=== PATIENT | male | born 1955 | race Caucasian/White ===

== ENCOUNTER 2017-09-14 23:33 | Observation (INO) | payer MEDICARE, SELFPAY ==
[2017-09-14 23:36] VITALS: BP 134/69; PULSE 81; RESP 16; TEMP 36.4; O2SAT 99; BMI 30.1
--- NOTE | 2017-09-14 23:41 | EKG12_ITS ---
Test Reason : D DIMER ELEVVATED Blood Pressure : / mmHG Vent. Rate : 080 BPM Atrial Rate : 080 BPM P-R Int : 284 ms QRS Dur : 162 ms QT Int : 440 ms P-R-T Axes : 058 -20 -06 degrees QTc Int : 507 ms Sinus rhythm with 1st degree A-V block Right bundle branch block Abnormal ECG Confirmed by MARGI MERCHANT, ALEXIA ([id number]), video news editor ANNIE MANCIA ([id number] on 09/17/2017 11:24:34 AM Referred By: CHARLY Confirmed By:ALEXIA KISER MD
--- NOTE | 2017-09-14 23:41 | NURSING ---
RN CALLED FOR EKG, PULLED OLD EKG'S FOR
[2017-09-14 23:42] VITALS: PULSE 81; RESP 19; O2SAT 97
[2017-09-14 23:46] VITALS: BP 120/57; PULSE 81; RESP 16; O2SAT 98; O2SAT 99
--- NOTE | 2017-09-14 23:49 | ED.VISSUMM ---
- ER Visit Summary Date of Service: 09/14/17 Chief Complaint: Possible stroke, elevated d-dimer History of Present Illness: The patient is a 62 M who comes in today with the above symptoms. He states he has been shaking all weekend. He himself and [facility] were concerned he may be having a stroke. They called the on-call doctor who ordered a CAT scan to be completed tomorrow. The ordered laboratory studies including a d-dimer which came back greatly elevated. They sent him here to get evaluated. He has a history of a stroke with residual left leg weakness. He was admitted back in July for sepsis of unknown origin. He ended up having a cholecystostomy tube placed. He was readmitted 2 weeks ago for bacteremia. It was found that it was Pseudomonas. He was initially placed on vancomycin and Flagyl because of C. difficile. He is currently still on the cefepime as an outpatient. He also still has the cholecystostomy tube in the right upper quadrant. He denies a fever. His main complaint is been the shaking of the upper extremities. He is blind as well. Physical Examination: Vital signs are reviewed. Patient afebrile. HEENT exam reveals no acute abnormalities. No facial droop noted. His heart is regular rate and rhythm. Lungs are clear bilaterally. Abdomen is soft and nontender. There is a cholecystostomy tube in the right upper quadrant. It appears as if it is backed out of its normal position. He does have distention on the right-hand side. Extremities reveal no edema. He is alert and oriented ?3 and answers all questions. His NIH stroke scale is 3. He has slight weakness of the left leg, ataxia of the lower and upper extremities as well as slight dysarthria. Test Results: EKG was normal sinus rhythm with a rate of 80. No ST changes. CAT scan of the head reveals old ischemic changes. Hemoglobin is 10. Sodium 135. Creatinine is 5.07, however he is on dialysis. Troponin normal. D-dimer is 0.75 Emergency Department Course and Treatment: The patient could not get a CAT scan tonight because radiology would not do it unless he had dialysis within 24 hours. I held on this and spoke with the admitting provider about this. I feel he needs to be admitted for further workup of these tremors and the elevated d-dimer. Patient was discussed with the admitting doctor for admission Treatment Plan: [] Disposition: Admit Impression: Tremors, elevated d-dimer This note was generated with Hands-[employer] Mobile dictation software. It may contain incorrect words, spelling, and punctuation that were not noted in review of the chart prior to signing ED Disposition - Plan for ED Patient: Chief Complaint: General Illness Referrals: [facility] Doctor,Out of [Primary Care Provider] -
--- NOTE | 2017-09-14 23:53 | ED.DCSUM_ITS ---
- ER Visit Summary Date of Service: 09/14/17 Chief Complaint: Possible stroke, elevated d-dimer History of Present Illness: The patient is a 62 M who comes in today with the above symptoms. He states he has been shaking all weekend. He himself and the staff at his [facility] were concerned he may be having a stroke. They called the on-call doctor who ordered a CAT scan to be completed tomorrow. The ordered laboratory studies including a d-dimer which came back greatly elevated. They sent him here to get evaluated. He has a history of a stroke with residual left leg weakness. He was admitted back in July for sepsis of unknown origin. He ended up having a cholecystostomy tube placed. He was readmitted 2 weeks ago for bacteremia. It was found that it was Pseudomonas. He was initially placed on vancomycin and Flagyl because of C. difficile. He is currently still on the cefepime as an outpatient. He also still has the cholecystostomy tube in the right upper quadrant. He denies a fever. His main complaint is been the shaking of the upper extremities. He is blind as well. Physical Examination: Vital signs are reviewed. Patient afebrile. HEENT exam reveals no acute abnormalities. No facial droop noted. His heart is regular rate and rhythm. Lungs are clear bilaterally. Abdomen is soft and nontender. There is a cholecystostomy tube in the right upper quadrant. It appears as if it is backed out of its normal position. He does have distention on the right- hand side. Extremities reveal no edema. He is alert and oriented ?3 and answers all questions. His NIH stroke scale is 3. He has slight weakness of the left leg, ataxia of the lower and upper extremities as well as slight dysarthria. Test Results: EKG was normal sinus rhythm with a rate of 80. No ST changes. CAT scan of the head reveals old ischemic changes. Hemoglobin is 10. Sodium 135. Creatinine is 5.07, however he is on dialysis. Troponin normal. D-dimer is 0.75 Emergency Department Course and Treatment: The patient could not get a CAT scan tonight because radiology would not do it unless he had dialysis within 24 hours. I held on this and spoke with the admitting provider about this. I feel he needs to be admitted for further workup of these tremors and the elevated d-dimer. Patient was discussed with the admitting doctor for admission Treatment Plan: [] Disposition: Admit Impression: Tremors, elevated d-dimer This note was generated with Clarity dictation software. It may contain incorrect words, spelling, and punctuation that were not noted in review of the chart prior to signing ED Disposition - Plan for ED Patient: Chief Complaint: General Illness Referrals: [facility] Doctor,Out of [Primary Care Provider] -
--- NOTE | 2017-09-14 23:57 | ED.RN ---
PATIENT PRESENTS WITH BILIARY DRAIN. DRESSING WAS LOSE AND FALLING OFF. DRAIN IS LOSE AND NOT SECURED TO ANYTHING AT THIS TIME. SITE CLEANED AND NEW DRESSING APPLIED TO THE AREA
[2017-09-15] VITALS (15 sets, daily range): BP systolic 103–135; BP diastolic 53–78; PULSE 62–86; RESP 12–20; TEMP 36.4–36.9; O2SAT 93–100; BMI 28.6
[2017-09-15 00:16] LABS: Absolute Lymphocyte Count 1.25 X10^3/ul (0.83-4.51); Absolute Neutrophil Count 7.1 X10^3/uL (2.0-7.7); Basophil# 0.01 X10^3/uL; Basophil% 0.1 % (0-1); Eosinophil# 0.28 X10^3/uL; Eosinophils% 2.9 % (0-5); Hematocrit 32.8 % (40-54); Lymphocyte # 1.25 X10^3/ul (4.0); Lymphocyte % 12.8 % (19-41); Mean Corp Hgb Conc 30.5 g/gl (32-36); Mean Corpuscular Hgb 25.1 pg (27.0-32.0); Mean Corpuscular Volume 82.2 fL (80-94); Mean Platelet Vol. 9.6 fl (6.2-12.0); Monocyte# 1.01 X10^3/uL; Monocyte% 10.3 % (0-10); Neutrophil # 7.09 X10^3/uL (2.7-7.7); Neutrophil % 72.3 % (47-70); Platelet Count 339 K/mm3 (150-450); RBC Distribution Width CV 15.5 % (11.6-14.6); RBC Distribution Width SD 45.8 fl (35.1-43.9); Red Blood Count 3.99 M/mm3 (4.6-6.2); White Blood Count 9.8 K/mm3 (4.4-11.0)
[2017-09-15 00:18] LABS: Differential Indicated SCAN CRITERIA MET; International Normalized Ratio 1.1; POSITIVE COUNT NO; POSITIVE DIFFERENTIAL NO; POSITIVE MORPHOLOGY YES; Prothrombin Time (Protime)PT. 13.7 SECONDS (11.7-14.9)
[2017-09-15 00:19] LABS: Partial Thromboplast Time 36.2 Seconds (24.1-36.2)
[2017-09-15 00:30] LABS: D-Dimer Quantitative (DVT/PE) 0.75 FEU/ug/m (0.27-0.49)
--- NOTE | 2017-09-15 00:30 | ED.RN ---
LAB CALLED WITH CRITICAL LAB RESULTS. D-DIMER 0.75. DR. PARKS MADE AWARE. NO NEW ORDERS AT THIS TIME
[2017-09-15 00:36] LABS: Differential Comment SCANNED
[2017-09-15 00:47] LABS: AST(SGOT) 15 U/L (15-37); Alanine Aminotransfer ALT/SGPT 18 U/L (16-61); Albumin, Serum 2.6 g/dL (3.2-5.0); Alkaline Phosphatase 165 U/L (45-117); Anion Gap 11 (5-15); BUN 18 mg/dL (7-18); BUN/Creat Ratio 3.6 RATIO (10-20); Bilirubin, Direct 0.27 mg/dL (0.00-0.30); Calcium,Total 8.6 mg/dL (8.5-10.1); Chloride 94 mmol/L (98-107); Creatinine, Serum 5.07 mg/dL (0.70-1.30); EST Glomerular Filtration Rate 12 mL/min (>60); Est Glom Filt Rate - Afr Amer 15 mL/min (>60); Estimated Creatinine Clearance 14.43 ml/min; Globulin 5.1 g/dL (2.2-4.2); Glucose 167 mg/dL (70-110); Potassium 3.8 mmol/L (3.5-5.1); Protein, Total 7.7 g/dL (6.4-8.2); Sodium Level 135 mmol/L (136-145)
--- NOTE | 2017-09-15 01:36 | PCM.HP.STD ---
Problem List (1) Benign essential hypertension Status: Chronic (2) CAD (coronary artery disease) Status: Chronic Comment: remote IWMI on stress with mild marlena-infarct ischemia (3) Type II diabetes mellitus Status: Chronic Comment: poorly controlled (4) Diabetic peripheral neuropathy Status: Chronic Comment: hands and feet (5) HLD (hyperlipidemia) Status: Chronic Comment: controlled (6) Iron deficiency anemia Status: Chronic Comment: due to GI blood loss (7) Back pain Status: Chronic (8) Uncontrolled hypertension Status: Chronic (9) Obesity (BMI 30-39.9) Status: Chronic (10) Diabetic retinopathy Status: Chronic (11) Depression Status: Chronic (12) Generalized weakness Status: Chronic (13) Colon polyps Status: Chronic (14) Blindness Status: Chronic (15) Iron deficiency anemia secondary to blood loss (chronic) Status: Chronic (16) Anxiety Status: Chronic (17) Polyneuropathy Status: Chronic (18) Foot drop, left Status: Resolved (19) ESRD (end stage renal disease) Status: Chronic (20) Stroke Status: Acute Qualifiers: CVA mechanism: unspecified Qualified Code(s): I63.9 - Cerebral infarction, unspecified (21) 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 pneumoniae (22) Cerebrovascular disease Status: Chronic History of Present Illness Date of Admission: 09/15/17 Chief Complaint: shaking and discoordination The patient is a 62 year old male patient who has been at a long-term facility for rehabilitation following a stroke. The patient has a complex past medical history with comorbidities of blindness, previous stroke, ESRD on dialysis, diabetes, and gall bladder disease. For the past four days he has developed an uncontrollable shaking. He is unable to balance himself standing without being a significant fall risk. He is now unable to touch his finger to his nose directly. This incoordination is new. He was tested as an outpatient and his D-Dimer was elevated so he was sent in for a CT scan. He denies chest pain or shortness of breath and CTA chest was denies due to renal disease and being unsure if he could get dialysis tomorrow. CT of the head is negative for hemorrhage. He will be admitted for further neurologic workup. He has previously seen Dr Wilcox for dialysis while in our facility. Past Medical History Past Medical History (Chronic Problems): Chronic Problems (Last Updated 08/25/17 @ 13:38 by Cammie White) Benign essential hypertension (Chronic) CAD (coronary artery disease) (Chronic) remote IWMI on stress with mild marlena-infarct ischemia Type II diabetes mellitus (Chronic) poorly controlled Diabetic peripheral neuropathy (Chronic) hands and feet HLD (hyperlipidemia) (Chronic) controlled Iron deficiency anemia (Chronic) due to GI blood loss Back pain (Chronic) Uncontrolled hypertension (Chronic) Obesity (BMI 30-39.9) (Chronic) Diabetic retinopathy (Chronic) Depression (Chronic) Generalized weakness (Chronic) Chronic renal failure, stage 3 (moderate) (Chronic) Colon polyps (Chronic) RBBB (Chronic) Blindness (Chronic) 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 pneumoniae Cerebrovascular disease (Chronic) Allergies silk Adverse Reaction (Verified 08/25/17 13:20) Rash Home Medications: Ambulatory Orders Medication Instructions Recorded Famotidine [Pepcid AC] 10 mg PO BID MDD t-1 222906/22/17 Pregabalin [Lyrica] 50 mg PO BID 06/22/17 Aspirin [Aspirin, Baby] 81 mg PO DAILY@0800 #30 tab.chew 06/23/17 Atorvastatin Calcium [Lipitor] 40 mg PO DAILY #30 06/23/17 Amlodipine [Norvasc] 10 mg PO DAILY tab 06/25/17 Senna [Senokot] 1 tab PO DAILY 08/03/17 Cefepime HCl [Maxipime] 2 gm IV DAILY 25 Days vial 09/07/17 Insulin Aspart [Novolog Flexpen] 5 units SC BREAKFAST flexpen 09/07/17 Insulin Aspart [Novolog Flexpen] 5 units SC LUNCH flexpen 09/07/17 Insulin Aspart [Novolog Flexpen] See Protocol SC ACHS flexpen 09/07/17 Insulin Detemir [Levemir FlexPen] 15 units SC DINNER insuln.pen 09/07/17 Menthol/Lanolin/Calamine/Znox 1 applic TOPICAL BID tube 09/07/17 [Calmoseptine Ointment] Vancomycin HCl 125 mg PO 4X/DAY 35 Days capsule 09/07/17 Insulin Aspart [Novolog Flexpen] 15 units SC DINNER 09/15/17 Surgical History: - - AV fistula right upper arm, umbilical hernia repair Psychiatric History: No pertinent psych hx Smoking Status: Never smoker - *Family History Maternal History Items: Diabetes, Renal Disease - was on dialysis with ESRD Paternal History Items: No pertinent history Review of Systems Constitutional: Reports: Weakness, Fatigue. Denies: Chills, Fever, Weight Change HEENT: Denies: Head Aches, Sinus Congestion, Sinus Drainage Cardiovascular: Denies: Chest Pain, Palpitations Respiratory: Denies: Cough, Shortness of breath at rest, Sputum production Gastrointestinal: Denies: Abdominal Pain, Nausea, Vomiting Genitourinary: Denies: Dysuria Musculoskeletal: Denies: Joint Pain, Joint Tenderness Skin: Denies: Rash, Wounds Neurological: Reports: Slurred speech, Focal weakness, Incoordination, Tremor. Denies: Numbness, Tingling Psychiatric: Denies: Anxiety, Depression, Homicidal Ideations, Suicidal Ideations Hematologic/ Lymphatic: Denies: Easy Bruising, Easy Bleeding VTE Information - Inpt Only VTE Present on Admission: No VTE Mechan Device Prophylaxis: SCD's VTE Pharm Prophylaxis ordered?: No Reason prophylaxis not ordered:: Medical Contraindication - Physical Exam General: Alert, Oriented x3, Cooperative HEENT: Atraumatic, Normocephalic, - - right eye dilated left constricted (he is blind) Neck: Supple Lungs: Clear to auscultation, Normal air movement Cardiovascular: Regular rate, Regular Rhythm, Normal S1, Normal S2, No murmurs Abdomen: Bowel Sounds Present, Soft, Non Tender Extremities: No edema, Capillary Refill Less than 3 Seconds Skin: No rashes, No breakdown Musculoskeletal: No Tenderness to Palpation of Joints or Extremities Neurological: Slurred Speech, - - fine motor skills are impaired in both upper extremities and legs as well Psych/Mental Status: Appropriate, Anxious Vital Signs Temp Pulse Resp BP Pulse Ox 98.5 F 70 20 H 107/63 100 09/15/17 01:18 09/15/17 01:18 09/15/17 01:18 09/15/17 01:18 09/15/17 01:18 Oxygen Delivery Method Room Air Weight: 198 lb 3.129 oz Body Mass Index (BMI) 30.1 Finger Stick Blood Glucose 284 Laboratory Tests Past 24 Hrs 09/14/17 09/14/17 09/14/17 23:58 23:58 23:58 WBC 9.8 RBC 3.99 L Hgb 10.0 L Hct 32.8 L MCV 82.2 MCH 25.1 L MCHC 30.5 L RDW 15.5 H RDW Differential 45.8 H Plt Count 339 MPV 9.6 Immature Gran % (Auto) 1.600 H Neut % (Auto) 72.3 H Lymph % (Auto) 12.8 L [place] % (Auto) 10.3 H Eos % (Auto) 2.9 Baso % (Auto) 0.1 Absolute Neuts (auto) 7.1 Absolute Lymphs (auto) 1.25 Total Counted Not Reportable Differential Comment SCANNED PT 13.7 INR 1.1 APTT 36.2 D-Dimer Quant (PE/DVT) Sodium 135 L Potassium 3.8 Chloride 94 L Carbon Dioxide 30.0 Anion Gap 11 BUN 18 Creatinine 5.07 H Estim Creat Clear Calc 14.43 Est GFR (MDRD) Af Amer 15 L Est GFR (MDRD) Non-Af 12 L BUN/Creatinine Ratio 3.6 L Glucose 167 H Calcium 8.6 Total Bilirubin 0.60 Direct Bilirubin 0.27 AST 15 ALT 18 Alkaline Phosphatase 165 H Troponin I 0.04 Total Protein 7.7 Albumin 2.6 L Globulin 5.1 H 09/14/17 23:58 WBC RBC Hgb Hct MCV MCH MCHC RDW RDW Differential Plt Count MPV Immature Gran % (Auto) Neut % (Auto) Lymph % (Auto) [place] % (Auto) Eos % (Auto) Baso % (Auto) Absolute Neuts (auto) Absolute Lymphs (auto) Total Counted Differential Comment PT INR APTT D-Dimer Quant (PE/DVT) 0.75 H* Sodium Potassium Chloride Carbon Dioxide Anion Gap BUN Creatinine Estim Creat Clear Calc Est GFR (MDRD) Af Amer Est GFR (MDRD) Non-Af BUN/Creatinine Ratio Glucose Calcium Total Bilirubin Direct Bilirubin AST ALT Alkaline Phosphatase Troponin I Total Protein Albumin Globulin Assessment/Plan Chronic Problems (Last Updated 08/25/17 @ 13:38 by Cammie White) Benign essential hypertension (Chronic) CAD (coronary artery disease) (Chronic) remote IWMI on stress with mild marlena-infarct ischemia Type II diabetes mellitus (Chronic) poorly controlled Diabetic peripheral neuropathy (Chronic) hands and feet HLD (hyperlipidemia) (Chronic) controlled Iron deficiency anemia (Chronic) due to GI blood loss Back pain (Chronic) Uncontrolled hypertension (Chronic) Obesity (BMI 30-39.9) (Chronic) Diabetic retinopathy (Chronic) Depression (Chronic) Generalized weakness (Chronic) Chronic renal failure, stage 3 (moderate) (Chronic) Colon polyps (Chronic) RBBB (Chronic) Blindness (Chronic) 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 pneumoniae Cerebrovascular disease (Chronic) Assessment - New ataxia , possible CVA Plan - admit to PCU - consult Dr Wilcox for dialysis - Consult neurology in am - MRI brain in am - neurochecks per routine - continue routine home medications - SCDs for DVT prophylaxis Code Visit Inpatient E&M: 95052 Init Hosp L3
--- NOTE | 2017-09-15 02:47 | MRI_ITS ---
STUDY: MRI BRAIN WITHOUT CONTRAST REASON FOR EXAM: Male, 62 years old. Shaking and incoordination. TECHNIQUE: Standardized multiplanar fat and water weighted pulse sequences were obtained. Several images are limited by patient motion. COMPARISON: MRI of the brain dated June 22, 2017. FINDINGS: There is mild cerebral atrophy with widening of the extra-axial spaces and ventricular dilatation. There are a limited number of small white matter hyperintensities, distributed throughout the deep white matter tracts of the cerebral hemispheres, consistent with mild chronic white matter ischemic changes. There appears to be small area of encephalomalacia involving the posterior right frontal lobe that may be the result of old infarct. This corresponds to the area of acute infarct on the previous MRI. There is some abnormal T2 hyperintensity in this area that probably represents gliosis. There is no evidence for recent intracranial ischemia or other cause of cytotoxic edema on diffusion weighted imaging (DWI). Normal T2* images of the brain without demonstrated susceptibility artifact. There is no demonstrated hemosiderin stain. There are prominent perivascular spaces (PVS) involving the basal ganglia. Normal thalami. There is no extra-axial fluid accumulation. Normal flow voids within the major intracranial circulation suggesting patency by spin echo criteria. Normal sella turcica, pituitary gland, infundibular stalk, optic chiasm and hypothalamus. Normal tectal plate and pineal gland. Normal midbrain, kiki and medulla. There are mild involutional changes of the cerebellum. There are large basal cisterns. Normal bilateral temporal bones. Normal bilateral internal auditory canals. There are bilateral ocular lens implants with otherwise normal intraorbital contents. Normal visualized paranasal sinuses. Normal calvarium and skull base. Normal visualized soft tissue structures. Normal visualized upper cervical spine. MRI/Brain without Contrast IMPRESSION: 1. Involutional changes of the brain, as described above. 2. Technically limited MRI due to patient motion. 3. No MR evidence for acute infarct. Electronically Signed: Mimi Montilla MD at 10:22 EST , Service support ,
[2017-09-15 07:15] LABS: Bedside Glucose 69 mg/dL (70-110)
[2017-09-15 08:12] LABS: Cholesterol 94 mg/dL (200); High Density Lipoprotein 35 mg/dL; Triglycerides 172 mg/dL; Very Low Density Lipoprotein 34 mg/dL (5-40)
--- NOTE | 2017-09-15 11:24 | CT_ITS ---
STUDY: CTA CHEST REASON FOR EXAM: Male, 62 years old. Elevated d-dimer. Patient is on dialysis. RADIATION DOSAGE (If Supplied By Facility): CTDIvol = ( 21.01 ) mGy, DLP = ( 622.72 ) mGycm TECHNIQUE: The examination was performed with the intravenous administration of 100 ml of Isovue 370 contrast material. Post-processing of the angiographic images was performed, with multiplanar reformation and 3D reconstruction. Individualized dose optimization techniques were used for this CT. COMPARISON: None. FINDINGS: Normal enhancement of the main pulmonary artery and right and left pulmonary arteries. Normal enhancement of the bilateral peripheral pulmonary arteries. There is no demonstrated pulmonary embolism. There is prominence of the main pulmonary arteries without peripheral pulmonary vascular congestion. There is atherosclerotic calcification of the aortic arch with tortuosity. Maximum transverse dimension of ascending thoracic aorta measures approximately 3.7 cm. There is no demonstrated aortic dissection. There is cardiomegaly. There are calcifications of the coronary arteries. There are visualized mediastinal lymph nodes, which are within normal size limits, and with normal morphology. Normal hilar regions. Normal visualized trachea and bronchi. The lungs are well expanded. There is mild elevation of right hemidiaphragm. There is mild bilateral basilar dependent atelectasis. There are small bilateral pleural effusions. Normal chest wall structures. The bones are osteopenic. There is multilevel thoracic spondylosis. There appears to be pneumobilia. There is gas visible in the gallbladder and/or gallbladder fossa with what may represent a gallstones. Infection of the visualized gallbladder and/or abscess cannot be excluded. These findings are also visible on previous CT of the abdomen and pelvis dated September 02, 2017. CT/CTA Chest W/WO Contrast IMPRESSION: 1. No CTA demonstrated pulmonary embolism or arterial dissection. 2. Bilateral basilar airspace disease and/or atelectasis with small pleural effusions. 3. Pneumobilia with residual gas in the gallbladder fossa apparently related to recent procedure. 4. Cardiomegaly and mild pulmonary edema. Electronically Signed: Mimi Montilla MD at 12:26 EST , Service support ,
[2017-09-15 12:06] LABS: Bedside Glucose 73 mg/dL (70-110)
--- NOTE | 2017-09-15 12:33 | PCM.CONS.R ---
Consultation - Renal 09/15/17 PCP/ Referring MD: Requesting physician: Primary care physician: Out of Town Doctor Reason for Consultation:: ESRD dialysis mgmt - History of Present Illness History of Present Illness: The patient is a 62 year old male patient who has been at [facility] following a [facility]. 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 For the past four days he has developed an uncontrollable shaking. He remains debilitated, left-sided weakness with difficulty standing and walking. He underwent a CTA last night for elevated d-dimer and that was negative for pulmonary embolus. He denies chest pain or shortness of breath. His oxygenation is stable. MRI without IV contrast was done this morning with pending report. - Allergies Allergies: Allergies silk Adverse Reaction (Verified 08/25/17 13:20) Rash - Current Medications Current Medications: Current Medications Amlodipine Besylate (Norvasc) 10 mg PO DAILY [facility] Last Admin: 09/15/17 07:46 Dose: Not Given Aspirin (Aspirin, Baby) 81 mg PO DAILY@0800 [facility] Last Admin: 09/15/17 07:46 Dose: Not Given Atorvastatin Calcium (Lipitor) 40 mg PO QHS [facility] Famotidine (Pepcid) 10 mg PO BID [facility] Last Admin: 09/15/17 07:46 Dose: Not Given Cefepime HCl 2 gm/ Sodium (Chloride) 100 mls @ 200 mls/hr IV MoWeFr [facility] Stop: 10/02/17 12:01 Insulin Aspart (Novolog Flexpen (Bkc)) 0 units SC ACHS [facility] PRN Reason: Protocol Last Admin: 09/15/17 12:11 Dose: Not Given Insulin Aspart (Novolog Flexpen (Bkc)) 5 units SC BREAKFAST [facility] Last Admin: 09/15/17 07:46 Dose: Not Given Insulin Aspart (Novolog Flexpen (Bkc)) 5 units SC LUNCH [facility] Last Admin: 09/15/17 12:12 Dose: Not Given Insulin Aspart (Novolog Flexpen (Bkc)) 15 units SC DINNER [facility] Insulin Detemir (Levemir (Bkc)) 15 units SC DINNER [facility] Magnesium Hydroxide (Milk Of Magnesia) 30 ml PO DAILY PRN PRN Reason: Constipation Pregabalin (Lyrica) 50 mg PO BID [facility] Last Admin: 09/15/17 07:46 Dose: Not Given Senna (Senokot) 1 tablet PO DAILY [facility] Last Admin: 09/15/17 07:46 Dose: Not Given Vancomycin HCl (Vancomycin 125mg/5ml Susp) 125 mg PO Q6 [facility] Stop: 10/12/17 06:01 Last Admin: 09/15/17 12:25 Dose: Not Given - Past Medical History Past Medical History (Chronic Problems): Chronic Problems (Last Updated 08/25/17 @ 13:38 by Cammie White) Benign essential hypertension (Chronic) CAD (coronary artery disease) (Chronic) remote IWMI on stress with mild marlena-infarct ischemia Type II diabetes mellitus (Chronic) poorly controlled Diabetic peripheral neuropathy (Chronic) hands and feet HLD (hyperlipidemia) (Chronic) controlled Iron deficiency anemia (Chronic) due to GI blood loss Back pain (Chronic) Uncontrolled hypertension (Chronic) Obesity (BMI 30-39.9) (Chronic) Diabetic retinopathy (Chronic) Depression (Chronic) Generalized weakness (Chronic) Chronic renal failure, stage 3 (moderate) (Chronic) Colon polyps (Chronic) RBBB (Chronic) Blindness (Chronic) 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 pneumoniae Cerebrovascular disease (Chronic) - Past Surgical History Surgical History: - - AV fistula right upper arm, umbilical hernia repair, biliary drain - Social History Marital Status: Smoking Status: Never smoker - Family History Maternal History Items: Diabetes, Renal Disease - was on dialysis with ESRD Paternal History Items: No pertinent history Review of Systems Constitutional: Reports: Weakness. Denies: Anorexia, Chills, Fever Eyes: Reports: - HEENT: Denies: Head Aches Cardiovascular: Denies: Chest Pain, Edema, Syncope Respiratory: Denies: Cough, Shortness of Breath Gastrointestinal: Reports: Diarrhea - 3 C. difficile colitis, - - Biliary drain. Denies: Abdominal Pain, Nausea, Vomiting Genitourinary: Reports: - - Oliguria. Denies: Dysuria Musculoskeletal: Denies: Joint stiffness, Joint swelling Skin: Denies: Rash Neurological: Reports: - - Left-sided weakness, generalized weakness debilitation. Denies: Tremor, Seizures Psychiatric: Reports: Anxiety. Denies: Depression Hematologic/ Lymphatic: Reports: Anemia - Physical Exam General: Alert, Oriented x3, Cooperative, No apparent distress HEENT: - - Blind Oral: Dry Mucosa Neck: Supple Lungs: Clear to auscultation Cardiovascular: Regular rate, Murmur Abdomen: Bowel Sounds Present, Soft, Non Tender, Non-Distended, - - Biliary drain Extremities: No edema Skin: No rashes Musculoskeletal: Muscle Wasting, - - muscle weakness generalized Neurological: - - Generalized weakness, left lower extremity weakness, myotonic jerking of bilateral upper extremities Psych/Mental Status: Normal Affect, Alert and oriented to time, place, person, mood and affect Vital Signs Temp Pulse Resp BP Pulse Ox 98.5 F 74 16 123/60 H 94 09/15/17 08:49 09/15/17 08:49 09/15/17 08:49 09/15/17 08:49 09/15/17 08:49 Oxygen Delivery Method Room Air Weight: 85.4 kg Body Mass Index (BMI) 28.6 Intake and Output for Last 24 Hours 09/13/17 09/14/17 09/15/17 23:59 23:59 23:59 Intake Total 0 / 0 Balance 0 / 0 Laboratory Tests Past 24 Hrs 09/15/17 07:35 Triglycerides 172 Cholesterol 94 LDL Cholesterol 25 VLDL Cholesterol 34 HDL Cholesterol 35 L POC Glucose 09/15/17 09/15/17 11:30 06:56 POC Glucose 73 69 L Clinical Impression(s) from Imaging Studies Brain MRI 09/15/17 02:47 IMPRESSION: 1. Involutional changes of the brain, as described above. 2. Technically limited MRI due to patient motion. 3. No MR evidence for acute infarct. Electronically Signed: Mimi Montilla MD at 10:22 EST , Service support , Chest CTA 09/15/17 11:24 IMPRESSION: 1. No CTA demonstrated pulmonary embolism or arterial dissection. 2. Bilateral basilar airspace disease and/or atelectasis with small pleural effusions. 3. Pneumobilia with residual gas in the gallbladder fossa apparently related to recent procedure. 4. Cardiomegaly and mild pulmonary edema. Electronically Signed: Mimi Montilla MD at 12:26 EST , Service support , Brain CT 09/15/17 23:41 IMPRESSION: Chronic involutional changes of the brain. There is a small old ischemic lesion in the right parietal lobe in the territory of the right middle cerebral artery. Electronically Signed: Linda Rabago MD at 0:56 EST Tel , Service support , Assessment/Plan 1. ESRD hemodialysis Thursday, Thursday, Thursday, last dialysis Thursday at the [facility] prior to admission. Next dialysis on Thursday. No immediate need for dialysis today following IV contrast study. Oxygenation stable. 2. Anemia hemoglobin stable 3. Left-sided weakness with upper extremity tremors. Suspect due to debilitation. CT of the head unremarkable. MRI without contrast pending. 4. DM type II primary care management 5. Hypertension with stable blood pressures 6. Choledocholithiasis status post biliary drainage follow-up with surgery. 7. C. difficile diarrhea with gram-negative indu sepsis prior to admission. Currently on oral vancomycin. 8. Positive d-dimer. CTA negative for pulmonary embolus.
--- NOTE | 2017-09-15 12:42 | CON.PCM_ITS ---
Consultation - Renal 09/15/17 PCP/ Referring MD: Requesting physician: Primary care physician: Out of Town Doctor Reason for Consultation:: ESRD dialysis mgmt - History of Present Illness History of Present Illness: The patient is a 62 year old male patient who [facility]. 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 For the past four days he has developed an uncontrollable shaking. He remains debilitated, left-sided weakness with difficulty standing and walking. He underwent a CTA last night for elevated d- dimer and that was negative for pulmonary embolus. He denies chest pain or shortness of breath. His oxygenation is stable. MRI without IV contrast was done this morning with pending report. - Allergies Allergies: Allergies silk Adverse Reaction (Verified 08/25/17 13:20) Rash - Current Medications Current Medications: Current Medications Amlodipine Besylate (Norvasc) 10 mg PO DAILY [facility] Last Admin: 09/15/17 07:46 Dose: Not Given Aspirin (Aspirin, Baby) 81 mg PO DAILY@0800 [facility] Last Admin: 09/15/17 07:46 Dose: Not Given Atorvastatin Calcium (Lipitor) 40 mg PO QHS [facility] Famotidine (Pepcid) 10 mg PO BID [facility] Last Admin: 09/15/17 07:46 Dose: Not Given Cefepime HCl 2 gm/ Sodium (Chloride) 100 mls @ 200 mls/hr IV MoWeFr [facility] Stop: 10/02/17 12:01 Insulin Aspart (Novolog Flexpen (Bkc)) 0 units SC ACHS [facility] PRN Reason: Protocol Last Admin: 09/15/17 12:11 Dose: Not Given Insulin Aspart (Novolog Flexpen (Bkc)) 5 units SC BREAKFAST [facility] Last Admin: 09/15/17 07:46 Dose: Not Given Insulin Aspart (Novolog Flexpen (Bkc)) 5 units SC LUNCH [facility] Last Admin: 09/15/17 12:12 Dose: Not Given Insulin Aspart (Novolog Flexpen (Bkc)) 15 units SC DINNER [facility] Insulin Detemir (Levemir (Bkc)) 15 units SC DINNER [facility] Magnesium Hydroxide (Milk Of Magnesia) 30 ml PO DAILY PRN PRN Reason: Constipation Pregabalin (Lyrica) 50 mg PO BID [facility] Last Admin: 09/15/17 07:46 Dose: Not Given Senna (Senokot) 1 tablet PO DAILY [facility] Last Admin: 09/15/17 07:46 Dose: Not Given Vancomycin HCl (Vancomycin 125mg/5ml Susp) 125 mg PO Q6 [facility] Stop: 10/12/17 06:01 Last Admin: 09/15/17 12:25 Dose: Not Given - Past Medical History Past Medical History (Chronic Problems): Chronic Problems (Last Updated 08/25/17 @ 13:38 by Cammie White) Benign essential hypertension (Chronic) CAD (coronary artery disease) (Chronic) remote IWMI on stress with mild marlena-infarct ischemia Type II diabetes mellitus (Chronic) poorly controlled Diabetic peripheral neuropathy (Chronic) hands and feet HLD (hyperlipidemia) (Chronic) controlled Iron deficiency anemia (Chronic) due to GI blood loss Back pain (Chronic) Uncontrolled hypertension (Chronic) Obesity (BMI 30-39.9) (Chronic) Diabetic retinopathy (Chronic) Depression (Chronic) Generalized weakness (Chronic) Chronic renal failure, stage 3 (moderate) (Chronic) Colon polyps (Chronic) RBBB (Chronic) Blindness (Chronic) 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 pneumoniae Cerebrovascular disease (Chronic) - Past Surgical History Surgical History: - - AV fistula right upper arm, umbilical hernia repair, biliary drain - Social History Marital Status: Smoking Status: Never smoker - Family History Maternal History Items: Diabetes, Renal Disease - was on dialysis with ESRD Paternal History Items: No pertinent history Review of Systems Constitutional: Reports: Weakness. Denies: Anorexia, Chills, Fever Eyes: Reports: - HEENT: Denies: Head Aches Cardiovascular: Denies: Chest Pain, Edema, Syncope Respiratory: Denies: Cough, Shortness of Breath Gastrointestinal: Reports: Diarrhea - 3 C. difficile colitis, - - Biliary drain. Denies: Abdominal Pain, Nausea, Vomiting Genitourinary: Reports: - - Oliguria. Denies: Dysuria Musculoskeletal: Denies: Joint stiffness, Joint swelling Skin: Denies: Rash Neurological: Reports: - - Left-sided weakness, generalized weakness debilitation. Denies: Tremor, Seizures Psychiatric: Reports: Anxiety. Denies: Depression Hematologic/ Lymphatic: Reports: Anemia - Physical Exam General: Alert, Oriented x3, Cooperative, No apparent distress HEENT: - - Blind Oral: Dry Mucosa Neck: Supple Lungs: Clear to auscultation Cardiovascular: Regular rate, Murmur Abdomen: Bowel Sounds Present, Soft, Non Tender, Non-Distended, - - Biliary drain Extremities: No edema Skin: No rashes Musculoskeletal: Muscle Wasting, - - muscle weakness generalized Neurological: - - Generalized weakness, left lower extremity weakness, myotonic jerking of bilateral upper extremities Psych/Mental Status: Normal Affect, Alert and oriented to time, place, person, mood and affect Vital Signs Temp Pulse Resp BP Pulse Ox 98.5 F 74 16 123/60 H 94 09/15/17 08:49 09/15/17 08:49 09/15/17 08:49 09/15/17 08:49 09/15/17 08:49 Oxygen Delivery Method Room Air Weight: 85.4 kg Body Mass Index (BMI) 28.6 Intake and Output for Last 24 Hours 09/13/17 09/14/17 09/15/17 23:59 23:59 23:59 Intake Total 0 / 0 Balance 0 / 0 Laboratory Tests Past 24 Hrs 09/15/17 07:35 Triglycerides 172 Cholesterol 94 LDL Cholesterol 25 VLDL Cholesterol 34 HDL Cholesterol 35 L POC Glucose 09/15/17 09/15/17 11:30 06:56 POC Glucose 73 69 L Clinical Impression(s) from Imaging Studies Brain MRI 09/15/17 02:47 IMPRESSION: 1. Involutional changes of the brain, as described above. 2. Technically limited MRI due to patient motion. 3. No MR evidence for acute infarct. Electronically Signed: Mimi Montilla MD at 10:22 EST , Service support , Chest CTA 09/15/17 11:24 IMPRESSION: 1. No CTA demonstrated pulmonary embolism or arterial dissection. 2. Bilateral basilar airspace disease and/or atelectasis with small pleural effusions. 3. Pneumobilia with residual gas in the gallbladder fossa apparently related to recent procedure. 4. Cardiomegaly and mild pulmonary edema. Electronically Signed: Mimi Montilla MD at 12:26 EST , Service support , Brain CT 09/15/17 23:41 IMPRESSION: Chronic involutional changes of the brain. There is a small old ischemic lesion in the right parietal lobe in the territory of the right middle cerebral artery. Electronically Signed: Linda Rabago MD at 0:56 EST Tel , Service support , Assessment/Plan 1. ESRD hemodialysis Thursday, Thursday, Thursday, last dialysis Thursday at the [facility] prior to admission. Next dialysis on Thursday. No immediate need for dialysis today following IV contrast study. Oxygenation stable. 2. Anemia hemoglobin stable 3. Left-sided weakness with upper extremity tremors. Suspect due to debilitation. CT of the head unremarkable. MRI without contrast pending. 4. DM type II primary care management 5. Hypertension with stable blood pressures 6. Choledocholithiasis status post biliary drainage follow-up with surgery. 7. C. difficile diarrhea with gram-negative indu sepsis prior to admission. Currently on oral vancomycin. 8. Positive d-dimer. CTA negative for pulmonary embolus.
--- NOTE | 2017-09-15 13:18 | CON.PCM_ITS ---
Problem List (1) Generalized weakness Status: Chronic Reason for Consult Date of Consultation: 09/15/17 Reason for Consultation: shaking and jerks History of Present Illness: The patient is a 62 year old [facility] resident with PMH HTN, HLD, DM, H/O stroke with residual left LE weakness, CAD, ESRD on HD, DM retinopathy, blind in both eyes per patient admitted from [facility] since he has been having, for the past 3-4 days, he walks with a walker but could not walk due to the legs shaking per patient, lives at [facility], needs assistance for his ADLs,, ambulates with wheel chair but also uses a walker per patient. MRI brain done following admission was reported to be negative for acute stroke, patient continues to have jerks in UEs, denies any new onset MALIK, visual disturbances, focal motor weakness or sensory loss. [] Past Medical History Past Medical History (Chronic Problems): Chronic Problems (Last Updated 08/25/17 @ 13:38 by Cammie White) Benign essential hypertension (Chronic) CAD (coronary artery disease) (Chronic) remote IWMI on stress with mild marlena-infarct ischemia Type II diabetes mellitus (Chronic) poorly controlled Diabetic peripheral neuropathy (Chronic) hands and feet HLD (hyperlipidemia) (Chronic) controlled Iron deficiency anemia (Chronic) due to GI blood loss Back pain (Chronic) Uncontrolled hypertension (Chronic) Obesity (BMI 30-39.9) (Chronic) Diabetic retinopathy (Chronic) Depression (Chronic) Generalized weakness (Chronic) Chronic renal failure, stage 3 (moderate) (Chronic) Colon polyps (Chronic) RBBB (Chronic) Blindness (Chronic) 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 pneumoniae Cerebrovascular disease (Chronic) Allergies silk Adverse Reaction (Verified 08/25/17 13:20) Rash Home Medications: Ambulatory Orders Medication Instructions Recorded Famotidine [Pepcid AC] 10 mg PO BID 06/22/17 Pregabalin [Lyrica] 50 mg PO BID 11/06/17 Aspirin [Aspirin, Baby] 81 mg PO DAILY@0800 #30 tab.chew 06/23/17 Atorvastatin Calcium [Lipitor] 40 mg PO DAILY #30 06/23/17 Amlodipine [Norvasc] 10 mg PO DAILY tab 06/25/17 Senna [Senokot] 1 tab PO DAILY 08/03/17 Cefepime HCl [Maxipime] 2 gm IV DAILY 25 Days vial 09/07/17 Insulin Aspart [Novolog Flexpen] 5 units SC BREAKFAST flexpen 09/07/17 Insulin Aspart [Novolog Flexpen] 5 units SC LUNCH flexpen 09/07/17 Insulin Aspart [Novolog Flexpen] See Protocol SC ACHS flexpen 09/07/17 Insulin Detemir [Levemir FlexPen] 15 units SC DINNER insuln.pen 09/07/17 Menthol/Lanolin/Calamine/Znox 1 applic TOPICAL BID tube 09/07/17 [Calmoseptine Ointment] Vancomycin HCl 125 mg PO 4X/DAY 35 Days capsule 09/07/17 Insulin Aspart [Novolog Flexpen] 5 units SC DINNER 09/15/17 Surgical History: - - AV fistula right upper arm, umbilical hernia repair, biliary drain Lives: [facility] Smoking Status: Never smoker Alcohol: None Drugs: None - *Family History Maternal History Items: Asthma, Diabetes, Renal Disease - was on dialysis with ESRD Paternal History Items: No pertinent history Review of Systems Constitutional: Reports: - - complete ROS negative except as documented in HPI - Physical Exam General: Alert, Oriented x3, Cooperative HEENT: Atraumatic, PERRLA, EOMI, Normocephalic Neck: Supple, No JVD, Negative Carotid Bruits Lungs: Clear to auscultation, Normal air movement Cardiovascular: Regular rate, No murmurs Abdomen: Bowel Sounds Present, Soft, Non Tender Extremities: No edema, Capillary Refill Less than 3 Seconds Skin: No rashes, No breakdown Musculoskeletal: No Tenderness to Palpation of Joints or Extremities Neurological: - - consious, alert, AoA x3 at present, CN 2-12 grossly intact, power 5/5 both UE and right LE, 4/5 Left LE (residual weakness from old stroke) , ? slurred speech, denies any sensory loss, no cerebellar signs, patient has myoclonic jerks both UE, Reflexes + B/L B/S/T/K/A, plantars B/L flexor, gait deferred. Psych/Mental Status: Normal Affect, Appropriate Vital Signs Temp Pulse Resp BP Pulse Ox 98.5 F 74 16 123/60 H 94 09/15/17 08:49 09/15/17 08:49 09/15/17 08:49 09/15/17 08:49 09/15/17 08:49 Oxygen Delivery Method Room Air Weight: 85.4 kg Body Mass Index (BMI) 28.6 Intake and Output for Last 24 Hours 09/13/17 09/14/17 09/15/17 23:59 23:59 23:59 Intake Total 0 / 0 Balance 0 / 0 Laboratory Tests Past 24 Hrs 09/15/17 07:35 Triglycerides 172 Cholesterol 94 LDL Cholesterol 25 VLDL Cholesterol 34 HDL Cholesterol 35 L POC Glucose 09/15/17 09/15/17 11:30 06:56 POC Glucose 73 69 L Assessment/Plan The patient is a 62 year old [facility] resident with PMH HTN, HLD, DM, H/O stroke with residual left LE weakness, CAD, ESRD on HD, DM retinopathy, blind in both eyes per patient admitted from [facility] since he has been having, for the past 3-4 days, he walks with a walker but could not walk due to the legs shaking per patient, lives at [facility], needs assistance for his ADLs,, ambulates with wheel chair but also uses a walker per patient. MRI brain done following admission was reported to be negative for acute stroke, patient continues to have jerks in UEs, denies any new onset MALIK, visual disturbances, focal motor weakness or sensory loss. Creatinine 5.07 on admission. Impression Metabolic Encephalopathy Myoclonic jerks possibly secondary to uremia Plan -On ASA and statins -MRI brain reviewed- no acute stroke. -Labs reviewed -Further management of medical and metabolic issues per Nephrology and Hospitalist. -GI/DVT prophylaxis -Fall precautions -PT/OT -Please call with questions if any -Thank you for allowing us to participate in patient's care and management I spent 60 minutes taking history, doing physical examination, reviewing medical records, coordinating care and counseling the patient. Code Visit Inpatient E&M: [id number] Init Hosp L3
--- NOTE | 2017-09-15 15:47 | PCM.TXEXTCAR ---
- Diet 09/15/17 15:07 Diet: Renal - Carb-Controlled Is pt able to select menu?: Yes Diet Comments: pt may use straw for liquids, small bites/sips; upright for eating - Routine Orders/Code Status Code Status: Full Code - Therapies Physical Therapy: Eval and Treat Occupational Therapy: Eval and Treat Speech Therapy: Eval and Treat - Allergies/Procedures Done in Hospital Allergies/Adverse Reactions: Allergies silk Adverse Reaction (Verified 08/25/17 13:20) Rash - Type of Care/Length of Stay Estimated LOS: Convalescent Care Less Than 30 days Type of Care Needed: Skilled Rehab Potential: Good Prognosis: Good - Additional Orders/Day of Discharge Day of Discharge: 09/15/17 - Dietary and Speech Recommendations Dietitian Recommendations/Changes: When appropriate for PO diet, rec 2200 calorie controlled, renal 90 g protein diet. Nepro Carb Steady w/ medpass when OK for PO intake. If PO intake to remain contraindicated long-term, rec nutritional support- please consult RD for recommendations. - Follow Up Care Primary Care Physician: Ubaldo Morton,Out of [Primary Care Provider] -
--- NOTE | 2017-09-15 15:51 | PCM.DC.SUM ---
Discharge Date and Diagnosis Date of Admission: 09/15/17 Date of Discharge: 09/15/17 - Primary Discharge Diagnosis Myoclonic jerks secondary to uremia - Secondary Discharge Diagnosis Chronic Problems (Last Updated 08/25/17 @ 13:38 by Cammie White) Benign essential hypertension (Chronic) CAD (coronary artery disease) (Chronic) remote IWMI on stress with mild marlena-infarct ischemia Type II diabetes mellitus (Chronic) poorly controlled Diabetic peripheral neuropathy (Chronic) hands and feet HLD (hyperlipidemia) (Chronic) controlled Iron deficiency anemia (Chronic) due to GI blood loss Back pain (Chronic) Uncontrolled hypertension (Chronic) Obesity (BMI 30-39.9) (Chronic) Diabetic retinopathy (Chronic) Depression (Chronic) Generalized weakness (Chronic) Chronic renal failure, stage 3 (moderate) (Chronic) Colon polyps (Chronic) RBBB (Chronic) Blindness (Chronic) 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 pneumoniae Cerebrovascular disease (Chronic) Hospital Course and Treatment Imaging Results: Clinical Impression(s) from Imaging Studies Brain MRI 09/15/17 02:47 IMPRESSION: 1. Involutional changes of the brain, as described above. 2. Technically limited MRI due to patient motion. 3. No MR evidence for acute infarct. Electronically Signed: Mimi Montilla MD at 10:22 EST , Service support , Chest CTA 09/15/17 11:24 IMPRESSION: 1. No CTA demonstrated pulmonary embolism or arterial dissection. 2. Bilateral basilar airspace disease and/or atelectasis with small pleural effusions. 3. Pneumobilia with residual gas in the gallbladder fossa apparently related to recent procedure. 4. Cardiomegaly and mild pulmonary edema. Electronically Signed: Mimi Montilla MD at 12:26 EST , Service support , Brain CT 09/15/17 23:41 IMPRESSION: Chronic involutional changes of the brain. There is a small old ischemic lesion in the right parietal lobe in the territory of the right middle cerebral artery. Electronically Signed: Linda Rabago MD at 0:56 EST Tel , Service support , Operations: None Summary of Care Provided: The patient is a 62 year old M with multiple comorbidities presenting with progressive generalized weakness less involuntary movement. Patient admitted to a monitored bed for further management 1. Myoclonic jerks this accounted for the involuntary movement patient presented with and this was attributed to patient renal uremia from his end-stage kidney disease. Patient underwent MRI which was negative for acute CVA. Was also found to have an elevated d-dimer CT Susy of the chest was negative for PE patient was discharged back to his assisted facility to continue with therapy 2. Recent hospitalization for severe sepsis secondary to C. difficile colitis 3. Recent influenza A infection 4. Recent Acute cholecystitis s/p Exploratory laparoscopy with placement of cholecystostomy tube on by Dr. Anand 5. End-stage renal disease 6. Diabetes mellitus type 2 with complications including diabetic polyneuropathy as well as end-stage renal disease 7. Diabetic retinopathy with blindness 8. Diabetic polyneuropathy involving both upper and lower extremities 9. Anemia secondary to anemia of end-stage renal disease 10. Chronic diastolic congestive heart failure 11. History of CVA with recent acute posterior right frontal lobe infarction 12. Hypertension-blood pressure controlled, home medications continued with dose adjustment as needed Home Medications: Medications to take at Discharge Famotidine [Pepcid AC] 10 mg PO BID 06/22/17 Pregabalin [Lyrica] 50 mg PO BID 06/22/17 Aspirin [Aspirin, Baby] 81 mg PO DAILY@0800 #30 tab.chew 06/23/17 Atorvastatin Calcium [Lipitor] 40 mg PO DAILY #30 06/23/17 Amlodipine [Norvasc] 10 mg PO DAILY tab 06/25/17 Senna [Senokot] 1 tab PO DAILY 08/03/17 Cefepime HCl [Maxipime] 2 gm IV DAILY 25 Days vial 09/07/17 Insulin Aspart [Novolog Flexpen] 5 units SC BREAKFAST flexpen 09/07/17 Insulin Aspart [Novolog Flexpen] 5 units SC LUNCH flexpen 09/07/17 Insulin Aspart [Novolog Flexpen] See Protocol SC ACHS flexpen 09/07/17 Insulin Detemir [Levemir FlexPen] 15 units SC DINNER insuln.pen 09/07/17 Menthol/Lanolin/Calamine/Znox [Calmoseptine Ointment] 1 applic TOPICAL BID tube 09/07/17 Vancomycin HCl 125 mg PO 4X/DAY 35 Days capsule 09/07/17 Insulin Aspart [Novolog Flexpen] 5 units SC DINNER 09/15/17 Primary Care Physician: Ubaldo Morton,Out of [Primary Care Provider] - Disposition: Longterm facility Minutes spent on discharge:: 35 Patient Condition:: Stable Meaningful Use Info Meaningful Use Diagnoses (Choose all that apply): None applicable Code Visit OBSV E&M: 60998 Observation care discharge
--- NOTE | 2017-09-15 15:54 | CASEMGMT ---
Physician would like to send patient back today. BASSAM spoke with Steffayn at [facility] and she said they will take him back. SW told her SW will sets up transport for 6p. SW [place] [facility] [place] arranged for patient to get picked up at 6p via cot. SW let RN know who will let patient know. Faxed orders to [facility]. All in agreement with d/c plan. [facility] [place] patient back to [facility]. Anastasia RDZ MSW
--- NOTE | 2017-09-15 15:55 | DS.PCM_ITS ---
Discharge Date and Diagnosis Date of Admission: 09/15/17 Date of Discharge: 09/15/17 - Primary Discharge Diagnosis Myoclonic jerks secondary to uremia - Secondary Discharge Diagnosis Chronic Problems (Last Updated 08/25/17 @ 13:38 by Cammie White) Benign essential hypertension (Chronic) CAD (coronary artery disease) (Chronic) remote IWMI on stress with mild marlena-infarct ischemia Type II diabetes mellitus (Chronic) poorly controlled Diabetic peripheral neuropathy (Chronic) hands and feet HLD (hyperlipidemia) (Chronic) controlled Iron deficiency anemia (Chronic) due to GI blood loss Back pain (Chronic) Uncontrolled hypertension (Chronic) Obesity (BMI 30-39.9) (Chronic) Diabetic retinopathy (Chronic) Depression (Chronic) Generalized weakness (Chronic) Chronic renal failure, stage 3 (moderate) (Chronic) Colon polyps (Chronic) RBBB (Chronic) Blindness (Chronic) 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 pneumoniae Cerebrovascular disease (Chronic) Hospital Course and Treatment Imaging Results: Clinical Impression(s) from Imaging Studies Brain MRI 09/15/17 02:47 IMPRESSION: 1. Involutional changes of the brain, as described above. 2. Technically limited MRI due to patient motion. 3. No MR evidence for acute infarct. Electronically Signed: Mimi Montilla MD at 10:22 EST , Service support , Chest CTA 09/15/17 11:24 IMPRESSION: 1. No CTA demonstrated pulmonary embolism or arterial dissection. 2. Bilateral basilar airspace disease and/or atelectasis with small pleural effusions. 3. Pneumobilia with residual gas in the gallbladder fossa apparently related to recent procedure. 4. Cardiomegaly and mild pulmonary edema. Electronically Signed: Mimi Montilla MD at 12:26 EST , Service support , Brain CT 09/15/17 23:41 IMPRESSION: Chronic involutional changes of the brain. There is a small old ischemic lesion in the right parietal lobe in the territory of the right middle cerebral artery. Electronically Signed: Linda Rabago MD at 0:56 EST Tel , Service support , Operations: None Summary of Care Provided: The patient is a 62 year old M with multiple comorbidities presenting with progressive generalized weakness less involuntary movement. Patient admitted to a monitored bed for further management 1. Myoclonic jerks this accounted for the involuntary movement patient presented with and this was attributed to patient renal uremia from his end- stage kidney disease. Patient underwent MRI which was negative for acute CVA. Was also found to have an elevated d-dimer CT Susy of the chest was negative for PE patient was discharged back to his nursing home facility to continue with therapy 2. Recent hospitalization for severe sepsis secondary to C. difficile colitis 3. Recent influenza A infection 4. Recent Acute cholecystitis s/p Exploratory laparoscopy with placement of cholecystostomy tube on by Dr. Anand 5. End-stage renal disease 6. Diabetes mellitus type 2 with complications including diabetic polyneuropathy as well as end-stage renal disease 7. Diabetic retinopathy with blindness 8. Diabetic polyneuropathy involving both upper and lower extremities 9. Anemia secondary to anemia of end-stage renal disease 10. Chronic diastolic congestive heart failure 11. History of CVA with recent acute posterior right frontal lobe infarction 12. Hypertension-blood pressure controlled, home medications continued with dose adjustment as needed Home Medications: Medications to take at Discharge Famotidine [Pepcid AC] 10 mg PO BID 06/22/17 Pregabalin [Lyrica] 50 mg PO BID 06/22/17 Aspirin [Aspirin, Baby] 81 mg PO DAILY@0800 #30 tab.chew 06/23/17 Atorvastatin Calcium [Lipitor] 40 mg PO DAILY #30 06/23/17 Amlodipine [Norvasc] 10 mg PO DAILY tab 06/25/17 Senna [Senokot] 1 tab PO DAILY 08/03/17 Cefepime HCl [Maxipime] 2 gm IV DAILY 25 Days vial 09/07/17 Insulin Aspart [Novolog Flexpen] 5 units SC BREAKFAST flexpen 09/07/17 Insulin Aspart [Novolog Flexpen] 5 units SC LUNCH flexpen 09/07/17 Insulin Aspart [Novolog Flexpen] See Protocol SC ACHS flexpen 09/07/17 Insulin Detemir [Levemir FlexPen] 15 units SC DINNER insuln.pen 09/07/17 Menthol/Lanolin/Calamine/Znox [Calmoseptine Ointment] 1 applic TOPICAL BID tube 09/07/17 Vancomycin HCl 125 mg PO 4X/DAY 35 Days capsule 09/07/17 Insulin Aspart [Novolog Flexpen] 5 units SC DINNER 09/15/17 Primary Care Physician: Ubaldo Morton,Out of [Primary Care Provider] - Disposition: Senior Living facility Minutes spent on discharge:: 35 Patient Condition:: Stable Meaningful Use Info Meaningful Use Diagnoses (Choose all that apply): None applicable Code Visit OBSV E&M: 13985 Observation care discharge
[2017-09-15 17:21] LABS: Bedside Glucose 141 mg/dL (70-110)
--- NOTE | 2017-09-15 17:47 | NURSING ---
REVIEWED Duncan DELA CRUZ'S CHARTING.
--- NOTE | 2017-09-15 17:50 | NURSING ---
REPORT CALLED AT THIS TIME TO TREVON RAO AND [facility]. RN HAS TAKEN CARE OF PATIENT PRIOR. ALL QUESTIONS ANSWERED. NO FURTHER QUESTIONS AT THIS TIME.
--- NOTE | 2017-09-15 23:41 | CT_ITS ---
STUDY: CT BRAIN WITHOUT CONTRAST REASON FOR EXAM: Male, 62 years old. CONCERN FOR CVA, ELEVATED D-DIMER, HX HTN, STROKE, DIAB, RENAL DZ WITH DIALYSIS, CHF, HTN, BLIND RADIATION DOSAGE (If Supplied By Facility): CTDIvol = ( 44.99 ) mGy, DLP = ( 849.54 ) mGycm TECHNIQUE: Transaxial CT imaging of the brain was performed without administration of intravenous contrast material. Individualized dose optimization techniques were used for this CT. COMPARISON: None. FINDINGS: Normal soft tissue structures. Normal calvarium. There is moderate cerebral atrophy with widening of the extra-axial spaces and ventricular dilatation. There are areas of decreased attenuation within the white matter tracts of the supratentorial brain, consistent with microvascular disease changes. There is a small old ischemic lesion in the right parietal lobe in the territory of the right middle cerebral artery. Normal basal ganglia and thalami. Normal brainstem. Normal cerebellum. There is no intracranial hemorrhage. There are no findings of an acute ischemic infarction. Normal visualized paranasal sinuses. CT/Brain/Head without Contrast IMPRESSION: Chronic involutional changes of the brain. There is a small old ischemic lesion in the right parietal lobe in the territory of the right middle cerebral artery. Electronically Signed: Linda Rabago MD at 0:56 EST Tel , Service support ,
== END 2017-09-15 15:48 | disposition skilled nursing facility (03) ==
LOC: ED 23:50 → PCU 09-15 02:27
PROVIDERS: Admitting Provider Family Medicine; Emergency Provider Emergency Medicine; Family Provider Internal Medicine; PCP Internal Medicine; Visit Provider Internal Medicine
DX: G25.3 Myoclonus (principal); I25.10 Atherosclerotic heart disease of native coronary artery without angina pectoris; E11.42 Type 2 diabetes mellitus with diabetic polyneuropathy; E11.319 Type 2 diabetes mellitus with unspecified diabetic retinopathy without macular edema; E78.5 Hyperlipidemia, unspecified; E11.22 Type 2 diabetes mellitus with diabetic chronic kidney disease; I13.2 Hypertensive heart and chronic kidney disease with heart failure and with stage 5 chronic kidney disease, or end stage renal disease; N18.6 End stage renal disease; I50.32 Chronic diastolic (congestive) heart failure; R53.1 Weakness; H54.3 Unqualified visual loss, both eyes; I69.354 Hemiplegia and hemiparesis following cerebral infarction affecting left non-dominant side; D50.0 Iron deficiency anemia secondary to blood loss (chronic); E66.9 Obesity, unspecified; Z68.28 Body mass index [BMI] 28.0-28.9, adult; Z71.3 Dietary counseling and surveillance; Z99.2 Dependence on renal dialysis; Z79.899 Other long term (current) drug therapy; Z79.82 Long term (current) use of aspirin; Z79.4 Long term (current) use of insulin; R47.81 Slurred speech
CPT/HCPCS: 36415; 70450; 70551; 71275; 80048; 80061; 80076; 82962; 84484; 85025; 85379; 85610; 85730; 93005; 97802; 99218; 99284; Q9967; A4216; G0378

== ENCOUNTER 2017-10-12 17:43 | Inpatient (IN) | payer MEDICARE, SELFPAY ==
[2017-10-12] VITALS (8 sets, daily range): BP systolic 120–157; BP diastolic 64–77; PULSE 73–83; RESP 12–18; TEMP 36.2–36.5; O2SAT 93–98; BMI 30.1; BMI 30.2; BMI 30.3
--- NOTE | 2017-10-12 14:47 | EKG12_ITS ---
Test Reason : WEAKNESS Blood Pressure : / mmHG Vent. Rate : 075 BPM Atrial Rate : 075 BPM P-R Int : 194 ms QRS Dur : 146 ms QT Int : 440 ms P-R-T Axes : 036 -02 020 degrees QTc Int : 491 ms Normal sinus rhythm Right bundle branch block Inferior infarct , age undetermined Abnormal ECG Confirmed by JEREMIE MERCHANT, KERRY ([id number]), editor publications ANNIE MANCIA ([id number]) on 10/14/2017 1:56:12 PM Referred By: Antony Hopper Confirmed By:KERRY CHAO MD
--- NOTE | 2017-10-12 14:47 | RAD_ITS ---
STUDY: X-RAY - ACUTE ABDOMINAL SERIES REASON FOR EXAM: Male, 62 years old. Small bowel obstruction TECHNIQUE: Single view of the chest. Supine, and erect view(s) of the abdomen were obtained. COMPARISON: ct 09.02.17 FINDINGS: Right upper quadrant pigtail drain in place. Right upper quadrant biliary stent in place. The lungs are clear and expanded. Normal size heart. Normal mediastinum and matthew. Normal visualized pulmonary arteries. Normal visualized aortic arch and descending thoracic aorta. There is a paralytic ileus of the small intestine with mild gaseous distention. The soft tissue structures of the abdomen and pelvis are unremarkable. Normal visualized osseous structures. RAD/Acute Abdomen Inc Chest IMPRESSION: Mild ileus. Electronically Signed: Carlton King MD at 16:11 EST , Service support ,
[2017-10-12 15:42] LABS: Absolute Lymphocyte Count 0.96 X10^3/ul (0.83-4.51); Absolute Neutrophil Count 11.5 X10^3/uL (2.0-7.7); Basophil# 0.02 X10^3/uL; Basophil% 0.1 % (0-1); Eosinophil# 0.27 X10^3/uL; Eosinophils% 1.9 % (0-5); Hematocrit 34.8 % (40-54); Hemoglobin 10.7 g/dl (13.0-16.5); Lymphocyte # 0.96 X10^3/ul (4.0); Lymphocyte % 6.8 % (19-41); Mean Corp Hgb Conc 30.7 g/gl (32-36); Mean Corpuscular Hgb 25.5 pg (27.0-32.0); Mean Corpuscular Volume 83.1 fL (80-94); Monocyte% 9.9 % (0-10); Neutrophil # 11.46 X10^3/uL (2.7-7.7); Neutrophil % 80.6 % (47-70); Platelet Count 249 K/mm3 (150-450); RBC Distribution Width CV 15.9 % (11.6-14.6); RBC Distribution Width SD 48.1 fl (35.1-43.9); Red Blood Count 4.19 M/mm3 (4.6-6.2); White Blood Count 14.2 K/mm3 (4.4-11.0)
[2017-10-12 15:49] LABS: POSITIVE COUNT NO; POSITIVE DIFFERENTIAL NO; POSITIVE MORPHOLOGY NO
[2017-10-12 16:07] LABS: AST(SGOT) 28 U/L (15-37); Alanine Aminotransfer ALT/SGPT 51 U/L (16-61); Albumin, Serum 3.1 g/dL (3.2-5.0); Alkaline Phosphatase 173 U/L (45-117); Anion Gap 9 (5-15); BUN 22 mg/dL (7-18); BUN/Creat Ratio 5.7 RATIO (10-20); Chloride 94 mmol/L (98-107); Creatinine, Serum 3.83 mg/dL (0.70-1.30); EST Glomerular Filtration Rate 17 mL/min (>60); Est Glom Filt Rate - Afr Amer 21 mL/min (>60); Globulin 4.4 g/dL (2.2-4.2); Glucose 126 mg/dL (74-106); Lipase 79 U/L (73-393); Potassium 3.7 mmol/L (3.5-5.1); Protein, Total 7.5 g/dL (6.4-8.2); Sodium Level 136 mmol/L (136-145)
[2017-10-12 17:41] LABS: Bedside Glucose 114 mg/dL (70-110)
--- NOTE | 2017-10-12 17:56 | ED.VISSUMM ---
- ER Visit Summary Date of Service: 10/12/17 Chief Complaint: Weakness History of Present Illness: The patient is a 62 M who sees Maximilian Castillo, Dr. Guerrero, and Dr. Anand. He has a complicated recent medical history. He reports that he was hospitalized back in June for a stroke. He had surgery by Dr. Anand last July for a possible cholecystectomy. This was complicated by the fact that his gallbladder was so infected that the surgery was unable to be performed. A percutaneous drain was placed into his gallbladder. Since that time he has been admitted for sepsis and bacteremia. She reports that he was discharged from [facility] 3 days ago and had been doing well. He went to dialysis this morning and had 200 cc of fluid removed. States that after this he was so weak that it took 2 nurses to help him get in the wheelchair. His daughter states that at home he was unable to even stand off the commode with the help of 2 people. They measured his blood sugar and found to be 80. They gave him glucose and apple juice without improvement. Patient is actually scheduled to have a cholecystectomy tomorrow. He denies any fever, chills, sore throat, cough, chest pain, shortness of breath, abdominal pain, nausea, vomiting, diarrhea, melena or hematochezia, headache, or paresthesias. Physical Examination: Vitals: Stable. Afebrile. General: Well-nourished and well-developed. Head: Normocephalic atraumatic. Neck: Supple, no lymphadenopathy. No JVD. Nontender. Cardiovascular: Regular rate and rhythm. 2 out of 6 systolic murmur. Respiratory: No respiratory distress. Clear to auscultation bilaterally. Abdominal: Soft, nontender, distended with hypoactive bowel sounds. No guarding, rebound, or peritoneal signs. Back: Nontender. Extremities: Nontender, 1+ pitting edema that is symmetric bilaterally. Skin: Normal color, no rash. Neurologic: Alert and oriented ?3. Cranial nerves II through XII are intact. Normal sensation. 4 out of 5 strength throughout. Psych: Normal affect. Test Results: EKG is sinus at 75 with right bundle branch block. Is unchanged from last month. CBC is marked for a white count of 14.2, H&H of 10.7 and 34.8, segmented neutrophils 81, lymphocytes of 7. Chem-7 is more for chloride of 94, CO2 of 33, glucose 126, BUN of 22, creatinine 3.83, and calcium of 8.0. LFTs are marked for an albumin of 3.1, globulin 4.4, total bili 1.10, alk phos 173. Lipase is 79. Three-view of the abdomen shows a paralytic ileus of the small bowel with mild gaseous distention. Emergency Department Course and Treatment: Patient has eaten in the emergency department and continues to have generalized weakness. Dr. Anand has seen him in the emergency department. He states that he may still be able to do the cholecystectomy tomorrow if the patient is not bacteremic. Treatment Plan: The patient was discussed with Dr. hussein. He will be admitted to the hospital for further evaluation and treatment. Disposition: Admitted in stable condition. Impression: 1. Generalized weakness. 2. Ileus. 3. End-stage renal disease. 4. Leukocytosis. This note was generated with [employer] dictation software. It may contain incorrect words, spelling, and punctuation that were not noted in review of the chart prior to signing ED Disposition - Plan for ED Patient: Chief Complaint: Weakness Referrals: Maximilian Castillo Jr., MD [Primary Care Provider] -
--- NOTE | 2017-10-12 18:10 | PCM.HP.STD ---
Problem List (1) Stroke Status: Chronic Qualifiers: (2) Anxiety Status: Chronic (3) Back pain Status: Chronic (4) Benign essential hypertension Status: Chronic (5) Blindness Status: Chronic (6) CAD (coronary artery disease) Status: Chronic Comment: remote IWMI on stress with mild marlena-infarct ischemia (7) CHF exacerbation Status: Chronic (8) Cerebrovascular disease Status: Chronic (9) Cholelithiasis and acute cholecystitis with obstruction Status: Chronic Comment: stent placed (10) Chronic renal failure, stage 3 (moderate) Status: Chronic (11) Colon polyps Status: Chronic (12) Depression Status: Chronic (13) Diabetic peripheral neuropathy Status: Chronic Comment: hands and feet (14) Diabetic retinopathy Status: Chronic (15) 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 pneumoniae (16) ESRD (end stage renal disease) Status: Chronic (17) ESRD (end stage renal disease) on dialysis Status: Chronic (18) Generalized weakness Status: Chronic (19) HLD (hyperlipidemia) Status: Chronic Comment: controlled (20) HTN (hypertension) Status: Chronic (21) Heart failure with preserved ejection fraction Status: Chronic (22) Hypertension Status: Chronic (23) Iron deficiency anemia Status: Chronic Comment: due to GI blood loss (24) Iron deficiency anemia secondary to blood loss (chronic) Status: Chronic (25) Obesity (BMI 30-39.9) Status: Chronic (26) Polyneuropathy Status: Chronic (27) RBBB Status: Chronic (28) Type II diabetes mellitus Status: Chronic Comment: poorly controlled (29) Uncontrolled hypertension Status: Chronic (30) FTT (failure to thrive) in adult Status: Acute History of Present Illness Date of Admission: 10/12/17 Chief Complaint: Generalized weakness The patient is a 62 year old M multiple comorbidities including recent hospitalization for C. difficile colitis, Recent Acute cholecystitis s/p Exploratory laparoscopy with placement of cholecystostomy tube on by Dr. Anand, end-stage renal disease on hemodialysis who presents with progressive generalized weakness. Patient was apparently discharged from an ECF 3 days prior to his admission his condition has however continued to worsen. His cholecystostomy tube was scheduled to be taken out on 10/13/2017. Presented to the emergency department. Patient was found to have leukocytosis. He could hardly ambulate. His surgeon was notified and decision was made to admit patient for subsequent hospital evaluation. Past Medical History Past Medical History (Chronic Problems): Chronic Problems (Last Updated 08/25/17 @ 13:38 by Cammie White) Benign essential hypertension (Chronic) CAD (coronary artery disease) (Chronic) remote IWMI on stress with mild marlena-infarct ischemia Type II diabetes mellitus (Chronic) poorly controlled Diabetic peripheral neuropathy (Chronic) hands and feet HLD (hyperlipidemia) (Chronic) controlled Iron deficiency anemia (Chronic) due to GI blood loss Back pain (Chronic) Uncontrolled hypertension (Chronic) Obesity (BMI 30-39.9) (Chronic) Diabetic retinopathy (Chronic) Depression (Chronic) Generalized weakness (Chronic) Chronic renal failure, stage 3 (moderate) (Chronic) Colon polyps (Chronic) RBBB (Chronic) Blindness (Chronic) Iron deficiency anemia secondary to blood loss (chronic) (Chronic) CHF exacerbation (Chronic) Anxiety (Chronic) Polyneuropathy (Chronic) Hypertension (Chronic) Heart failure with preserved ejection fraction (Chronic) ESRD (end stage renal disease) (Chronic) Stroke (Chronic) Cholelithiasis and acute cholecystitis with obstruction (Chronic) stent placed HTN (hypertension) (Chronic) ESRD (end stage renal disease) on dialysis (Chronic) 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 pneumoniae Cerebrovascular disease (Chronic) Allergies silk Adverse Reaction (Verified 10/12/17 13:59) Rash Home Medications: Ambulatory Orders Medication Instructions Recorded Famotidine [Pepcid AC] 10 mg PO BID 06/22/17 Pregabalin [Lyrica] 50 mg PO BID 06/22/17 Aspirin [Aspirin, Baby] 81 mg PO DAILY@0800 #30 tab.chew 06/23/17 Atorvastatin Calcium [Lipitor] 40 mg PO DAILY #30 06/23/17 Senna [Senokot] 1 tab PO DAILY 08/03/17 Insulin Aspart [Novolog Flexpen] 5 units SC BREAKFAST flexpen 09/07/17 Insulin Aspart [Novolog Flexpen] 5 units SC LUNCH flexpen 09/07/17 Insulin Aspart [Novolog Flexpen] See Protocol SC ACHS flexpen 09/07/17 Insulin Detemir [Levemir FlexPen] 15 units SC DINNER insuln.pen 09/07/17 Vancomycin HCl 125 mg PO 4X/DAY 35 Days capsule 09/07/17 Insulin Aspart [Novolog Flexpen] 5 units SC DINNER 09/15/17 Amlodipine [Norvasc] 5 mg PO DAILY 10/12/17 Lorazepam [Ativan] 0.5 mg PO BID 10/12/17 Losartan Potassium [Cozaar] 50 mg PO DAILY 10/12/17 Oxycodone HCl/Acetaminophen 1 tablet PO Q6H PRN PRN 10/12/17 [Percocet 5/325] Sertraline HCl [Zoloft] 50 mg PO QHS 10/12/17 Tramadol HCl [Ultram] 50 mg PO Q6H PRN PRN 10/12/17 Surgical History: - - AV fistula right upper arm, umbilical hernia repair, biliary drain Smoking Status: Never smoker - *Family History Maternal History Items: Diabetes, Renal Disease Paternal History Items: No pertinent history Review of Systems Constitutional: Reports: Malaise, Weakness HEENT: Denies: Head Aches, Sinus Congestion, Sinus Drainage Cardiovascular: Denies: Chest Pain, Orthopnea, Palpitations, Paroxysmal Noc. Dyspnea Respiratory: Denies: Cough, Shortness of breath at rest, Shortness of breath upon exertion, Sputum production Gastrointestinal: Denies: Abdominal Pain, Hematemesis, Hematochezia, Nausea, Melena, Vomiting Genitourinary: Denies: Dysuria, Frequency, Hematuria, Urgency Musculoskeletal: Denies: Joint Pain, Joint Tenderness Psychiatric: Denies: Homicidal Ideations, Suicidal Ideations Hematologic/ Lymphatic: Denies: Easy Bruising, Easy Bleeding VTE Information - Inpt Only VTE Present on Admission: No VTE Mechan Device Prophylaxis: Knee High ANTOINE Hose VTE Pharm Prophylaxis ordered?: Yes Patient Problems: Active and Suspected Problems (Last Updated 08/25/17 @ 13:38 by Cammie White) FTT (failure to thrive) in adult (Acute) Objective: GENERAL:in no apparent distress. HEENT: Clear conjunctiva, NECK; supple, normal thyroid, CHEST: Diminished to auscultation bilaterally, HEART: Regular S1 S2, no audible murmurs ABDOMEN: soft, STIVEN drain in place RECTAL: deferred EXTREMITIES: No edema, no clubbing, no cyanosis. 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 SKIN: No rash - Physical Exam Vital Signs Temp Pulse Resp BP Pulse Ox 97.1 F L 73 14 149/71 H 93 10/12/17 14:05 10/12/17 17:39 10/12/17 17:39 10/12/17 17:39 10/12/17 17:39 Oxygen Delivery Method Room Air Weight: 89.811 kg Body Mass Index (BMI) 30.1 Finger Stick Blood Glucose 114 Laboratory Tests Past 24 Hrs 10/12/17 10/12/17 15:28 15:28 WBC 14.2 H RBC 4.19 L Hgb 10.7 L Hct 34.8 L MCV 83.1 MCH 25.5 L MCHC 30.7 L RDW 15.9 H RDW Differential 48.1 H Plt Count 249 MPV 9.0 Immature Gran % (Auto) 0.700 Neut % (Auto) 80.6 H Lymph % (Auto) 6.8 L [place] % (Auto) 9.9 Eos % (Auto) 1.9 Baso % (Auto) 0.1 Absolute Neuts (auto) 11.5 H Absolute Lymphs (auto) 0.96 Total Counted Not Reportable Sodium 136 Potassium 3.7 Chloride 94 L Carbon Dioxide 33.0 H Anion Gap 9 BUN 22 H Creatinine 3.83 H Estim Creat Clear Calc 19.10 Est GFR (MDRD) Af Amer 21 L Est GFR (MDRD) Non-Af 17 L BUN/Creatinine Ratio 5.7 L Glucose 126 H Calcium 8.0 L Total Bilirubin 1.10 H Direct Bilirubin 0.30 AST 28 ALT 51 Alkaline Phosphatase 173 H Troponin I 0.03 Total Protein 7.5 Albumin 3.1 L Globulin 4.4 H Lipase 79 POC Glucose 10/12/17 17:36 POC Glucose 114 H Assessment/Plan Active and Suspected Problems (Last Updated 08/25/17 @ 13:38 by Cammie White) FTT (failure to thrive) in adult (Acute) The patient is a 62 year old M with multiple comorbidities presenting with progressive generalized weakness 1. Adult failure to thrive in the context of multiple medical comorbidities admitted to a regular nursing floor. Requested for PT OT and outreach and education social worker to assist with discharge planning 2. Recent Acute cholecystitis s/p Exploratory laparoscopy with placement of cholecystostomy tube on by Dr. Anand consultation was placed to him definitive management regarding patient's gallbladder disease deferred to him 3. Myoclonic jerks this accounted for the involuntary movement patient presented with and this was attributed to patient renal uremia from his end-stage kidney disease. 4. Recent hospitalization for severe sepsis secondary to C. difficile colitis; placed and the enteric precautions 5. End-stage renal disease: Consultation placed to Dr. Wilcox for dialysis orders 6. Diabetes mellitus type 2 with complications including diabetic polyneuropathy as well as end-stage renal disease 7. Diabetic retinopathy with blindness 8. Diabetic polyneuropathy involving both upper and lower extremities 9. Anemia secondary to anemia of end-stage renal disease 10. Chronic diastolic congestive heart failure 11. History of CVA with recent acute posterior right frontal lobe infarction 12. Hypertension-blood pressure controlled, home medications continued with dose adjustment as needed 10. DVT prophylaxis SC heparin Code Visit Inpatient E&M: 08198 Subs Hosp L3
[2017-10-12] MEDS: LORazepam 0.5 MG Tablet PO (21:51)
[2017-10-12] MEDS: Famotidine 20 MG Tablet 10 MG PO (21:51)
[2017-10-12] MEDS: guaiFENesin 1,200 MG Tablet 1200 MG PO (21:54)
[2017-10-12] MEDS: Sertraline 50 MG Tablet PO (21:54)
[2017-10-12] MEDS: Pregabalin 50 MG Capsule PO (21:57)
[2017-10-12] MEDS: Atorvastatin Calcium 40 MG Tablet PO (21:59)
[2017-10-12 22:12] LABS: Bedside Glucose 156 mg/dL (70-110)
[2017-10-13] VITALS (18 sets, daily range): BP systolic 86–157; BP diastolic 50–78; PULSE 65–84; RESP 12–20; TEMP 36.3–36.8; O2SAT 93–100; BMI 30.2; BMI 30.3
[2017-10-13] MEDS: Menthol/Lanolin/Calamine/Znox 113 GM Tube 1 APPLIC TOPICAL ×2 (05:37→22:24)
[2017-10-13 07:25] LABS: Absolute Lymphocyte Count 1.29 X10^3/ul (0.83-4.51); Absolute Neutrophil Count 6.9 X10^3/uL (2.0-7.7); Basophil# 0.01 X10^3/uL; Basophil% 0.1 % (0-1); Eosinophil# 0.31 X10^3/uL; Eosinophils% 3.3 % (0-5); Hematocrit 34.2 % (40-54); Hemoglobin 10.5 g/dl (13.0-16.5); Lymphocyte # 1.29 X10^3/ul (4.0); Lymphocyte % 13.8 % (19-41); Mean Corp Hgb Conc 30.7 g/gl (32-36); Mean Corpuscular Hgb 25.1 pg (27.0-32.0); Mean Corpuscular Volume 81.8 fL (80-94); Monocyte# 0.78 X10^3/uL; Monocyte% 8.3 % (0-10); Neutrophil # 6.92 X10^3/uL (2.7-7.7); Neutrophil % 73.9 % (47-70); Platelet Count 232 K/mm3 (150-450); RBC Distribution Width CV 15.7 % (11.6-14.6); RBC Distribution Width SD 47.1 fl (35.1-43.9); Red Blood Count 4.18 M/mm3 (4.6-6.2); White Blood Count 9.4 K/mm3 (4.4-11.0)
[2017-10-13 07:32] LABS: POSITIVE COUNT NO; POSITIVE DIFFERENTIAL NO; POSITIVE MORPHOLOGY NO
[2017-10-13 07:36] LABS: Bedside Glucose 108 mg/dL (70-110)
[2017-10-13 07:38] LABS: Anion Gap 10 (5-15); BUN 30 mg/dL (7-18); BUN/Creat Ratio 6.4 RATIO (10-20); Chloride 96 mmol/L (98-107); EST Glomerular Filtration Rate 13 mL/min (>60); Est Glom Filt Rate - Afr Amer 16 mL/min (>60); Estimated Creatinine Clearance 15.56 ml/min; Glucose 110 mg/dL (74-106); Potassium 4.3 mmol/L (3.5-5.1); Sodium Level 134 mmol/L (136-145)
[2017-10-13 07:40] LABS: Partial Thromboplast Time 41.1 Seconds (24.1-36.2)
--- NOTE | 2017-10-13 07:47 | PN_ITS ---
Patient Problems: Active and Suspected Problems (Last Updated 08/25/17 @ 13:38 by Cammie White) FTT (failure to thrive) in adult (Acute) Subjective: The patient is a 62 year old M with multiple comorbidities presenting with progressive generalized weakness 10/13/2017: Patient seen no significant change in clinical condition. Cultures have remained negative to date. Objective: GENERAL:in no apparent distress. HEENT: Clear conjunctiva, NECK; supple, normal thyroid, CHEST: Diminished to auscultation bilaterally, HEART: Regular S1 S2, no audible murmurs ABDOMEN: soft, STIVEN drain in place RECTAL: deferred EXTREMITIES: No edema, no clubbing, no cyanosis. SKEINER: Awake, no lateralizing signs. SKIN: No rash Vitals/I&O's: Vital Signs Temp Pulse Resp BP Pulse Ox 97.7 F L 76 18 151/77 H 95 10/13/17 02:00 10/13/17 04:00 10/13/17 02:00 10/13/17 02:00 10/13/17 02:00 Oxygen Delivery Method Room Air Weight: 90.265 kg Body Mass Index (BMI) 30.2 Intake and Output for Last 24 Hours 10/11/17 10/12/17 10/13/17 23:59 23:59 23:59 Intake Total 0 / 0 Balance 0 / 0 Microbiology Past 72 Hours 10/12/17 23:42 Stool C. difficile DNA Amplification - Final Laboratory Results 10/12/17 21:49: POC Glucose 156 H 10/13/17 07:08: Sodium 134 L, Potassium 4.3, Chloride 96 L, Carbon Dioxide 28.0 , Anion Gap 10, BUN 30 H, Creatinine 4.70 H, Estim Creat Clear Calc 15.56, Est GFR (MDRD) Af Amer 16 L, Est GFR (MDRD) Non-Af 13 L, BUN/Creatinine Ratio 6.4 L , Glucose 110 H, Calcium 8.0 L 10/13/17 07:08: WBC 9.4, RBC 4.18 L, Hgb 10.5 L, Hct 34.2 L, MCV 81.8, MCH 25.1 L, MCHC 30.7 L, RDW 15.7 H, RDW Differential 47.1 H, Plt Count 232, MPV 9.0, Immature Gran % (Auto) 0.600, Neut % (Auto) 73.9 H, Lymph % (Auto) 13.8 L, [place] % (Auto) 8.3, Eos % (Auto) 3.3, Baso % (Auto) 0.1, Absolute Neuts (auto) 6.9, Absolute Lymphs (auto) 1.29, Total Counted Not Reportable 10/13/17 07:08: APTT 41.1 H 10/13/17 07:08: Hemoglobin A1c Pending 10/13/17 07:29: POC Glucose 108 Current Medications Acetaminophen (Tylenol) 650 mg PO Q6H PRN PRN PRN Reason: Mild Pain (scale 0-3)/T>100.7 Al Hydroxide/Mg Hydroxide (Mylanta Ii) 30 ml PO Q6H PRN PRN PRN Reason: Gastric Burning Amlodipine Besylate (Norvasc) 5 mg PO DAILY [facility] Aspirin (Aspirin, Baby) 81 mg PO DAILY@0800 [facility] Atorvastatin Calcium (Lipitor) 40 mg PO QHS [facility] Last Admin: 10/12/17 21:59 Dose: 40 mg Bisacodyl (Dulcolax) 10 mg PO DAILY PRN PRN PRN Reason: Constipation Calamine/Phenol (Calmoseptine Ointment) 1 applic TOPICAL TID [facility] PRN Reason: Protocol Last Admin: 10/13/17 05:37 Dose: 1 applicatio Docusate Sodium (Colace) 200 mg PO BID PRN PRN PRN Reason: Constipation Famotidine (Pepcid) 10 mg PO BID [facility] Last Admin: 10/12/17 21:51 Dose: 10 mg Guaifenesin (Mucinex) 1,200 mg PO BID [facility] Last Admin: 10/12/17 21:54 Dose: 1,200 mg Heparin Sodium (Porcine) () 5,000 units SC BID [facility] Last Admin: 10/12/17 21:52 Dose: Not Given Insulin Aspart (Novolog Flexpen (Bkc)) 5 units SC BREAKFAST BUCK Insulin Aspart (Novolog Flexpen (Bkc)) 5 units SC DINNER BUCK Insulin Aspart (Novolog Flexpen (Bkc)) 5 units SC LUNCH [facility] Insulin Aspart (Novolog Flexpen (Bkc)) 0 units SC ACHS [facility] PRN Reason: Protocol Last Admin: 10/12/17 21:55 Dose: 2 u Insulin Detemir (Levemir (Bkc)) 15 units SC DINNER [facility] Lorazepam (Ativan) 0.5 mg PO BID [facility] Last Admin: 10/12/17 21:51 Dose: 0.5 mg Losartan Potassium (Cozaar) 50 mg PO DAILY [facility] Magnesium Hydroxide (Milk Of Magnesia) 30 ml PO DAILY PRN PRN PRN Reason: Constipation Morphine Sulfate (Morphine) 2 - 4 mg IV Q3H PRN PRN PRN Reason: Severe Pain (pain scale 6-10) Morphine Sulfate (Morphine) 2 - 4 mg IV Q3H PRN PRN PRN Reason: Severe Pain (pain scale 6-10) Non-Formulary Medication (Vancomycin Hcl [Vancomycin Hcl]) 125 mg PO 4X/DAY [facility] Ondansetron HCl (Zofran) 4 mg IV Q8H PRN PRN PRN Reason: Nausea Oxycodone HCl (Oxyir) 5 mg PO Q4H PRN PRN PRN Reason: Moderate Pain (pain scale 4-5) Pregabalin (Lyrica) 50 mg PO BID [facility] Last Admin: 10/12/17 21:57 Dose: 50 mg Senna (Senokot) 1 tablet PO DAILY [facility] Sertraline HCl (Zoloft) 50 mg PO QHS [facility] Last Admin: 10/12/17 21:54 Dose: 50 mg Tramadol HCl (Ultram (G)) 50 mg PO BID PRN PRN PRN Reason: PAIN Zolpidem Tartrate (Ambien (Generic)) 5 mg PO QHS PRN PRN PRN Reason: INSOMNIA Assessment/Plan Active and Suspected Problems (Last Updated 08/25/17 @ 13:38 by Cammie White) FTT (failure to thrive) in adult (Acute) The patient is a 62 year old M with multiple comorbidities presenting with progressive generalized weakness 1. Adult failure to thrive in the context of multiple medical comorbidities admitted to a regular nursing floor. Requested for PT OT and licensed social worker to assist with discharge planning 2. Recent Acute cholecystitis s/p Exploratory laparoscopy with placement of cholecystostomy tube on by Dr. Anand consultation was placed to him definitive management regarding patient's gallbladder disease deferred to him 3. Myoclonic jerks this accounted for the involuntary movement patient presented with and this was attributed to patient renal uremia from his end- stage kidney disease. 4. Recent hospitalization for severe sepsis secondary to C. difficile colitis; placed and the enteric precautions and completed his treatment with vancomycin on 10/12/2017 5. End-stage renal disease: Consultation placed to Dr. Wilcox for dialysis orders 6. Diabetes mellitus type 2 with complications including diabetic polyneuropathy as well as end-stage renal disease 7. Diabetic retinopathy with blindness 8. Diabetic polyneuropathy involving both upper and lower extremities 9. Anemia secondary to anemia of end-stage renal disease 10. Chronic diastolic congestive heart failure 11. History of CVA with recent acute posterior right frontal lobe infarction 12. Hypertension-blood pressure controlled, home medications continued with dose adjustment as needed 10. DVT prophylaxis SC heparin Code Visit Inpatient E&M: 88273 Subs Hosp L3
--- NOTE | 2017-10-13 08:04 | PCM.CONS.R ---
Consultation - Renal 10/13/17 PCP/ Referring MD: Requesting physician: Jesús Truong Primary care physician: Maximilian Castillo Reason for Consultation:: ESRD dialysis MWF - History of Present Illness History of Present Illness: The patient is a 62 year old M with end-stage renal disease due to diabetes on hemodialysis at [facility] with primary waiter Dr. Dale, presents with progressive generalized weakness with leukocytosis WBC of 14.2. He states his knees gave out and is having difficulty using a walker at home. He was recently discharged from the [facility] 3 days prior to admission. He refuses permanent snf placement. He continues to have a cholecystostomy tube for acute cholecystitis. He was scheduled for removal on October 13. He has a history of C. difficile colitis. He denied any abdominal pain, nausea, vomiting, diarrhea. He has no history of fever chills. He has a history of diabetes, hypertension, stroke. His last dialysis was yesterday prior to admission. He is scheduled for his next dialysis tomorrow. - Allergies Allergies: Allergies silk Adverse Reaction (Verified 10/12/17 13:59) Rash - Current Medications Current Medications: Current Medications Acetaminophen (Tylenol) 650 mg PO Q6H PRN PRN PRN Reason: Mild Pain (scale 0-3)/T>100.7 Al Hydroxide/Mg Hydroxide (Mylanta Ii) 30 ml PO Q6H PRN PRN PRN Reason: Gastric Burning Amlodipine Besylate (Norvasc) 5 mg PO DAILY COUNTS INCLUDE 234 BEDS AT THE [facility] Aspirin (Aspirin, Baby) 81 mg PO DAILY@0800 COUNTS INCLUDE 234 BEDS AT THE [facility] Atorvastatin Calcium (Lipitor) 40 mg PO QHS COUNTS INCLUDE 234 BEDS AT THE [facility] Last Admin: 10/12/17 21:59 Dose: 40 mg Bisacodyl (Dulcolax) 10 mg PO DAILY PRN PRN PRN Reason: Constipation Calamine/Phenol (Calmoseptine Ointment) 1 applic TOPICAL TID COUNTS INCLUDE 234 BEDS AT THE [facility] PRN Reason: Protocol Last Admin: 10/13/17 05:37 Dose: 1 applicatio Docusate Sodium (Colace) 200 mg PO BID PRN PRN PRN Reason: Constipation Famotidine (Pepcid) 10 mg PO BID COUNTS INCLUDE 234 BEDS AT THE [facility] Last Admin: 10/12/17 21:51 Dose: 10 mg Guaifenesin (Mucinex) 1,200 mg PO BID COUNTS INCLUDE 234 BEDS AT THE [facility] Last Admin: 10/12/17 21:54 Dose: 1,200 mg Heparin Sodium (Porcine) () 5,000 units SC BID COUNTS INCLUDE 234 BEDS AT THE [facility] Last Admin: 10/12/17 21:52 Dose: Not Given Insulin Aspart (Novolog Flexpen (Bkc)) 5 units SC BREAKFAST BUCK Insulin Aspart (Novolog Flexpen (Bkc)) 5 units SC DINNER BUCK Insulin Aspart (Novolog Flexpen (Bkc)) 5 units SC LUNCH BUCK Insulin Aspart (Novolog Flexpen (Bkc)) 0 units SC ACHS COUNTS INCLUDE 234 BEDS AT THE [facility] PRN Reason: Protocol Last Admin: 10/12/17 21:55 Dose: 2 u Insulin Detemir (Levemir (Bkc)) 15 units SC DINNER COUNTS INCLUDE 234 BEDS AT THE [facility] Lorazepam (Ativan) 0.5 mg PO BID COUNTS INCLUDE 234 BEDS AT THE [facility] Last Admin: 10/12/17 21:51 Dose: 0.5 mg Losartan Potassium (Cozaar) 50 mg PO DAILY COUNTS INCLUDE 234 BEDS AT THE [facility] Magnesium Hydroxide (Milk Of Magnesia) 30 ml PO DAILY PRN PRN PRN Reason: Constipation Morphine Sulfate (Morphine) 2 - 4 mg IV Q3H PRN PRN PRN Reason: Severe Pain (pain scale 6-10) Morphine Sulfate (Morphine) 2 - 4 mg IV Q3H PRN PRN PRN Reason: Severe Pain (pain scale 6-10) Non-Formulary Medication (Vancomycin Hcl [Vancomycin Hcl]) 125 mg PO 4X/DAY COUNTS INCLUDE 234 BEDS AT THE [facility] Ondansetron HCl (Zofran) 4 mg IV Q8H PRN PRN PRN Reason: Nausea Oxycodone HCl (Oxyir) 5 mg PO Q4H PRN PRN PRN Reason: Moderate Pain (pain scale 4-5) Pregabalin (Lyrica) 50 mg PO BID COUNTS INCLUDE 234 BEDS AT THE [facility] Last Admin: 10/12/17 21:57 Dose: 50 mg Senna (Senokot) 1 tablet PO DAILY COUNTS INCLUDE 234 BEDS AT THE [facility] Sertraline HCl (Zoloft) 50 mg PO QHS COUNTS INCLUDE 234 BEDS AT THE [facility] Last Admin: 10/12/17 21:54 Dose: 50 mg Tramadol HCl (Ultram (G)) 50 mg PO BID PRN PRN PRN Reason: PAIN Zolpidem Tartrate (Ambien (Generic)) 5 mg PO QHS PRN PRN PRN Reason: INSOMNIA - Past Medical History Past Medical History (Chronic Problems): Chronic Problems (Last Updated 10/13/17 @ 08:03 by Kiana Wilcox DO) Obesity (BMI 30-39.9) (Chronic) Diabetic retinopathy (Chronic) RBBB (Chronic) 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 pneumoniae Benign essential hypertension (Chronic) CAD (coronary artery disease) (Chronic) remote IWMI on stress with mild marlena-infarct ischemia Type II diabetes mellitus (Chronic) poorly controlled Diabetic peripheral neuropathy (Chronic) hands and feet HLD (hyperlipidemia) (Chronic) controlled Iron deficiency anemia (Chronic) due to GI blood loss Back pain (Chronic) Uncontrolled hypertension (Chronic) Depression (Chronic) Generalized weakness (Chronic) Colon polyps (Chronic) Blindness (Chronic) CHF exacerbation (Chronic) Anxiety (Chronic) Polyneuropathy (Chronic) Hypertension (Chronic) Heart failure with preserved ejection fraction (Chronic) ESRD (end stage renal disease) (Chronic) Stroke (Chronic) Cerebrovascular disease (Chronic) - Past Surgical History Surgical History: - - AV fistula right upper arm, umbilical hernia repair, biliary drain - Social History Marital Status: Smoking Status: Never smoker - Family History Maternal History Items: Diabetes, Renal Disease Paternal History Items: No pertinent history Review of Systems Constitutional: Reports: Weakness, Fatigue. Denies: Anorexia, Chills, Fever Eyes: Reports: - - Blind from diabetic retinopathy HEENT: Denies: Difficulty Hearing Cardiovascular: Denies: Chest Pain, Edema, Syncope Respiratory: Denies: Cough, Shortness of Breath Gastrointestinal: Reports: - - Cholecystostomy tube. Denies: Abdominal Pain, Diarrhea, Nausea, Vomiting Genitourinary: Denies: Dysuria Musculoskeletal: Reports: - - Generalized weakness Skin: Denies: Rash Neurological: Reports: Balance problems, - - Generalized weakness. Denies: Seizures Psychiatric: Reports: Depression Hematologic/ Lymphatic: Reports: Anemia Patient Problems: Active and Suspected Problems (Last Updated 10/13/17 @ 08:03 by Kiana Wilcox DO) FTT (failure to thrive) in adult (Acute) - Physical Exam General: Alert, Oriented x3, Cooperative, No apparent distress Oral: Dry Mucosa Neck: Supple Lungs: Clear to auscultation Cardiovascular: Regular rate Abdomen: Bowel Sounds Present, Soft, Non Tender, Non-Distended, - - O'[place] tube Extremities: No edema Skin: No rashes Musculoskeletal: Muscle Wasting Neurological: Cranial nerves II-XII grossly intact Psych/Mental Status: Normal Affect, Appropriate, Alert and oriented to time, place, person, mood and affect Vital Signs Temp Pulse Resp BP Pulse Ox 97.7 F L 76 18 151/77 H 95 10/13/17 02:00 10/13/17 04:00 10/13/17 02:00 10/13/17 02:00 10/13/17 02:00 Oxygen Delivery Method Room Air Weight: 90.265 kg Body Mass Index (BMI) 30.2 Intake and Output for Last 24 Hours 10/11/17 10/12/17 10/13/17 23:59 23:59 23:59 Intake Total 0 / 0 Balance 0 / 0 Microbiology Past 72 Hours 10/12/17 23:42 C. difficile DNA Amplification - Final Stool Laboratory Tests Past 24 Hrs 10/13/17 10/13/17 10/13/17 07:08 07:08 07:08 WBC 9.4 RBC 4.18 L Hgb 10.5 L Hct 34.2 L MCV 81.8 MCH 25.1 L MCHC 30.7 L RDW 15.7 H RDW Differential 47.1 H Plt Count 232 MPV 9.0 Immature Gran % (Auto) 0.600 Neut % (Auto) 73.9 H Lymph % (Auto) 13.8 L [place] % (Auto) 8.3 Eos % (Auto) 3.3 Baso % (Auto) 0.1 Absolute Neuts (auto) 6.9 Absolute Lymphs (auto) 1.29 Total Counted Not Reportable APTT 41.1 H Sodium 134 L Potassium 4.3 Chloride 96 L Carbon Dioxide 28.0 Anion Gap 10 BUN 30 H Creatinine 4.70 H Estim Creat Clear Calc 15.56 Est GFR (MDRD) Af Amer 16 L Est GFR (MDRD) Non-Af 13 L BUN/Creatinine Ratio 6.4 L Glucose 110 H Hemoglobin A1c Calcium 8.0 L 10/13/17 07:08 WBC RBC Hgb Hct MCV MCH MCHC RDW RDW Differential Plt Count MPV Immature Gran % (Auto) Neut % (Auto) Lymph % (Auto) [place] % (Auto) Eos % (Auto) Baso % (Auto) Absolute Neuts (auto) Absolute Lymphs (auto) Total Counted APTT Sodium Potassium Chloride Carbon Dioxide Anion Gap BUN Creatinine Estim Creat Clear Calc Est GFR (MDRD) Af Amer Est GFR (MDRD) Non-Af BUN/Creatinine Ratio Glucose Hemoglobin A1c Pending Calcium POC Glucose 10/13/17 10/12/17 07:29 21:49 POC Glucose 108 156 H Assessment/Plan Active and Suspected Problems (Last Updated 10/13/17 @ 08:03 by Kiana Wilcox DO) FTT (failure to thrive) in adult (Acute) 1. ESRD hemodialysis Thursday. Next dialysis tomorrow. 2. DM type II primary care management 3. Anemia hemoglobin stable 4. Generalized weakness continue PT OT 5. Hypertension with stable blood pressures 6. Leukocytosis with history of C. difficile. Received Vanco oral
--- NOTE | 2017-10-13 08:09 | CON.PCM_ITS ---
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 Dale, presents with progressive generalized weakness with leukocytosis WBC of 14.2. He states his knees gave out and is having difficulty using a walker at home. [facility]. He refuses permanent penitentiary placement. He continues to have a cholecystostomy tube for acute cholecystitis. He was scheduled for removal on October 13. He has a history of C. difficile colitis. He denied any abdominal pain, nausea, vomiting, diarrhea. He has no history of fever chills. He has a history of diabetes, hypertension, stroke. His last dialysis was yesterday prior to admission. He is scheduled for his next dialysis tomorrow. - Allergies Allergies: Allergies silk Adverse Reaction (Verified 10/12/17 13:59) Rash - Current Medications Current Medications: Current Medications Acetaminophen (Tylenol) 650 mg PO Q6H PRN PRN PRN Reason: Mild Pain (scale 0-3)/T>100.7 Al Hydroxide/Mg Hydroxide (Mylanta Ii) 30 ml PO Q6H PRN PRN PRN Reason: Gastric Burning Amlodipine Besylate (Norvasc) 5 mg PO DAILY [facility] Aspirin (Aspirin, Baby) 81 mg PO DAILY@0800 [facility] Atorvastatin Calcium (Lipitor) 40 mg PO QHS [facility] Last Admin: 10/12/17 21:59 Dose: 40 mg Bisacodyl (Dulcolax) 10 mg PO DAILY PRN PRN PRN Reason: Constipation Calamine/Phenol (Calmoseptine Ointment) 1 applic TOPICAL TID [facility] PRN Reason: Protocol Last Admin: 10/13/17 05:37 Dose: 1 applicatio Docusate Sodium (Colace) 200 mg PO BID PRN PRN PRN Reason: Constipation Famotidine (Pepcid) 10 mg PO BID [facility] Last Admin: 10/12/17 21:51 Dose: 10 mg Guaifenesin (Mucinex) 1,200 mg PO BID [facility] Last Admin: 10/12/17 21:54 Dose: 1,200 mg Heparin Sodium (Porcine) () 5,000 units SC BID [facility] Last Admin: 10/12/17 21:52 Dose: Not Given Insulin Aspart (Novolog Flexpen (Bkc)) 5 units SC BREAKFAST BUCK Insulin Aspart (Novolog Flexpen (Bkc)) 5 units SC DINNER BUCK Insulin Aspart (Novolog Flexpen (Bkc)) 5 units SC LUNCH BUCK Insulin Aspart (Novolog Flexpen (Bkc)) 0 units SC ACHS [facility] PRN Reason: Protocol Last Admin: 10/12/17 21:55 Dose: 2 u Insulin Detemir (Levemir (Bkc)) 15 units SC DINNER [facility] Lorazepam (Ativan) 0.5 mg PO BID [facility] Last Admin: 10/12/17 21:51 Dose: 0.5 mg Losartan Potassium (Cozaar) 50 mg PO DAILY [facility] Magnesium Hydroxide (Milk Of Magnesia) 30 ml PO DAILY PRN PRN PRN Reason: Constipation Morphine Sulfate (Morphine) 2 - 4 mg IV Q3H PRN PRN PRN Reason: Severe Pain (pain scale 6-10) Morphine Sulfate (Morphine) 2 - 4 mg IV Q3H PRN PRN PRN Reason: Severe Pain (pain scale 6-10) Non-Formulary Medication (Vancomycin Hcl [Vancomycin Hcl]) 125 mg PO 4X/DAY [facility] Ondansetron HCl (Zofran) 4 mg IV Q8H PRN PRN PRN Reason: Nausea Oxycodone HCl (Oxyir) 5 mg PO Q4H PRN PRN PRN Reason: Moderate Pain (pain scale 4-5) Pregabalin (Lyrica) 50 mg PO BID [facility] Last Admin: 10/12/17 21:57 Dose: 50 mg Senna (Senokot) 1 tablet PO DAILY [facility] Sertraline HCl (Zoloft) 50 mg PO QHS [facility] Last Admin: 10/12/17 21:54 Dose: 50 mg Tramadol HCl (Ultram (G)) 50 mg PO BID PRN PRN PRN Reason: PAIN Zolpidem Tartrate (Ambien (Generic)) 5 mg PO QHS PRN PRN PRN Reason: INSOMNIA - Past Medical History Past Medical History (Chronic Problems): Chronic Problems (Last Updated 10/13/17 @ 08:03 by Kiana Wilcox DO) Obesity (BMI 30-39.9) (Chronic) Diabetic retinopathy (Chronic) RBBB (Chronic) 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 pneumoniae Benign essential hypertension (Chronic) CAD (coronary artery disease) (Chronic) remote IWMI on stress with mild mralena-infarct ischemia Type II diabetes mellitus (Chronic) poorly controlled Diabetic peripheral neuropathy (Chronic) hands and feet HLD (hyperlipidemia) (Chronic) controlled Iron deficiency anemia (Chronic) due to GI blood loss Back pain (Chronic) Uncontrolled hypertension (Chronic) Depression (Chronic) Generalized weakness (Chronic) Colon polyps (Chronic) Blindness (Chronic) CHF exacerbation (Chronic) Anxiety (Chronic) Polyneuropathy (Chronic) Hypertension (Chronic) Heart failure with preserved ejection fraction (Chronic) ESRD (end stage renal disease) (Chronic) Stroke (Chronic) Cerebrovascular disease (Chronic) - Past Surgical History Surgical History: - - AV fistula right upper arm, umbilical hernia repair, biliary drain - Social History Marital Status: Smoking Status: Never smoker - Family History Maternal History Items: Diabetes, Renal Disease Paternal History Items: No pertinent history Review of Systems Constitutional: Reports: Weakness, Fatigue. Denies: Anorexia, Chills, Fever Eyes: Reports: - - Blind from diabetic retinopathy HEENT: Denies: Difficulty Hearing Cardiovascular: Denies: Chest Pain, Edema, Syncope Respiratory: Denies: Cough, Shortness of Breath Gastrointestinal: Reports: - - Cholecystostomy tube. Denies: Abdominal Pain, Diarrhea, Nausea, Vomiting Genitourinary: Denies: Dysuria Musculoskeletal: Reports: - - Generalized weakness Skin: Denies: Rash Neurological: Reports: Balance problems, - - Generalized weakness. Denies: Seizures Psychiatric: Reports: Depression Hematologic/ Lymphatic: Reports: Anemia Patient Problems: Active and Suspected Problems (Last Updated 10/13/17 @ 08:03 by Kiana Wilcox DO) FTT (failure to thrive) in adult (Acute) - Physical Exam General: Alert, Oriented x3, Cooperative, No apparent distress Oral: Dry Mucosa Neck: Supple Lungs: Clear to auscultation Cardiovascular: Regular rate Abdomen: Bowel Sounds Present, Soft, Non Tender, Non-Distended, - - [place] tube Extremities: No edema Skin: No rashes Musculoskeletal: Muscle Wasting Neurological: Cranial nerves II-XII grossly intact Psych/Mental Status: Normal Affect, Appropriate, Alert and oriented to time, place, person, mood and affect Vital Signs Temp Pulse Resp BP Pulse Ox 97.7 F L 76 18 151/77 H 95 10/13/17 02:00 10/13/17 04:00 10/13/17 02:00 10/13/17 02:00 10/13/17 02:00 Oxygen Delivery Method Room Air Weight: 90.265 kg Body Mass Index (BMI) 30.2 Intake and Output for Last 24 Hours 10/11/17 10/12/17 10/13/17 23:59 23:59 23:59 Intake Total 0 / 0 Balance 0 / 0 Microbiology Past 72 Hours 10/12/17 23:42 C. difficile DNA Amplification - Final Stool Laboratory Tests Past 24 Hrs 10/13/17 10/13/17 10/13/17 07:08 07:08 07:08 WBC 9.4 RBC 4.18 L Hgb 10.5 L Hct 34.2 L MCV 81.8 MCH 25.1 L MCHC 30.7 L RDW 15.7 H RDW Differential 47.1 H Plt Count 232 MPV 9.0 Immature Gran % (Auto) 0.600 Neut % (Auto) 73.9 H Lymph % (Auto) 13.8 L [place] % (Auto) 8.3 Eos % (Auto) 3.3 Baso % (Auto) 0.1 Absolute Neuts (auto) 6.9 Absolute Lymphs (auto) 1.29 Total Counted Not Reportable APTT 41.1 H Sodium 134 L Potassium 4.3 Chloride 96 L Carbon Dioxide 28.0 Anion Gap 10 BUN 30 H Creatinine 4.70 H Estim Creat Clear Calc 15.56 Est GFR (MDRD) Af Amer 16 L Est GFR (MDRD) Non-Af 13 L BUN/Creatinine Ratio 6.4 L Glucose 110 H Hemoglobin A1c Calcium 8.0 L 10/13/17 07:08 WBC RBC Hgb Hct MCV MCH MCHC RDW RDW Differential Plt Count MPV Immature Gran % (Auto) Neut % (Auto) Lymph % (Auto) [place] % (Auto) Eos % (Auto) Baso % (Auto) Absolute Neuts (auto) Absolute Lymphs (auto) Total Counted APTT Sodium Potassium Chloride Carbon Dioxide Anion Gap BUN Creatinine Estim Creat Clear Calc Est GFR (MDRD) Af Amer Est GFR (MDRD) Non-Af BUN/Creatinine Ratio Glucose Hemoglobin A1c Pending Calcium POC Glucose 10/13/17 10/12/17 07:29 21:49 POC Glucose 108 156 H Assessment/Plan Active and Suspected Problems (Last Updated 10/13/17 @ 08:03 by Kiana Wilcox DO) FTT (failure to thrive) in adult (Acute) 1. ESRD hemodialysis Thursday. Next dialysis tomorrow. 2. DM type II primary care management 3. Anemia hemoglobin stable 4. Generalized weakness continue PT OT 5. Hypertension with stable blood pressures 6. Leukocytosis with history of C. difficile. Received Vanco oral
[2017-10-13 08:10] LABS: Hemoglobin A1c 6.2 % (4.2-6.3)
--- NOTE | 2017-10-13 08:29 | NURSING ---
This RN spoke with Lisha in pharmacy and verified that patient's last dose of PO vancomycin was yesterday 10/12 around 1999. Lisha verbalized understanding. Received call from Lisha short time later stating that patient was initially ordered vancomycin in previous visit in August and counting from time prescribed last day should have been about 10/10. C. dif rechecked this visit and negative. Homero infectious disease contacted to ensure following correct procedure- patient ok to come out of special contact but must remain on contact for MDRO urine.
[2017-10-13 08:39] LABS: AST(SGOT) 27 U/L (15-37); Alanine Aminotransfer ALT/SGPT 44 U/L (16-61); Albumin, Serum 2.7 g/dL (3.2-5.0); Alkaline Phosphatase 180 U/L (45-117); Bilirubin, Direct 0.23 mg/dL (0.00-0.30); Globulin 4.3 g/dL (2.2-4.2)
--- NOTE | 2017-10-13 09:02 | PCM.PN.SRG ---
Patient Problems: Active and Suspected Problems (Last Updated 10/13/17 @ 08:03 by Kiana Wilcox DO) FTT (failure to thrive) in adult (Acute) Subjective: The patient reports no nausea or vomiting overnight. He has no abdominal pain this morning. - Physical Exam General: Alert, Cooperative HEENT: Atraumatic Neck: Supple Lungs: Normal air movement Cardiovascular: Regular rate, Regular Rhythm Abdomen: Soft, Non Tender, Non-Distended, - - Cholecystostomy tube in place Vital Signs Temp Pulse Resp BP Pulse Ox 97.9 F 79 18 157/78 H 98 10/13/17 08:50 10/13/17 08:50 10/13/17 08:50 10/13/17 08:50 10/13/17 08:50 Oxygen Delivery Method Room Air Weight: 199 lb Body Mass Index (BMI) 30.2 Intake and Output for Last 24 Hours 10/11/17 10/12/17 10/13/17 23:59 23:59 23:59 Intake Total 0 / 0 Balance 0 / 0 Microbiology Past 72 Hours 10/12/17 23:42 C. difficile DNA Amplification - Final Stool Laboratory Tests Past 24 Hrs 10/13/17 10/13/17 10/13/17 07:08 07:08 07:08 WBC 9.4 RBC 4.18 L Hgb 10.5 L Hct 34.2 L MCV 81.8 MCH 25.1 L MCHC 30.7 L RDW 15.7 H RDW Differential 47.1 H Plt Count 232 MPV 9.0 Immature Gran % (Auto) 0.600 Neut % (Auto) 73.9 H Lymph % (Auto) 13.8 L [place] % (Auto) 8.3 Eos % (Auto) 3.3 Baso % (Auto) 0.1 Absolute Neuts (auto) 6.9 Absolute Lymphs (auto) 1.29 Total Counted Not Reportable APTT 41.1 H Sodium 134 L Potassium 4.3 Chloride 96 L Carbon Dioxide 28.0 Anion Gap 10 BUN 30 H Creatinine 4.70 H Estim Creat Clear Calc 15.56 Est GFR (MDRD) Af Amer 16 L Est GFR (MDRD) Non-Af 13 L BUN/Creatinine Ratio 6.4 L Glucose 110 H Hemoglobin A1c Calcium 8.0 L Total Bilirubin Direct Bilirubin AST ALT Alkaline Phosphatase Total Protein Albumin Globulin 10/13/17 10/13/17 07:08 07:08 WBC RBC Hgb Hct MCV MCH MCHC RDW RDW Differential Plt Count MPV Immature Gran % (Auto) Neut % (Auto) Lymph % (Auto) [place] % (Auto) Eos % (Auto) Baso % (Auto) Absolute Neuts (auto) Absolute Lymphs (auto) Total Counted APTT Sodium Potassium Chloride Carbon Dioxide Anion Gap BUN Creatinine Estim Creat Clear Calc Est GFR (MDRD) Af Amer Est GFR (MDRD) Non-Af BUN/Creatinine Ratio Glucose Hemoglobin A1c 6.2 Calcium Total Bilirubin 1.20 H Direct Bilirubin 0.23 AST 27 ALT 44 Alkaline Phosphatase 180 H Total Protein 7.0 Albumin 2.7 L Globulin 4.3 H POC Glucose 10/13/17 10/12/17 07:29 21:49 POC Glucose 108 156 H Clinical Impression(s) from Imaging Studies Acute Abdomen Series 10/12/17 14:47 IMPRESSION: Mild ileus. Electronically Signed: Carlton King MD at 16:11 EST , Service support , Assessment/Plan Active and Suspected Problems (Last Updated 10/13/17 @ 08:03 by Kiana Wilcox DO) FTT (failure to thrive) in adult (Acute) 62-year-old male with cholecystostomy tube for cholecystitis 1. The patient had elective cholecystectomy planned for this morning anyway but was admitted yesterday after dialysis due to weakness. He did have a white count of 14 yesterday but it has normalized today. The patient also has an elevated bilirubin. The patient is not complaining of any abdominal pain but he did not have any abdominal pain with his original cholecystitis. His biliary stent has been in for over 2 months as is his cholecystostomy tube. 2. I will plan to proceed with cholecystectomy today. I went over the risks with the patient again including but not limited to bleeding, infection, injury to surrounding organs such as the bile ducts, liver, bowels. I also discussed the very high likelihood that this would be converted to an open procedure as he had an extensive amount of adhesions and inflammation during his last surgery. I also discussed the possibility of heart attack and stroke as he has had both in the past. The patient would like to proceed with surgery. I also offered him the choice of doing a cholangiogram through the cholecystostomy tube and possibly pulling the tube he would like surgery instead. Quique Anand MD Pager: [facility] [address], [facility] [address] [place] [address] Office:
--- NOTE | 2017-10-13 09:05 | PN.SURG_ITS ---
Patient Problems: Active and Suspected Problems (Last Updated 10/13/17 @ 08:03 by Kiana Wiclox DO) FTT (failure to thrive) in adult (Acute) Subjective: The patient reports no nausea or vomiting overnight. He has no abdominal pain this morning. - Physical Exam General: Alert, Cooperative HEENT: Atraumatic Neck: Supple Lungs: Normal air movement Cardiovascular: Regular rate, Regular Rhythm Abdomen: Soft, Non Tender, Non-Distended, - - Cholecystostomy tube in place Vital Signs Temp Pulse Resp BP Pulse Ox 97.9 F 79 18 157/78 H 98 10/13/17 08:50 10/13/17 08:50 10/13/17 08:50 10/13/17 08:50 10/13/17 08:50 Oxygen Delivery Method Room Air Weight: 199 lb Body Mass Index (BMI) 30.2 Intake and Output for Last 24 Hours 10/11/17 10/12/17 10/13/17 23:59 23:59 23:59 Intake Total 0 / 0 Balance 0 / 0 Microbiology Past 72 Hours 10/12/17 23:42 C. difficile DNA Amplification - Final Stool Laboratory Tests Past 24 Hrs 10/13/17 10/13/17 10/13/17 07:08 07:08 07:08 WBC 9.4 RBC 4.18 L Hgb 10.5 L Hct 34.2 L MCV 81.8 MCH 25.1 L MCHC 30.7 L RDW 15.7 H RDW Differential 47.1 H Plt Count 232 MPV 9.0 Immature Gran % (Auto) 0.600 Neut % (Auto) 73.9 H Lymph % (Auto) 13.8 L [place] % (Auto) 8.3 Eos % (Auto) 3.3 Baso % (Auto) 0.1 Absolute Neuts (auto) 6.9 Absolute Lymphs (auto) 1.29 Total Counted Not Reportable APTT 41.1 H Sodium 134 L Potassium 4.3 Chloride 96 L Carbon Dioxide 28.0 Anion Gap 10 BUN 30 H Creatinine 4.70 H Estim Creat Clear Calc 15.56 Est GFR (MDRD) Af Amer 16 L Est GFR (MDRD) Non-Af 13 L BUN/Creatinine Ratio 6.4 L Glucose 110 H Hemoglobin A1c Calcium 8.0 L Total Bilirubin Direct Bilirubin AST ALT Alkaline Phosphatase Total Protein Albumin Globulin 10/13/17 10/13/17 07:08 07:08 WBC RBC Hgb Hct MCV MCH MCHC RDW RDW Differential Plt Count MPV Immature Gran % (Auto) Neut % (Auto) Lymph % (Auto) Sol[place] % (Auto) Eos % (Auto) Baso % (Auto) Absolute Neuts (auto) Absolute Lymphs (auto) Total Counted APTT Sodium Potassium Chloride Carbon Dioxide Anion Gap BUN Creatinine Estim Creat Clear Calc Est GFR (MDRD) Af Amer Est GFR (MDRD) Non-Af BUN/Creatinine Ratio Glucose Hemoglobin A1c 6.2 Calcium Total Bilirubin 1.20 H Direct Bilirubin 0.23 AST 27 ALT 44 Alkaline Phosphatase 180 H Total Protein 7.0 Albumin 2.7 L Globulin 4.3 H POC Glucose 10/13/17 10/12/17 07:29 21:49 POC Glucose 108 156 H Clinical Impression(s) from Imaging Studies Acute Abdomen Series 10/12/17 14:47 IMPRESSION: Mild ileus. Electronically Signed: Carlton King MD at 16:11 EST , Service support , Assessment/Plan Active and Suspected Problems (Last Updated 10/13/17 @ 08:03 by Kiana Wilcox DO) FTT (failure to thrive) in adult (Acute) 62-year-old male with cholecystostomy tube for cholecystitis 1. The patient had elective cholecystectomy planned for this morning anyway but was admitted yesterday after dialysis due to weakness. He did have a white count of 14 yesterday but it has normalized today. The patient also has an elevated bilirubin. The patient is not complaining of any abdominal pain but he did not have any abdominal pain with his original cholecystitis. His biliary stent has been in for over 2 months as is his cholecystostomy tube. 2. I will plan to proceed with cholecystectomy today. I went over the risks with the patient again including but not limited to bleeding, infection, injury to surrounding organs such as the bile ducts, liver, bowels. I also discussed the very high likelihood that this would be converted to an open procedure as he had an extensive amount of adhesions and inflammation during his last surgery. I also discussed the possibility of heart attack and stroke as he has had both in the past. The patient would like to proceed with surgery. I also offered him the choice of doing a cholangiogram through the cholecystostomy tube and possibly pulling the tube he would like surgery instead. Quique Anand MD Pager: [facility] [address], [facility] [address] [place] [address] Office:
[2017-10-13] MEDS: amLODIPine 5 MG Tablet PO (09:15)
[2017-10-13] MEDS: Losartan Potassium 50 MG Tablet PO (09:15)
--- NOTE | 2017-10-13 10:03 | NURSING ---
pt transported down to surgery at this time.
--- NOTE | 2017-10-13 10:04 | NURSING ---
PT TO OR VIA BED. REPORT CALLED TO TREVON SANDOVAL IN [place].
--- NOTE | 2017-10-13 11:00 | GALL_PTH ---
PATIENT: MICAH BONDS LOC: [facility] U#:[id number] AGE/SX: 62/M ROOM: [facility] RE10/12/[address]: Dr. Jesús Truong MD : [id number] BED: 1 DIS: 10/16/2017 SPEC #: [id number] RECD: 10/14/17 08:35 STATUS: DIAZ RECiara #: [id number] AUDI: 10/13/17 11:[address]: Quique Anand DEPT: SURGICAL PATHOLOGY RECD BY: Mahamed Kumar ENTERED: 10/14/17 09:21 SP TYPE: GALLBLADDE OTHR DR: DO Dr. Jesús Simms MD Dr. Richard Jones Jr., MD Tissues: Gallbladder, NOS Procedures: Surgery Specimen Level III Comments: @ Ordering doctor for SUIII edited from to @ by LYLA at 10/15/17 0846 @ Submitting doctor edited from to @ by RGOOD at 10/15/17 0846 HEADER OPERATION: Laparoscopic cholecystectomy with intraoperative cholangiogram PRE-OP DIAGNOSIS: Cholecystitis TISSUE SUBMITTED: Gallbladder MICROSCOPIC DIAGNOSIS Gallbladder: Acute and chronic cholecystitis with abscess formation. No stones are identified in the container or in the gallbladder. TUNG:anabel 10/15/17 MICROSCOPIC DESCRIPTION Slides are reviewed. GROSS DESCRIPTION Received is one container labeled with the patient's name and designated gallbladder. The specimen consists of a gallbladder measuring 7 x 3 x 2 cm. The external surface is congested and hemorrhagic and irregular. Close to the stapled area, focal area with lumen is noted which measures only 3 cm in length. The gallbladder wall in this area measures 0.2 cm in thickness. The rest of the gallbladder wall reveals congested and hemorrhagic cut surfaces. No obvious gallbladder wall is noted in the rest of the specimen. Also present in the container is a detached piece of congested tissue measuring 3 x 1 x 0.3 cm. No stones are identified in the container or in the gallbladder. Campus President sections are submitted in four cassettes as follows: 1 ? identifiable portion of the gallbladder wall and cystic duct, 2-4 ? other areas. / TUNG:anabel 10/14/17 TC:2 CPT: 45907
--- NOTE | 2017-10-13 11:00 | RAD_ITS ---
STUDY: INTRAOPERATIVE CHOLANGIOGRAM. REASON FOR EXAM: Male, 62 years old. Laparoscopic cholecystectomy. FLUOROSCOPY TIME (if supplied): (1:38) minutes/seconds TECHNIQUE: An intraoperative cholangiogram was performed by the surgeon. Imaging was submitted. COMPARISON: Comparison is made with prior examination dated August 05, 2017. FINDINGS: Mildly dilated common bile duct. A stent is seen within the common bile duct. The distal tip is in the duodenum. Intraluminal filling defects are seen suggestive of a retained calculi. RAD/Cholangiogram/ O R,Initial IMPRESSION: Stent is seen in the common bile duct. A filling defect is seen within the common bile duct in keeping with retained calculus. Electronically Signed: Roscoe Nicholson MD at 14:21 EST Tel [phone], Service support ,
[2017-10-13] MEDS: Bupivacaine 0.25% 30 ML Vial (11:30)
[2017-10-13 14:41] LABS: Bedside Glucose 133 mg/dL (70-110)
--- NOTE | 2017-10-13 14:42 | PCM.OPRPT ---
Problem List (1) Cholecystitis Status: Acute Report of Operation Date of Procedure: 10/13/17 Pre-Operative Diagnosis: Cholecystitis status post cholecystostomy tube Post-Operative Diagnosis: Acute cholecystitis and choledocholithiasis Surgery/Procedure Performed:: Laparoscopic cholecystectomy with cholangiogram Specimen's removed: Gallbladder and contents Description of Procedure: The patient was brought back to the operating room and general anesthesia was induced. Next in the left upper quadrant a 5 mm incision was made and a 5 mm port was placed into this with a camera inside of it and this was brought into the abdomen under direct visualization. The abdomen was then insufflated to 15 mmHg. The abdomen was inspected and there were no injuries from entry. Next in the midline superior to the adhesions an incision was made and a 10 mm port was placed under direct visualization. Next 2 5 mm ports were placed in the right upper quadrant subcostally. The cholecystostomy tube was identified and followed into the gallbladder. The omental fat and adhesions were dissected free. I was able to find the dome of the gallbladder and dissected downward until the infundibulum was reached. There was a lot of inflammation. I was unable to circumferentially reach around the cystic duct at first so I clamped off the infundibulum and used to Cantu clamp tissue cholangiograms. The clamp was placed across the infundibulum and the needle was placed into the gallbladder. The patient was flattened out and contrast was instilled under fluoroscopy. This confirmed that we were on the cystic duct. There did appear to be multiple filling defects in the common bile duct as well as the biliary stent. There is good flow through the biliary stent into the duodenum of contrast. Next the clamp was removed and the needle was removed from the infundibulum. The infundibulum was circumferentially dissected and the suture was placed around it and tied intracorporeally. The cystic artery was identified and clips. This was then divided. Next the gallbladder was divided and as well as possible taken off of the liver bed. There were multiple stones that came out of it and it was very inflamed and friable. Once the gallbladder was adequately removed from the liver bed it was placed into an Endo Catch bag. The liver bed was irrigated and suctioned dry. Next a 0 PDS Endoloop was placed into the abdomen and tied around the cystic duct stump. The liver bed was irrigated once more and hemostasis was obtained with electrocautery. Next all the ports were removed under direct visualization and the Endo Catch bag was removed through the midline incision. The midline fascia was closed with a [id number] 0 Vicryl suture. All incisions were anesthetized with Marcaine. All incisions were closed with interrupted 4-0 Monocryl sutures and Steri-Strips and bandages. The patient tolerated the procedure was brought to PACU in stable condition. - Admit VTE Documentation VTE Mechan Device Prophylaxis: SCD's
--- NOTE | 2017-10-13 15:33 | NURSING ---
Patient's belongings packed and sent to PCU 126. arrived and was updated on patient's transfer to PCU- verbalized understanding and went directly to PCU.
[2017-10-13 16:45] LABS: Bedside Glucose 132 mg/dL (70-110)
[2017-10-13] MEDS: Acetaminophen 325 MG Tablet 650 MG PO (18:10)
[2017-10-13] MEDS: LORazepam 0.5 MG Tablet PO (22:24)
[2017-10-13] MEDS: guaiFENesin 1,200 MG Tablet 1200 MG PO (22:25)
[2017-10-13] MEDS: Famotidine 20 MG Tablet 10 MG PO (22:25)
[2017-10-13] MEDS: Atorvastatin Calcium 40 MG Tablet PO (22:25)
[2017-10-13] MEDS: Sertraline 50 MG Tablet PO (22:26)
[2017-10-13] MEDS: Pregabalin 50 MG Capsule PO (22:29)
[2017-10-13 23:36] LABS: Bedside Glucose 47 mg/dL (70-110)
[2017-10-13 23:36] LABS: Bedside Glucose 58 mg/dL (70-110)
[2017-10-13 23:36] LABS: Bedside Glucose 66 mg/dL (70-110)
[2017-10-14] VITALS (10 sets, daily range): BP systolic 114–123; BP diastolic 49–61; PULSE 78–91; RESP 18–20; TEMP 36.7–37.2; O2SAT 93–96; BMI 30.3
[2017-10-14] MEDS: Dextrose 50%-Water 25 GM/50 ML DISP.SYRIN IV ×2 (00:11→21:23)
[2017-10-14] MEDS: 0.9% NaCl Peripheral Flush Adult/Peds IV ×2 (00:12→21:24)
[2017-10-14 00:35] LABS: Bedside Glucose 105 mg/dL (70-110)
[2017-10-14 00:35] LABS: Bedside Glucose 61 mg/dL (70-110)
[2017-10-14 00:35] LABS: Bedside Glucose 65 mg/dL (70-110)
[2017-10-14] MEDS: Menthol/Lanolin/Calamine/Znox 113 GM Tube 1 APPLIC TOPICAL ×3 (05:23→21:25)
[2017-10-14 06:29] LABS: Absolute Lymphocyte Count 0.72 X10^3/ul (0.83-4.51); Absolute Neutrophil Count 8.7 X10^3/uL (2.0-7.7); Basophil# 0.01 X10^3/uL; Basophil% 0.1 % (0-1); Eosinophil# 0.05 X10^3/uL; Eosinophils% 0.5 % (0-5); Hematocrit 31.4 % (40-54); Hemoglobin 9.7 g/dl (13.0-16.5); Lymphocyte # 0.72 X10^3/ul (4.0); Lymphocyte % 6.8 % (19-41); Mean Corp Hgb Conc 30.9 g/gl (32-36); Mean Corpuscular Hgb 25.6 pg (27.0-32.0); Mean Corpuscular Volume 82.8 fL (80-94); Mean Platelet Vol. 9.4 fl (6.2-12.0); Monocyte# 1.06 X10^3/uL; Neutrophil # 8.68 X10^3/uL (2.7-7.7); Neutrophil % 82.1 % (47-70); Platelet Count 247 K/mm3 (150-450); RBC Distribution Width CV 15.8 % (11.6-14.6); Red Blood Count 3.79 M/mm3 (4.6-6.2); White Blood Count 10.6 K/mm3 (4.4-11.0)
[2017-10-14 06:32] LABS: POSITIVE COUNT NO; POSITIVE DIFFERENTIAL NO; POSITIVE MORPHOLOGY NO
[2017-10-14 06:48] LABS: AST(SGOT) 33 U/L (15-37); Alanine Aminotransfer ALT/SGPT 47 U/L (16-61); Albumin, Serum 2.6 g/dL (3.2-5.0); Alkaline Phosphatase 172 U/L (45-117); Anion Gap 10 (5-15); BUN 40 mg/dL (7-18); BUN/Creat Ratio 6.6 RATIO (10-20); Bilirubin, Direct 0.27 mg/dL (0.00-0.30); Calcium,Total 7.6 mg/dL (8.5-10.1); Chloride 96 mmol/L (98-107); Creatinine, Serum 6.07 mg/dL (0.70-1.30); EST Glomerular Filtration Rate 10 mL/min (>60); Est Glom Filt Rate - Afr Amer 12 mL/min (>60); Estimated Creatinine Clearance 12.05 ml/min; Globulin 3.7 g/dL (2.2-4.2); Glucose 130 mg/dL (74-106); Potassium 4.7 mmol/L (3.5-5.1); Protein, Total 6.3 g/dL (6.4-8.2); Sodium Level 136 mmol/L (136-145)
[2017-10-14 06:50] LABS: Bedside Glucose 126 mg/dL (70-110)
[2017-10-14 08:01] LABS: Hemoglobin A1c 5.9 % (4.2-6.3)
--- NOTE | 2017-10-14 08:39 | PCM.PN.SRG ---
Patient Problems: Active and Suspected Problems (Last Updated 10/13/17 @ 08:03 by Kiana Wilcox DO) FTT (failure to thrive) in adult (Acute) Cholecystitis (Acute) Subjective: Patient is having no issues overnight. He is having some minor discomfort but no nausea or vomiting. - Physical Exam General: Alert, Cooperative, No apparent distress HEENT: Atraumatic Oral: Moist Mucosa Neck: Supple, No JVD Lungs: Normal air movement Cardiovascular: Regular rate, Regular Rhythm Abdomen: Soft, Non Tender, Non-Distended, - - Incisions are clean dry and intact. Musculoskeletal: No Muscle Wasting Vital Signs Temp Pulse Resp BP Pulse Ox 98.4 F 89 20 H 123/58 H 96 10/14/17 04:30 10/14/17 06:54 10/14/17 04:30 10/14/17 04:30 10/14/17 04:30 Oxygen Flow Rate 1 Oxygen Delivery Method Room Air Weight: 193 lb 5.526 oz Body Mass Index (BMI) 30.2 Finger Stick Blood Glucose 133 Intake and Output for Last 24 Hours 10/12/17 10/13/17 10/14/17 23:59 23:59 23:59 Intake Total 1030 / 1030 120 / 120 Balance 1030 / 1030 120 / 120 Microbiology Past 72 Hours 10/12/17 23:42 C. difficile DNA Amplification - Final Stool Laboratory Tests Past 24 Hrs 10/13/17 10/13/17 10/14/17 07:08 14:30 06:05 WBC RBC Hgb Hct MCV MCH MCHC RDW RDW Differential Plt Count MPV Immature Gran % (Auto) Neut % (Auto) Lymph % (Auto) Cassia % (Auto) Eos % (Auto) Baso % (Auto) Absolute Neuts (auto) Absolute Lymphs (auto) Total Counted Sodium 136 Potassium 4.7 Chloride 96 L Carbon Dioxide 30.0 Anion Gap 10 BUN 40 H Creatinine 6.07 H Estim Creat Clear Calc 12.05 Est GFR (MDRD) Af Amer 12 L Est GFR (MDRD) Non-Af 10 L BUN/Creatinine Ratio 6.6 L Glucose 130 H Hemoglobin A1c Calcium 7.6 L Total Bilirubin 1.20 H 1.30 H Direct Bilirubin 0.23 0.27 AST 27 33 ALT 44 47 Alkaline Phosphatase 180 H 172 H Troponin I 0.04 Total Protein 7.0 6.3 L Albumin 2.7 L 2.6 L Globulin 4.3 H 3.7 10/14/17 10/14/17 06:05 06:05 WBC 10.6 RBC 3.79 L Hgb 9.7 L Hct 31.4 L MCV 82.8 MCH 25.6 L MCHC 30.9 L RDW 15.8 H RDW Differential 47.0 H Plt Count 247 MPV 9.4 Immature Gran % (Auto) 0.500 Neut % (Auto) 82.1 H Lymph % (Auto) 6.8 L Cassia % (Auto) 10.0 Eos % (Auto) 0.5 Baso % (Auto) 0.1 Absolute Neuts (auto) 8.7 H Absolute Lymphs (auto) 0.72 L Total Counted Not Reportable Sodium Potassium Chloride Carbon Dioxide Anion Gap BUN Creatinine Estim Creat Clear Calc Est GFR (MDRD) Af Amer Est GFR (MDRD) Non-Af BUN/Creatinine Ratio Glucose Hemoglobin A1c 5.9 Calcium Total Bilirubin Direct Bilirubin AST ALT Alkaline Phosphatase Troponin I Total Protein Albumin Globulin POC Glucose 10/14/17 10/14/17 10/14/17 06:44 00:31 00:00 POC Glucose 126 H 105 61 L 10/13/17 10/13/17 10/13/17 23:31 23:03 22:42 POC Glucose 65 L 66 L 58 L 10/13/17 10/13/17 10/13/17 22:24 16:39 14:35 POC Glucose 47 L 132 H 133 H Assessment/Plan Active and Suspected Problems (Last Updated 10/13/17 @ 08:03 by Kiana Wilcox DO) FTT (failure to thrive) in adult (Acute) Cholecystitis (Acute) 62-year-old male with acute cholecystitis and choledocholithiasis 1. The patient did well with surgery yesterday. He is having no nausea vomiting and minimal pain today. His white count is normal today. 2. The patient did have filling defects in his common bile duct yesterday. The patient will need ERCP sooner rather than later for at least a stent exchange as it has been there for 2 months. There was good flow into the duodenum but the patient is having elevated bilirubin. We will plan for the patient to have dialysis today and ERCP tomorrow with stent exchange versus removal. If I am able to clear the duct of stones the patient will likely be able to go home tomorrow after ERCP. If I am unable to clear the duct of stones I will replace it with a fresh stent. 3. I discussed ERCP with the patient and his family again yesterday. I discussed the risks including but not limited to bleeding, infection, perforation of the bile duct or bowels, pancreatitis. I also discussed the risks of anesthesia such as heart attack and stroke. The patient and his family understand the risks are willing to proceed with surgery tomorrow. 4. The patient can have clear liquids today make him n.p.o. after midnight. Please hold heparin today for surgery tomorrow. Okay for the dose of heparin with hemodialysis. Quique Anand MD Pager: [facility] [address], [facility] [address] [place] [address] Office:
--- NOTE | 2017-10-14 08:40 | PN.RENAL_ITS ---
Patient Problems: Active and Suspected Problems (Last Updated 10/14/17 @ 11:15 by Aidee Hardy) FTT (failure to thrive) in adult (Acute) Cholecystitis (Acute) Subjective: Patient underwent lap mak with removal of cholecystostomy yesterday. Denies any abdominal pain, nausea, vomiting. Admits to anorexia. Denies any shortness of breath. He has generalized weakness. He is due for dialysis today. - Physical Exam General: Alert, Oriented x3, Cooperative, No apparent distress, - - Alert but arousable Oral: Dry Mucosa Neck: Supple Lungs: Clear to auscultation Cardiovascular: Regular rate Abdomen: Bowel Sounds Present, Soft, Non Tender, Non-Distended, Obese Extremities: No edema Skin: No rashes Musculoskeletal: Muscle Wasting, - - Tremors from deconditioning, AV fistula with good thrill and bruit right upper arm Neurological: - - Debilitated, generalized weakness Psych/Mental Status: Normal Affect, Appropriate, Alert and oriented to time, place, person, mood and affect Vital Signs Temp Pulse Resp BP Pulse Ox 98.4 F 89 20 H 123/58 H 96 10/14/17 04:30 10/14/17 06:54 10/14/17 04:30 10/14/17 04:30 10/14/17 04:30 Oxygen Flow Rate 1 Oxygen Delivery Method Room Air Weight: 87.7 kg Body Mass Index (BMI) 30.2 Finger Stick Blood Glucose 133 Intake and Output for Last 24 Hours 10/12/17 10/13/17 10/14/17 23:59 23:59 23:59 Intake Total 1030 / 1030 120 / 120 Balance 1030 / 1030 120 / 120 Microbiology Past 72 Hours 10/12/17 23:42 C. difficile DNA Amplification - Final Stool Laboratory Tests Past 24 Hrs 10/13/17 10/13/17 10/14/17 07:08 14:30 06:05 WBC RBC Hgb Hct MCV MCH MCHC RDW RDW Differential Plt Count MPV Immature Gran % (Auto) Neut % (Auto) Lymph % (Auto) Benzie % (Auto) Eos % (Auto) Baso % (Auto) Absolute Neuts (auto) Absolute Lymphs (auto) Total Counted Sodium 136 Potassium 4.7 Chloride 96 L Carbon Dioxide 30.0 Anion Gap 10 BUN 40 H Creatinine 6.07 H Estim Creat Clear Calc 12.05 Est GFR (MDRD) Af Amer 12 L Est GFR (MDRD) Non-Af 10 L BUN/Creatinine Ratio 6.6 L Glucose 130 H Hemoglobin A1c Calcium 7.6 L Total Bilirubin 1.20 H 1.30 H Direct Bilirubin 0.23 0.27 AST 27 33 ALT 44 47 Alkaline Phosphatase 180 H 172 H Troponin I 0.04 Total Protein 7.0 6.3 L Albumin 2.7 L 2.6 L Globulin 4.3 H 3.7 10/14/17 10/14/17 06:05 06:05 WBC 10.6 RBC 3.79 L Hgb 9.7 L Hct 31.4 L MCV 82.8 MCH 25.6 L MCHC 30.9 L RDW 15.8 H RDW Differential 47.0 H Plt Count 247 MPV 9.4 Immature Gran % (Auto) 0.500 Neut % (Auto) 82.1 H Lymph % (Auto) 6.8 L Benzie % (Auto) 10.0 Eos % (Auto) 0.5 Baso % (Auto) 0.1 Absolute Neuts (auto) 8.7 H Absolute Lymphs (auto) 0.72 L Total Counted Not Reportable Sodium Potassium Chloride Carbon Dioxide Anion Gap BUN Creatinine Estim Creat Clear Calc Est GFR (MDRD) Af Amer Est GFR (MDRD) Non-Af BUN/Creatinine Ratio Glucose Hemoglobin A1c 5.9 Calcium Total Bilirubin Direct Bilirubin AST ALT Alkaline Phosphatase Troponin I Total Protein Albumin Globulin POC Glucose 10/14/17 10/14/17 10/14/17 06:44 00:31 00:00 POC Glucose 126 H 105 61 L 10/13/17 10/13/17 10/13/17 23:31 23:03 22:42 POC Glucose 65 L 66 L 58 L 10/13/17 10/13/17 10/13/17 22:24 16:39 14:35 POC Glucose 47 L 132 H 133 H Assessment/Plan Active and Suspected Problems (Last Updated 10/14/17 @ 11:15 by Aidee Hardy) FTT (failure to thrive) in adult (Acute) Cholecystitis (Acute) 1. ESRD hemodialysis Thursday. Next dialysis today. 2. DM type II primary care management 3. Anemia hemoglobin stable 4. Generalized weakness continue PT OT 5. Hypertension with stable blood pressures 6. Leukocytosis with history of C. difficile. 7. S/P lap mak with cholecystostomy tube removal on 10/13 return back to see pt on dialysis at 2;15pm. BP low, somnolent but arrousable. Epo, iv iron on dialysis for anemia Hgb <10. fluid removal as tolerated
[2017-10-14] MEDS: LORazepam 0.5 MG Tablet PO ×2 (10:08→21:25)
[2017-10-14] MEDS: Pregabalin 50 MG Capsule PO ×2 (10:08→21:24)
[2017-10-14] MEDS: Famotidine 20 MG Tablet 10 MG PO ×2 (10:09→21:26)
[2017-10-14] MEDS: Losartan Potassium 50 MG Tablet PO (10:09)
[2017-10-14] MEDS: amLODIPine 5 MG Tablet PO (10:09)
[2017-10-14] MEDS: guaiFENesin 1,200 MG Tablet 1200 MG PO (10:09)
[2017-10-14] MEDS: Aspirin 81 MG TAB.CHEW PO (10:09)
--- NOTE | 2017-10-14 11:40 | PCM.PN.HOSP ---
Patient Problems: Active and Suspected Problems (Last Updated 10/14/17 @ 11:15 by Aidee Hardy) FTT (failure to thrive) in adult (Acute) Cholecystitis (Acute) Subjective: Patient underwent laparoscopic cholecystectomy by Dr. Dr. Anand on 10/13/2017 scheduled to undergo ERCP with possible stent placement on 10/15/2017 Objective: GENERAL:in no apparent distress. HEENT: Clear conjunctiva, NECK; supple, normal thyroid, CHEST: Diminished to auscultation bilaterally, HEART: Regular S1 S2, no audible murmurs ABDOMEN: soft, STIVEN drain in place RECTAL: deferred EXTREMITIES: No edema, no clubbing, no cyanosis. DYER AND WASHER: Awake, no lateralizing signs. SKIN: No rash Vitals/I&O's: Vital Signs Temp Pulse Resp BP Pulse Ox 98.4 F 90 18 116/61 93 10/14/17 10:05 10/14/17 11:07 10/14/17 10:05 10/14/17 10:05 10/14/17 10:05 Oxygen Flow Rate 1 Oxygen Delivery Method Room Air Weight: 87.7 kg Body Mass Index (BMI) 30.2 Finger Stick Blood Glucose 133 Intake and Output for Last 24 Hours 10/12/17 10/13/17 10/14/17 23:59 23:59 23:59 Intake Total 1030 / 1030 120 / 120 Balance 1030 / 1030 120 / 120 Microbiology Past 72 Hours 10/12/17 23:42 Stool C. difficile DNA Amplification - Final Laboratory Results 10/13/17 14:30: Troponin I 0.04 10/13/17 14:35: POC Glucose 133 H 10/13/17 16:39: POC Glucose 132 H 10/13/17 22:24: POC Glucose 47 L 10/13/17 22:42: POC Glucose 58 L 10/13/17 23:03: POC Glucose 66 L 10/13/17 23:31: POC Glucose 65 L 10/14/17 00:00: POC Glucose 61 L 10/14/17 00:31: POC Glucose 105 10/14/17 06:05: Sodium 136, Potassium 4.7, Chloride 96 L, Carbon Dioxide 30.0, Anion Gap 10, BUN 40 H, Creatinine 6.07 H, Estim Creat Clear Calc 12.05, Est GFR (MDRD) Af Amer 12 L, Est GFR (MDRD) Non-Af 10 L, BUN/Creatinine Ratio 6.6 L, Glucose 130 H, Calcium 7.6 L, Total Bilirubin 1.30 H, Direct Bilirubin 0.27, AST 33, ALT 47, Alkaline Phosphatase 172 H, Total Protein 6.3 L, Albumin 2.6 L, Globulin 3.7 10/14/17 06:05: WBC 10.6, RBC 3.79 L, Hgb 9.7 L, Hct 31.4 L, MCV 82.8, MCH 25.6 L, MCHC 30.9 L, RDW 15.8 H, RDW Differential 47.0 H, Plt Count 247, MPV 9.4, Immature Gran % (Auto) 0.500, Neut % (Auto) 82.1 H, Lymph % (Auto) 6.8 L, Buchanan % (Auto) 10.0, Eos % (Auto) 0.5, Baso % (Auto) 0.1, Absolute Neuts (auto) 8.7 H, Absolute Lymphs (auto) 0.72 L, Total Counted Not Reportable 10/14/17 06:05: Hemoglobin A1c 5.9 10/14/17 06:44: POC Glucose 126 H Current Medications Acetaminophen (Tylenol) 650 mg PO Q6H PRN PRN PRN Reason: Mild Pain (scale 0-3)/T>100.7 Last Admin: 10/13/17 18:10 Dose: 650 mg Al Hydroxide/Mg Hydroxide (Mylanta Ii) 30 ml PO Q6H PRN PRN PRN Reason: Gastric Burning Amlodipine Besylate (Norvasc) 5 mg PO DAILY [facility] Last Admin: 10/14/17 10:09 Dose: 5 mg Aspirin (Aspirin, Baby) 81 mg PO DAILY@0800 [facility] Last Admin: 10/14/17 10:09 Dose: 81 mg Atorvastatin Calcium (Lipitor) 40 mg PO QHS [facility] Last Admin: 10/13/17 22:25 Dose: 40 mg Bisacodyl (Dulcolax) 10 mg PO DAILY PRN PRN PRN Reason: Constipation Calamine/Phenol (Calmoseptine Ointment) 1 applic TOPICAL TID BUCK PRN Reason: Protocol Last Admin: 10/14/17 05:23 Dose: 1 applicatio Dextrose (D50w Syringe) 0 gm IV X1 PRN; Protocol PRN Reason: Hypoglycemia Last Admin: 10/14/17 00:11 Dose: 12.5 gm Docusate Sodium (Colace) 200 mg PO BID PRN PRN PRN Reason: Constipation Famotidine (Pepcid) 10 mg PO BID [facility] Last Admin: 10/14/17 10:09 Dose: 10 mg Glucagon () 1 mg IM .X1 PRN PRN Reason: Hypoglycemia Guaifenesin (Mucinex) 1,200 mg PO BID [facility] Last Admin: 10/14/17 10:09 Dose: 1,200 mg Insulin Aspart (Novolog Flexpen (Bkc)) 5 units SC BREAKFAST [facility] Last Admin: 10/14/17 09:41 Dose: Not Given Insulin Aspart (Novolog Flexpen (Bkc)) 5 units SC DINNER [facility] Last Admin: 10/13/17 18:12 Dose: 5 units Insulin Aspart (Novolog Flexpen (Bkc)) 5 units SC LUNCH [facility] Last Admin: 10/13/17 12:14 Dose: Not Given Insulin Aspart (Novolog Flexpen (Bkc)) 0 units SC ACHS [facility] PRN Reason: Protocol Last Admin: 10/14/17 08:48 Dose: Not Given Insulin Detemir (Levemir (Bkc)) 15 units SC DINNER [facility] Last Admin: 10/13/17 18:11 Dose: 15 units Lorazepam (Ativan) 0.5 mg PO BID [facility] Last Admin: 10/14/17 10:08 Dose: 0.5 mg Losartan Potassium (Cozaar) 50 mg PO DAILY [facility] Last Admin: 10/14/17 10:09 Dose: 50 mg Magnesium Hydroxide (Milk Of Magnesia) 30 ml PO DAILY PRN PRN PRN Reason: Constipation Morphine Sulfate (Morphine) 2 - 4 mg IV Q3H PRN PRN PRN Reason: Severe Pain (pain scale 6-10) Morphine Sulfate (Morphine) 2 - 4 mg IV Q3H PRN PRN PRN Reason: Severe Pain (pain scale 6-10) Ondansetron HCl (Zofran) 4 mg IV Q8H PRN PRN PRN Reason: Nausea Oxycodone HCl (Oxyir) 5 mg PO Q4H PRN PRN PRN Reason: Moderate Pain (pain scale 4-5) Pregabalin (Lyrica) 50 mg PO BID [facility] Last Admin: 10/14/17 10:08 Dose: 50 mg Senna (Senokot) 1 tablet PO DAILY [facility] Last Admin: 10/14/17 10:09 Dose: Not Given Sertraline HCl (Zoloft) 50 mg PO QHS [facility] Last Admin: 10/13/17 22:26 Dose: 50 mg Sodium Chloride () 5 - 30 ml IV UD PRN PRN Reason: SALINE FLUSH Last Admin: 10/14/17 00:12 Dose: 10 ml Tramadol HCl (Ultram (G)) 50 mg PO BID PRN PRN PRN Reason: PAIN Zolpidem Tartrate (Ambien (Generic)) 5 mg PO QHS PRN PRN PRN Reason: INSOMNIA Assessment/Plan Active and Suspected Problems (Last Updated 10/14/17 @ 11:15 by Aidee Hardy) FTT (failure to thrive) in adult (Acute) Cholecystitis (Acute) The patient is a 62 year old M with multiple comorbidities presenting with progressive generalized weakness 1. Adult failure to thrive in the context of multiple medical comorbidities admitted to a regular nursing floor. Requested for PT OT and psychiatric social worker supervisor to assist with discharge planning 2. Recent Acute cholecystitis s/p Exploratory laparoscopy with placement of cholecystostomy tube on 08/07/[address] Anand consultation was placed to him definitive management regarding patient's gallbladder disease deferred to him patient underwent laparoscopic cholecystectomy on 10/13/2017 2 to undergo ERCP with possible sphincterotomy and stent placement on 10/15/2017 3. Myoclonic jerks this accounted for the involuntary movement patient presented with and this was attributed to patient renal uremia from his end-stage kidney disease. 4. Recent hospitalization for severe sepsis secondary to C. difficile colitis; placed and the enteric precautions and completed his treatment with vancomycin on 10/12/2017 5. End-stage renal disease: Consultation placed to Dr. Wilcox for dialysis orders 6. Diabetes mellitus type 2 with complications including diabetic polyneuropathy as well as end-stage renal disease 7. Diabetic retinopathy with blindness 8. Diabetic polyneuropathy involving both upper and lower extremities 9. Anemia secondary to anemia of end-stage renal disease 10. Chronic diastolic congestive heart failure 11. History of CVA with recent acute posterior right frontal lobe infarction 12. Hypertension-blood pressure controlled, home medications continued with dose adjustment as needed 10. DVT prophylaxis SC heparin Code Visit Inpatient E&M: 59180 Subs Hosp L3
[2017-10-14 12:11] LABS: Bedside Glucose 85 mg/dL (70-110)
--- NOTE | 2017-10-14 14:14 | CASEMGMT ---
BASSAM called patient's to discuss d/c planning. She said the plan is for him to go home. He left [facility] on Thursday. She said as long as he can stand and pivot to the wheelchair then he is coming home. BASSAM asked if he has home health. She said [facility] is working on setting up aides, but [facility] has a shortage of aides. She said he is throwing a fit because he wants yogurt and they are telling him all he can have is clear liquids. BASSAM told her that is because he is having a procedure tomorrow. She said he had surgery before and could eat. BASSAM pulled up the physician's note and read it to her which clearly states he can have clear liquids during the day and then nothing by mouth after midnight. BASSAM told her that patient refused therapy today so we do not know if he can stand and pivot. BASSAM will follow. Patient is currently sleeping and getting dialysis. Anastasia RDZ MSW
--- NOTE | 2017-10-14 14:24 | CASEMGMT ---
BASSAM called [facility] and let them know patient is in the hospital. BASSAM also left a voice mail for David Moreno, his bottle caser with [employer]. Anastasia RDZ MSW
[2017-10-14 17:40] LABS: Bedside Glucose 111 mg/dL (70-110)
--- NOTE | 2017-10-14 18:15 | DIALYSIS ---
hemodialysis x [id number] completed. UF 1200ml. See HD flowsheet on chart. report to Zoey.
[2017-10-14] MEDS: Atorvastatin Calcium 40 MG Tablet PO (21:25)
[2017-10-14] MEDS: Sertraline 50 MG Tablet PO (21:26)
[2017-10-14 22:01] LABS: Bedside Glucose 52 mg/dL (70-110)
[2017-10-14 22:01] LABS: Bedside Glucose 111 mg/dL (70-110)
[2017-10-15] VITALS (20 sets, daily range): BP systolic 118–141; BP diastolic 52–66; PULSE 78–91; RESP 16–20; TEMP 36.6–37.4; O2SAT 93–100; BMI 29.0
[2017-10-15] MEDS: Menthol/Lanolin/Calamine/Znox 113 GM Tube 1 APPLIC TOPICAL ×3 (05:12→21:44)
--- NOTE | 2017-10-15 05:55 | EKG12_ITS ---
Test Reason : AM EKG Blood Pressure : / mmHG Vent. Rate : 088 BPM Atrial Rate : 088 BPM P-R Int : 188 ms QRS Dur : 166 ms QT Int : 426 ms P-R-T Axes : 006 -09 -04 degrees QTc Int : 515 ms Normal sinus rhythm Right bundle branch block Inferior infarct , age undetermined Abnormal ECG When compared with ECG of 13-OCT-2017 14:15, MANUAL COMPARISON REQUIRED, DATA IS UNCONFIRMED Confirmed by JEREMIE MERCHANT, KERRY ([id number]), senior technical editor ANNIE MANCIA ([id number]) on 10/21/2017 1:19:10 PM Referred By: DR DE LUNA Confirmed By:KERRY CHAO MD
[2017-10-15] MEDS: 0.9% NaCl Peripheral Flush Adult/Peds IV (06:48)
[2017-10-15] MEDS: Dextrose 50%-Water 25 GM/50 ML DISP.SYRIN IV (06:48)
[2017-10-15 07:04] LABS: Absolute Lymphocyte Count 0.66 X10^3/ul (0.83-4.51); Absolute Neutrophil Count 9.8 X10^3/uL (2.0-7.7); Basophil# 0.01 X10^3/uL; Basophil% 0.1 % (0-1); Eosinophil# 0.02 X10^3/uL; Eosinophils% 0.2 % (0-5); Hematocrit 29.5 % (40-54); Hemoglobin 9.1 g/dl (13.0-16.5); Lymphocyte # 0.66 X10^3/ul (4.0); Lymphocyte % 5.4 % (19-41); Mean Corp Hgb Conc 30.8 g/gl (32-36); Mean Corpuscular Hgb 25.6 pg (27.0-32.0); Mean Corpuscular Volume 82.9 fL (80-94); Mean Platelet Vol. 9.8 fl (6.2-12.0); Monocyte% 13.1 % (0-10); Neutrophil # 9.84 X10^3/uL (2.7-7.7); Neutrophil % 80.7 % (47-70); Platelet Count 226 K/mm3 (150-450); RBC Distribution Width CV 15.9 % (11.6-14.6); RBC Distribution Width SD 47.3 fl (35.1-43.9); Red Blood Count 3.56 M/mm3 (4.6-6.2); White Blood Count 12.2 K/mm3 (4.4-11.0)
[2017-10-15 07:05] LABS: Differential Indicated SCAN CRITERIA MET; POSITIVE COUNT NO; POSITIVE DIFFERENTIAL YES; POSITIVE MORPHOLOGY NO
[2017-10-15 07:11] LABS: Bedside Glucose 129 mg/dL (70-110)
[2017-10-15 07:11] LABS: Bedside Glucose 33 mg/dL (70-110)
[2017-10-15 07:17] LABS: Anion Gap 8 (5-15); BUN 22 mg/dL (7-18); BUN/Creat Ratio 5.3 RATIO (10-20); Calcium,Total 7.1 mg/dL (8.5-10.1); Chloride 96 mmol/L (98-107); Creatinine, Serum 4.15 mg/dL (0.70-1.30); EST Glomerular Filtration Rate 16 mL/min (>60); Est Glom Filt Rate - Afr Amer 19 mL/min (>60); Estimated Creatinine Clearance 17.63 ml/min; Glucose 181 mg/dL (74-106); International Normalized Ratio 1.3; Potassium 3.7 mmol/L (3.5-5.1); Prothrombin Time (Protime)PT. 15.9 SECONDS (11.7-14.9); Sodium Level 135 mmol/L (136-145)
[2017-10-15 07:18] LABS: Partial Thromboplast Time 43.4 Seconds (24.1-36.2)
[2017-10-15] MEDS: Famotidine 20 MG Tablet 10 MG PO ×2 (07:57→21:45)
[2017-10-15] MEDS: Losartan Potassium 50 MG Tablet PO (07:58)
[2017-10-15] MEDS: amLODIPine 5 MG Tablet PO (07:58)
--- NOTE | 2017-10-15 08:07 | NURSING ---
Patient report called to Jennifer, nurse in [facility]. Patient medicated with pepcid, norvasc, and cozaar.
--- NOTE | 2017-10-15 09:00 | RAD_ITS ---
STUDY: ERCP. REASON FOR EXAM: Male, 62 years old. Stent removal. FLUOROSCOPY TIME (if supplied): (97.6 seconds) minutes/seconds TECHNIQUE: An ERCP was performed by the surgeon. Images were submitted. COMPARISON: None. FINDINGS: The common bile duct is opacified. No intraluminal filling defect is seen. RAD/ERCP Biliary Only IMPRESSION: Unremarkable examination. Electronically Signed: Roscoe Nicholson MD at 14:17 EST Tel [phone], Service support ,
--- NOTE | 2017-10-15 10:14 | OP.PCM_ITS ---
Problem List (1) Cholecystitis Status: Acute Report of Operation Date of Procedure: 10/15/17 Pre-Operative Diagnosis: Choledocholithiasis Post-Operative Diagnosis: Choledocholithiasis Surgery/Procedure Performed:: ERCP with stent removal and stone removal Description of Surgical Findings:: The patient had several filling defects in the common bile duct at the start of the case. His old stent was removed and several balloon passes were performed and sludge and stones were removed from the duct. At the end there was a good cholangiogram so no stent was replaced. Specimen's removed: None Description of Procedure: After describing the risks of the procedure as well as the procedure in detail informed consent was obtained. Patient was brought to the operating room and general anesthesia was induced. The patient was then placed in a semi-prone position. Next, the side-viewing endoscope was placed into the mouth and down into the stomach and advanced into the duodenum. The ampulla was located. A sphinctertome was used to cannulate the common bile duct and location was confirmed on fluoroscopy. Next the guidewire was placed into the common bile duct. The sphincterotome was removed and a 50 mm balloon was placed into the common bile duct. Several sweeps were made and stones and sludge were removed from the common bile duct. Next the balloon was placed back in the common bile duct and inflated and a cholangiogram was performed. There is no sign of bile leak. There were no more filling defects in the common bile duct. Once the duct was adequately clear of stones, the balloon was removed as well as the guidewire. The side- viewing scope was then withdrawn back into the stomach and the stomach was suctioned. Next, the scope was removed. The patient was taken to PACU in stable condition. The patient tolerated the procedure well. - Admit VTE Documentation VTE Mechan Device Prophylaxis: SCD's
[2017-10-15 10:40] LABS: Bedside Glucose 83 mg/dL (70-110)
[2017-10-15 12:06] LABS: Bedside Glucose 85 mg/dL (70-110)
[2017-10-15] MEDS: Aspirin 81 MG TAB.CHEW PO (12:11)
[2017-10-15] MEDS: Pregabalin 50 MG Capsule PO ×2 (12:11→21:44)
[2017-10-15] MEDS: BENZOCAINE/MENTHOL 1 LOZENGE MUCOUS MEM (12:52)
--- NOTE | 2017-10-15 13:09 | PCM.PN.HOSP ---
Patient Problems: Active and Suspected Problems (Last Updated 10/14/17 @ 11:15 by Aidee Hardy) FTT (failure to thrive) in adult (Acute) Cholecystitis (Acute) Subjective: Patient underwent ERCP with stent removal and stone removal this morning by Dr. Anand Objective: GENERAL:in no apparent distress. HEENT: Clear conjunctiva, NECK; supple, normal thyroid, CHEST: Diminished to auscultation bilaterally, HEART: Regular S1 S2, no audible murmurs ABDOMEN: soft, STIVEN drain in place RECTAL: deferred EXTREMITIES: No edema, no clubbing, no cyanosis. BRAND COORDINATOR: Awake, no lateralizing signs. SKIN: No rash Vitals/I&O's: Vital Signs Temp Pulse Resp BP Pulse Ox 98.1 F 81 16 141/63 H 98 10/15/17 12:51 10/15/17 12:51 10/15/17 12:51 10/15/17 12:51 10/15/17 12:51 Oxygen Flow Rate 2 Oxygen Delivery Method Room Air Weight: 86.8 kg Body Mass Index (BMI) 29.0 Finger Stick Blood Glucose 83 Intake and Output for Last 24 Hours 10/13/17 10/14/17 10/15/17 23:59 23:59 23:59 Intake Total 1030 / 1030 660 / 660 840 / 840 Output Total 0 / 0 Balance 1030 / 1030 660 / 660 840 / 840 Microbiology Past 72 Hours 10/12/17 23:42 Stool C. difficile DNA Amplification - Final Laboratory Results 10/14/17 17:12: POC Glucose 111 H 10/14/17 21:16: POC Glucose 52 L 10/14/17 21:57: POC Glucose 111 H 10/15/17 06:45: POC Glucose 33 L* 10/15/17 06:50: Sodium 135 L, Potassium 3.7, Chloride 96 L, Carbon Dioxide 31.0, Anion Gap 8, BUN 22 H, Creatinine 4.15 H, Estim Creat Clear Calc 17.63, Est GFR (MDRD) Af Amer 19 L, Est GFR (MDRD) Non-Af 16 L, BUN/Creatinine Ratio 5.3 L, Glucose 181 H, Calcium 7.1 L 10/15/17 06:50: WBC 12.2 H, RBC 3.56 L, Hgb 9.1 L, Hct 29.5 L, MCV 82.9, MCH 25.6 L, MCHC 30.8 L, RDW 15.9 H, RDW Differential 47.3 H, Plt Count 226, MPV 9.8, Immature Gran % (Auto) 0.500, Neut % (Auto) 80.7 H, Lymph % (Auto) 5.4 L, Anson % (Auto) 13.1 H, Eos % (Auto) 0.2, Baso % (Auto) 0.1, Absolute Neuts (auto) 9.8 H, Absolute Lymphs (auto) 0.66 L, Total Counted Not Reportable, Differential Comment 10/15/17 06:50: PT 15.9 H, INR 1.3, APTT 43.4 H 10/15/17 07:04: POC Glucose 129 H 10/15/17 10:35: POC Glucose 83 10/15/17 11:58: POC Glucose 85 Current Medications Acetaminophen (Tylenol) 650 mg PO Q6H PRN PRN PRN Reason: Mild Pain (scale 0-3)/T>100.7 Last Admin: 10/13/17 18:10 Dose: 650 mg Al Hydroxide/Mg Hydroxide (Mylanta Ii) 30 ml PO Q6H PRN PRN PRN Reason: Gastric Burning Amlodipine Besylate (Norvasc) 5 mg PO DAILY [facility] Last Admin: 10/15/17 07:58 Dose: 5 mg Aspirin (Aspirin, Baby) 81 mg PO DAILY@0800 [facility] Last Admin: 10/15/17 12:11 Dose: 81 mg Atorvastatin Calcium (Lipitor) 40 mg PO QHS [facility] Last Admin: 10/14/17 21:25 Dose: 40 mg Bisacodyl (Dulcolax) 10 mg PO DAILY PRN PRN PRN Reason: Constipation Calamine/Phenol (Calmoseptine Ointment) 1 applic TOPICAL TID [facility] PRN Reason: Protocol Last Admin: 10/15/17 05:12 Dose: 1 applicatio Dextrose (D50w Syringe) 0 gm IV X1 PRN; Protocol PRN Reason: Hypoglycemia Last Admin: 10/15/17 06:48 Dose: 25 gm Docusate Sodium (Colace) 200 mg PO BID PRN PRN PRN Reason: Constipation Famotidine (Pepcid) 10 mg PO BID [facility] Last Admin: 10/15/17 07:57 Dose: 10 mg Glucagon () 1 mg IM .X1 PRN PRN Reason: Hypoglycemia Guaifenesin (Mucinex) 1,200 mg PO BID [facility] Last Admin: 10/15/17 12:11 Dose: Not Given Insulin Aspart (Novolog Flexpen (Bkc)) 0 units SC ACHS [facility] PRN Reason: Protocol Last Admin: 10/15/17 11:59 Dose: Not Given Insulin Aspart (Novolog Flexpen (Bkc)) 5 units SC BREAKFAST [facility] Last Admin: 10/15/17 10:08 Dose: Not Given Insulin Aspart (Novolog Flexpen (Bkc)) 5 units SC DINNER [facility] Insulin Aspart (Novolog Flexpen (Bkc)) 5 units SC LUNCH [facility] Last Admin: 10/15/17 12:19 Dose: Not Given Insulin Detemir (Levemir (Bkc)) 15 units SC DINNER [facility] Lorazepam (Ativan) 0.5 mg PO BID [facility] Last Admin: 10/15/17 12:17 Dose: Not Given Losartan Potassium (Cozaar) 50 mg PO DAILY [facility] Last Admin: 10/15/17 07:58 Dose: 50 mg Magnesium Hydroxide (Milk Of Magnesia) 30 ml PO DAILY PRN PRN PRN Reason: Constipation Morphine Sulfate (Morphine) 2 - 4 mg IV Q3H PRN PRN PRN Reason: Severe Pain (pain scale 6-10) Morphine Sulfate (Morphine) 2 - 4 mg IV Q3H PRN PRN PRN Reason: Severe Pain (pain scale 6-10) Nutritional Formula (Lactose Free) (Ensure Clear) 120 ml PO 4X/DAY [facility] Last Admin: 10/15/17 12:13 Dose: 120 ml Ondansetron HCl (Zofran) 4 mg IV Q8H PRN PRN PRN Reason: Nausea Oxycodone HCl (Oxyir) 5 mg PO Q4H PRN PRN PRN Reason: Moderate Pain (pain scale 4-5) Pregabalin (Lyrica) 50 mg PO BID [facility] Last Admin: 10/15/17 12:11 Dose: 50 mg Senna (Senokot) 1 tablet PO DAILY [facility] Last Admin: 10/15/17 12:10 Dose: Not Given Sertraline HCl (Zoloft) 50 mg PO QHS [facility] Last Admin: 02/28/18 21:26 Dose: 50 mg Sodium Chloride () 5 - 30 ml IV UD PRN PRN Reason: SALINE FLUSH Last Admin: 10/15/17 06:48 Dose: 10 ml Throat Lozenges (Cepacol Sore Throat Lozenge) 1 lozenge MUCOUS MEM Q2H PRN PRN PRN Reason: SORE THROAT Last Admin: 10/15/17 12:52 Dose: 1 lozenge Tramadol HCl (Ultram (G)) 50 mg PO BID PRN PRN PRN Reason: PAIN Zolpidem Tartrate (Ambien (Generic)) 5 mg PO QHS PRN PRN PRN Reason: INSOMNIA Assessment/Plan Active and Suspected Problems (Last Updated 10/14/17 @ 11:15 by Aidee Hardy) FTT (failure to thrive) in adult (Acute) Cholecystitis (Acute) The patient is a 62 year old M with multiple comorbidities presenting with progressive generalized weakness 1. Adult failure to thrive in the context of multiple medical comorbidities admitted to a regular nursing floor. Requested for PT OT and social media campaign manager to assist with discharge planning 2. Recent Acute cholecystitis s/p Exploratory laparoscopy with placement of cholecystostomy tube on 08/07/[address] Anand consultation was placed to him definitive management regarding patient's gallbladder disease deferred to him. Patient underwent laparoscopic cholecystectomy on 10/13/2017 2 to undergo ERCP with possible sphincterotomy and stent placement on 10/15/2017 Patient also had ERCP with stent removal and stone removal on 10/15/[address] Anand 3. Myoclonic jerks this accounted for the involuntary movement patient presented with and this was attributed to patient renal uremia from his end-stage kidney disease. 4. Recent hospitalization for severe sepsis secondary to C. difficile colitis; placed and the enteric precautions and completed his treatment with vancomycin on 10/12/2017 5. End-stage renal disease: Consultation placed to Dr. Wilcox for dialysis orders 6. Diabetes mellitus type 2 with complications including diabetic polyneuropathy as well as end-stage renal disease 7. Diabetic retinopathy with blindness 8. Diabetic polyneuropathy involving both upper and lower extremities 9. Anemia secondary to anemia of end-stage renal disease 10. Chronic diastolic congestive heart failure 11. History of CVA with recent acute posterior right frontal lobe infarction 12. Hypertension-blood pressure controlled, home medications continued with dose adjustment as needed 10. DVT prophylaxis SC heparin Code Visit Inpatient E&M: 22330 Subs Hosp L3
--- NOTE | 2017-10-15 13:13 | PN_ITS ---
Patient Problems: Active and Suspected Problems (Last Updated 10/14/17 @ 11:15 by Aidee Hardy) FTT (failure to thrive) in adult (Acute) Cholecystitis (Acute) Subjective: Patient underwent ERCP with stent removal and stone removal this morning by Dr. Anand Objective: GENERAL:in no apparent distress. HEENT: Clear conjunctiva, NECK; supple, normal thyroid, CHEST: Diminished to auscultation bilaterally, HEART: Regular S1 S2, no audible murmurs ABDOMEN: soft, STIVEN drain in place RECTAL: deferred EXTREMITIES: No edema, no clubbing, no cyanosis. GENERAL ASSEMBLER: Awake, no lateralizing signs. SKIN: No rash Vitals/I&O's: Vital Signs Temp Pulse Resp BP Pulse Ox 98.1 F 81 16 141/63 H 98 10/15/17 12:51 10/15/17 12:51 10/15/17 12:51 10/15/17 12:51 10/15/17 12:51 Oxygen Flow Rate 2 Oxygen Delivery Method Room Air Weight: 86.8 kg Body Mass Index (BMI) 29.0 Finger Stick Blood Glucose 83 Intake and Output for Last 24 Hours 10/13/17 10/14/17 10/15/17 23:59 23:59 23:59 Intake Total 1030 / 1030 660 / 660 840 / 840 Output Total 0 / 0 Balance 1030 / 1030 660 / 660 840 / 840 Microbiology Past 72 Hours 10/12/17 23:42 Stool C. difficile DNA Amplification - Final Laboratory Results 10/14/17 17:12: POC Glucose 111 H 10/14/17 21:16: POC Glucose 52 L 10/14/17 21:57: POC Glucose 111 H 10/15/17 06:45: POC Glucose 33 L* 10/15/17 06:50: Sodium 135 L, Potassium 3.7, Chloride 96 L, Carbon Dioxide 31.0 , Anion Gap 8, BUN 22 H, Creatinine 4.15 H, Estim Creat Clear Calc 17.63, Est GFR (MDRD) Af Amer 19 L, Est GFR (MDRD) Non-Af 16 L, BUN/Creatinine Ratio 5.3 L , Glucose 181 H, Calcium 7.1 L 10/15/17 06:50: WBC 12.2 H, RBC 3.56 L, Hgb 9.1 L, Hct 29.5 L, MCV 82.9, MCH 25.6 L, MCHC 30.8 L, RDW 15.9 H, RDW Differential 47.3 H, Plt Count 226, MPV 9.8 , Immature Gran % (Auto) 0.500, Neut % (Auto) 80.7 H, Lymph % (Auto) 5.4 L, [place] % (Auto) 13.1 H, Eos % (Auto) 0.2, Baso % (Auto) 0.1, Absolute Neuts (auto ) 9.8 H, Absolute Lymphs (auto) 0.66 L, Total Counted Not Reportable, Differential Comment 10/15/17 06:50: PT 15.9 H, INR 1.3, APTT 43.4 H 10/15/17 07:04: POC Glucose 129 H 10/15/17 10:35: POC Glucose 83 10/15/17 11:58: POC Glucose 85 Current Medications Acetaminophen (Tylenol) 650 mg PO Q6H PRN PRN PRN Reason: Mild Pain (scale 0-3)/T>100.7 Last Admin: 10/13/17 18:10 Dose: 650 mg Al Hydroxide/Mg Hydroxide (Mylanta Ii) 30 ml PO Q6H PRN PRN PRN Reason: Gastric Burning Amlodipine Besylate (Norvasc) 5 mg PO DAILY [facility] Last Admin: 10/15/17 07:58 Dose: 5 mg Aspirin (Aspirin, Baby) 81 mg PO DAILY@0800 [facility] Last Admin: 10/15/17 12:11 Dose: 81 mg Atorvastatin Calcium (Lipitor) 40 mg PO QHS [facility] Last Admin: 10/14/17 21:25 Dose: 40 mg Bisacodyl (Dulcolax) 10 mg PO DAILY PRN PRN PRN Reason: Constipation Calamine/Phenol (Calmoseptine Ointment) 1 applic TOPICAL TID [facility] PRN Reason: Protocol Last Admin: 10/15/17 05:12 Dose: 1 applicatio Dextrose (D50w Syringe) 0 gm IV X1 PRN; Protocol PRN Reason: Hypoglycemia Last Admin: 10/15/17 06:48 Dose: 25 gm Docusate Sodium (Colace) 200 mg PO BID PRN PRN PRN Reason: Constipation Famotidine (Pepcid) 10 mg PO BID [facility] Last Admin: 10/15/17 07:57 Dose: 10 mg Glucagon () 1 mg IM .X1 PRN PRN Reason: Hypoglycemia Guaifenesin (Mucinex) 1,200 mg PO BID [facility] Last Admin: 10/15/17 12:11 Dose: Not Given Insulin Aspart (Novolog Flexpen (Bkc)) 0 units SC ACHS [facility] PRN Reason: Protocol Last Admin: 10/15/17 11:59 Dose: Not Given Insulin Aspart (Novolog Flexpen (Bkc)) 5 units SC BREAKFAST [facility] Last Admin: 10/15/17 10:08 Dose: Not Given Insulin Aspart (Novolog Flexpen (Bkc)) 5 units SC DINNER [facility] Insulin Aspart (Novolog Flexpen (Bkc)) 5 units SC LUNCH [facility] Last Admin: 10/15/17 12:19 Dose: Not Given Insulin Detemir (Levemir (Bkc)) 15 units SC DINNER [facility] Lorazepam (Ativan) 0.5 mg PO BID [facility] Last Admin: 10/15/17 12:17 Dose: Not Given Losartan Potassium (Cozaar) 50 mg PO DAILY [facility] Last Admin: 10/15/17 07:58 Dose: 50 mg Magnesium Hydroxide (Milk Of Magnesia) 30 ml PO DAILY PRN PRN PRN Reason: Constipation Morphine Sulfate (Morphine) 2 - 4 mg IV Q3H PRN PRN PRN Reason: Severe Pain (pain scale 6-10) Morphine Sulfate (Morphine) 2 - 4 mg IV Q3H PRN PRN PRN Reason: Severe Pain (pain scale 6-10) Nutritional Formula (Lactose Free) (Ensure Clear) 120 ml PO 4X/DAY [facility] Last Admin: 10/15/17 12:13 Dose: 120 ml Ondansetron HCl (Zofran) 4 mg IV Q8H PRN PRN PRN Reason: Nausea Oxycodone HCl (Oxyir) 5 mg PO Q4H PRN PRN PRN Reason: Moderate Pain (pain scale 4-5) Pregabalin (Lyrica) 50 mg PO BID [facility] Last Admin: 10/15/17 12:11 Dose: 50 mg Senna (Senokot) 1 tablet PO DAILY [facility] Last Admin: 10/15/17 12:10 Dose: Not Given Sertraline HCl (Zoloft) 50 mg PO QHS [facility] Last Admin: 02/28/18 21:26 Dose: 50 mg Sodium Chloride () 5 - 30 ml IV UD PRN PRN Reason: SALINE FLUSH Last Admin: 10/15/17 06:48 Dose: 10 ml Throat Lozenges (Cepacol Sore Throat Lozenge) 1 lozenge MUCOUS MEM Q2H PRN PRN PRN Reason: SORE THROAT Last Admin: 10/15/17 12:52 Dose: 1 lozenge Tramadol HCl (Ultram (G)) 50 mg PO BID PRN PRN PRN Reason: PAIN Zolpidem Tartrate (Ambien (Generic)) 5 mg PO QHS PRN PRN PRN Reason: INSOMNIA Assessment/Plan Active and Suspected Problems (Last Updated 10/14/17 @ 11:15 by Aidee Hardy) FTT (failure to thrive) in adult (Acute) Cholecystitis (Acute) The patient is a 62 year old M with multiple comorbidities presenting with progressive generalized weakness 1. Adult failure to thrive in the context of multiple medical comorbidities admitted to a regular nursing floor. Requested for PT OT and social media manager to assist with discharge planning 2. Recent Acute cholecystitis s/p Exploratory laparoscopy with placement of cholecystostomy tube on 08/07/[address] Anand consultation was placed to him definitive management regarding patient's gallbladder disease deferred to him. Patient underwent laparoscopic cholecystectomy on 10/13/2017 2 to undergo ERCP with possible sphincterotomy and stent placement on 10/15/2017 Patient also had ERCP with stent removal and stone removal on 10/15/[address] Anand 3. Myoclonic jerks this accounted for the involuntary movement patient presented with and this was attributed to patient renal uremia from his end- stage kidney disease. 4. Recent hospitalization for severe sepsis secondary to C. difficile colitis; placed and the enteric precautions and completed his treatment with vancomycin on 10/12/2017 5. End-stage renal disease: Consultation placed to Dr. Wilcox for dialysis orders 6. Diabetes mellitus type 2 with complications including diabetic polyneuropathy as well as end-stage renal disease 7. Diabetic retinopathy with blindness 8. Diabetic polyneuropathy involving both upper and lower extremities 9. Anemia secondary to anemia of end-stage renal disease 10. Chronic diastolic congestive heart failure 11. History of CVA with recent acute posterior right frontal lobe infarction 12. Hypertension-blood pressure controlled, home medications continued with dose adjustment as needed 10. DVT prophylaxis SC heparin Code Visit Inpatient E&M: 95958 Subs Hosp L3
--- NOTE | 2017-10-15 13:31 | PN.RENAL_ITS ---
Patient Problems: Active and Suspected Problems (Last Updated 10/14/17 @ 11:15 by Aidee Hardy) FTT (failure to thrive) in adult (Acute) Cholecystitis (Acute) Subjective: return from OR. Denied abdominal pain, nausea, shortness of breath. at bedside. - Physical Exam General: Alert, Oriented x3, Cooperative, No apparent distress Lungs: Clear to auscultation Cardiovascular: Regular rate Abdomen: Bowel Sounds Present, Soft, Non Tender, Non-Distended Extremities: No edema Vital Signs Temp Pulse Resp BP Pulse Ox 98.1 F 81 16 141/63 H 98 10/15/17 12:51 10/15/17 12:51 10/15/17 12:51 10/15/17 12:51 10/15/17 12:51 Oxygen Flow Rate 2 Oxygen Delivery Method Room Air Weight: 86.8 kg Body Mass Index (BMI) 29.0 Finger Stick Blood Glucose 83 Intake and Output for Last 24 Hours 10/13/17 10/14/17 10/15/17 23:59 23:59 23:59 Intake Total 1030 / 1030 660 / 660 840 / 840 Output Total 0 / 0 Balance 1030 / 1030 660 / 660 840 / 840 Microbiology Past 72 Hours 10/12/17 23:42 C. difficile DNA Amplification - Final Stool Laboratory Tests Past 24 Hrs 10/15/17 10/15/17 10/15/17 06:50 06:50 06:50 WBC 12.2 H RBC 3.56 L Hgb 9.1 L Hct 29.5 L MCV 82.9 MCH 25.6 L MCHC 30.8 L RDW 15.9 H RDW Differential 47.3 H Plt Count 226 MPV 9.8 Immature Gran % (Auto) 0.500 Neut % (Auto) 80.7 H Lymph % (Auto) 5.4 L [place] % (Auto) 13.1 H Eos % (Auto) 0.2 Baso % (Auto) 0.1 Absolute Neuts (auto) 9.8 H Absolute Lymphs (auto) 0.66 L Total Counted Not Reportable Differential Comment PT 15.9 H INR 1.3 APTT 43.4 H Sodium 135 L Potassium 3.7 Chloride 96 L Carbon Dioxide 31.0 Anion Gap 8 BUN 22 H Creatinine 4.15 H Estim Creat Clear Calc 17.63 Est GFR (MDRD) Af Amer 19 L Est GFR (MDRD) Non-Af 16 L BUN/Creatinine Ratio 5.3 L Glucose 181 H Calcium 7.1 L POC Glucose 10/15/17 10/15/17 10/15/17 11:58 10:35 07:04 POC Glucose 85 83 129 H 10/15/17 10/14/17 10/14/17 06:45 21:57 21:16 POC Glucose 33 L* 111 H 52 L 10/14/17 17:12 POC Glucose 111 H Assessment/Plan Active and Suspected Problems (Last Updated 10/14/17 @ 11:15 by Aidee Hardy) FTT (failure to thrive) in adult (Acute) Cholecystitis (Acute) 1. ESRD hemodialysis Thursday. Next dialysis Thursday. 2. DM type II primary care management 3. Anemia hemoglobin stable, epo iv iron on dialysis 4. Generalized weakness continue PT OT 5. Hypertension with stable blood pressures 6. Leukocytosis with history of C. difficile. 7. S/P lap mak with cholecystostomy tube removal on 10/13, ERCP with stone removal today
--- NOTE | 2017-10-15 13:51 | CASEMGMT ---
BASSAM spoke with patient's in the room. Patient was sleeping. BASSAM told her that therapy is going to come back in a little later and get him up. She thanked BASSAM. Anastasia CALIX
[2017-10-15 17:06] LABS: Bedside Glucose 108 mg/dL (70-110)
[2017-10-15] MEDS: Acetaminophen 325 MG Tablet 650 MG PO (17:39)
[2017-10-15] MEDS: LORazepam 0.5 MG Tablet PO (21:44)
[2017-10-15] MEDS: guaiFENesin 1,200 MG Tablet 1200 MG PO (21:45)
[2017-10-15] MEDS: Sertraline 50 MG Tablet PO (21:45)
[2017-10-15] MEDS: Atorvastatin Calcium 40 MG Tablet PO (21:45)
[2017-10-15 22:11] LABS: Bedside Glucose 143 mg/dL (70-110)
[2017-10-16] VITALS (7 sets, daily range): BP systolic 135–146; BP diastolic 54–71; PULSE 76–87; RESP 16–20; TEMP 36.7–37.1; O2SAT 90–97
[2017-10-16] MEDS: Menthol/Lanolin/Calamine/Znox 113 GM Tube 1 APPLIC TOPICAL ×2 (06:07→14:57)
[2017-10-16 06:32] LABS: Absolute Lymphocyte Count 0.69 X10^3/ul (0.83-4.51); Absolute Neutrophil Count 8.6 X10^3/uL (2.0-7.7); Eosinophil# 0.12 X10^3/uL; Eosinophils% 1.1 % (0-5); Hematocrit 30.8 % (40-54); Hemoglobin 9.5 g/dl (13.0-16.5); Lymphocyte # 0.69 X10^3/ul (4.0); Lymphocyte % 6.6 % (19-41); Mean Corp Hgb Conc 30.8 g/gl (32-36); Mean Corpuscular Hgb 25.3 pg (27.0-32.0); Mean Corpuscular Volume 81.9 fL (80-94); Mean Platelet Vol. 9.4 fl (6.2-12.0); Monocyte# 0.99 X10^3/uL; Monocyte% 9.5 % (0-10); Neutrophil # 8.62 X10^3/uL (2.7-7.7); Neutrophil % 82.6 % (47-70); Platelet Count 240 K/mm3 (150-450); RBC Distribution Width CV 15.9 % (11.6-14.6); Red Blood Count 3.76 M/mm3 (4.6-6.2); White Blood Count 10.4 K/mm3 (4.4-11.0)
[2017-10-16 06:39] LABS: POSITIVE COUNT NO; POSITIVE DIFFERENTIAL NO; POSITIVE MORPHOLOGY NO
[2017-10-16 06:49] LABS: ALB/GLOB Ratio 0.6 RATIO (0.9-2.4); AST(SGOT) 17 U/L (15-37); Alanine Aminotransfer ALT/SGPT 29 U/L (16-61); Albumin, Serum 2.4 g/dL (3.2-5.0); Alkaline Phosphatase 168 U/L (45-117); Anion Gap 11 (5-15); BUN 32 mg/dL (7-18); BUN/Creat Ratio 5.4 RATIO (10-20); Calcium,Total 7.8 mg/dL (8.5-10.1); Chloride 92 mmol/L (98-107); Creatinine, Serum 5.98 mg/dL (0.70-1.30); EST Glomerular Filtration Rate 10 mL/min (>60); Est Glom Filt Rate - Afr Amer 12 mL/min (>60); Estimated Creatinine Clearance 12.23 ml/min; Globulin 4.3 g/dL (2.2-4.2); Glucose 134 mg/dL (74-106); Potassium 3.8 mmol/L (3.5-5.1); Protein, Total 6.7 g/dL (6.4-8.2); Sodium Level 134 mmol/L (136-145)
[2017-10-16 06:51] LABS: Bedside Glucose 150 mg/dL (70-110)
--- NOTE | 2017-10-16 07:53 | PCM.PN.SRG ---
Patient Problems: Active and Suspected Problems (Last Updated 10/14/17 @ 11:15 by Aidee Hardy) FTT (failure to thrive) in adult (Acute) Cholecystitis (Acute) Subjective: Patient doing well this morning. He reports he did tolerate clear liquids and some regular diet last night. - Physical Exam General: Alert, No apparent distress HEENT: Atraumatic Lungs: Normal air movement Cardiovascular: Regular rate, Regular Rhythm Abdomen: Soft, Non Tender, Non-Distended, - - Incisions are clean dry and intact Vital Signs Temp Pulse Resp BP Pulse Ox 98.3 F 81 18 135/58 H 93 10/16/17 07:50 10/16/17 07:50 10/16/17 07:50 10/16/17 07:50 10/16/17 07:50 Oxygen Flow Rate 2 Oxygen Delivery Method Room Air Weight: 189 lb 13.088 oz Body Mass Index (BMI) 29.0 Finger Stick Blood Glucose 83 Intake and Output for Last 24 Hours 10/14/17 10/15/17 10/16/17 23:59 23:59 23:59 Intake Total 660 / 660 1380 / 1380 Output Total 0 / 0 Balance 660 / 660 1380 / 1380 Microbiology Past 72 Hours 10/12/17 23:42 C. difficile DNA Amplification - Final Stool Laboratory Tests Past 24 Hrs 10/16/17 10/16/17 06:05 06:05 WBC 10.4 RBC 3.76 L Hgb 9.5 L Hct 30.8 L MCV 81.9 MCH 25.3 L MCHC 30.8 L RDW 15.9 H RDW Differential 48.0 H Plt Count 240 MPV 9.4 Immature Gran % (Auto) 0.200 Neut % (Auto) 82.6 H Lymph % (Auto) 6.6 L [place] % (Auto) 9.5 Eos % (Auto) 1.1 Baso % (Auto) 0.0 Absolute Neuts (auto) 8.6 H Absolute Lymphs (auto) 0.69 L Total Counted Not Reportable Sodium 134 L Potassium 3.8 Chloride 92 L Carbon Dioxide 31.0 Anion Gap 11 BUN 32 H Creatinine 5.98 H Estim Creat Clear Calc 12.23 Est GFR (MDRD) Af Amer 12 L Est GFR (MDRD) Non-Af 10 L BUN/Creatinine Ratio 5.4 L Glucose 134 H Calcium 7.8 L Total Bilirubin 1.50 H AST 17 ALT 29 Alkaline Phosphatase 168 H Total Protein 6.7 Albumin 2.4 L Globulin 4.3 H Albumin/Globulin Ratio 0.6 L POC Glucose 10/16/17 10/15/17 10/15/17 06:44 21:43 16:59 POC Glucose 150 H 143 H 108 10/15/17 10/15/17 11:58 10:35 POC Glucose 85 83 Assessment/Plan Active and Suspected Problems (Last Updated 10/14/17 @ 11:15 by Aidee Hardy) FTT (failure to thrive) in adult (Acute) Cholecystitis (Acute) 62-year-old male status post laparoscopic cholecystectomy and ERCP with stent removal 1. Patient's white count is normal today. He is tolerating a regular diet and is abdomen is soft and nontender. I was able to remove the rest of the debris and stones from his common bile duct and his stent. The patient should need no further surgeries from my standpoint. 2. He is okay from my standpoint to be discharged. His bandages can be removed in 1 more day and his Steri-Strips can be removed in 1 week. My only restrictions would be no lifting over 20 pounds for 2 weeks. He can follow-up with me in 2 weeks for follow-up visit. [phone] Quique Anand MD Pager: [facility] [address], [address] [place] [address] Office:
[2017-10-16] MEDS: Mag Hydrox/Al Hydrox/Simeth 30 ML UDC PO (07:56)
--- NOTE | 2017-10-16 07:56 | PN.SURG_ITS ---
Patient Problems: Active and Suspected Problems (Last Updated 10/14/17 @ 11:15 by Aidee Hardy) FTT (failure to thrive) in adult (Acute) Cholecystitis (Acute) Subjective: Patient doing well this morning. He reports he did tolerate clear liquids and some regular diet last night. - Physical Exam General: Alert, No apparent distress HEENT: Atraumatic Lungs: Normal air movement Cardiovascular: Regular rate, Regular Rhythm Abdomen: Soft, Non Tender, Non-Distended, - - Incisions are clean dry and intact Vital Signs Temp Pulse Resp BP Pulse Ox 98.3 F 81 18 135/58 H 93 10/16/17 07:50 10/16/17 07:50 10/16/17 07:50 10/16/17 07:50 10/16/17 07:50 Oxygen Flow Rate 2 Oxygen Delivery Method Room Air Weight: 189 lb 13.088 oz Body Mass Index (BMI) 29.0 Finger Stick Blood Glucose 83 Intake and Output for Last 24 Hours 10/14/17 10/15/17 10/16/17 23:59 23:59 23:59 Intake Total 660 / 660 1380 / 1380 Output Total 0 / 0 Balance 660 / 660 1380 / 1380 Microbiology Past 72 Hours 10/12/17 23:42 C. difficile DNA Amplification - Final Stool Laboratory Tests Past 24 Hrs 10/16/17 10/16/17 06:05 06:05 WBC 10.4 RBC 3.76 L Hgb 9.5 L Hct 30.8 L MCV 81.9 MCH 25.3 L MCHC 30.8 L RDW 15.9 H RDW Differential 48.0 H Plt Count 240 MPV 9.4 Immature Gran % (Auto) 0.200 Neut % (Auto) 82.6 H Lymph % (Auto) 6.6 L [place] % (Auto) 9.5 Eos % (Auto) 1.1 Baso % (Auto) 0.0 Absolute Neuts (auto) 8.6 H Absolute Lymphs (auto) 0.69 L Total Counted Not Reportable Sodium 134 L Potassium 3.8 Chloride 92 L Carbon Dioxide 31.0 Anion Gap 11 BUN 32 H Creatinine 5.98 H Estim Creat Clear Calc 12.23 Est GFR (MDRD) Af Amer 12 L Est GFR (MDRD) Non-Af 10 L BUN/Creatinine Ratio 5.4 L Glucose 134 H Calcium 7.8 L Total Bilirubin 1.50 H AST 17 ALT 29 Alkaline Phosphatase 168 H Total Protein 6.7 Albumin 2.4 L Globulin 4.3 H Albumin/Globulin Ratio 0.6 L POC Glucose 10/16/17 10/15/17 10/15/17 06:44 21:43 16:59 POC Glucose 150 H 143 H 108 10/15/17 10/15/17 11:58 10:35 POC Glucose 85 83 Assessment/Plan Active and Suspected Problems (Last Updated 10/14/17 @ 11:15 by Aidee Hardy) FTT (failure to thrive) in adult (Acute) Cholecystitis (Acute) 62-year-old male status post laparoscopic cholecystectomy and ERCP with stent removal 1. Patient's white count is normal today. He is tolerating a regular diet and is abdomen is soft and nontender. I was able to remove the rest of the debris and stones from his common bile duct and his stent. The patient should need no further surgeries from my standpoint. 2. He is okay from my standpoint to be discharged. His bandages can be removed in 1 more day and his Steri-Strips can be removed in 1 week. My only restrictions would be no lifting over 20 pounds for 2 weeks. He can follow-up with me in 2 weeks for follow-up visit. [phone] Quique Anand MD Pager: [facility] [address], [address] [place] [address] Office:
--- NOTE | 2017-10-16 10:20 | PCM.DC ---
- Discharge Diagnoses Current Active Problems: Current Active and Chronic Problems (Last Updated 10/14/17 @ 11:15 by Aidee Hardy) FTT (failure to thrive) in adult (Acute) Cholecystitis (Acute) You will use the following diet at home:: Calorie/Carbohydrate Controlled (specify 1200, 1400, etc) - 1800, Renal (restricted protein/sodium) Allergies/Adverse Reactions: Allergies silk Adverse Reaction (Verified 10/12/17 13:59) Rash Medications to take at Discharge Famotidine [Pepcid AC] 10 mg PO BID 06/22/17 Pregabalin [Lyrica] 50 mg PO BID 06/22/17 Aspirin [Aspirin, Baby] 81 mg PO DAILY@0800 #30 tab.chew 06/23/17 Senna [Senokot] 1 tab PO DAILY 08/03/17 Insulin Aspart [Novolog Flexpen] 5 units SC BREAKFAST flexpen 09/07/17 Insulin Aspart [Novolog Flexpen] 5 units SC LUNCH flexpen 09/07/17 Insulin Aspart [Novolog Flexpen] See Protocol SC ACHS flexpen 09/07/17 Vancomycin HCl 125 mg PO 4X/DAY 35 Days capsule 09/07/17 Insulin Aspart [Novolog Flexpen] 5 units SC DINNER 09/15/17 Amlodipine [Norvasc] 5 mg PO DAILY 10/12/17 Lipitor 40 mg PO QHS 10/12/17 Lorazepam [Ativan] 0.5 mg PO BID 10/12/17 Losartan Potassium [Cozaar] 50 mg PO DAILY 10/12/17 Oxycodone HCl/Acetaminophen [Percocet 5-325] 1 tablet PO Q6H PRN PRN 10/12/17 Sertraline HCl [Zoloft] 50 mg PO QHS 10/12/17 Tramadol HCl [Ultram] 50 mg PO Q6H PRN PRN 10/12/17 atorvastatin 40 mg tablet 40 mg PO QDAY 10/14/17 cholecalciferol (vitamin D3) 2,000 unit tablet 2,000 unit PO QDAY tab 10/14/17 clopidogrel 75 mg tablet 150 mg PO QDAY 10/14/17 ferrous sulfate 325 mg (65 mg iron) tablet 325 mg PO QDAY tab 10/14/17 furosemide 40 mg tablet 40 mg PO BID tab 10/14/17 metoprolol succinate ER 50 mg tablet,extended release 24 hr 50 mg PO QDAY tab 10/14/17 Insulin Detemir [Levemir FlexPen] 10 units SC DINNER #0 insuln.pen 10/16/17 Primary Care Physician: Maximilian Castillo Jr., MD [Primary Care Provider] - Please follow up with your Primary Care Physician in: in 1-2 weeks Proposed Discharge Date: 10/16/17
--- NOTE | 2017-10-16 10:24 | DS.PCM_ITS ---
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 pneumoniae Hydronephrosis, right (Chronic) Cholecystitis (Chronic) Benign essential hypertension (Chronic) CAD (coronary artery disease) (Chronic) remote IWMI on stress with mild marlena-infarct ischemia Type II diabetes mellitus (Chronic) poorly controlled Diabetic peripheral neuropathy (Chronic) hands and feet HLD (hyperlipidemia) (Chronic) controlled Iron deficiency anemia (Chronic) due to GI blood loss Back pain (Chronic) Uncontrolled hypertension (Chronic) Depression (Chronic) Generalized weakness (Chronic) Colon polyps (Chronic) Blindness (Chronic) CHF exacerbation (Chronic) Anxiety (Chronic) Polyneuropathy (Chronic) Hypertension (Chronic) Heart failure with preserved ejection fraction (Chronic) ESRD (end stage renal disease) (Chronic) Stroke (Chronic) Cerebrovascular disease (Chronic) Hospital Course and Treatment Imaging Results: Clinical Impression(s) from Imaging Studies Acute Abdomen Series 10/12/17 14:47 IMPRESSION: Mild ileus. Electronically Signed: Carlton King MD at 16:11 EST , Service support , Cholangiogram 10/13/17 11:00 IMPRESSION: Stent is seen in the common bile duct. A filling defect is seen within the common bile duct in keeping with retained calculus. Electronically Signed: Roscoe Nicholson MD at 14:21 EST Tel [phone], Service support , ERCP X-Ray 10/15/17 09:00 IMPRESSION: Unremarkable examination. Electronically Signed: Roscoe Nicholson MD at 14:17 EST Tel [phone], Service support , Operations: None Summary of Care Provided: The patient is a 62 year old M with multiple comorbidities presenting with progressive generalized weakness 1. Adult failure to thrive in the context of multiple medical comorbidities admitted to a regular nursing floor. Requested for PT OT and hospice social worker to assist with discharge planning 2. Recent Acute cholecystitis s/p Exploratory laparoscopy with placement of cholecystostomy tube on 08/07/[address] Anand consultation was placed to him definitive management regarding patient's gallbladder disease deferred to him. Patient underwent laparoscopic cholecystectomy on 10/13/2017 2 to undergo ERCP with possible sphincterotomy and stent placement on 10/15/2017 Patient also had ERCP with stent removal and stone removal on 10/15/[address] Anand 3. Myoclonic jerks this accounted for the involuntary movement patient presented with and this was attributed to patient renal uremia from his end- stage kidney disease. 4. Recent hospitalization for severe sepsis secondary to C. difficile colitis; placed and the enteric precautions and completed his treatment with vancomycin on 10/12/2017 5. End-stage renal disease: Consultation placed to Dr. Wilcox for dialysis orders 6. Diabetes mellitus type 2 with complications including diabetic polyneuropathy as well as end-stage renal disease 7. Diabetic retinopathy with blindness 8. Diabetic polyneuropathy involving both upper and lower extremities 9. Anemia secondary to anemia of end-stage renal disease 10. Chronic diastolic congestive heart failure 11. History of CVA with recent acute posterior right frontal lobe infarction 12. Hypertension-blood pressure controlled, home medications continued with dose adjustment as needed 10. DVT prophylaxis SC heparin Discharge Diet: 1800 Calorie Control Diet, Renal Diet Discharge Activity: Return to Normal Activity Home Medications: Medications to take at Discharge Famotidine [Pepcid AC] 10 mg PO BID 06/22/17 Pregabalin [Lyrica] 50 mg PO BID 06/22/17 Aspirin [Aspirin, Baby] 81 mg PO DAILY@0800 #30 tab.chew 06/23/17 Senna [Senokot] 1 tab PO DAILY 08/03/17 Insulin Aspart [Novolog Flexpen] 5 units SC BREAKFAST flexpen 09/07/17 Insulin Aspart [Novolog Flexpen] 5 units SC LUNCH flexpen 09/07/17 Insulin Aspart [Novolog Flexpen] See Protocol SC ACHS flexpen 09/07/17 Vancomycin HCl 125 mg PO 4X/DAY 35 Days capsule 09/07/17 Insulin Aspart [Novolog Flexpen] 5 units SC DINNER 09/15/17 Amlodipine [Norvasc] 5 mg PO DAILY 10/12/17 Lipitor 40 mg PO QHS 10/12/17 Lorazepam [Ativan] 0.5 mg PO BID 10/12/17 Losartan Potassium [Cozaar] 50 mg PO DAILY 10/12/17 Oxycodone HCl/Acetaminophen [Percocet 5-325] 1 tablet PO Q6H PRN PRN 10/12/17 Sertraline HCl [Zoloft] 50 mg PO QHS 10/12/17 Tramadol HCl [Ultram] 50 mg PO Q6H PRN PRN 10/12/17 atorvastatin 40 mg tablet 40 mg PO QDAY 10/14/17 cholecalciferol (vitamin D3) 2,000 unit tablet 2,000 unit PO QDAY tab 10/14/17 clopidogrel 75 mg tablet 150 mg PO QDAY 10/14/17 ferrous sulfate 325 mg (65 mg iron) tablet 325 mg PO QDAY tab 10/14/17 furosemide 40 mg tablet 40 mg PO BID tab 10/14/17 metoprolol succinate ER 50 mg tablet,extended release 24 hr 50 mg PO QDAY tab 10/14/17 Insulin Detemir [Levemir FlexPen] 10 units SC DINNER #0 insuln.pen 10/16/17 Primary Care Physician: Maximilian Castillo Jr., MD [Primary Care Provider] - Please follow up with your Primary Care Physician in: in 1-2 weeks Disposition: Home Minutes spent on discharge:: 35 Patient Condition:: Stable Meaningful Use Info Meaningful Use Diagnoses (Choose all that apply): None applicable Code Visit Inpatient E&M: 25966 Disch Hosp
[2017-10-16 11:10] LABS: Bedside Glucose 124 mg/dL (70-110)
--- NOTE | 2017-10-16 12:19 | PN.RENAL_ITS ---
Patient Problems: Active and Suspected Problems (Last Updated 10/14/17 @ 11:15 by Aidee Hardy) FTT (failure to thrive) in adult (Acute) Subjective: Seen on dialysis. Denies any complaints. He remains very debilitated but refuses to go to ECF. Blood pressure low normal on dialysis. Gentle fluid removal as tolerated. - Physical Exam General: Alert, Oriented x3, - - Blind Oral: Dry Mucosa Neck: Supple, No JVD Lungs: Clear to auscultation Cardiovascular: Regular rate Abdomen: Bowel Sounds Present, Soft, Non Tender, Non-Distended, Obese Extremities: No edema, - - Fistula right upper arm Musculoskeletal: Muscle Wasting Psych/Mental Status: Alert and oriented to time, place, person, mood and affect Vital Signs Temp Pulse Resp BP Pulse Ox 98.3 F 77 18 135/58 H 90 10/16/17 07:50 10/16/17 11:15 10/16/17 07:50 10/16/17 07:50 10/16/17 07:50 Oxygen Flow Rate 2 Oxygen Delivery Method Room Air Weight: 86.1 kg Body Mass Index (BMI) 29.0 Finger Stick Blood Glucose 83 Intake and Output for Last 24 Hours 10/14/17 10/15/17 10/16/17 23:59 23:59 23:59 Intake Total 660 / 660 1380 / 1380 Output Total 0 / 0 Balance 660 / 660 1380 / 1380 Laboratory Tests Past 24 Hrs 10/16/17 10/16/17 06:05 06:05 WBC 10.4 RBC 3.76 L Hgb 9.5 L Hct 30.8 L MCV 81.9 MCH 25.3 L MCHC 30.8 L RDW 15.9 H RDW Differential 48.0 H Plt Count 240 MPV 9.4 Immature Gran % (Auto) 0.200 Neut % (Auto) 82.6 H Lymph % (Auto) 6.6 L Hopkins % (Auto) 9.5 Eos % (Auto) 1.1 Baso % (Auto) 0.0 Absolute Neuts (auto) 8.6 H Absolute Lymphs (auto) 0.69 L Total Counted Not Reportable Sodium 134 L Potassium 3.8 Chloride 92 L Carbon Dioxide 31.0 Anion Gap 11 BUN 32 H Creatinine 5.98 H Estim Creat Clear Calc 12.23 Est GFR (MDRD) Af Amer 12 L Est GFR (MDRD) Non-Af 10 L BUN/Creatinine Ratio 5.4 L Glucose 134 H Calcium 7.8 L Total Bilirubin 1.50 H AST 17 ALT 29 Alkaline Phosphatase 168 H Total Protein 6.7 Albumin 2.4 L Globulin 4.3 H Albumin/Globulin Ratio 0.6 L POC Glucose 10/16/17 10/16/17 10/15/17 11:02 06:44 21:43 POC Glucose 124 H 150 H 143 H 10/15/17 16:59 POC Glucose 108 Assessment/Plan Active and Suspected Problems (Last Updated 10/14/17 @ 11:15 by Aidee Hardy) FTT (failure to thrive) in adult (Acute) 1. ESRD hemodialysis Thursday. Hemodialysis proceeding without incident. Follow-up at the [facility] unit with Dr. Dale 2. DM type II primary care management 3. Anemia hemoglobin stable, epo, iv iron on dialysis 4. Generalized weakness uses ECF placement 5. Hypertension with stable blood pressures
--- NOTE | 2017-10-16 12:41 | CASEMGMT ---
BASSAM received a call from David Moreno from [facility]. She said patient was approved for 35 hours a week of aide services. She asked SW to see how patient would like his time split up. BASSAM called patient's twice and the second time left a voice mail. SW let her know patient is being discharged today and that SW had information from [facility] regarding aide services. Anastasia RDZ MSW
--- NOTE | 2017-10-16 13:44 | DIALYSIS ---
HD x 3.5 hours complete. Tolerated tx well. Ran on 3k bath. UF of 1000ml. (EDW may need to be adjusted. Dr. Wilcox is aware.) Used right arm fistula. Gilbert removed post tx. Epogen and zemplar given as ordered. Report was given to TREVON Tellez.
--- NOTE | 2017-10-16 13:48 | CASEMGMT ---
Addendum entered by Anastasia Holt 10/16/17 14:57: Patient's daughter came to [facility] and was present for therapy. After an extensive amount of time patient's daughter decided home as long as she can have home health therapy. BASSAM called [facility] and set this up. They will not be able to go out until Thursday. BASSAM told patient and his this information and gave them the phone number for [facility]. BASSAM also called [place] and let her know plan. Plan: Home with [facility] fdc, PT, and OT Anastasia CALIX Original Note: BASSAM received a call from David Moreno. She said patient's daughter called her and said she is concerned about patient going home and she thinks he needs a residential. BASSAM called patient's daughter, Marily. She said she is concerned patient is weaker than he was when he left [facility]. She asked if she could be present when therapy saw him today. BASSAM told her SW will talk with therapy and see when they can go in and see him, then call her back. BASSAM spoke with [facility] and they can go back and see patient at 2p. BASSAM called patient's daughter and let her know. She will be here. She said it breaks her heart that her mom is making her make this decision. BASSAM let RN know this is the plan. Anastasia CALIX
[2017-10-16] MEDS: Pregabalin 50 MG Capsule PO (13:51)
[2017-10-16] MEDS: Aspirin 81 MG TAB.CHEW PO (13:53)
[2017-10-16] MEDS: guaiFENesin 1,200 MG Tablet 1200 MG PO (13:55)
[2017-10-16] MEDS: Losartan Potassium 50 MG Tablet PO (13:55)
[2017-10-16] MEDS: Famotidine 20 MG Tablet 10 MG PO (13:56)
[2017-10-16] MEDS: amLODIPine 5 MG Tablet PO (13:56)
[2017-10-16] MEDS: Senna Tablet 1 TABLET PO (13:56)
--- NOTE | 2017-10-16 14:00 | NURSING ---
AM MEDS GIVEN LATE DUE TO PT RECEIVING DIALYSIS/BREAKFAST OR LUNCH
== END 2017-10-16 16:24 | disposition home health service (06) | DRG 417 ==
LOC: MS2 17:58 → PCU 10-13 14:47
PROVIDERS: Anesthesiology; Internal Medicine; Surgery; Admitting Provider Internal Medicine; Emergency Provider Emergency Medicine; Family Provider Internal Medicine; PCP Internal Medicine; Visit Provider Internal Medicine
PROC: 0FT44ZZ Resection of Gallbladder, Percutaneous Endoscopic Approach (ICD-10-PCS; CPT 47610; principal; 2017-10-13 10:40)
PROC: (CPT 43260; principal; 2017-10-15 08:30)
DX: K80.62 Calculus of gallbladder and bile duct with acute cholecystitis without obstruction (principal); N18.6 End stage renal disease; I13.2 Hypertensive heart and chronic kidney disease with heart failure and with stage 5 chronic kidney disease, or end stage renal disease; E11.22 Type 2 diabetes mellitus with diabetic chronic kidney disease; E11.42 Type 2 diabetes mellitus with diabetic polyneuropathy; E11.319 Type 2 diabetes mellitus with unspecified diabetic retinopathy without macular edema; I50.32 Chronic diastolic (congestive) heart failure; R62.7 Adult failure to thrive; H54.7 Unspecified visual loss; D63.1 Anemia in chronic kidney disease; Z86.73 Personal history of transient ischemic attack (TIA), and cerebral infarction without residual deficits; Z99.2 Dependence on renal dialysis; E66.9 Obesity, unspecified; Z68.30 Body mass index [BMI] 30.0-30.9, adult; I45.10 Unspecified right bundle-branch block; I25.10 Atherosclerotic heart disease of native coronary artery without angina pectoris; E78.5 Hyperlipidemia, unspecified; D50.0 Iron deficiency anemia secondary to blood loss (chronic); F32.9 Major depressive disorder, single episode, unspecified; G25.3 Myoclonus; Z86.19 Personal history of other infectious and parasitic diseases; Z79.4 Long term (current) use of insulin
CPT/HCPCS: 36415; 74022; 74300; 74328; 76000; 80048; 80053; 80076; 82962; 83036; 83690; 84484; 85025; 85610; 85730; 87040; 87493; 88304; 90937; 93005; 97116; 97162; 97166; 97530; 97535; 99285; J0885; J7030; A4216; G0257; J2405

== ENCOUNTER → 2017-11-24 15:48 | Outpatient (CLI) | payer MEDICARE, SELFPAY | PROVIDERS: Family Provider Internal Medicine; PCP Internal Medicine; Visit Provider Anesthesiology Pain Medicine | DX: F11.20 Opioid dependence, uncomplicated (principal) | CPT/HCPCS: 36415; 93005; 94640 ==

== ENCOUNTER 2018-01-24 22:53 | Inpatient (IN) | payer MEDICARE, SELFPAY ==
--- NOTE | 2018-01-24 12:53 | EKG12_ITS ---
Test Reason : GENERAL SICKNESS Blood Pressure : / mmHG Vent. Rate : 099 BPM Atrial Rate : 099 BPM P-R Int : 180 ms QRS Dur : 162 ms QT Int : 400 ms P-R-T Axes : 034 -22 018 degrees QTc Int : 513 ms Normal sinus rhythm Right bundle branch block Inferior infarct , age undetermined Abnormal ECG Confirmed by JEREMIE MERCHANT, KERRY ([id number]), magazine editor ANNIE MANCIA ([id number]) on 01/27/2018 5:56:27 PM Referred By: Doug Weinstein Confirmed By:KERRY CHAO MD
[2018-01-25] VITALS (9 sets, daily range): BP systolic 113–160; BP diastolic 73–77; PULSE 76–89; RESP 16; TEMP 36.6–36.8; O2SAT 94–98
--- NOTE | 2018-01-25 00:01 | RAD_ITS ---
STUDY: X-RAY CHEST REASON FOR EXAM: Male, 58 years old. Cough. TECHNIQUE: AP portable chest. COMPARISON: None. FINDINGS: The lungs are clear and expanded. There is no demonstrated pleural abnormality. Normal size heart. Normal mediastinum and matthew. Normal visualized pulmonary arteries. Normal visualized aortic arch and descending thoracic aorta. Normal visualized thoracic spine. Normal visualized ribs, clavicles, and shoulders. There is no demonstrated abnormality of the visualized soft tissue structures of the upper abdomen. RAD/Chest 1 View (Portable) IMPRESSION: No acute cardiopulmonary disease. Electronically Signed: Jose Fung MD at 0:58 EDT , Service support ,
--- NOTE | 2018-01-25 03:50 | DT_ITS ---
This patient was seen during an EMR downtime January 18, 2018 - January 25, 2018. This patient may have a combination of paper and electronic documentation or all paper documentation. All documentation is viewable within the e-chart portion of [facility] for each patient visit.
[2018-01-25] MEDS: oxyCODONE 5 MG Tablet PO (05:26)
[2018-01-25] MEDS: Acetaminophen 325 MG Tablet 650 MG PO (05:26)
[2018-01-25] MEDS: Insulin Lispro 100 UNIT/ML INSULN.PEN SC ×2 (05:32→21:40)
[2018-01-25] MEDS: Piperacil/Tazobactam 3.375 GM/50 ML ML IV ×2 (06:00→12:00)
--- NOTE | 2018-01-25 06:35 | RAD_ITS ---
STUDY: X-RAY CHEST REASON FOR EXAM: Male, 63 years old. Shortness of breath TECHNIQUE: 2 view COMPARISON: None. FINDINGS: The heart is normal. There is platelike atelectatic changes. No failure. No pneumonia. No pleural effusions.. Normal visualized thoracic spine. Normal visualized ribs, clavicles, and shoulders. There is no demonstrated abnormality of the visualized soft tissue structures of the upper abdomen. RAD/Chest PA and Lateral IMPRESSION: BIRADS platelike atelectatic changes. No pneumonia. No pleural effusions. Electronically Signed: Ernesto Wilkins, at 7:18 EDT Tel , Service support ,
[2018-01-25] MEDS: 0.9% Normal Saline 1,000 ML 125 ML IV (06:55)
[2018-01-25] MEDS: Ipratropium/Albuterol Sulfate 3 ML AMPUL.NEB INHALATION ×2 (07:05→10:40)
[2018-01-25 11:06] LABS: Bedside Glucose 181 mg/dL (70-110)
--- NOTE | 2018-01-25 11:38 | PCM.RX.CS ---
Consult Pharmacy has been consulted to manage selected antiobiotic: Vancomycin Type of Consult: New start Suspected Infection: Pneumonia Prior Doses of Antibiotics Received/Current Regimen: Vancomycin 1500mg IV x1 01/25/18 @0330 (Prior to dialysis session 01/25/18) Weight used for dosin.8 kg Goal Trough: 15-20 mcg/mL Pharmacy Plan for Drug Dosing: Pharmacy to manage vancomycin per consult for the treatment of HCAP. The patient is on dialysis, which he receives on Mo/We/Fr per admission orders. The patient got one dose prior to dialysis session on 01/25/18, and will schedule a 750mg x1 dose to be given after. Will get vancomycin troughs prior to each dialysis session to determine dosing. Will continue to monitor daily PLAN/RECOMMENDATIONS 1. Vancomycin 750mg IV X1 to be given after dialysis session 01/25/18 2. Trough scheduled 01/27/18 with AM labs 3. Pharmacy will follow daily and dose/ make changes as appropriate
[2018-01-25 15:40] LABS: Bedside Glucose 145 mg/dL (70-110)
[2018-01-25] MEDS: Ferrous Sulfate 325 MG Tablet PO (15:41)
[2018-01-25] MEDS: Aspirin 81 MG TAB.CHEW PO (15:41)
[2018-01-25] MEDS: Clopidogrel Bisulfate 75 MG Tablet PO (15:41)
[2018-01-25] MEDS: Midodrine HCl 5 MG Tablet PO (15:42)
[2018-01-25] MEDS: Pantoprazole Sodium 40 MG Tablet PO (15:42)
[2018-01-25] MEDS: Pregabalin 50 MG Capsule PO ×2 (15:50→21:38)
[2018-01-25 16:44] LABS: BUN 70 mg/dL (7-18); BUN/Creat Ratio 8.9 RATIO (10-20); Calcium,Total 7.4 mg/dL (8.5-10.1); EST Glomerular Filtration Rate 7 mL/min (>60); Est Glom Filt Rate - Afr Amer 8 mL/min (>60); Glucose 170 mg/dL (74-106); Magnesium 1.8 mg/dL (1.6-2.6)
[2018-01-25 16:45] LABS: Anion Gap 16 (5-15); Chloride 106 mmol/L (98-107); Creatinine, Serum 7.88 mg/dL (0.70-1.30); Potassium 5.2 mmol/L (3.5-5.1); Sodium Level 141 mmol/L (136-145)
[2018-01-25 16:51] LABS: ALB/GLOB Ratio 0.7 RATIO (0.9-2.4); AST(SGOT) 16 U/L (15-37); Alanine Aminotransfer ALT/SGPT 39 U/L (16-61); Albumin, Serum 3.3 g/dL (3.2-5.0); Alkaline Phosphatase 141 U/L (45-117); BUN 69 mg/dL (7-18); BUN/Creat Ratio 8.3 RATIO (10-20); Creatinine, Serum 8.33 mg/dL (0.70-1.30); EST Glomerular Filtration Rate 7 mL/min (>60); Est Glom Filt Rate - Afr Amer 8 mL/min (>60); Globulin 4.6 g/dL (2.2-4.2); Glucose 304 mg/dL (74-106); Protein, Total 7.9 g/dL (6.4-8.2)
[2018-01-25 16:52] LABS: Anion Gap 13 (5-15); Chloride 101 mmol/L (98-107); Potassium 4.9 mmol/L (3.5-5.1); Sodium Level 140 mmol/L (136-145)
[2018-01-25] MEDS: Sertraline 50 MG Tablet PO (21:38)
[2018-01-25] MEDS: LORazepam 0.5 MG Tablet PO (21:38)
[2018-01-25] MEDS: Atorvastatin Calcium 40 MG Tablet PO (21:38)
[2018-01-25] MEDS: amLODIPine 5 MG Tablet PO (21:38)
[2018-01-25 22:01] LABS: Bedside Glucose 177 mg/dL (70-110)
[2018-01-25 23:29] LABS: Hematocrit 33.8 % (40-54); Hemoglobin 10.6 g/dl (13.0-16.5); International Normalized Ratio 1.1; Mean Corpuscular Volume 81.8 fL (80-94); Prothrombin Time (Protime)PT. 14.6 SECONDS (11.7-14.9); Red Blood Count 4.13 M/mm3 (4.6-6.2); White Blood Count 22.4 K/mm3 (4.4-11.0)
[2018-01-25 23:30] LABS: Absolute Lymphocyte Count 0.67 X10^3/ul (0.83-4.51); Absolute Neutrophil Count 19.7 X10^3/uL (2.0-7.7); Basophil# 0.02 X10^3/uL; Basophil% 0.1 % (0-1); Differential Indicated SCAN CRITERIA MET; Eosinophil# 0.08 X10^3/uL; Eosinophils% 0.4 % (0-5); Lymphocyte # 0.67 X10^3/ul (4.0); Mean Corp Hgb Conc 31.4 g/gl (32-36); Mean Corpuscular Hgb 25.7 pg (27.0-32.0); Mean Platelet Vol. 10.7 fl (6.2-12.0); Monocyte# 1.88 X10^3/uL; Monocyte% 8.4 % (0-10); Neutrophil # 19.69 X10^3/uL (2.7-7.7); Neutrophil % 87.7 % (47-70); POSITIVE COUNT NO; POSITIVE DIFFERENTIAL YES; POSITIVE MORPHOLOGY NO; Platelet Count 236 K/mm3 (150-450); RBC Distribution Width CV 15.6 % (11.6-14.6); RBC Distribution Width SD 45.9 fl (35.1-43.9)
[2018-01-25 23:31] LABS: Differential Comment SCANNED
[2018-01-26] VITALS (8 sets, daily range): BP systolic 141–145; BP diastolic 69–74; PULSE 76–86; RESP 16–18; TEMP 36.7–36.8; O2SAT 94–99
[2018-01-26] MEDS: 0.9% NaCl Peripheral Flush Adult/Peds IV ×2 (02:04→06:10)
[2018-01-26] MEDS: Piperacil/Tazobactam 3.375 GM/50 ML ML IV (02:04)
[2018-01-26 06:15] LABS: Bedside Glucose 91 mg/dL (70-110)
[2018-01-26] MEDS: Ipratropium/Albuterol Sulfate 3 ML AMPUL.NEB INHALATION (07:31)
[2018-01-26] MEDS: Pantoprazole Sodium 40 MG Tablet PO (08:15)
[2018-01-26] MEDS: Aspirin 81 MG TAB.CHEW PO (08:15)
[2018-01-26] MEDS: Ferrous Sulfate 325 MG Tablet PO (08:15)
[2018-01-26] MEDS: Clopidogrel Bisulfate 75 MG Tablet PO (08:15)
[2018-01-26] MEDS: Losartan Potassium 50 MG Tablet PO (08:15)
[2018-01-26] MEDS: Pregabalin 50 MG Capsule PO (08:18)
--- NOTE | 2018-01-26 11:07 | DCINST_ITS ---
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 HD on M, W and F Allergies/Adverse Reactions: Allergies silk Adverse Reaction (Verified 10/30/17 14:20) Rash Medications to take at Discharge Famotidine [Pepcid AC] 10 mg PO BID 06/22/17 Pregabalin [Lyrica] 50 mg PO BID 06/22/17 Senna [Senokot] 1 tab PO DAILY 08/03/17 Insulin Aspart [Novolog Flexpen] 5 units SC DINNER 09/15/17 Amlodipine [Norvasc] 5 mg PO DAILY 10/12/17 Lorazepam [Ativan] 0.5 mg PO BID PRN PRN 10/12/17 Losartan Potassium [Cozaar] 50 mg PO DAILY 10/12/17 Oxycodone HCl/Acetaminophen [Percocet 5-325] 1 tab PO Q6H PRN PRN 10/12/17 atorvastatin 40 mg tablet 40 mg PO QHS 10/14/17 Aspirin [Aspirin, Baby] 81 mg PO DAILY@0800 01/26/18 Calcium Acetate 1 tab PO TIDCM 01/26/18 Folic Acid/Vit Bcomp,C [Renal-Gagan Tablet] 1 tab PO DAILY 01/26/18 Insulin Aspart [Novolog Flexpen] 5 units SC BREAKFAST 01/26/18 Insulin Aspart [Novolog Flexpen] 5 units SC LUNCH 01/26/18 Insulin Aspart [Novolog Flexpen] See Protocol SC ACHS 01/26/18 Insulin Detemir [Levemir FlexPen] 8 units SC DINNER #0 01/26/18 L.acidoph,Paracasei, B.lactis [Probiotic] 1 each PO DAILY 01/26/18 Midodrine HCl [Proamatine] 5 mg PO MOWEFR 01/26/18 Sertraline HCl [Zoloft] 50 mg PO QHS 01/26/18 Primary Care Physician: Maximilian Castillo Jr., MD [Primary Care Provider] - Please follow up with your Primary Care Physician in: in 2 weeks Please Follow Up With: Gwendolyn Ruiz MD When: in 1 week
--- NOTE | 2018-01-26 11:07 | PCM.DC.SUM ---
Discharge Date and Diagnosis Date of Admission: 01/25/18 Date of Discharge: 01/26/18 - Primary Discharge Diagnosis SIRS (mild fever with leukocytosis), possible related to upper respiratory tract infection - Secondary Discharge Diagnosis Chronic Problems (Last Reviewed 10/30/17 @ 14:19 by Delmy Lino) History of left heart catheterization (Chronic) Per Dr. Guerrero at [facility] 05/21/2010 Atherosclerotic heart disease of [place] coronary artery without angina pectoris (Chronic) Per heart cath 05/21/2010: Second diagonal of LAD moderate diffuse disease, also in proximal to mid LAD, moderate diffuse disease: not easily amenable to angioplasty, medical therapy recommended. 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 pneumoniae Hydronephrosis, right (Chronic) Cholecystitis (Chronic) Benign essential hypertension (Chronic) Type II diabetes mellitus (Chronic) poorly controlled Diabetic peripheral neuropathy (Chronic) hands and feet HLD (hyperlipidemia) (Chronic) controlled Iron deficiency anemia (Chronic) due to GI blood loss Back pain (Chronic) Uncontrolled hypertension (Chronic) Depression (Chronic) Generalized weakness (Chronic) Colon polyps (Chronic) Blindness (Chronic) CHF exacerbation (Chronic) Anxiety (Chronic) Polyneuropathy (Chronic) Hypertension (Chronic) Heart failure with preserved ejection fraction (Chronic) ESRD (end stage renal disease) (Chronic) Stroke (Chronic) Cerebrovascular disease (Chronic) Hospital Course and Treatment Operations: None Summary of Care Provided: The patient is a 63 year old M with history of diabetes mellitus with long-term complications including retinopathy, neuropathy and nephropathy resulting into end-stage renal disease on dialysis Thursday and Thursday by Dr. Wilson was admitted to ER for fever for 1 day with upper respiratory tract symptoms including COPD nasal congestion, sinus drainage with mild shortness of breath. He has chronic cough. Significant leukocytosis on admission 22,000 with neutrophil 87%. Patient was further admitted on the regular [facility] floor. He not had fever or chills during hospital stay. 1. SIRS (mild fever with leukocytosis), possible related to upper respiratory tract infection: For the sake of suspicion of infection, patient was initially started on IV vancomycin and Zosyn which was later discontinued today as blood cultures ?2 is negative for 36 hours, respiratory panel negative. Repeat CBC shows 11,000 white count. Chest x-ray reported as no acute cardiopulmonary disease. Patient does not need further antibiotic treatment. 2. ESRD on hemodialysis with Dr. Newton type II with long-term complications on patient was seen by Dr. Wilcox. Patient follows [facility], Dr. Wilson and wants to be seen by [facility] traffic control operator during hospital stay in future. 3. coronary artery disease previous cardiac cath in 2009 showing moderate diffuse disease in second diagonal, proximal to mid LAD, not amenable to angioplasty. On medical therapy. Multiple comorbidities including History of ESBL carrier with Klebsiella pneumonia, legally blind, failure to thrive, hypertension, chronic back pain, depression and generalized weakness: Patient has home with home health resident care manager rn and wants to go home. Follows pain management Dr. Ruiz. He has appointment today. Patient wants to go home and is being discharged home with home health resident care manager rn. Discharge medication reconciliation done. Discharge follow-up instructions discussed with the patient. Total time spent, exact 35 minutes on discharge meds reconciliation, examination, review of imaging and blood test and discussion with the patient on follow-up instructions. Advanced directives: Patient is DNR CC arrest Microbiology Past 72 Hours 01/25/18 05:35 Mucosa - Nasopharyngeal Respiratory Panel (PCR) - Final Laboratory Results 01/24/18 23:05: Lactic Acid Pending 01/24/18 23:05: Sodium 140, Potassium 4.9, Chloride 101, Carbon Dioxide 26.0, Anion Gap 13, BUN 69 H, Creatinine 8.33 H*, Est GFR (MDRD) Af Amer 8 L, Est GFR (MDRD) Non-Af 7 L, BUN/Creatinine Ratio 8.3 L, Glucose 304 H, Calcium 8.0 L, Total Bilirubin 0.80, AST 16, ALT 39, Alkaline Phosphatase 141 H, Troponin I 0.035, Total Protein 7.9, Albumin 3.3, Globulin 4.6 H, Albumin/Globulin Ratio 0.7 L 01/24/18 23:05: WBC 22.4 H, RBC 4.13 L, Hgb 10.6 L, Hct 33.8 L, MCV 81.8, MCH 25.7 L, MCHC 31.4 L, RDW 15.6 H, RDW Differential 45.9 H, Plt Count 236, MPV 10.7, Immature Gran % (Auto) 0.100, Neut % (Auto) 87.7 H, Lymph % (Auto) 3.0 L, Clark % (Auto) 8.4, Eos % (Auto) 0.4, Baso % (Auto) 0.1, Absolute Neuts (auto) 19.7 H, Absolute Lymphs (auto) 0.67 L, Total Counted Not Reportable, Differential Comment SCANNED, Diff Path Review December01/24/18 23:05: PT 14.6, INR 1.1 01/25/18 05:50: Sodium 141, Potassium 5.2 H, Chloride 106, Carbon Dioxide 19.0 L, Anion Gap 16 H, BUN 70 H, Creatinine 7.88 H*, Est GFR (MDRD) Af Amer 8 L, Est GFR (MDRD) Non-Af 7 L, BUN/Creatinine Ratio 8.9 L, Glucose 170 H, Calcium 7.4 L, Magnesium 1.8 01/25/18 05:50: WBC 22.5 H, RBC 3.72 L, Hgb 9.5 L, Hct 30.8 L, MCV 82.8, MCH 25.5 L, MCHC 30.8 L, RDW 15.8 H, RDW Differential 46.6 H, Plt Count 225, MPV 11.0, Immature Gran % (Auto) 0.400, Neut % (Auto) 85.9 H, Lymph % (Auto) 5.7 L, Clark % (Auto) 7.4, Eos % (Auto) 0.5, Baso % (Auto) 0.1, Absolute Neuts (auto) 19.3 H, Absolute Lymphs (auto) 1.29, Total Counted Not Reportable, Differential Comment COMMENT 01/25/18 15:30: POC Glucose 145 H 01/25/18 21:28: POC Glucose 177 H 01/26/18 06:06: POC Glucose 91 01/26/18 11:00: WBC 11.3 H, RBC 4.03 L, Hgb 10.3 L, Hct 32.5 L, MCV 80.6, MCH 25.6 L, MCHC 31.7 L, RDW 15.7 H, RDW Differential 46.1 H, Plt Count 226, MPV 9.7, Immature Gran % (Auto) 0.100, Neut % (Auto) 76.5 H, Lymph % (Auto) 12.9 L, Clark % (Auto) 7.8, Eos % (Auto) 2.6, Baso % (Auto) 0.1, Absolute Neuts (auto) 8.7 H, Absolute Lymphs (auto) 1.46, Total Counted Not Reportable 01/26/18 11:30: POC Glucose 100 Clinical Impression(s) from Imaging Studies Chest X-Ray 01/25/18 00:01 IMPRESSION: No acute cardiopulmonary disease. Electronically Signed: Jose Fung MD at 0:58 EDT , Service support , Chest X-Ray 01/25/18 06:35 IMPRESSION: BIRADS platelike atelectatic changes. No pneumonia. No pleural effusions. Electronically Signed: Ernesto Wilkins, at 7:18 EDT Tel , Service support , [] Discharge Activity: May Not Drive Weight Bearing Status: Weight bearing as tolerated Call your doctor if you observe: Fever of 101 or Higher, Shortness of breath Home Medications: Medications to take at Discharge Famotidine [Pepcid AC] 10 mg PO BID 06/22/17 Pregabalin [Lyrica] 50 mg PO BID 06/22/17 Senna [Senokot] 1 tab PO DAILY 08/03/17 Insulin Aspart [Novolog Flexpen] 5 units SC DINNER 09/15/17 Amlodipine [Norvasc] 5 mg PO DAILY 10/12/17 Lorazepam [Ativan] 0.5 mg PO BID PRN PRN 10/12/17 Losartan Potassium [Cozaar] 50 mg PO DAILY 10/12/17 Oxycodone HCl/Acetaminophen [Percocet 5-325] 1 tab PO Q6H PRN PRN 10/12/17 atorvastatin 40 mg tablet 40 mg PO QHS 10/14/17 Aspirin [Aspirin, Baby] 81 mg PO DAILY@0800 01/26/18 Calcium Acetate 1 tab PO TIDCM 01/26/18 Folic Acid/Vit Bcomp,C [Renal-Gagan Tablet] 1 tab PO DAILY 01/26/18 Insulin Aspart [Novolog Flexpen] 5 units SC BREAKFAST 01/26/18 Insulin Aspart [Novolog Flexpen] 5 units SC LUNCH 01/26/18 Insulin Aspart [Novolog Flexpen] See Protocol SC ACHS 01/26/18 Insulin Detemir [Levemir FlexPen] 8 units SC DINNER #0 01/26/18 L.acidoph,Paracasei, B.lactis [Probiotic] 1 each PO DAILY 01/26/18 Midodrine HCl [Proamatine] 5 mg PO MOWEFR 01/26/18 Sertraline HCl [Zoloft] 50 mg PO QHS 01/26/18 Primary Care Physician: Maximilian Castillo Jr., MD [Primary Care Provider] - Please follow up with your Primary Care Physician in: in 2 weeks Please Follow Up With: Gwendolyn Ruiz MD When: in 1 week Medical Necessity - Tobacco Use Smoking Status: Never smoker Meaningful Use Info Meaningful Use Diagnoses (Choose all that apply): None applicable Code Visit Inpatient E&M: 14183 Disch Hosp
[2018-01-26 11:19] LABS: Absolute Lymphocyte Count 1.46 X10^3/ul (0.83-4.51); Absolute Neutrophil Count 8.7 X10^3/uL (2.0-7.7); Basophil# 0.01 X10^3/uL; Basophil% 0.1 % (0-1); Eosinophil# 0.29 X10^3/uL; Eosinophils% 2.6 % (0-5); Hematocrit 32.5 % (40-54); Hemoglobin 10.3 g/dl (13.0-16.5); Lymphocyte # 1.46 X10^3/ul (4.0); Lymphocyte % 12.9 % (19-41); Mean Corp Hgb Conc 31.7 g/gl (32-36); Mean Corpuscular Hgb 25.6 pg (27.0-32.0); Mean Corpuscular Volume 80.6 fL (80-94); Mean Platelet Vol. 9.7 fl (6.2-12.0); Monocyte# 0.88 X10^3/uL; Monocyte% 7.8 % (0-10); Neutrophil # 8.69 X10^3/uL (2.7-7.7); Neutrophil % 76.5 % (47-70); Platelet Count 226 K/mm3 (150-450); RBC Distribution Width CV 15.7 % (11.6-14.6); RBC Distribution Width SD 46.1 fl (35.1-43.9); Red Blood Count 4.03 M/mm3 (4.6-6.2); White Blood Count 11.3 K/mm3 (4.4-11.0)
[2018-01-26 11:20] LABS: POSITIVE COUNT NO; POSITIVE DIFFERENTIAL NO; POSITIVE MORPHOLOGY NO
--- NOTE | 2018-01-26 11:24 | CASEMGMT ---
TREVON AYALA Face to Face with patient for initial transition planning/care coordination assessment. TREVON AYALA introduced self and role at [facility]. Patient lying in bed, alert and oriented. Patient willing to participate in assessment and is able to answer all questions appropriately. Care providers, pharmacy, and demographics verified. See link attached. Patient wishes to discharge home with resumption of HHC. Patient is unsure of [facility] company and gave CM permission to call daughter who helps with care. Patient states he has no further needs or concerns at this time. TREVON AYALA called daughter and confirmed the [facility] is providing long term and PT services. TREVON AYALA called [facility] and faxed discharge instructions to [place]. CM to follow for discharge planning needs that may arise. Disposition Plan: Patient to discharge home with resumption of HHC, family support, and follow-up plans in place.
[2018-01-26 11:36] LABS: Bedside Glucose 100 mg/dL (70-110)
[2018-01-26 14:24] LABS: Hematocrit 30.8 % (40-54); Hemoglobin 9.5 g/dl (13.0-16.5); Mean Corp Hgb Conc 30.8 g/gl (32-36); Mean Corpuscular Hgb 25.5 pg (27.0-32.0); Mean Corpuscular Volume 82.8 fL (80-94); POSITIVE COUNT NO; POSITIVE DIFFERENTIAL NO; POSITIVE MORPHOLOGY NO; Platelet Count 225 K/mm3 (150-450); RBC Distribution Width CV 15.8 % (11.6-14.6); RBC Distribution Width SD 46.6 fl (35.1-43.9); Red Blood Count 3.72 M/mm3 (4.6-6.2); White Blood Count 22.5 K/mm3 (4.4-11.0)
[2018-01-26 14:25] LABS: Absolute Lymphocyte Count 1.29 X10^3/ul (0.83-4.51); Absolute Neutrophil Count 19.3 X10^3/uL (2.0-7.7); Basophil% 0.1 % (0-1); Eosinophils% 0.5 % (0-5); Lymphocyte # 1.29 X10^3/ul (4.0); Lymphocyte % 5.7 % (19-41); Monocyte% 7.4 % (0-10); Neutrophil # 19.25 X10^3/uL (2.7-7.7); Neutrophil % 85.9 % (47-70)
[2018-01-27 11:18] LABS: Pathologist Review Reviewed
[2018-01-28 13:17] LABS: Lactic Acid 1.8 mmol/L (0.4-2.0)
[2018-01-29 15:57] LABS: Bedside Glucose 169 mg/dL (70-110)
== END 2018-01-26 15:10 | disposition home or self-care (01) | DRG 202 ==
LOC: ED 01-25 10:29 → MS3 01-25 10:55
PROVIDERS: Admitting Provider Family Medicine; Emergency Provider Emergency Medicine; Family Provider Internal Medicine; PCP Internal Medicine; Visit Provider Internal Medicine
DX: J20.9 Acute bronchitis, unspecified (principal); N18.6 End stage renal disease; R65.10 Systemic inflammatory response syndrome (SIRS) of non-infectious origin without acute organ dysfunction; I13.2 Hypertensive heart and chronic kidney disease with heart failure and with stage 5 chronic kidney disease, or end stage renal disease; I50.30 Unspecified diastolic (congestive) heart failure; Z99.2 Dependence on renal dialysis; Z79.4 Long term (current) use of insulin; E11.319 Type 2 diabetes mellitus with unspecified diabetic retinopathy without macular edema; E11.40 Type 2 diabetes mellitus with diabetic neuropathy, unspecified; E11.22 Type 2 diabetes mellitus with diabetic chronic kidney disease; D50.9 Iron deficiency anemia, unspecified; F41.9 Anxiety disorder, unspecified; F32.9 Major depressive disorder, single episode, unspecified; I25.10 Atherosclerotic heart disease of native coronary artery without angina pectoris; I25.2 Old myocardial infarction; E78.5 Hyperlipidemia, unspecified; Z86.73 Personal history of transient ischemic attack (TIA), and cerebral infarction without residual deficits; Z86.19 Personal history of other infectious and parasitic diseases; Z66 Do not resuscitate
CPT/HCPCS: 71045; 71046; 80048; 80053; 82962; 83605; 83735; 84484; 85025; 85610; 87040; 87633; 90937; 93005; 94640; 97802; J0885; J1756; J7030; J7050; A4216; G0257

== ENCOUNTER 2018-04-04 19:48 | Inpatient (IN) | payer MEDICARE, SELFPAY ==
[2018-04-04 19:50] VITALS: BP 114/58; PULSE 85; RESP 12; TEMP 36.7; O2SAT 94; BMI 31.1
[2018-04-04 19:53] VITALS: O2SAT 88
--- NOTE | 2018-04-04 19:56 | ED.RN ---
LT FOOT DEFICIT FROM PREVIOUS STROKE
[2018-04-04 21:22] VITALS: O2SAT 86
--- NOTE | 2018-04-04 21:25 | CPS ---
Pt SPO2 dropped to 82% while sleeping. Per pt family no diagnosis of BRIANNE. Pt placed on 2L NC. nursing and physician made aware.
[2018-04-04 21:27] LABS: Alcohol, Blood (Medical)-Serum < 3.0 mg/dL
[2018-04-04 21:28] VITALS: O2SAT 93
[2018-04-04 21:31] LABS: International Normalized Ratio 1.1
[2018-04-04 21:34] LABS: Lactic Acid 1.9 mmol/L (0.4-2.0)
[2018-04-04] MEDS: 0.9% Normal Saline 1,000 ML 1000 ML IV (21:38)
[2018-04-04 21:41] LABS: Base Excess 4 mmol/L (-2 to +2); Bicarbonate 29.7 mmol/L (22-26); Blood Gas Specimen Type ART; O2 Delivery Device Room Air; PO2 37 mmHG (75-100); SITE L Radial; SO2 64 % (95-99); Time Given 2129; Total Carbon Dioxide 31 mmol/L; pCO2 57.5 mmHg (35-45); pH 7.32 (7.35-7.45)
[2018-04-04 21:52] LABS: ALB/GLOB Ratio 0.7 RATIO (0.9-2.4); AST(SGOT) 38 U/L (15-37); Absolute Lymphocyte Count 0.49 X10^3/ul (0.83-4.51); Absolute Neutrophil Count 17.1 X10^3/uL (2.0-7.7); Alanine Aminotransfer ALT/SGPT 49 U/L (16-61); Albumin, Serum 3.1 g/dL (3.2-5.0); Alkaline Phosphatase 121 U/L (45-117); Anion Gap 9 (5-15); BUN 57 mg/dL (7-18); BUN/Creat Ratio 6.7 RATIO (10-20); Basophil# 0.01 X10^3/uL; Basophil% 0.1 % (0-1); Calcium,Total 8.3 mg/dL (8.5-10.1); Chloride 101 mmol/L (98-107); EST Glomerular Filtration Rate 7 mL/min (>60); Eosinophil# 0.04 X10^3/uL; Eosinophils% 0.2 % (0-5); Est Glom Filt Rate - Afr Amer 8 mL/min (>60); Estimated Creatinine Clearance 8.42 ml/min; Globulin 4.5 g/dL (2.2-4.2); Glucose 220 mg/dL (74-106); Hematocrit 35.7 % (40-54); Hemoglobin 11.1 g/dl (13.0-16.5); Lipase 65 U/L (73-393); Lymphocyte # 0.49 X10^3/ul (4.0); Lymphocyte % 2.6 % (19-41); Mean Corp Hgb Conc 31.1 g/gl (32-36); Mean Corpuscular Hgb 26.2 pg (27.0-32.0); Mean Corpuscular Volume 84.4 fL (80-94); Mean Platelet Vol. 11.3 fl (6.2-12.0); Monocyte# 1.17 X10^3/uL; Monocyte% 6.2 % (0-10); Neutrophil # 17.06 X10^3/uL (2.7-7.7); Neutrophil % 90.6 % (47-70); Platelet Count 212 K/mm3 (150-450); Potassium 5.1 mmol/L (3.5-5.1); Protein, Total 7.6 g/dL (6.4-8.2); RBC Distribution Width CV 15.5 % (11.6-14.6); Red Blood Count 4.23 M/mm3 (4.6-6.2); Sodium Level 140 mmol/L (136-145); White Blood Count 18.8 K/mm3 (4.4-11.0)
--- NOTE | 2018-04-04 21:53 | NURSING ---
DR. PEDRAZA MADE AWARE OF PATIENT'S CREATNINE OF 8.57.
[2018-04-04 21:54] LABS: Creatinine, Serum 8.57 mg/dL (0.70-1.30)
[2018-04-04 22:10] LABS: Differential Indicated SCAN CRITERIA MET; POSITIVE COUNT NO; POSITIVE DIFFERENTIAL YES; POSITIVE MORPHOLOGY NO
[2018-04-04 22:19] LABS: Differential Comment SCANNED
[2018-04-04 22:26] VITALS: BP 159/75; PULSE 90; RESP 18; O2SAT 96
--- NOTE | 2018-04-04 23:04 | ED.VISSUMM ---
- ER Visit Summary Date of Service: 04/04/18 Chief Complaint: Altered mental status History of Present Illness: The patient is a 63 M who presents with altered mental status. The patient is confused and family poor informant. Apparently he did have nausea and vomiting this morning. They note that he was sleeping much more than usual and is lethargic. They noticed he has a history of prior stroke and they also report that he has some chronic slurred speech related to prior stroke. He does complain of cough. Family notes that his shirt was soaked when he changed it and he had been sweaty. Currently the patient denies nausea. He denies abdominal pain chest pain or shortness of breath. Physical Examination: Pulse ox 88% on room air vitals otherwise unremarkable Moist mucous membranes Heart regular rate and rhythm Lungs are clear Abdomen soft nontender nondistended He is alert and oriented actually to month and year person and place. He does have slurred speech. He is drowsy and easily falls asleep. Left leg weakness which patient reports is chronic Test Results: EKG shows sinus rhythm at a rate of 89 with a right bundle inch blocks with appearance similar prior. Chest x-ray shows a possible right lower lung infiltrate. CT the head shows no change there is atrophy. Labs notable for white blood cell count of 18.8, hemoglobin 11.1. His creatinine is 8.57 but he does have end-stage renal disease on hemodialysis. Hepatic function lipase INR unremarkable. Lactic is normal. ABG was likely a mixed specimen with venous blood shows pH of 7.32 PCO2 of 57.5 PO2 of 37. Alcohol negative. Blood cultures were sent. Emergency Department Course and Treatment: Although the patient was oriented to month age and place he is lethargic. He has significant leukocytosis likely with infiltrate. He would desaturate down to low 80%. He was placed on nasal cannula with improvement. He had an episode of emesis here which did have some red discoloration possibly blood. We attempted to place an NG but this was unsuccessful. He has had no further vomiting since this episodes we will just monitor for now. Patient was treated with IV Zosyn and vancomycin. He will require hospitalization. Treatment Plan: [] Disposition: Admit Impression: Healthcare associated pneumonia Altered mental status Hypoxia Hematemesis This note was generated with [employer] dictation software. It may contain incorrect words, spelling, and punctuation that were not noted in review of the chart prior to signing ED Disposition - Plan for ED Patient: Chief Complaint: Alt LOC Referrals: Maximilian Castillo Jr., MD [Primary Care Provider] -
--- NOTE | 2018-04-04 23:12 | PCM.HP.STD ---
Problem List (1) HCAP (healthcare-associated pneumonia) Status: Acute (2) Surgically constructed arteriovenous fistula Status: Acute (3) Cardiomegaly Status: Chronic (4) Subendocardial myocardial infarction Status: Chronic (5) Acute renal failure superimposed on stage 3 chronic kidney disease Status: Resolved (6) Fall Status: Resolved (7) Hematuria Status: Resolved (8) Left hand weakness Status: Resolved (9) Fever Status: Resolved (10) Transaminitis Status: Ruled-out (11) Cholelithiasis and acute cholecystitis with obstruction Status: Chronic Comment: stent placed (12) HLD (hyperlipidemia) Status: Chronic Comment: controlled (13) Iron deficiency anemia Status: Chronic Comment: due to GI blood loss (14) Uncontrolled hypertension Status: Chronic (15) Depression Status: Chronic (16) Generalized weakness Status: Chronic (17) Colon polyps Status: Chronic History of Present Illness Date of Admission: 04/04/18 Chief Complaint: HCAP The patient is a 63 year old male w/ h/o cholecystitis s/p laparoscopic cholecystectomy and sphincterotomy, ESRD, HD MWF with Dr. 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 He is a poor historian and family is also poor informant. He has a nonproductive cough for the past few days. Intensity and frequency of cough have worsened. He was also getting progressive SOB and has been lethargic. He was confused this AM and was nausea and vomiting. He has been vomiting so much that he had blood in his vomitus. Family found that his shirt was soaked when he changed. He minimized his symptoms and requested to go home. Past Medical History Past Medical History (Chronic Problems): Chronic Problems (Last Reviewed 04/05/18 @ 01:54 by Pete Sherman MD) History of left heart catheterization (Chronic) Per Dr. Guerrero at [facility] 05/21/2010 Atherosclerotic heart disease of [place] coronary artery without angina pectoris (Chronic) Per heart cath 05/21/2010: Second diagonal of LAD moderate diffuse disease, also in proximal to mid LAD, moderate diffuse disease: not easily amenable to angioplasty, medical therapy recommended. 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 pneumoniae Hydronephrosis, right (Chronic) Cholecystitis (Chronic) Benign essential hypertension (Chronic) Type II diabetes mellitus (Chronic) poorly controlled Diabetic peripheral neuropathy (Chronic) hands and feet HLD (hyperlipidemia) (Chronic) controlled Iron deficiency anemia (Chronic) due to GI blood loss Back pain (Chronic) Uncontrolled hypertension (Chronic) Depression (Chronic) Generalized weakness (Chronic) Colon polyps (Chronic) Blindness (Chronic) CHF exacerbation (Chronic) Anxiety (Chronic) Polyneuropathy (Chronic) Hypertension (Chronic) Heart failure with preserved ejection fraction (Chronic) ESRD (end stage renal disease) (Chronic) Stroke (Chronic) Cerebrovascular disease (Chronic) Medical History: Medical History (Last Reviewed 04/05/18 @ 01:54 by Pete Sherman MD) Atherosclerotic heart disease of [place] coronary artery without angina pectoris (Chronic) I25.10 Per heart cath 05/21/2010: Second diagonal of LAD moderate diffuse disease, also in proximal to mid LAD, moderate diffuse disease: not easily amenable to angioplasty, medical therapy recommended. 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) Z79.899 Antihyperlipidemic Benign essential hypertension (Chronic) I10 Type II diabetes mellitus (Chronic) E11.9 poorly controlled Diabetic peripheral neuropathy (Chronic) E11.42 hands and feet HLD (hyperlipidemia) (Chronic) E78.5 controlled Iron deficiency anemia (Chronic) D50.9 due to GI blood loss Back pain (Chronic) M54.9 Uncontrolled hypertension (Chronic) I10 Depression (Chronic) F32.9 Generalized weakness (Chronic) R53.1 Colon polyps (Chronic) Blindness (Chronic) CHF exacerbation (Chronic) I50.9 Anxiety (Chronic) F41.9 Polyneuropathy (Chronic) G62.9 Hypertension (Chronic) I10 Foot drop, left (Resolved) M21.372 Heart failure with preserved ejection fraction (Chronic) I50.30 ESRD (end stage renal disease) (Chronic) N18.6 Stroke (Chronic) I63.9 Sepsis (Resolved) A41.9 from cholecystitis Cerebrovascular disease (Chronic) I67.9 ESRD (end stage renal disease) on dialysis N18.6, Z99.2 s/p cholecystostomy drain Allergies silk Adverse Reaction (Verified 04/04/18 19:54) Rash Home Medications: Ambulatory Orders Medication Instructions Recorded Pregabalin [Lyrica] 50 mg PO BID 06/22/17 Insulin Aspart [Novolog Flexpen] 5 units SC DINNER 09/15/17 Amlodipine [Norvasc] 5 mg PO DAILY 10/12/17 Lorazepam [Ativan] 0.5 mg PO BID PRN PRN 10/12/17 Losartan Potassium [Cozaar] 50 mg PO DAILY 10/12/17 Oxycodone HCl/Acetaminophen 1 tab PO Q8H PRN PRN 10/12/17 [Percocet 5-325] atorvastatin 40 mg tablet 40 mg PO QHS 10/14/17 Aspirin [Aspirin, Baby] 81 mg PO DAILY@0800 01/26/18 Insulin Aspart [Novolog Flexpen] 5 units SC BREAKFAST 01/26/18 Insulin Aspart [Novolog Flexpen] 5 units SC LUNCH 01/26/18 Insulin Aspart [Novolog Flexpen] See Protocol SC ACHS 01/26/18 Midodrine HCl [Proamatine] 5 mg PO MOWEFR 01/26/18 Sertraline HCl [Zoloft] 50 mg PO QHS 01/26/18 Famotidine [Pepcid AC] 10 mg PO BID 04/04/18 Insulin Detemir [Levemir FlexPen] 10 units SC DINNER 04/04/18 Liliane-Gagan [place] Ph 1 tab PO DAILY 04/04/18 Surgical History: Surgical History (Last Reviewed 04/05/18 @ 01:54 by Pete Sherman MD) History of left heart catheterization (Chronic) Z98.[address] Guerrero at [facility] 05/21/2010 History of ERCP Z98.890 History of laparoscopic cholecystectomy Z90.49 Surgical History: - - AV fistula right upper arm, umbilical hernia repair, biliary drain Psychiatric History: No pertinent psych hx Lives: Spouse/ Significant Other Smoking Status: Never smoker Alcohol: None Drugs: None - *Family History Maternal Family History: Family History (Last Reviewed 04/05/18 @ 01:54 by Pete Sherman MD) Mother CAD (coronary artery disease) Father CVA (cerebral vascular accident) History Items: Diabetes, Renal Disease Paternal Family History: Family History (Last Reviewed 04/05/18 @ 01:54 by Pete Sherman MD) Mother CAD (coronary artery disease) Father CVA (cerebral vascular accident) History Items: No pertinent history Review of Systems Constitutional: Reports: Chills, Fatigue. Denies: Fever, Weight Change HEENT: Denies: Head Aches, Sinus Congestion, Sinus Drainage Cardiovascular: Denies: Chest Pain, Palpitations Respiratory: Reports: Cough, Shortness of Breath. Denies: Shortness of breath at rest, Sputum production Gastrointestinal: Denies: Abdominal Pain, Nausea, Vomiting Genitourinary: Denies: Dysuria Musculoskeletal: Denies: Joint Pain, Joint Tenderness Skin: Denies: Rash, Wounds Neurological: Denies: Numbness, Tingling, Focal weakness Psychiatric: Denies: Anxiety, Depression, Homicidal Ideations, Suicidal Ideations Hematologic/ Lymphatic: Denies: Easy Bruising, Easy Bleeding VTE Information - Inpt Only VTE Present on Admission: No VTE Mechan Device Prophylaxis: SCD's VTE Pharm Prophylaxis ordered?: Yes Patient Problems: Active and Suspected Problems (Last Reviewed 04/05/18 @ 01:54 by Pete Sherman MD) HCAP (healthcare-associated pneumonia) (Acute) - Physical Exam General: Alert, Oriented x3, Cooperative HEENT: Atraumatic, PERRLA, EOMI, Normocephalic Neck: Supple, No JVD, Negative Carotid Bruits Lungs: Diminished, Rales, Short of Breath Cardiovascular: Regular rate, No murmurs Abdomen: Bowel Sounds Present, Soft, Non Tender Extremities: Capillary Refill Less than 3 Seconds, Edema Skin: No rashes, No breakdown Musculoskeletal: No Tenderness to Palpation of Joints or Extremities Neurological: Cranial nerves II-XII grossly intact Psych/Mental Status: Normal Affect, Appropriate Vital Signs Temp Pulse Resp BP Pulse Ox 98.1 F 90 18 159/75 H 96 08/19/18 19:50 04/04/18 22:26 04/04/18 22:26 04/04/18 22:26 04/04/18 22:26 Oxygen Flow Rate (L/min) 2 Oxygen Delivery Method Nasal Cannula Weight: 92.9 kg Body Mass Index (BMI) 31.1 Finger Stick Blood Glucose 83 Laboratory Tests Past 24 Hrs 04/04/18 04/04/18 04/04/18 20:20 20:20 20:20 WBC 18.8 H RBC 4.23 L Hgb 11.1 L Hct 35.7 L MCV 84.4 MCH 26.2 L MCHC 31.1 L RDW 15.5 H RDW Differential 47.0 H Plt Count 212 MPV 11.3 Immature Gran % (Auto) 0.300 Neut % (Auto) 90.6 H Lymph % (Auto) 2.6 L [place] % (Auto) 6.2 Eos % (Auto) 0.2 Baso % (Auto) 0.1 Absolute Neuts (auto) 17.1 H Absolute Lymphs (auto) 0.49 L Total Counted Not Reportable Differential Comment SCANNED PT 14.0 INR 1.1 Specimen Type Sample Site pH Bicarbonate Actual POC Total CO2 Base Excess O2 Saturation ABG pCO2 ABG pO2 Dipesh Test O2 Delivery Device Blood Gas Notified Whom Blood Gas Notified Time Sodium 140 Potassium 5.1 Chloride 101 Carbon Dioxide 30.0 Anion Gap 9 BUN 57 H Creatinine 8.57 H* Estim Creat Clear Calc 8.42 Est GFR (MDRD) Af Amer 8 L Est GFR (MDRD) Non-Af 7 L BUN/Creatinine Ratio 6.7 L Glucose 220 H Lactic Acid Calcium 8.3 L Total Bilirubin 1.00 AST 38 H ALT 49 Alkaline Phosphatase 121 H Total Protein 7.6 Albumin 3.1 L Globulin 4.5 H Albumin/Globulin Ratio 0.7 L Lipase 65 L Ethyl Alcohol 04/04/18 04/04/18 04/04/18 20:20 20:20 21:30 WBC RBC Hgb Hct MCV MCH MCHC RDW RDW Differential Plt Count MPV Immature Gran % (Auto) Neut % (Auto) Lymph % (Auto) [place] % (Auto) Eos % (Auto) Baso % (Auto) Absolute Neuts (auto) Absolute Lymphs (auto) Total Counted Differential Comment PT INR Specimen Type ART Sample Site L Radial pH 7.32 L Bicarbonate Actual 29.7 H POC Total CO2 31 Base Excess 4 H O2 Saturation 64 L ABG pCO2 57.5 H ABG pO2 37 L* Dipesh Test NA O2 Delivery Device Room Air Blood Gas Notified Whom ED MD Blood Gas Notified Time 2128 Sodium Potassium Chloride Carbon Dioxide Anion Gap BUN Creatinine Estim Creat Clear Calc Est GFR (MDRD) Af Amer Est GFR (MDRD) Non-Af BUN/Creatinine Ratio Glucose Lactic Acid 1.9 Calcium Total Bilirubin AST ALT Alkaline Phosphatase Total Protein Albumin Globulin Albumin/Globulin Ratio Lipase Ethyl Alcohol < 3.0 Assessment/Plan All Active Problems (Last Reviewed 04/05/18 @ 01:54 by Pete Sherman MD) HCAP (healthcare-associated pneumonia) (Acute) Surgically constructed arteriovenous fistula (Acute) Acute renal failure superimposed on stage 3 chronic kidney disease (Resolved) Fall (Resolved) Hematuria (Resolved) Left hand weakness (Resolved) Fever (Resolved) Transaminitis (Ruled-out) Preop cardiovascular exam (Resolved) Epistaxis (Resolved) Severe sepsis (Resolved) FTT (failure to thrive) in adult (Acute) Foot drop, left (Resolved) Sepsis (Resolved) 63 year old male w/ h/o cholecystitis s/p laparoscopic cholecystectomy and sphincterotomy, ESRD, HD MWF with Dr. 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 1) Acute hypoxic respiratory failure: Likely secondary to HCAP. Chest xray disclosed airspace disease consistent with atelectasis or infiltrate in the lower right lung. Pt has cough and chill. He also has leukocytosis. Will start zosyn and vancomycin given HD pt. Cultures pending. 2) Hematemesis: Probably from severe retching and vomiting. Probably nonvariceal upper GI bleeding. INR wnl. H and H stable with no hemodynamic instability. Will start protonix 40mg IV Q12H. Will also consult general surgery for possible EGD if persistent. 3) ESRD: Consult nephrology for HD. Monitor. 4) Chronic issues: DMII, HTN and CVA Resume home meds. 5) Prophylaxis: SCD / heparin / protonix
--- NOTE | 2018-04-04 23:46 | NURSING ---
Called ED Charge, RN- okay to bring patient to floor at this time.
[2018-04-05] VITALS (16 sets, daily range): BP systolic 99–129; BP diastolic 43–77; PULSE 64–88; RESP 12–18; TEMP 36.4–36.9; O2SAT 93–98; BMI 29.8; BMI 29.9
--- NOTE | 2018-04-05 | IMM_PTH ---
PATIENT: MICAH BONDS LOC: [facility] U#:[id number] AGE/SX: 63/M ROOM: [facility] RE04/04/[address]: Dr. Sherice Hernandez MD : 1955 BED: 1 DIS: 04/05/2018 SPEC #: [id number] RECD: 04/06/18 12:46 STATUS: SOUT REQ #: [id number] AUDI: 04/05/18 00:[address]: Pool Villar DEPT: IMMUNOHISTOCHEMISTRY RECD BY: Diane Hilario ENTERED: 04/06/18 12:46 SP TYPE: IMMUNO OTHR DR: MD Dr. Kiana Haque DO Dr. Daniel Peabody, MD Dr. Nhan Luu, MD Dr. Richard Jones Jr., MD Tissues: Stomach, NOS Procedures: H Pylori (initial) Comments: @ Ordering doctor for H.PYLORI edited from to @ romulo ARITA at 04/06/18 1309 @ Submitting doctor edited from to @ by LYLA at 04/06/18 1308 PHYSICIAN & INSTITUTION [place] [id number] SPECIMEN INFORMATION: Tissue Source: Gastric mass biopsy Clinical Info: GI bleed Specimen Number: [id number] CPT code: 49137 METHODOLOGY: Deparaffinized sections of prefer/formalin-fixed tissue or PAP/DQ stained slides are incubated with monoclonal/polyclonal antibodies/oligonucleotide probes. Localization is made via biotin free immunoperoxidase method. Appropriate controls are performed and reacted as expected. Results on target cell population are indicated in the following table: RESULTS: ANTIBODY / CLONE RESULT H Pylori (polyclonal) negative These tests were developed and their performance characteristics determined by [facility]. They may not have been cleared or approved by the U.S. Food and Drug Administration. The FDA has determined that such clearance or approval is not necessary. INTERPRETATION: Gastric mass, biopsy: Negative for Helicobacter pylori organisms. TUNG:anabel 04/07/18
--- NOTE | 2018-04-05 | GASB_PTH ---
PATIENT: MICAH BONDS LOC: [facility] U#:[id number] AGE/SX: 63/M ROOM: [facility] RE04/04/[address]: Dr. Sherice Hernandez MD : 1955 BED: 1 DIS: 04/05/2018 SPEC #: [id number] RECD: 04/05/18 14:43 STATUS: DIAZ REQ #: [id number] AUDI: 04/05/18 00:[address]: Pool Villar DEPT: SURGICAL PATHOLOGY RECD BY: Christopher Hopper ENTERED: 04/05/18 14:43 SP TYPE: Gastric Bx OTHR DR: MD Dr. Kiana Haque DO Dr. Daniel Peabody, MD Dr. Nhan Luu, MD Dr. Richard Jones Jr., MD Tissues: Gastric mucous membrane Procedures: Special Stain Group I Surgery Specimen Level IV GMS Stain (control) Comments: @ Ordering doctor for SUIV edited from to DR.DPEABO Sherri ARITA at 04/05/181611 @ Submitting doctor edited from to @ romulo ARITA at 04/05/181611 HEADER OPERATION: EGD PRE-OP DIAGNOSIS: GI bleed TISSUE SUBMITTED: Gastric mass biopsy MICROSCOPIC DIAGNOSIS Gastric mass, biopsy: Numerous fragments of blood clot, a few fragments of superficial gastric epithelium and rare fragments of gastric mucosa with ulceration and associated acute inflammation. Special stain for fungi is positive for fungal organisms (yeast and pseudohyphae) consistent with shilo species; matched control is appropriate. See comment. SJ:rg 04/06/18 COMMENT If there is high suspicion of malignancy, rebiopsy is suggested if clinically indicated. Numerous organisms consistent with bacteria and fungal organisms (yeast and pseudohyphae) consistent with shilo species are noted in the area of blood clot.. The results of immunohistochemistry for Helicobacter pylori will be reported separately ([id number]). Case has been reviewed in consultation with Dr. Estrada who concurs with the above diagnosis. IDC:AM MICROSCOPIC DESCRIPTION Slides are reviewed. GROSS DESCRIPTION Received in fixative is one container labeled with the patient's name and designated gastric mass biopsy. The specimen consists of a piece of pink-red soft tissue measuring 2.5 x 2 x 0.4 cm. Also present in the container are multiple pieces of gutiérrez-pink soft tissue measuring in aggregate 1 x 0.2 x 0.1 cm. The largest piece is serially sectioned. The entire specimen is submitted in one cassette. / TUNG:anabel 04/05/18 TC:2 CPT: 88027, 10145
[2018-04-05] MEDS: Heparin Injection (Vial) 5,000 UNIT/ML VIAL 5000 UNIT SC (01:30)
[2018-04-05] MEDS: Pregabalin 50 MG Capsule PO (01:30)
[2018-04-05] MEDS: Sertraline 50 MG Tablet PO (01:31)
[2018-04-05] MEDS: guaiFENesin 1,200 MG Tablet 1200 MG PO (01:31)
[2018-04-05] MEDS: Famotidine 20 MG Tablet 10 MG PO (01:31)
[2018-04-05] MEDS: Atorvastatin Calcium 40 MG Tablet PO (01:37)
[2018-04-05] MEDS: Ondansetron 4 MG/2 ML Vial IV (06:30)
[2018-04-05 07:01] LABS: Bedside Glucose 250 mg/dL (70-110)
[2018-04-05] MEDS: Midodrine HCl 5 MG Tablet PO (08:34)
[2018-04-05 08:47] LABS: Hematocrit 37.6 % (40-54); Hemoglobin 11.8 g/dl (13.0-16.5)
--- NOTE | 2018-04-05 09:56 | PCM.RX.CS ---
Consult Pharmacy has been consulted to manage selected antiobiotic: Vancomycin Type of Consult: Follow-up Suspected Infection: Pneumonia Prior Doses of Antibiotics Received/Current Regimen: VANCOMYCIN 1250MG IV X1 04/04/18 @2348 Labs: Sodium 140 mmol/L (136-145) 04/04/18 20:20 Potassium 5.1 mmol/L (3.5-5.1) 04/04/18 20:20 Chloride 101 mmol/L (98-107) 04/04/18 20:20 Carbon Dioxide 30.0 mmol/L (21.0-32.0) 04/04/18 20:20 Anion Gap 9 (5-15) 04/04/18 20:20 BUN 57 mg/dL (7-18) H 04/04/18 20:20 Creatinine 8.57 mg/dL (0.70-1.30) H* 04/04/18 20:20 Est GFR (MDRD) Af Amer 8 mL/min (>60) L 04/04/18 20:20 Est GFR (MDRD) Non-Af 7 mL/min (>60) L 04/04/18 20:20 BUN/Creatinine Ratio 6.7 RATIO (10-20) L 04/04/18 20:20 Glucose 220 mg/dL (74-106) H 04/04/18 20:20 Microbiology: Microbiology 04/05/18 01:20 Mucosa - Nasopharyngeal Influenza Types A,B Direct FA (MERARY) - Final Goal Trough: 15-20 mcg/mL Pharmacy Plan for Drug Dosing: Pharmacy to manage vancomycin per consult for the treatment of suspected pneumonia. The patient is on hemodialysis on . Will schedule the patient to get a dose of vancomycin tonight after dialysis is completed, then schedule a random level prior to the next dialysis session and dose based on random levels. PLAN/RECOMMENDATIONS 1. Vancomycin 750mg IV X1 after dialysis 04/05/18 2. Random vancomycin level 04/07/18 with AM labs 3. Pharmacy Service will continue to monitor and adjust dosing as required.
--- NOTE | 2018-04-05 11:22 | SUR.OPER ---
DR. COVINGTON IN ROOM DURING EGD.
--- NOTE | 2018-04-05 11:32 | PCM.OPRPT ---
Problem List (1) Hematemesis with nausea Status: Acute Report of Operation Date of Procedure: 04/05/18 Pre-Operative Diagnosis: k92.0 hematemesis Post-Operative Diagnosis: Same Surgery/Procedure Performed:: 05262 esophagogastroduodenoscopy with biopsy Type of Anesthesia:: MAC Description of Procedure: Patient was brought into the endoscopy suite. Placed in the left lateral decubitus position. Back of his throat was sprayed with Cetacaine spray. A bite block was placed. He was given graded anesthesia. The scope was inserted in the back of the oropharynx and directed down through the esophagus into the stomach and partially into the duodenum. Operative findings: 1. Esophagus: Normal appearance no mass lesions no ulcerations scope traversed through the distal esophagus quite easily. 2. Stomach: Significant blood encountered once we got into the stomach. There is a mass originating from the prepyloric area and extending up the lesser curvature there is a veil of clotted blood all along the lesser curvature as well as a pulling of blood up in the cardia with him on his left lateral position. I was able to take numerous biopsies of this area but this does have the appearance of a carcinoma as opposed to just a specific ulcer. The area is just too wide I think to be an actual large giant gastric ulcer although I guess we will have to wait for the pathology reports to come back. It might be advised to do another upper scope on him once he is only been on clear liquids so that some of this blood can get out through the pyloric area. 3. Duodenum: The pylorus is patent it looks extremely ulcerated and fungating. I gently went through but I did not push the scope much past just to see that the mucosa of the duodenal bulb appeared normal. Numerous biopsies of this were obtained no active bleeding was identified but once again there is a large veil of clot extending from the prepyloric area of the lesser curvature. Satellite fungating masses are identified throughout this area as well. I tried to irrigate this but this blood was not coming off. I discussed the case with the hospitalist they are going to be actively transferring this patient to a larger tertiary center. - Admit VTE Documentation VTE Present on Admission: No VTE Mechan Device Prophylaxis: None VTE Pharm Prophylaxis ordered?: No Reason prophylaxis not ordered:: Treatment Not Indicated
--- NOTE | 2018-04-05 11:33 | CASEMGMT ---
Transfer information for [facility] Tertiary care using [facility]. [facility], [facility], [facility].
--- NOTE | 2018-04-05 11:50 | PCM.CONS.R ---
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 His initial complaint was shortness of breath with cough. He had nausea, vomiting with hematemesis. He has a hsitory of DM type 2,legally blind, HTN, CVA on asprin. He does not receive heparin with dialysis. He received dialysis this morning for 1hr, 20 min before dialysis terminated for urgent endoscopy for persistent hematemesis. BP was low in the 70-80's systolic on dialysis. Hgb 11.8g today. EGD findings per gen surgery report noted. Transfer to tertiary care center in progress. T - Allergies Allergies: Allergies silk Adverse Reaction (Verified 04/04/18 19:54) Rash - Current Medications Current Medications: Current Medications Acetaminophen (Tylenol) 650 mg PO Q4H PRN PRN PRN Reason: FEVER Albuterol/Ipratropium (Duoneb) 3 ml INHALATION Q4H.RT [facility] Last Admin: 04/05/18 11:23 Dose: Not Given Amlodipine Besylate (Norvasc) 5 mg PO DAILY [facility] Aspirin (Aspirin, Baby) 81 mg PO DAILY@0800 [facility] Last Admin: 04/05/18 08:00 Dose: Not Given Atorvastatin Calcium (Lipitor) 40 mg PO QHS [facility] Last Admin: 04/05/18 01:37 Dose: 40 mg Famotidine (Pepcid) 10 mg PO BID [facility] Last Admin: 04/05/18 01:31 Dose: 10 mg Guaifenesin (Mucinex) 1,200 mg PO BID [facility] Last Admin: 04/05/18 01:31 Dose: 1,200 mg Heparin Sodium (Porcine) (Heparin Na) 5,000 unit SC Q12 [facility] Last Admin: 04/05/18 11:10 Dose: Not Given Piperacillin Sod/Tazobactam Sod (Zosyn) 3.375 gm in 50 mls @ 12.5 mls/hr IV Q12 [facility] Pantoprazole Sodium 40 mg/ (Sodium Chloride) 110 mls @ 330 mls/hr IV Q12 [facility] Vancomycin HCl 750 mg/ Sodium (Chloride) 265 mls @ 250 mls/hr IV X1 ONE Stop: 04/05/18 19:03 Insulin Glargine (Lantus (Bkc)) 10 units SC QHS [facility] Insulin Human Lispro (Humalog Kwikpen (Bk)) 0 unit SC ACHS [facility]CK PRN Reason: Protocol Lorazepam (Ativan) 0.5 mg PO BID PRN PRN PRN Reason: anxiety Losartan Potassium (Cozaar) 50 mg PO DAILY [facility] Midodrine (Proamatine) 5 mg PO MoWeFr@1000 [facility] Last Admin: 04/05/18 08:34 Dose: 5 mg Multivit/Ca Carb/B Cmplx/FA/Prenat (Nephrocaps, Renaphro) 1 capsule PO DAILY [facility] Nutritional Formula (Nepro Carb Steady) 120 ml PO 4X/DAY [facility] Ondansetron HCl (Zofran) 4 mg IV Q8H PRN PRN PRN Reason: NAUSEA Last Admin: 04/05/18 06:30 Dose: 4 mg Oxycodone HCl (Oxyir) 5 mg PO Q8H PRN PRN PRN Reason: PAIN Pregabalin (Lyrica) 50 mg PO BID [facility] Last Admin: 04/05/18 01:30 Dose: 50 mg Promethazine HCl (Phenergan) 6.25 mg IV Q4H PRN PRN PRN Reason: NAUSEA/VOMITING Sertraline HCl (Zoloft) 50 mg PO QHS [facility] Last Admin: 04/05/18 01:31 Dose: 50 mg Vancomycin HCl () 1 lab MISCELL. MoWeFr@0600 [facility] Vancomycin HCl (Vancomycin Renal/Hd Dosing) 1 unit MISCELL. MoWeFr@0800 [facility] - Past Medical History Past Medical History (Chronic Problems): Chronic Problems (Last Reviewed 04/05/18 @ 01:54 by Pete Sherman MD) History of left heart catheterization (Chronic) Per Dr. Guerrero at [facility] 05/21/2010 Atherosclerotic heart disease of [place] coronary artery without angina pectoris (Chronic) Per heart cath 05/21/2010: Second diagonal of LAD moderate diffuse disease, also in proximal to mid LAD, moderate diffuse disease: not easily amenable to angioplasty, medical therapy recommended. 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 pneumoniae Hydronephrosis, right (Chronic) Cholecystitis (Chronic) Benign essential hypertension (Chronic) Type II diabetes mellitus (Chronic) poorly controlled Diabetic peripheral neuropathy (Chronic) hands and feet HLD (hyperlipidemia) (Chronic) controlled Iron deficiency anemia (Chronic) due to GI blood loss Back pain (Chronic) Uncontrolled hypertension (Chronic) Depression (Chronic) Generalized weakness (Chronic) Colon polyps (Chronic) Blindness (Chronic) CHF exacerbation (Chronic) Anxiety (Chronic) Polyneuropathy (Chronic) Hypertension (Chronic) Heart failure with preserved ejection fraction (Chronic) ESRD (end stage renal disease) (Chronic) Stroke (Chronic) Cerebrovascular disease (Chronic) - Past Surgical History Surgical History: - - AV fistula right upper arm, umbilical hernia repair, biliary drain - Social History Smoking Status: Never smoker Alcohol: None Drugs: None - Family History Maternal Family History: Family History (Last Reviewed 04/05/18 @ 01:54 by Pete Sherman MD) Mother CAD (coronary artery disease) Father CVA (cerebral vascular accident) History Items: Diabetes, Renal Disease Paternal Family History: Family History (Last Reviewed 04/05/18 @ 01:54 by Pete Sherman MD) Mother CAD (coronary artery disease) Father CVA (cerebral vascular accident) History Items: No pertinent history Review of Systems Constitutional: Reports: Weakness, Fatigue, - - not feeling well overall Respiratory: Reports: Cough, Shortness of Breath Gastrointestinal: Reports: Abdominal Pain, Hematemesis, Nausea, Vomiting, - - distension Patient Problems: Active and Suspected Problems (Last Reviewed 04/05/18 @ 01:54 by Pete Sherman MD) HCAP (healthcare-associated pneumonia) (Acute) Hematemesis with nausea (Acute) - Physical Exam General: Alert, Oriented x3, Cooperative, - - facial puffiness HEENT: - - legally blind Lungs: Diminished Cardiovascular: Regular rate Abdomen: Distended, Tender - mild Musculoskeletal: - - weak Neurological: - - hx stroke, min ambulation Psych/Mental Status: Depressed Vital Signs Temp Pulse Resp BP Pulse Ox 97.8 F 84 16 129/64 H 95 04/05/18 11:05 04/05/18 11:05 04/05/18 11:05 04/05/18 11:05 04/05/18 11:05 Oxygen Flow Rate (L/min) 2 Oxygen Delivery Method Nasal Cannula Weight: 89.1 kg Body Mass Index (BMI) 29.8 Intake and Output for Last 24 Hours 04/03/18 04/04/18 04/05/18 23:59 23:59 23:59 Intake Total 609 / 609 Output Total 0 / 0 Balance 609 / 609 Microbiology Past 72 Hours 04/05/18 01:20 Influenza Types A,B Direct FA (MERARY) - Final Mucosa - Nasopharyngeal Laboratory Tests Past 24 Hrs 04/05/18 08:25 Hgb 11.8 L Hct 37.6 L POC Glucose 04/05/18 06:40 POC Glucose 250 H Clinical Impression(s) from Imaging Studies Brain CT 04/04/18 21:02 IMPRESSION: No change. Stable mild atrophy and White matter disease. Electronically Signed: Tim Whitehead MD at 22:10 EDT , Service support , Chest X-Ray 04/04/18 21:04 IMPRESSION: Airspace disease consistent with atelectasis or infiltrate in the lower right lung. Electronically Signed: Tim Whitehead MD at 22:00 EDT , Service support , KUB X-Ray 04/04/18 21:35 IMPRESSION: Nasogastric tube terminates in the right lower lobe and needs to be removed and repositioned. Electronically Signed: Tim Whitehead MD at 23:03 EDT , Service support , Assessment/Plan All Active Problems (Last Reviewed 04/05/18 @ 01:54 by Pete Sherman MD) HCAP (healthcare-associated pneumonia) (Acute) Hematemesis with nausea (Acute) Surgically constructed arteriovenous fistula (Acute) Acute renal failure superimposed on stage 3 chronic kidney disease (Resolved) Fall (Resolved) Hematuria (Resolved) Left hand weakness (Resolved) Fever (Resolved) Transaminitis (Ruled-out) Preop cardiovascular exam (Resolved) Epistaxis (Resolved) Severe sepsis (Resolved) FTT (failure to thrive) in adult (Acute) Foot drop, left (Resolved) Sepsis (Resolved) 1. 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. Had shortened tx today for urgent endoscopy. Evaluate for additional tx in am if needed. BP low during tx today with gross hematemesis 2. Acute hematemesis with fungating, ulcerated gastric lesion. Hgb 11.8g today. 3. DM2, blind,neuropathy, primary mgt 4. HTN stable 5. Hx CVA. 6. Transfer to tertiary care center DW gen surg, hospitalist
--- NOTE | 2018-04-05 11:52 | PCM.DC.SUM ---
Discharge Date and Diagnosis - Problem List Patient Problems: Active and Suspected Problems (Last Reviewed 04/05/18 @ 01:54 by Pete Sherman MD) HCAP (healthcare-associated pneumonia) (Acute) Hematemesis with nausea (Acute) Date of Admission: 04/04/18 Date of Discharge: 04/05/18 - Primary Discharge Diagnosis Active and Suspected Problems (Last Reviewed 04/05/18 @ 01:54 by Pete Sherman MD) (1) Acute Hypoxic Respiratory Failure secondary to suspected HCAP (2) Upper GI Bleed w/ Hematemesis with nausea and emesis secondary to likely bleeding from mass originating from the prepyloric area and extending up the lesser curvature (EGD with noted veil of clotted blood all along the lesser curvature as well as a pulling of blood up in the cardia w/ biopsies taken (3) Anemia of Chronic Disease, Iron Deficiency Anemia, despite #2 presentation, patient w/ stable Hgb level compared to baseline (4) 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 Guerrero at [facility] 05/21/2010 Atherosclerotic heart disease of [place] coronary artery without angina pectoris (Chronic) Per heart cath 05/21/2010: Second diagonal of LAD moderate diffuse disease, also in proximal to mid LAD, moderate diffuse disease: not easily amenable to angioplasty, medical therapy recommended. 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 pneumoniae Hydronephrosis, right (Chronic) Cholecystitis (Chronic) Benign essential hypertension (Chronic) Type II diabetes mellitus (Chronic) poorly controlled Diabetic peripheral neuropathy (Chronic) hands and feet HLD (hyperlipidemia) (Chronic) controlled Iron deficiency anemia (Chronic) due to GI blood loss Back pain (Chronic) Uncontrolled hypertension (Chronic) Depression (Chronic) Generalized weakness (Chronic) Colon polyps (Chronic) Blindness (Chronic) CHF exacerbation (Chronic) Anxiety (Chronic) Polyneuropathy (Chronic) Hypertension (Chronic) Heart failure with preserved ejection fraction (Chronic) ESRD (end stage renal disease) (Chronic) Stroke (Chronic) Cerebrovascular disease (Chronic) Hospital Course and Treatment Imaging Results: 04/05/18 07:25 Chest PA and Lateral [RAD] AM (NON MEDS) Dr. Villar General Surgery Operations: None Procedures: Dialysis, EGD, EKG Summary of Care Provided: The patient is a 63 y/o M w/ PMHx: ESRD on HD following w/ Dr. Wilcox (HD MWF), HTN, HLD, Depression and Anxiety, Diabetes mellitus type II with neuropathy and retinopathy, Chronic Diastolic CHF, Hx CVA, CAD on medication management only, AOCD who presents to the [facility] ED on 04/04/18 evening w/ history of progressively worsening dyspnea, non-productive cough x 48 hours. ED evaluation w/ T 98.1, heart rate 85, BP 114/58, respiratory rate 18, 86% on room air transition to 2 L nasal cannula with improvement to 96%, CBC with WBC 18.8, hemoglobin 11.1 with repeat 11.8, platelet 212 with left shift, unremarkable coags, ABG initially in the ED on room air with pH 7.32, O2 saturation 64, PCO2 mildly elevated 57.5, PO2 37, CMP with BUN/creatinine 57/8.57, glucose 220, lactic acid 1.9, AST/ALT 38/49, lipase 65, she had with chronic changes with no acute findings, chest x-ray with chronic changes and suspected right lower lobe infiltrate versus atelectasis. In the ED patient administered IV Zosyn and vancomycin. Patient admitted to the PCU, maintained on monitor, continued IV antibiotic therapy for possible hospital-acquired pneumonia. Kiana Wilcox was consulted and 04/05/18 1 hour 20 minutes HD performed during admission. He upon admission had emesis and nausea with noted bright red blood present, which recurred w/ Hgb noted to be stable. Dr. Villar consulted and given concerns for upper GI Bleed, he was taken of HD as noted with reduction in time and transitioned to the endoscopy lab. Endoscopy was normal in appearance in the esophagus with no lesions or ulcerations however upon evaluation of the stomach there was a significant blood encountered with a mass originating from the prepyloric region and extending up the lesser curvature with noted veil of clotted blood along the lesser curvature and pulling in the cardia with the patient in his left lateral position with numerous biopsies taken and suspicious for cancer additionally pyloric region appearing ulcerated and fungating with ability to push through gently and view of mucosa of the duodenal bulb normal in appearance. Given these notable findings with suspected upper GI bleed secondary to gastric mass recommendation per surgeon for transfer to tertiary care facility which was requested per discussion with family and patient to [facility]. 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 Magallon for further nephrology needs. Additional Prolonged Care Time: Further additional time needed for evaluation, care plan with specialist including transition for urgent endoscopy, discussion with patient and transfer investigation/performance 70 minutes additionally above initial daily evaluation needs and discharge time. DAY OF DISCHARGE PROGRESS NOTE: Subjective: Patient with hematemesis, weakness, lightheadedness although acute dyspnea did improve. As noted follow-up urgent endoscopy with concerning findings with bleeding from gastric mass. Patient and family amenable to transfer for further evaluation. Patient denies fever, chills, chest pain. He did note abdominal discomfort in addition to his nausea and emesis. Objective: T 98.3, heart rate 76, BP 110/54, respiratory rate 16, 94% on 3 L nasal cannula following endoscopy completion. Physical Examination: General: awake, alert, oriented x 3 and cooperative, appearance, seated upright in bed. Skin: normal color, turgor, no icterus, cyanosis. HEENT: AT/NC, EOMI, legal blindness with severity of diabetic retinopathy, mildly dry MM. Lungs: Diminished breath sounds throughout, greater bilateral bases, great right mid to lower base, mildly rhonchorous, no wheezing. Heart: Regular rate and rhythm; no gallop, rub audible. Abdomen: soft, overweight, generalized TTP, worse epigastric region, no marked distention, decreased BS. Extremities: no cyanosis, clubbing, +AVF thrill. Neurological: patient awake, alert, oriented x 3; cognitive function intact, but fatigued, suspect decreased from baseline; cranial nerves grossly normal except deficits w/ vision secondary to diabetic retinopathy, moving all 4 extremities, strength severely globally decreased secondary to acute presentation. Psychiatric: affect appears fatigued, no acute evidence of depressive or anxiety feelings. Assessment and Plan: Please see hospital summary above. Home Medications: Medications to take at Discharge Pregabalin [Lyrica] 50 mg PO BID 06/22/17 Insulin Aspart [Novolog Flexpen] 5 units SC DINNER 09/15/17 Amlodipine [Norvasc] 5 mg PO DAILY 10/12/17 Lorazepam [Ativan] 0.5 mg PO BID PRN PRN 10/12/17 Losartan Potassium [Cozaar] 50 mg PO DAILY 10/12/17 Oxycodone HCl/Acetaminophen [Percocet 5-325] 1 tab PO Q8H PRN PRN 10/12/17 atorvastatin 40 mg tablet 40 mg PO QHS 10/14/17 Aspirin [Aspirin, Baby] 81 mg PO DAILY@0800 01/26/18 Insulin Aspart [Novolog Flexpen] 5 units SC BREAKFAST 01/26/18 Insulin Aspart [Novolog Flexpen] 5 units SC LUNCH 01/26/18 Insulin Aspart [Novolog Flexpen] See Protocol SC ACHS 01/26/18 Midodrine HCl [Proamatine] 5 mg PO MOWEFR 01/26/18 Sertraline HCl [Zoloft] 50 mg PO QHS 01/26/18 Famotidine [Pepcid AC] 10 mg PO BID 04/04/18 Insulin Detemir [Levemir FlexPen] 10 units SC DINNER 04/04/18 Liliane[facility] [place] Ph 1 tab PO DAILY 04/04/18 Primary Care Physician: Maximilian Castillo Jr., MD [Primary Care Provider] - Disposition: Acute care Hospital Minutes spent on discharge:: 40 Patient Condition:: Guarded Medical Necessity - Tobacco Use Smoking Status: Never smoker Meaningful Use Info Meaningful Use Diagnoses (Choose all that apply): None applicable Code Visit Inpatient E&M: 46007 Disch Hosp Procedures: 21653 Prolonged InPt Service; first hour
--- NOTE | 2018-04-05 11:56 | CON.PCM_ITS ---
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 His initial complaint was shortness of breath with cough. He had nausea, vomiting with hematemesis. He has a hsitory of DM type 2,legally blind, HTN, CVA on asprin. He does not receive heparin with dialysis. He received dialysis this morning for 1hr, 20 min before dialysis terminated for urgent endoscopy for persistent hematemesis. BP was low in the 70-80's systolic on dialysis. Hgb 11.8g today. EGD findings per gen surgery report noted. Transfer to tertiary care center in progress. T - Allergies Allergies: Allergies silk Adverse Reaction (Verified 04/04/18 19:54) Rash - Current Medications Current Medications: Current Medications Acetaminophen (Tylenol) 650 mg PO Q4H PRN PRN PRN Reason: FEVER Albuterol/Ipratropium (Duoneb) 3 ml INHALATION Q4H.RT [facility] Last Admin: 04/05/18 11:23 Dose: Not Given Amlodipine Besylate (Norvasc) 5 mg PO DAILY [facility] Aspirin (Aspirin, Baby) 81 mg PO DAILY@0800 [facility] Last Admin: 04/05/18 08:00 Dose: Not Given Atorvastatin Calcium (Lipitor) 40 mg PO QHS [facility] Last Admin: 04/05/18 01:37 Dose: 40 mg Famotidine (Pepcid) 10 mg PO BID [facility] Last Admin: 04/05/18 01:31 Dose: 10 mg Guaifenesin (Mucinex) 1,200 mg PO BID [facility] Last Admin: 04/05/18 01:31 Dose: 1,200 mg Heparin Sodium (Porcine) (Heparin Na) 5,000 unit SC Q12 [facility] Last Admin: 04/05/18 11:10 Dose: Not Given Piperacillin Sod/Tazobactam Sod (Zosyn) 3.375 gm in 50 mls @ 12.5 mls/hr IV Q12 [facility] Pantoprazole Sodium 40 mg/ (Sodium Chloride) 110 mls @ 330 mls/hr IV Q12 [facility] Vancomycin HCl 750 mg/ Sodium (Chloride) 265 mls @ 250 mls/hr IV X1 ONE Stop: 04/05/18 19:03 Insulin Glargine (Lantus (Bkc)) 10 units SC QHS [facility] Insulin Human Lispro (Humalog Kwikpen (Bk)) 0 unit SC ACHS BUCK PRN Reason: Protocol Lorazepam (Ativan) 0.5 mg PO BID PRN PRN PRN Reason: anxiety Losartan Potassium (Cozaar) 50 mg PO DAILY [facility] Midodrine (Proamatine) 5 mg PO MoWeFr@1000 [facility] Last Admin: 04/05/18 08:34 Dose: 5 mg Multivit/Ca Carb/B Cmplx/FA/Prenat (Nephrocaps, Renaphro) 1 capsule PO DAILY [facility] Nutritional Formula (Nepro Carb Steady) 120 ml PO 4X/DAY [facility] Ondansetron HCl (Zofran) 4 mg IV Q8H PRN PRN PRN Reason: NAUSEA Last Admin: 04/05/18 06:30 Dose: 4 mg Oxycodone HCl (Oxyir) 5 mg PO Q8H PRN PRN PRN Reason: PAIN Pregabalin (Lyrica) 50 mg PO BID [facility] Last Admin: 04/05/18 01:30 Dose: 50 mg Promethazine HCl (Phenergan) 6.25 mg IV Q4H PRN PRN PRN Reason: NAUSEA/VOMITING Sertraline HCl (Zoloft) 50 mg PO QHS [facility] Last Admin: 04/05/18 01:31 Dose: 50 mg Vancomycin HCl () 1 lab MISCELL. MoWeFr@0600 [facility] Vancomycin HCl (Vancomycin Renal/Hd Dosing) 1 unit MISCELL. MoWeFr@0800 [facility] - Past Medical History Past Medical History (Chronic Problems): Chronic Problems (Last Reviewed 04/05/18 @ 01:54 by Pete Sherman MD) History of left heart catheterization (Chronic) Per Dr. Guerrero at [facility] 05/21/2010 Atherosclerotic heart disease of [place] coronary artery without angina pectoris (Chronic) Per heart cath 05/21/2010: Second diagonal of LAD moderate diffuse disease, also in proximal to mid LAD, moderate diffuse disease: not easily amenable to angioplasty, medical therapy recommended. 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 pneumoniae Hydronephrosis, right (Chronic) Cholecystitis (Chronic) Benign essential hypertension (Chronic) Type II diabetes mellitus (Chronic) poorly controlled Diabetic peripheral neuropathy (Chronic) hands and feet HLD (hyperlipidemia) (Chronic) controlled Iron deficiency anemia (Chronic) due to GI blood loss Back pain (Chronic) Uncontrolled hypertension (Chronic) Depression (Chronic) Generalized weakness (Chronic) Colon polyps (Chronic) Blindness (Chronic) CHF exacerbation (Chronic) Anxiety (Chronic) Polyneuropathy (Chronic) Hypertension (Chronic) Heart failure with preserved ejection fraction (Chronic) ESRD (end stage renal disease) (Chronic) Stroke (Chronic) Cerebrovascular disease (Chronic) - Past Surgical History Surgical History: - - AV fistula right upper arm, umbilical hernia repair, biliary drain - Social History Smoking Status: Never smoker Alcohol: None Drugs: None - Family History Maternal Family History: Family History (Last Reviewed 04/05/18 @ 01:54 by Pete Sherman MD) Mother CAD (coronary artery disease) Father CVA (cerebral vascular accident) History Items: Diabetes, Renal Disease Paternal Family History: Family History (Last Reviewed 04/05/18 @ 01:54 by Pete Sherman MD) Mother CAD (coronary artery disease) Father CVA (cerebral vascular accident) History Items: No pertinent history Review of Systems Constitutional: Reports: Weakness, Fatigue, - - not feeling well overall Respiratory: Reports: Cough, Shortness of Breath Gastrointestinal: Reports: Abdominal Pain, Hematemesis, Nausea, Vomiting, - - distension Patient Problems: Active and Suspected Problems (Last Reviewed 04/05/18 @ 01:54 by Pete Sherman MD) HCAP (healthcare-associated pneumonia) (Acute) Hematemesis with nausea (Acute) - Physical Exam General: Alert, Oriented x3, Cooperative, - - facial puffiness HEENT: - - legally blind Lungs: Diminished Cardiovascular: Regular rate Abdomen: Distended, Tender - mild Musculoskeletal: - - weak Neurological: - - hx stroke, min ambulation Psych/Mental Status: Depressed Vital Signs Temp Pulse Resp BP Pulse Ox 97.8 F 84 16 129/64 H 95 04/05/18 11:05 04/05/18 11:05 04/05/18 11:05 04/05/18 11:05 04/05/18 11:05 Oxygen Flow Rate (L/min) 2 Oxygen Delivery Method Nasal Cannula Weight: 89.1 kg Body Mass Index (BMI) 29.8 Intake and Output for Last 24 Hours 04/03/18 04/04/18 04/05/18 23:59 23:59 23:59 Intake Total 609 / 609 Output Total 0 / 0 Balance 609 / 609 Microbiology Past 72 Hours 04/05/18 01:20 Influenza Types A,B Direct FA (MERARY) - Final Mucosa - Nasopharyngeal Laboratory Tests Past 24 Hrs 04/05/18 08:25 Hgb 11.8 L Hct 37.6 L POC Glucose 04/05/18 06:40 POC Glucose 250 H Clinical Impression(s) from Imaging Studies Brain CT 04/04/18 21:02 IMPRESSION: No change. Stable mild atrophy and White matter disease. Electronically Signed: Tim Whitehead MD at 22:10 EDT , Service support , Chest X-Ray 04/04/18 21:04 IMPRESSION: Airspace disease consistent with atelectasis or infiltrate in the lower right lung. Electronically Signed: Tim Whitehead MD at 22:00 EDT , Service support , KUB X-Ray 04/04/18 21:35 IMPRESSION: Nasogastric tube terminates in the right lower lobe and needs to be removed and repositioned. Electronically Signed: Tim Whitehead MD at 23:03 EDT , Service support , Assessment/Plan All Active Problems (Last Reviewed 04/05/18 @ 01:54 by Pete Sherman MD) HCAP (healthcare-associated pneumonia) (Acute) Hematemesis with nausea (Acute) Surgically constructed arteriovenous fistula (Acute) Acute renal failure superimposed on stage 3 chronic kidney disease (Resolved) Fall (Resolved) Hematuria (Resolved) Left hand weakness (Resolved) Fever (Resolved) Transaminitis (Ruled-out) Preop cardiovascular exam (Resolved) Epistaxis (Resolved) Severe sepsis (Resolved) FTT (failure to thrive) in adult (Acute) Foot drop, left (Resolved) Sepsis (Resolved) 1. ESRD HD MWF with diabetic nephropathy, primary inspector purchased parts Dr Dale at [facility]. Had shortened tx today for urgent endoscopy. Evaluate for additional tx in am if needed. BP low during tx today with gross hematemesis 2. Acute hematemesis with fungating, ulcerated gastric lesion. Hgb 11.8g today. 3. DM2, blind,neuropathy, primary mgt 4. HTN stable 5. Hx CVA. 6. Transfer to tertiary care center DW gen surg, hospitalist
--- NOTE | 2018-04-05 12:07 | PCM.CONS.GEN ---
Problem List (1) Hematemesis with nausea Status: Acute Reason for Consult Date of Consultation: 04/05/18 Reason for Consultation: Hematemesis History of Present Illness: The patient is a 63 year old M who presented with 1 day history of nausea and hematemesis. Patient notes abdominal pain/discomfort in the epigastric region/RUQ. He denies chest pain. He was evaluated on dialysis. Patient had a lap mak and ERCP earlier this year. Patient has multiple comorbidities. He was a poor historian. Patient vomited blood approximately 100 cc in the emesis bag. Past Medical History Past Medical History (Chronic Problems): Chronic Problems (Last Reviewed 04/05/18 @ 01:54 by Pete Sherman MD) History of left heart catheterization (Chronic) Per Dr. Guerrero at [facility] 05/21/2010 Atherosclerotic heart disease of [place] coronary artery without angina pectoris (Chronic) Per heart cath 05/21/2010: Second diagonal of LAD moderate diffuse disease, also in proximal to mid LAD, moderate diffuse disease: not easily amenable to angioplasty, medical therapy recommended. 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 pneumoniae Hydronephrosis, right (Chronic) Cholecystitis (Chronic) Benign essential hypertension (Chronic) Type II diabetes mellitus (Chronic) poorly controlled Diabetic peripheral neuropathy (Chronic) hands and feet HLD (hyperlipidemia) (Chronic) controlled Iron deficiency anemia (Chronic) due to GI blood loss Back pain (Chronic) Uncontrolled hypertension (Chronic) Depression (Chronic) Generalized weakness (Chronic) Colon polyps (Chronic) Blindness (Chronic) CHF exacerbation (Chronic) Anxiety (Chronic) Polyneuropathy (Chronic) Hypertension (Chronic) Heart failure with preserved ejection fraction (Chronic) ESRD (end stage renal disease) (Chronic) Stroke (Chronic) Cerebrovascular disease (Chronic) Medical History: Medical History (Last Reviewed 04/05/18 @ 01:54 by Pete Sherman MD) Atherosclerotic heart disease of [place] coronary artery without angina pectoris (Chronic) I25.10 Per heart cath 05/21/2010: Second diagonal of LAD moderate diffuse disease, also in proximal to mid LAD, moderate diffuse disease: not easily amenable to angioplasty, medical therapy recommended. 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 myocardial infarction (Chronic) I25.2 Right bundle branch block (Chronic) I45.10 Cardiomegaly (Chronic) I51.7 Subendocardial myocardial infarction (Chronic) I21.4 care home use of drug (Chronic) Z79.899 Antihyperlipidemic Benign essential hypertension (Chronic) I10 Type II diabetes mellitus (Chronic) E11.9 poorly controlled Diabetic peripheral neuropathy (Chronic) E11.42 hands and feet HLD (hyperlipidemia) (Chronic) E78.5 controlled Iron deficiency anemia (Chronic) D50.9 due to GI blood loss Back pain (Chronic) M54.9 Uncontrolled hypertension (Chronic) I10 Depression (Chronic) F32.9 Generalized weakness (Chronic) R53.1 Colon polyps (Chronic) Blindness (Chronic) CHF exacerbation (Chronic) I50.9 Anxiety (Chronic) F41.9 Polyneuropathy (Chronic) G62.9 Hypertension (Chronic) I10 Foot drop, left (Resolved) M21.372 Heart failure with preserved ejection fraction (Chronic) I50.30 ESRD (end stage renal disease) (Chronic) N18.6 Stroke (Chronic) I63.9 Sepsis (Resolved) A41.9 from cholecystitis Cerebrovascular disease (Chronic) I67.9 ESRD (end stage renal disease) on dialysis N18.6, Z99.2 s/p cholecystostomy drain Allergies silk Adverse Reaction (Verified 04/04/18 19:54) Rash Home Medications: Ambulatory Orders Medication Instructions Recorded Pregabalin [Lyrica] 50 mg PO BID 06/22/17 Insulin Aspart [Novolog Flexpen] 5 units SC DINNER 09/15/17 Amlodipine [Norvasc] 5 mg PO DAILY 10/12/17 Lorazepam [Ativan] 0.5 mg PO BID PRN PRN 10/12/17 Losartan Potassium [Cozaar] 50 mg PO DAILY 10/12/17 Oxycodone HCl/Acetaminophen 1 tab PO Q8H PRN PRN 10/12/17 [Percocet 5-325] atorvastatin 40 mg tablet 40 mg PO QHS 10/14/17 Aspirin [Aspirin, Baby] 81 mg PO DAILY@0800 01/26/18 Insulin Aspart [Novolog Flexpen] 5 units SC BREAKFAST 01/26/18 Insulin Aspart [Novolog Flexpen] 5 units SC LUNCH 01/26/18 Insulin Aspart [Novolog Flexpen] See Protocol SC ACHS 01/26/18 Midodrine HCl [Proamatine] 5 mg PO MOWEFR 01/26/18 Sertraline HCl [Zoloft] 50 mg PO QHS 01/26/18 Famotidine [Pepcid AC] 10 mg PO BID 04/04/18 Insulin Detemir [Levemir FlexPen] 10 units SC DINNER 04/04/18 Liliane-Gagan [place] Ph 1 tab PO DAILY 04/04/18 Surgical History: Surgical History (Last Reviewed 04/05/18 @ 01:54 by Pete Sherman MD) History of left heart catheterization (Chronic) Z98.[address] Guerrero at [facility] 05/21/2010 History of ERCP Z98.890 History of laparoscopic cholecystectomy Z90.49 Surgical History: - - AV fistula right upper arm, umbilical hernia repair, biliary drain Lives: Spouse/ Significant Other Smoking Status: Never smoker Alcohol: None Drugs: None - *Family History Maternal Family History: Family History (Last Reviewed 04/05/18 @ 01:54 by Pete Sherman MD) Mother CAD (coronary artery disease) Father CVA (cerebral vascular accident) History Items: Diabetes, Renal Disease Paternal Family History: Family History (Last Reviewed 04/05/18 @ 01:54 by Pete Sherman MD) Mother CAD (coronary artery disease) Father CVA (cerebral vascular accident) History Items: No pertinent history Review of Systems Constitutional: Reports: Anorexia HEENT: Denies: Head Aches, Sinus Congestion, Sinus Drainage Cardiovascular: Denies: Chest Pain, Palpitations Respiratory: Reports: Shortness of Breath Gastrointestinal: Reports: Abdominal Pain, Hematemesis, Nausea Genitourinary: Denies: Dysuria Musculoskeletal: Denies: Joint Pain, Joint Tenderness Skin: Denies: Rash, Wounds Neurological: Reports: Balance problems Psychiatric: Reports: Depression Hematologic/ Lymphatic: Reports: Anemia, Easy Bleeding Patient Problems: Active and Suspected Problems (Last Reviewed 04/05/18 @ 01:54 by Pete Sherman MD) HCAP (healthcare-associated pneumonia) (Acute) Hematemesis with nausea (Acute) - Physical Exam General: Cooperative, Lethargic HEENT: Atraumatic, PERRLA, EOMI, Normocephalic Neck: Supple, No JVD, Negative Carotid Bruits Lungs: Clear to auscultation, Normal air movement Cardiovascular: Regular rate, No murmurs Abdomen: Hypoactive Bowel Sounds, Distended, Tender - generalized Extremities: No edema, Capillary Refill Less than 3 Seconds Skin: No rashes, No breakdown Musculoskeletal: No Tenderness to Palpation of Joints or Extremities Neurological: Neuro grossly intact Psych/Mental Status: Depressed Vital Signs Temp Pulse Resp BP Pulse Ox 98.3 F 76 16 110/54 L 94 04/05/18 11:55 04/05/18 11:55 04/05/18 11:55 04/05/18 11:55 04/05/18 11:55 Oxygen Flow Rate (L/min) 3 Oxygen Delivery Method Nasal Cannula Weight: 196 lb 6.91 oz Body Mass Index (BMI) 29.8 Intake and Output for Last 24 Hours 04/03/18 04/04/18 04/05/18 23:59 23:59 23:59 Intake Total 809 / 809 Output Total 0 / 0 Balance 809 / 809 Microbiology Past 72 Hours 04/05/18 01:20 Influenza Types A,B Direct FA (MERARY) - Final Mucosa - Nasopharyngeal Laboratory Tests Past 24 Hrs 04/05/18 08:25 Hgb 11.8 L Hct 37.6 L POC Glucose 04/05/18 06:40 POC Glucose 250 H Assessment/Plan All Active Problems (Last Reviewed 04/05/18 @ 01:54 by Pete Sherman MD) HCAP (healthcare-associated pneumonia) (Acute) Hematemesis with nausea (Acute) Surgically constructed arteriovenous fistula (Acute) Acute renal failure superimposed on stage 3 chronic kidney disease (Resolved) Fall (Resolved) Hematuria (Resolved) Left hand weakness (Resolved) Fever (Resolved) Transaminitis (Ruled-out) Preop cardiovascular exam (Resolved) Epistaxis (Resolved) Severe sepsis (Resolved) FTT (failure to thrive) in adult (Acute) Foot drop, left (Resolved) Sepsis (Resolved) I am seeing this patient in conjunction with Dr. Villar. Impression: Active Upper GI bleed. Hematemesis. Plan: Dr. Villar also evaluated this patient. Dr. Villar will plan an emergent upper scope. Marily, daughter was notified and consented for the patient. Patient was taken to endo suite for upper endoscopy with MAC. Patient unable to provide consent do to lethargy. Thank you for allowing us to participate in this patient's care. Code Visit Office Visits / Consults: [id number] IP Consult L4
[2018-04-05] MEDS: proMETHazine 25 MG/ML Syringe 6.25 MG IV (12:29)
--- NOTE | 2018-04-05 12:30 | DIALYSIS ---
Tx discontinued after 1 hour and 20 min on tx per Dr. Hernandez and Dr. Villar. Dr. Wilcox was notified. + 453ml of fluid. The patients needles were removed at 1210 upon his arrival back to his room. Pressure was applied to sites. Hemostasis achieved. See tx sheet for more details. Report was given to TREVON Bird.
[2018-04-05] MEDS: Piperacil/Tazobactam 3.375 GM Q12 PREMIX IV (13:18)
[2018-04-05 13:30] LABS: Bedside Glucose 234 mg/dL (70-110)
[2018-04-05 14:24] LABS: Hematocrit 38.1 % (40-54); Hemoglobin 12.1 g/dl (13.0-16.5)
== END 2018-04-05 16:07 | disposition short-term general hospital (02) | DRG 377 ==
LOC: ED 23:42 → PCU 23:51
PROVIDERS: Surgery; Admitting Provider Internal Medicine; Emergency Provider Emergency Medicine; Family Provider Internal Medicine; PCP Internal Medicine; Visit Provider Family Medicine
PROC: 0DJ08ZZ Inspection of Upper Intestinal Tract, Via Natural or Artificial Opening Endoscopic (ICD-10-PCS; CPT 43235; principal; 2018-04-05 10:55)
DX: K92.2 Gastrointestinal hemorrhage, unspecified (principal); J18.9 Pneumonia, unspecified organism; J96.01 Acute respiratory failure with hypoxia; N18.6 End stage renal disease; I13.2 Hypertensive heart and chronic kidney disease with heart failure and with stage 5 chronic kidney disease, or end stage renal disease; I50.32 Chronic diastolic (congestive) heart failure; Y95 Nosocomial condition; Z99.2 Dependence on renal dialysis; E78.5 Hyperlipidemia, unspecified; I25.10 Atherosclerotic heart disease of native coronary artery without angina pectoris; I45.10 Unspecified right bundle-branch block; F32.9 Major depressive disorder, single episode, unspecified; F41.9 Anxiety disorder, unspecified; E11.319 Type 2 diabetes mellitus with unspecified diabetic retinopathy without macular edema; E11.22 Type 2 diabetes mellitus with diabetic chronic kidney disease; E11.42 Type 2 diabetes mellitus with diabetic polyneuropathy; K31.9 Disease of stomach and duodenum, unspecified; D63.8 Anemia in other chronic diseases classified elsewhere; H54.8 Legal blindness, as defined in USA; I69.328 Other speech and language deficits following cerebral infarction; Z90.49 Acquired absence of other specified parts of digestive tract; Z79.899 Other long term (current) drug therapy; I25.2 Old myocardial infarction; Z79.4 Long term (current) use of insulin
CPT/HCPCS: 36600; 70450; 71045; 71046; 74018; 80053; 80320; 82803; 82962; 83605; 83690; 85014; 85018; 85025; 85610; 87040; 87804; 88305; 88312; 88342; 90937; 93005; 99285; J7030; J7050; A4216; G0257; G0480; J2405

== ENCOUNTER 2018-04-16 01:10 | Inpatient (IN) | payer MEDICARE, SELFPAY ==
[2018-04-16] VITALS (54 sets, daily range): BP systolic 60–160; BP diastolic 33–84; PULSE 69–94; RESP 10–23; TEMP 36.3–37.3; O2SAT 89–100; BMI 29.0; BMI 29.5
[2018-04-16 01:25] LABS: Bedside Glucose 254 mg/dL (70-110)
[2018-04-16] MEDS: 0.9% Normal Saline 1,000 ML 999 ML IV ×3 (01:33→04:38)
[2018-04-16 01:36] LABS: Hematocrit 31.9 % (40-54); Mean Corp Hgb Conc 31.3 g/gl (32-36); Mean Corpuscular Hgb 26.7 pg (27.0-32.0); Mean Corpuscular Volume 85.1 fL (80-94); Mean Platelet Vol. 9.9 fl (6.2-12.0); Platelet Count 257 K/mm3 (150-450); RBC Distribution Width CV 15.4 % (11.6-14.6); RBC Distribution Width SD 46.1 fl (35.1-43.9); Red Blood Count 3.75 M/mm3 (4.6-6.2); White Blood Count 17.3 K/mm3 (4.4-11.0)
[2018-04-16 01:37] LABS: Differential Indicated MANUAL DIFF; POSITIVE COUNT YES; POSITIVE DIFFERENTIAL NO; POSITIVE MORPHOLOGY YES
[2018-04-16 01:43] LABS: International Normalized Ratio 1.1; Prothrombin Time (Protime)PT. 13.8 SECONDS (11.7-14.9)
[2018-04-16 01:44] LABS: Partial Thromboplast Time 36.2 Seconds (24.1-36.2)
[2018-04-16 02:01] LABS: ALB/GLOB Ratio 0.7 RATIO (0.9-2.4); AST(SGOT) 7 U/L (15-37); Alanine Aminotransfer ALT/SGPT 11 U/L (16-61); Albumin, Serum 2.5 g/dL (3.2-5.0); Alkaline Phosphatase 88 U/L (45-117); Anion Gap 10 (5-15); BUN 22 mg/dL (7-18); BUN/Creat Ratio 4.1 RATIO (10-20); Calcium,Total 7.7 mg/dL (8.5-10.1); Chloride 99 mmol/L (98-107); Creatinine, Serum 5.32 mg/dL (0.70-1.30); EST Glomerular Filtration Rate 12 mL/min (>60); Est Glom Filt Rate - Afr Amer 14 mL/min (>60); Estimated Creatinine Clearance 14.03 ml/min; Globulin 3.6 g/dL (2.2-4.2); Glucose 238 mg/dL (74-106); Potassium 3.6 mmol/L (3.5-5.1); Protein, Total 6.1 g/dL (6.4-8.2); Sodium Level 139 mmol/L (136-145)
[2018-04-16 02:05] LABS: Eosinophil 1 % (0-5); Lymphocyte 2 % (19-41); Metamyelocyte 1 % (0-1); Monocyte 1 % (0-10); Neutrophil-Band 5 % (0-5); Neutrophil-Segmented 90 % (47-70); Total Cells Counted 100 (MANUAL DIFF)
[2018-04-16 02:06] LABS: Platelet Estimate ADEQUATE (ADEQ); Red Cell Morphology NORM C+C NORMAL (NORM C&C)
[2018-04-16 02:08] LABS: Absolute Lymphocyte Count 0.35 X10^3/ul (0.83-4.51); Absolute Neutrophil Count 16.4 X10^3/uL (2.0-7.7)
[2018-04-16 02:15] LABS: Lactic Acid 2.6 mmol/L (0.4-2.0)
--- NOTE | 2018-04-16 02:16 | ED.RN ---
ronnie soriano rn notified dr shankar of lactic acid 2.6.
--- NOTE | 2018-04-16 03:43 | PCM.HP.STD ---
Problem List (1) Septic shock Status: Acute (2) Encephalopathy acute Status: Acute (3) HCAP (healthcare-associated pneumonia) Status: Acute (4) Atherosclerotic heart disease of [place] coronary artery without angina pectoris Status: Chronic Qualifiers: Comment: Per heart cath 05/21/2010: Second diagonal of LAD moderate diffuse disease, also in proximal to mid LAD, moderate diffuse disease: not easily amenable to angioplasty, medical therapy recommended. (5) Obesity (BMI 30-39.9) Status: Chronic (6) Diabetic retinopathy Status: Chronic Qualifiers: Diabetes mellitus type: type 2 Diabetic retinopathy severity: with unspecified retinopathy severity Diabetes mellitus macular edema: macular edema presence unspecified Laterality: bilateral Qualified Code(s): E11.319 - Type 2 diabetes mellitus with unspecified diabetic retinopathy without macular edema (7) Iron deficiency anemia secondary to blood loss (chronic) Status: Chronic (8) HTN (hypertension) Status: Chronic Qualifiers: Hypertension type: essential hypertension Qualified Code(s): I10 - Essential (primary) hypertension (9) ESRD (end stage renal disease) on dialysis Status: Chronic (10) Type II diabetes mellitus Status: Chronic Qualifiers: Diabetes mellitus keno terminal operator insulin use: with keno terminal operator use Diabetes mellitus complication status: with kidney complications Diabetes mellitus complication detail: with chronic kidney disease Chronic kidney disease stage: on chronic dialysis Qualified Code(s): E11.22 - Type 2 diabetes mellitus with diabetic chronic kidney disease; N18.6 - End stage renal disease; Z79.4 - jail (current) use of insulin; Z99.2 - Dependence on renal dialysis Comment: poorly controlled (11) HLD (hyperlipidemia) Status: Chronic Qualifiers: Hyperlipidemia type: pure hypercholesterolemia Qualified Code(s): E78.00 - Pure hypercholesterolemia, unspecified; E78.0 - Pure hypercholesterolemia Comment: controlled (12) Iron deficiency anemia Status: Chronic Qualifiers: Iron deficiency anemia type: chronic blood loss Qualified Code(s): D50.0 - Iron deficiency anemia secondary to blood loss (chronic) Comment: due to GI blood loss (13) Depression Status: Chronic Qualifiers: Depression Type: unspecified Qualified Code(s): F32.9 - Major depressive disorder, single episode, unspecified (14) Blindness Status: Chronic (15) Anxiety Status: Chronic (16) Polyneuropathy Status: Chronic (17) Heart failure with preserved ejection fraction Status: Chronic (18) Cerebrovascular disease Status: Chronic History of Present Illness Date of Admission: 04/16/18 Chief Complaint: Unresponsive The patient is a 63 y/o M w/ PMHx: ESRD on HD following w/ Dr. Wilcox (HD MWF), HTN, HLD, Depression and Anxiety, Diabetes mellitus type II with neuropathy and retinopathy, Chronic Diastolic CHF, Hx CVA, CAD on medication management only, AOCD, recently evaluated at [facility] on 04/04-04/05/18 with treatment of Acute Hypoxic Respiratory Failure secondary to HCAP in addition to Upper GI Bleed w/ Hematemesis with nausea and emesis secondary to initially suspected bleeding mass w/ transfer to [facility] w/ repeat EGD and felt likely severe inflammation secondary to severe diffuse ulcerations w/ discharge to home on 04/10/18 with onset over the last 24 hours progressively increasing lethargy, ongoing mild cough and dyspnea primarily with exertion. Patient upon EMS evaluation had noted SBP 60-70s and remained unresponsive. In the ED patient remained hypotensive despite IVFs. Initially R IJ attempted w/ difficulties and eventually L IJ placed with pressor therapy initiation secondary to ongoing hypotension. The ED workup included T 99.1, heart rate 90, BP 66/37, respiratory rate 20, 100% on a nonrebreather--> despite ongoing IV fluids aggressively administered BP 74/47 with pending pressor therapy initiation, 98% on 4 L nasal cannula, CBC with WBC 17.3, hemoglobin 10, platelet 257 with left shift, unremarkable coags, CMP with BUN/creatinine 22/5.32, glucose 238, lactic acid 2.6, troponin 0 0.068, blood culture ?2 obtained per ED, chest x-ray with left lower lobe pneumonia worsening from prior chest x-ray obtained during recent admission. In the ED patient administered normal saline, vancomycin, Zosyn and initiated on norepinephrine pressor therapy. CT Head ordered per ED physician, obtained and results pending upon request for evaluation. Past Medical History Past Medical History (Chronic Problems): Chronic Problems (Last Reviewed 04/05/18 @ 01:54 by Pete Sherman MD) History of left heart catheterization (Chronic) Per Dr. Guerrero at [facility] 05/21/2010 Atherosclerotic heart disease of [place] coronary artery without angina pectoris (Chronic) Per heart cath 05/21/2010: Second diagonal of LAD moderate diffuse disease, also in proximal to mid LAD, moderate diffuse disease: not easily amenable to angioplasty, medical therapy recommended. 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 pneumoniae Hydronephrosis, right (Chronic) Cholecystitis (Chronic) Benign essential hypertension (Chronic) Type II diabetes mellitus (Chronic) poorly controlled Diabetic peripheral neuropathy (Chronic) hands and feet HLD (hyperlipidemia) (Chronic) controlled Iron deficiency anemia (Chronic) due to GI blood loss Back pain (Chronic) Uncontrolled hypertension (Chronic) Depression (Chronic) Generalized weakness (Chronic) Colon polyps (Chronic) Blindness (Chronic) CHF exacerbation (Chronic) Anxiety (Chronic) Polyneuropathy (Chronic) Hypertension (Chronic) Heart failure with preserved ejection fraction (Chronic) ESRD (end stage renal disease) (Chronic) Stroke (Chronic) Cerebrovascular disease (Chronic) Medical History: Medical History (Last Reviewed 04/05/18 @ 01:54 by Pete Sherman MD) Atherosclerotic heart disease of [place] coronary artery without angina pectoris (Chronic) I25.10 Per heart cath 05/21/2010: Second diagonal of LAD moderate diffuse disease, also in proximal to mid LAD, moderate diffuse disease: not easily amenable to angioplasty, medical therapy recommended. 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 myocardial infarction (Chronic) I25.2 Right bundle branch block (Chronic) I45.10 Cardiomegaly (Chronic) I51.7 Subendocardial myocardial infarction (Chronic) I21.4 jail use of drug (Chronic) Z79.899 Antihyperlipidemic Benign essential hypertension (Chronic) I10 Type II diabetes mellitus (Chronic) E11.9 poorly controlled Diabetic peripheral neuropathy (Chronic) E11.42 hands and feet HLD (hyperlipidemia) (Chronic) E78.5 controlled Iron deficiency anemia (Chronic) D50.9 due to GI blood loss Back pain (Chronic) M54.9 Uncontrolled hypertension (Chronic) I10 Depression (Chronic) F32.9 Generalized weakness (Chronic) R53.1 Colon polyps (Chronic) Blindness (Chronic) CHF exacerbation (Chronic) I50.9 Anxiety (Chronic) F41.9 Polyneuropathy (Chronic) G62.9 Hypertension (Chronic) I10 Foot drop, left (Resolved) M21.372 Heart failure with preserved ejection fraction (Chronic) I50.30 ESRD (end stage renal disease) (Chronic) N18.6 Stroke (Chronic) I63.9 Sepsis (Resolved) A41.9 from cholecystitis Cerebrovascular disease (Chronic) I67.9 ESRD (end stage renal disease) on dialysis N18.6, Z99.2 s/p cholecystostomy drain Allergies silk Adverse Reaction (Verified 04/04/18 19:54) Rash Home Medications: Ambulatory Orders Medication Instructions Recorded Pregabalin [Lyrica] 50 mg PO BID 06/22/17 Insulin Aspart [Novolog Flexpen] 5 units SC DINNER 09/15/17 Amlodipine [Norvasc] 5 mg PO DAILY 10/12/17 Lorazepam [Ativan] 0.5 mg PO BID PRN PRN 10/12/17 Losartan Potassium [Cozaar] 50 mg PO DAILY 10/12/17 Oxycodone HCl/Acetaminophen 1 tab PO Q8H PRN PRN 10/12/17 [Percocet 5-325] Aspirin [Aspirin, Baby] 81 mg PO DAILY@0800 01/26/18 Insulin Aspart [Novolog Flexpen] 5 units SC BREAKFAST 01/26/18 Insulin Aspart [Novolog Flexpen] 5 units SC LUNCH 01/26/18 Insulin Aspart [Novolog Flexpen] See Protocol SC ACHS 01/26/18 Midodrine HCl [Proamatine] 5 mg PO MOWEFR 01/26/18 Sertraline HCl [Zoloft] 50 mg PO QHS 01/26/18 Insulin Detemir [Levemir FlexPen] 10 units SC DINNER 04/04/18 Illiane-[place] Ph 1 tab PO DAILY 04/04/18 Calcium Acetate 1,334 mg PO 5X/DAY 04/16/18 Polyethylene Glycol 3350 17 gm PO DAILY PRN 04/16/18 Surgical History: Surgical History (Last Reviewed 04/05/18 @ 01:54 by Pete Sherman MD) History of left heart catheterization (Chronic) Z98.[address] Guerrero at [facility] 05/21/2010 History of ERCP Z98.890 History of laparoscopic cholecystectomy Z90.49 Surgical History: - - AV fistula right upper arm, umbilical hernia repair, biliary drain Psychiatric History: Anxiety, Depression Lives: Spouse/ Significant Other Smoking Status: Never smoker Tobacco Use: Non-smoker Alcohol: None Drugs: None - *Family History Maternal Family History: Family History (Last Reviewed 04/05/18 @ 01:54 by Pete Sherman MD) Mother CAD (coronary artery disease) Father CVA (cerebral vascular accident) History Items: Diabetes, Renal Disease Paternal Family History: Family History (Last Reviewed 04/05/18 @ 01:54 by Pete Sherman MD) Mother CAD (coronary artery disease) Father CVA (cerebral vascular accident) History Items: Stroke Review of Systems Constitutional: Reports: Chills, Malaise, Weakness, Fatigue. Denies: Fever, Weight Change HEENT: Denies: Head Aches, Sinus Congestion, Sinus Drainage Cardiovascular: Denies: Chest Pain, Palpitations Respiratory: Reports: Cough, Shortness of breath upon exertion, Sputum production. Denies: Shortness of breath at rest, Wheezing Gastrointestinal: Reports: Nausea. Denies: Abdominal Pain, Vomiting Genitourinary: Denies: Dysuria Musculoskeletal: Reports: Back Pain. Denies: Joint Pain, Joint Tenderness Skin: Denies: Rash, Wounds Neurological: Denies: Numbness, Tingling, Focal weakness Psychiatric: Reports: Anxiety, Depression. Denies: Homicidal Ideations, Suicidal Ideations Hematologic/ Lymphatic: Reports: Anemia. Denies: Easy Bruising, Easy Bleeding VTE Information - Inpt Only VTE Present on Admission: No VTE Mechan Device Prophylaxis: SCD's VTE Pharm Prophylaxis ordered?: Yes Subjective: Laying in the ED bed, ill appearing, NAD, more responsive now, answering questions. Objective: Physical Examination: General: awakens now to stimuli but remains lethargic, not markedly alert, able to answer some orientation questions now, cooperative, ill appearing, laying in the ED bed. Skin: normal color, turgor, no icterus, cyanosis except BL UE various staged ecchymoses. HEENT: AT/NC, EOM deferred given legal blindness with severe of diabetic retinopathy, chronically enlarged R pupil, dry MM, poor dentition. Lungs: Diminished breath sounds throughout, greater bilateral bases, great right mid to lower base, rhonchorous, no wheezing. Heart: Regular rate and rhythm; no gallop, rub audible. Abdomen: soft, overweight, NTTP, no marked distention, decreased BS, difficult to assess HSM secondary to habitus. Extremities: no cyanosis, clubbing, +AVF thrill. Neurological: awakens now to stimuli but remains lethargic, not markedly alert, able to answer some orientation questions now; cognitive function not baseline intact, lethargic and improved from initial unresponsive presentation; cranial nerves grossly normal except deficits w/ vision secondary to diabetic retinopathy, moving all 4 extremities but strength severely globally decreased secondary to acute presentation. Psychiatric: affect appears fatigued, no acute evidence of depressive or anxiety feelings. - Physical Exam Vital Signs Temp Pulse Resp BP Pulse Ox 98.3 F 82 18 72/52 L 96 04/16/18 02:53 04/16/18 02:53 04/16/18 02:53 04/16/18 02:53 04/16/18 02:53 Oxygen Flow Rate (L/min) 4 Oxygen Delivery Method Nasal Cannula Weight: 197 lb 1.492 oz Body Mass Index (BMI) 29.0 Finger Stick Blood Glucose 254 Laboratory Tests Past 24 Hrs 04/16/18 04/16/18 04/16/18 01:25 01:25 01:25 WBC 17.3 H RBC 3.75 L Hgb 10.0 L Hct 31.9 L MCV 85.1 MCH 26.7 L MCHC 31.3 L RDW 15.4 H RDW Differential 46.1 H Plt Count 257 MPV 9.9 Neut % (Auto) Not Reportable Absolute Neuts (auto) 16.4 H Absolute Lymphs (auto) 0.35 L Total Counted 100 Neutrophils % (Manual) 90 H Band Neutrophils % 5 Lymphocytes % (Manual) 2 L Monocytes % (Manual) 1 Eosinophils % (Manual) 1 Metamyelocytes % 1 Diff Path Review May foll Platelet Estimate ADEQUATE RBC Morphology NORM C+C PT 13.8 INR 1.1 APTT 36.2 Sodium 139 Potassium 3.6 Chloride 99 Carbon Dioxide 30.0 Anion Gap 10 BUN 22 H Creatinine 5.32 H Estim Creat Clear Calc 14.03 Est GFR (MDRD) Af Amer 14 L Est GFR (MDRD) Non-Af 12 L BUN/Creatinine Ratio 4.1 L Glucose 238 H Lactic Acid Calcium 7.7 L Total Bilirubin 0.50 AST 7 L ALT 11 L Alkaline Phosphatase 88 Troponin I 0.068 H Total Protein 6.1 L Albumin 2.5 L Globulin 3.6 Albumin/Globulin Ratio 0.7 L 04/16/18 01:25 WBC RBC Hgb Hct MCV MCH MCHC RDW RDW Differential Plt Count MPV Neut % (Auto) Absolute Neuts (auto) Absolute Lymphs (auto) Total Counted Neutrophils % (Manual) Band Neutrophils % Lymphocytes % (Manual) Monocytes % (Manual) Eosinophils % (Manual) Metamyelocytes % Diff Path Review Platelet Estimate RBC Morphology PT INR APTT Sodium Potassium Chloride Carbon Dioxide Anion Gap BUN Creatinine Estim Creat Clear Calc Est GFR (MDRD) Af Amer Est GFR (MDRD) Non-Af BUN/Creatinine Ratio Glucose Lactic Acid 2.6 H Calcium Total Bilirubin AST ALT Alkaline Phosphatase Troponin I Total Protein Albumin Globulin Albumin/Globulin Ratio POC Glucose 04/16/18 01:19 POC Glucose 254 H Assessment/Plan All Active Problems (Last Reviewed 04/05/18 @ 01:54 by Pete Sherman MD) HCAP (healthcare-associated pneumonia) (Acute) Hematemesis with nausea (Acute) Septic shock (Acute) Encephalopathy acute (Acute) Surgically constructed arteriovenous fistula (Acute) Acute renal failure superimposed on stage 3 chronic kidney disease (Resolved) Fall (Resolved) Hematuria (Resolved) Left hand weakness (Resolved) Fever (Resolved) Transaminitis (Ruled-out) Preop cardiovascular exam (Resolved) Epistaxis (Resolved) Severe sepsis (Resolved) FTT (failure to thrive) in adult (Acute) Foot drop, left (Resolved) Sepsis (Resolved) The patient is a 63 y/o M w/ PMHx: ESRD on HD following w/ Dr. Wilcox (HD MWF), HTN, HLD, Depression and Anxiety, Diabetes mellitus type II with neuropathy and retinopathy, Chronic Diastolic CHF, Hx CVA, CAD on medication management only, AOCD, recently evaluated at [facility] on 04/04-04/05/18 with treatment of Acute Hypoxic Respiratory Failure secondary to HCAP in addition to Upper GI Bleed w/ Hematemesis with nausea and emesis secondary to initially suspected bleeding mass w/ transfer to [facility] w/ repeat EGD and felt likely severe inflammation secondary to severe diffuse ulcerations w/ discharge to home on 04/10/18 with onset over the last 24 hours progressively increasing lethargy, ongoing mild cough and dyspnea primarily with exertion. Patient upon EMS evaluation had noted SBP 60-70s and remained unresponsive. (1) Acute Septic Shock secondary to Acute Encephalopathy secondary to Acute Hypoxic Respiratory Failure secondary to Acute HCAP, Possible GN Organism: Evidence of sepsis-induced organ dysfunction/tissue hypoperfusion and sepsis induced hypotension despite adequate fluid administration as evidenced by ongoing hypotension, leukocytosis, elevated lactic acid with source. Will admit patient to the ICU, continue to maintain on cardiac monitoring, continue IVF bolus per protocol (30 ml/kg within 3 hours of initial septic shock presentation), admission CBC w/ WBC 17.3 w/ L shift, Lactic acid 2.6 obtained within 3 hours of initial suspected severe sepsis presentation w/ repeat level per facility protocol. Will maintain on IV abx regimen w/ vanc, zosyn therapies, continue IVFs. Bld Cx x 2 obtained in the ED within 3 hours of severe sepsis presentation, drawn prior to abx initiation. Will continue to administer IV vasopressor therapy for persistent hypotension. Sputum Cx, urine antigens, respiratory viral panel ordered. Maintain on ATC aerosols, PRN albuterol. ICU physician consulted, pending. CT Head obtained prior to admission per ED physician, results pending. If no obvious immediate interventional needs noted on CT Head will continue with admission to [facility]. (2) Recent Upper GI Bleed w/ Hematemesis: [facility] evaluation w/ EGD w/ concern for bleeding from mass originating from the prepyloric area and extending up the lesser curvature w/ EGD with noted veil of clotted blood all along the lesser curvature as well as a pulling of blood up in the cardia w/ biopsies taken and noted negative with [facility] evaluation and repeat EGD performed w/ eventual though mass likely severe inflammation secondary to diffuse ulcerations. (3) Anemia of Chronic Disease, Iron Deficiency Anemia: Admission Hgb 10, stable compared to baseline especially given #2, continue to trend. (4) ESRD on HD: Usual HD MWF, Windows Administrator Dr. Kiana Wilcox, consulted and pending. (5) Hypertension: Presentation w/ septic shock, defer HTN regimen. (6) Hyperlipidemia: Hold oral regimen until improved and oral intake safe. (7) Depression and Anxiety: Hold oral regimen until improved and oral intake safe. (8) CAD s/p GA prior maintained on only medical therapy w/ Elevated Cardiac Enzymes: Hold oral regimen until improved and oral intake safe, defer heparin/lovenox given recent GI Bleed as noted, maintain on telemetry, cycle cardiac enzymes, mag pending, suspected secondary to acute presentation, #1 with demand. (9) Diabetes mellitus type II with neuropathy and retinopathy: Continue home levemir insulin regimen, hold scheduled short-acting, NPO status until mental status improves and safe oral intake, accu checks w/ ISS. (10) Chronic Diastolic CHF: Hold oral regimen until improved and oral intake safe. (11) History of CVA Posterior R Frontal Lobe: Hold oral regimen until improved and oral intake safe. (12) DVT Prophylaxis: SCDs, defer chemoprophylaxis given recent GI bleed. (13) CODE status: present and confirmed living will and HCPOA status. Discussed CODE status at length including difference between FULL code, DNR-CCA and DNR-CC status. Following discussions about the differences in these status, confirmed DNR-CCA, no intubation status, pressor therapy amenable. Advanced Care Planning Face to Face Time: 20 minutes. Critical Care Time: 55 minutes, were spent addressing patients septic shock, HCAP presentation, review of all data in collaboration with care team in addition to discussion with family. Code Visit Procedures: Other Procedure - See Report - Billing Codes: Critical Care 39063 x 1 (55 minutes) and Advanced Care Planning 90258 x 1 (20 minutes).
--- NOTE | 2018-04-16 04:17 | ED.VISSUMM ---
- ER Visit Summary Date of Service: 04/16/18 Chief Complaint: Unresponsive History of Present Illness: The patient is a 63 M patient brought in from home with decreased responsiveness and low blood pressure systolic 60s. Spouse here present, states patient has been less responsive throughout the day however worse at midnight. He was in the hospital week ago for upper GI bleed ulcers, his transfer to [facility]. Patient was also treated for healthcare associated pneumonia off antibiotics. He is on Protonix. No bleeding issues. History of end-stage renal disease on dialysis for last 2 years. Unclear who his windows application packager is. This up for Thursday, Thursday, Fridays. He is due this morning. Patient oliguric, urinates approximately once every 2 days per second other, they are able to obtain urine as an outpatient yesterday. No additional information, she does report his right eye blindness. Secondary diabetes. Discussed with spouse if there is a living will, states it may be in the paperwork. He is a DNR CCA. He does not want intubation or CPR. They are okay with central line and pressors. Physical Examination: General: Patient alert and follows some commands, moving all 4 extremities GCS is 12. HEENT: Normocephalic, atraumatic. There is right eye pupils are dilated, does not react to light. Moist mucosa membranes Neck: supple, nontender. Cardiovascular: Regular rate and rhythm, no murmurs Respiratory: Normal breath sounds, symmetric, no distress Abdomen: Soft, nontender, nondistended Extremities: Nontender, no edema, pulses intact ?4 Neuro: no focal neurological deficits. Test Results: EKG sinus rate of 92, right bundle branch block, no ST changes. T-wave inversions in inferior leads. Old from previous. White count 17.3, bands of 5. BUN 22 creatinine 5.3, potassium 3.6. Lactic acid 2.6. Troponin 0 0.068. Blood culture ?[address] head negative. Chest x-ray concerning for infiltrates. Emergency Department Course and Treatment: Sepsis protocol initiated due to his low blood pressure. Given 2 L of fluid off getting through peripheral IVs. After 1 L he is not responding, I discussed with significant other for central line placement due to his blood pressure for possible pressors. She agreed. This placed on the left side due to right sided difficulties. There is no complications with the left side. Labs noted lactate 2.6 white count 17. His chest x-ray concerns or infiltrative findings. He is covered H CAP antibiotics with Zosyn and vancomycin. There is no pneumothorax on repeat chest x-ray. Elevated troponin, normal EKG, likely type II strain. Pressors are started at the request of hospitalist Dr. Hernandez. He will be admitted to ICU for further management. Procedure note: Written consent by significant other. No most full sterile conditions. Ultrasound-guided right IJ attempt, venous was identified dilated with good compression. Upon placement, there was bright red blood. Verified with ultrasound, however guidewire would not go through. This was changed to a low region ?2, again ultrasounded reviewed compressible vessel, however there was bright red blood with the faculties of advancing the guidewire, therefore this was discontinued. Ultrasound was evaluated for pneumothorax on the right which was negative. This was switched to the left side with full sterile conditions with new package. Ultrasound-guided, compressible vein, dark red blood return. Events guidewire with no difficulties. Skin was incised, dilated, triple lumen cath was placed at 15 cm. All 3 ports return and flush. Chest x-ray reviewed good placement. Treatment Plan: [] Disposition: Admission to ICU Impression: 1. Septic shock 2. Health care associated pneumonia 3. Central line placement 4. End-stage renal disease on hemodialysis This note was generated with [employer] Track dictation software. It may contain incorrect words, spelling, and punctuation that were not noted in review of the chart prior to signing ED Disposition - Plan for ED Patient: Disposition: Acute Care Hospital [facility] Chief Complaint: Alt LOC Diagnosis: Septic shock, HCAP (healthcare-associated pneumonia), End stage renal disease on dialysis
[2018-04-16] MEDS: 0.9% Normal Saline 1,000 ML 150 ML IV (04:23)
[2018-04-16 05:31] LABS: Reflex Lactate? Y
[2018-04-16 05:45] LABS: Lactic Acid 1.6 mmol/L (0.4-2.0)
[2018-04-16 05:49] LABS: Anion Gap 10 (5-15); BUN 23 mg/dL (7-18); BUN/Creat Ratio 4.2 RATIO (10-20); Calcium,Total 7.7 mg/dL (8.5-10.1); Chloride 100 mmol/L (98-107); Creatinine, Serum 5.47 mg/dL (0.70-1.30); EST Glomerular Filtration Rate 11 mL/min (>60); Est Glom Filt Rate - Afr Amer 14 mL/min (>60); Glucose 229 mg/dL (74-106); Magnesium 3.2 mg/dL (1.6-2.6); Potassium 3.8 mmol/L (3.5-5.1); Sodium Level 141 mmol/L (136-145)
[2018-04-16 06:44] LABS: M R Staph aureus DNA By PCR Negative (Negative); Probe Check PASS; Specimen Processing Control PASS
[2018-04-16] MEDS: Ipratropium/Albuterol Sulfate 3 ML AMPUL.NEB INHALATION (06:57)
--- NOTE | 2018-04-16 07:11 | PCM.CON.CC ---
Reason for Consult Date of Consultation: 04/16/18 Reason for Consultation: Septic shock History of Present Illness: The patient is a 63-year-old male, with a history as outlined below, who presented to the emergency department on April 16 with encephalopathy and hypotension. The patient has a number of significant comorbidities including anemia of chronic disease, end-stage renal disease on hemodialysis, coronary artery disease, and heart failure with preserved ejection fraction. The patient was just recently admitted to the hospital at the end of March 2018 with acute hypoxic respiratory failure due to suspected healthcare associated pneumonia along with an upper GI bleed with hematemesis. The patient underwent an upper endoscopy which revealed a mass originating in the prepyloric region and extended into the lesser curvature. Multiple biopsies were taken. However, given the aforementioned findings along with concern for ongoing GI bleed, the recommendation was for the patient to be transferred to a tertiary care facility. The patient was subsequently transferred to [facility]. The patient was discharged home from there on April 10. On presentation to the emergency department, the patient was noted to be hypotensive and hypoxic. Laboratory evaluation revealed elevated white blood cell count to 17,000. There was evidence of baseline normocytic anemia. Coagulation profile was within normal limits. Chemistry profile was notable for a creatinine of 5.32. Serum lactate was elevated to 2.6. Troponin was elevated to 0.068. Plain film chest x-ray revealed patchy airspace infiltration in the left lung base. The patient received supplemental IV fluid hydration and broad-spectrum antibiotics. However, despite appropriate volume expansion, the patient remained hypotensive, requiring central venous catheter placement and Levophed initiation. CT head only revealed chronic involutional changes. The patient denies abdominal pain, shortness of breath or cough. Past Medical History Past Medical History (Chronic Problems): Chronic Problems (Last Reviewed 04/05/18 @ 01:54 by Pete Sherman MD) History of left heart catheterization (Chronic) Per Dr. Guerrero at [facility] 05/21/2010 Atherosclerotic heart disease of [place] coronary artery without angina pectoris (Chronic) Per heart cath 05/21/2010: Second diagonal of LAD moderate diffuse disease, also in proximal to mid LAD, moderate diffuse disease: not easily amenable to angioplasty, medical therapy recommended. 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 pneumoniae Hydronephrosis, right (Chronic) Cholecystitis (Chronic) Benign essential hypertension (Chronic) Type II diabetes mellitus (Chronic) poorly controlled Diabetic peripheral neuropathy (Chronic) hands and feet HLD (hyperlipidemia) (Chronic) controlled Iron deficiency anemia (Chronic) due to GI blood loss Back pain (Chronic) Uncontrolled hypertension (Chronic) Depression (Chronic) Generalized weakness (Chronic) Colon polyps (Chronic) Blindness (Chronic) CHF exacerbation (Chronic) Anxiety (Chronic) Polyneuropathy (Chronic) Hypertension (Chronic) Heart failure with preserved ejection fraction (Chronic) ESRD (end stage renal disease) (Chronic) Stroke (Chronic) Cerebrovascular disease (Chronic) Medical History: Medical History (Last Reviewed 04/05/18 @ 01:54 by Pete Sherman MD) Atherosclerotic heart disease of [place] coronary artery without angina pectoris (Chronic) I25.10 Per heart cath 05/21/2010: Second diagonal of LAD moderate diffuse disease, also in proximal to mid LAD, moderate diffuse disease: not easily amenable to angioplasty, medical therapy recommended. 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) Z79.899 Antihyperlipidemic Benign essential hypertension (Chronic) I10 Type II diabetes mellitus (Chronic) E11.9 poorly controlled Diabetic peripheral neuropathy (Chronic) E11.42 hands and feet HLD (hyperlipidemia) (Chronic) E78.5 controlled Iron deficiency anemia (Chronic) D50.9 due to GI blood loss Back pain (Chronic) M54.9 Uncontrolled hypertension (Chronic) I10 Depression (Chronic) F32.9 Generalized weakness (Chronic) R53.1 Colon polyps (Chronic) Blindness (Chronic) CHF exacerbation (Chronic) I50.9 Anxiety (Chronic) F41.9 Polyneuropathy (Chronic) G62.9 Hypertension (Chronic) I10 Foot drop, left (Resolved) M21.372 Heart failure with preserved ejection fraction (Chronic) I50.30 ESRD (end stage renal disease) (Chronic) N18.6 Stroke (Chronic) I63.9 Sepsis (Resolved) A41.9 from cholecystitis Cerebrovascular disease (Chronic) I67.9 ESRD (end stage renal disease) on dialysis N18.6, Z99.2 s/p cholecystostomy drain Allergies silk Adverse Reaction (Verified 04/04/18 19:54) Rash Home Medications: Ambulatory Orders Medication Instructions Recorded Pregabalin [Lyrica] 75 mg PO BID 06/22/17 Insulin Aspart [Novolog Flexpen] 5 units SC DINNER 09/15/17 Amlodipine [Norvasc] 10 mg PO QHS 10/12/17 Lorazepam [Ativan] 0.5 mg PO BID 10/12/17 Losartan Potassium [Cozaar] 50 mg PO DAILY 10/12/17 Oxycodone HCl/Acetaminophen 1 tab PO Q8H PRN PRN 10/12/17 [Percocet 5-325] Aspirin [Aspirin, Baby] 81 mg PO DAILY@0800 01/26/18 Insulin Aspart [Novolog Flexpen] 5 units SC BREAKFAST 01/26/18 Insulin Aspart [Novolog Flexpen] 5 units SC LUNCH 01/26/18 Insulin Aspart [Novolog Flexpen] See Protocol SC ACHS 01/26/18 Midodrine HCl [Proamatine] 5 mg PO MOWEFR 01/26/18 Sertraline HCl [Zoloft] 50 mg PO QHS 01/26/18 Insulin Detemir [Levemir FlexPen] 10 units SC DINNER 04/04/18 Liliane-Gagan Sherrard Ph 1 tab PO DAILY 04/04/18 Calcitriol [Rocaltrol] 0.25 mcg PO DAILY 04/16/18 Calcium Acetate 1,334 mg PO 5X/DAY 04/16/18 L.acidoph,Paracasei, B.lactis 1 each PO DAILY 04/16/18 [Probiotic] Pantoprazole Sodium [Protonix] 40 mg PO BID 04/16/18 Polyethylene Glycol 3350 17 gm PO DAILY PRN 04/16/18 Surgical History: Surgical History (Last Reviewed 04/05/18 @ 01:54 by Pete Sherman MD) History of left heart catheterization (Chronic) Z98.[address] Guerrero at [facility] 05/21/2010 History of ERCP Z98.890 History of laparoscopic cholecystectomy Z90.49 Surgical History: - - AV fistula right upper arm, umbilical hernia repair, biliary drain Psychiatric History: Anxiety, Depression Lives: Spouse/ Significant Other Smoking Status: Never smoker Tobacco Use: Non-smoker Alcohol: None Drugs: None - *Family History Maternal Family History: Family History (Last Reviewed 04/05/18 @ 01:54 by Pete Sherman MD) Mother CAD (coronary artery disease) Father CVA (cerebral vascular accident) History Items: Diabetes, Renal Disease Paternal Family History: Family History (Last Reviewed 04/05/18 @ 01:54 by Pete Sherman MD) Mother CAD (coronary artery disease) Father CVA (cerebral vascular accident) History Items: Stroke Review of Systems Constitutional: Denies: Chills, Fever Eyes: Denies: Blurred vision, Double vision HEENT: Denies: Head Aches, Sinus Congestion, Sinus Drainage Cardiovascular: Denies: Chest Pain, Palpitations Respiratory: Denies: Cough, Shortness of breath at rest, Sputum production Gastrointestinal: Denies: Abdominal Pain, Nausea, Vomiting Genitourinary: Denies: Dysuria Musculoskeletal: Denies: Joint Pain, Joint Tenderness Skin: Denies: Rash, Wounds Neurological: Reports: Confusion Psychiatric: Denies: Anxiety, Depression, Homicidal Ideations, Suicidal Ideations Hematologic/ Lymphatic: Denies: Easy Bruising, Easy Bleeding Patient Problems: Active and Suspected Problems (Last Reviewed 04/05/18 @ 01:54 by Pete Sherman MD) HCAP (healthcare-associated pneumonia) (Acute) Septic shock (Acute) Objective: The patient's most recent lab work, culture data and imaging studies have all been personally reviewed. Respiratory viral panel and blood cultures are currently pending. Surface echocardiogram from August 2017 revealed normal LV size and function with an ejection fraction of 60%. Right ventricular systolic pressure was estimated to be 41 mmHg. - Physical Exam General: - - Awakens from sleeping and answers questions appropriately. No acute distress. HEENT: Atraumatic, PERRLA, Normocephalic Oral: - - Poor generalized dentition Neck: Supple, No Nodes, Trachea Midline, - - Central venous catheter in place Lungs: No rhonchi, No wheeze, No rales, Diminished Cardiovascular: Regular rate, Regular Rhythm, Normal S1, Normal S2, No murmurs Abdomen: Bowel Sounds Present, Soft, Non Tender, Obese Extremities: No clubbing, No cyanosis, - - Dusky appearing extremities Skin: No breakdown Musculoskeletal: No Tenderness to Palpation of Joints or Extremities Lymphatic: No Cervical, Supraclavicular, or Inguinal Adenopathy Neurological: Neuro grossly intact Psych/Mental Status: Flat Affect Vital Signs Temp Pulse Resp BP Pulse Ox 98.0 F 88 16 132/47 H 96 04/16/18 05:03 04/16/18 06:45 04/16/18 06:45 04/16/18 06:45 04/16/18 06:45 Oxygen Flow Rate (L/min) 4 Oxygen Delivery Method Nasal Cannula Weight: 194 lb 3.636 oz Body Mass Index (BMI) 29.5 Intake and Output for Last 24 Hours 04/14/18 04/15/18 04/16/18 23:59 23:59 23:59 Intake Total 640 / 640 Balance 640 / 640 Laboratory Tests Past 24 Hrs 04/16/18 04/16/18 04/16/18 04:50 04:50 05:00 Sodium 141 Potassium 3.8 Chloride 100 Carbon Dioxide 31.0 Anion Gap 10 BUN 23 H Creatinine 5.47 H Estim Creat Clear Calc 13.20 Est GFR (MDRD) Af Amer 14 L Est GFR (MDRD) Non-Af 11 L BUN/Creatinine Ratio 4.2 L Glucose 229 H Lactic Acid Calcium 7.7 L Magnesium 3.2 H Troponin I 0.308 H MRSA (PCR) Negative 04/16/18 05:05 Sodium Potassium Chloride Carbon Dioxide Anion Gap BUN Creatinine Estim Creat Clear Calc Est GFR (MDRD) Af Amer Est GFR (MDRD) Non-Af BUN/Creatinine Ratio Glucose Lactic Acid 1.6 Calcium Magnesium Troponin I MRSA (PCR) Clinical Impression(s) from Imaging Studies Chest X-Ray 04/16/18 01:25 IMPRESSION: Left basilar atelectasis versus infiltrate, worsened from prior imaging Electronically Signed: Christopher Cox MD at 2:14 EDT Tel , Service support , Brain CT 04/16/18 02:49 IMPRESSION: Chronic involutional changes of the brain. Electronically Signed: Linda Rabago MD at 4:19 EDT Tel , Service support , Chest X-Ray 04/16/18 02:50 IMPRESSION: Moderate cardiomegaly. Electronically Signed: Linda Rabago MD at 3:32 EDT Tel , Service support , Assessment/Plan Active and Suspected Problems (Last Reviewed 04/05/18 @ 01:54 by Pete Sherman MD) HCAP (healthcare-associated pneumonia) (Acute) Septic shock (Acute) RECOMMENDATIONS: 1. Wean Levophed to maintain a mean arterial pressure at or above 65 mmHg. 2. Continue antibiotics, pending infectious workup. 3. The patient was notably hypoxic with sleeping raising the concern for sleep disordered breathing. Therefore, BiPAP will be initiated empirically with sleep. 4. Check strep and urine Legionella antigens, along with respiratory viral panel. 5. Consult nephrology for assistance with hemodialysis. IMPRESSIONS: 1. Septic shock with concern for possible healthcare associated pneumonia The patient will be continued on treatment with antibiotics for presumptive healthcare associated pneumonia, pending finalized infectious workup. He has received adequate volume resuscitation and will be continued on Levophed to maintain a mean arterial pressure at or above 65 mmHg. Check strep and urine Legionella antigens, along with respiratory viral panel. 2. Encephalopathy Unclear etiology. Although underlying infectious/metabolic derangements are a possibility. In addition, the patient appears to be on a number of sedating medications in his home environment, raising the concern for polypharmacy in the setting of end-stage renal disease. Regardless, the patient appears to be at his baseline mentation at this time. CT head was negative. Recommend continuing to hold sedating medications. 3. Troponin elevation/heart failure with preserved ejection fraction Likely demand ischemia in the setting of #1. Continue to trend troponins until downtrending. Repeat echocardiogram is pending. 4. End-stage renal disease on hemodialysis Nephrology consultation for assistance with chronic hemodialysis management. 5. Recent upper gastrointestinal hemorrhage/anemia of chronic disease Continue twice daily PPI therapy. Blood counts are stable to current time. We will continue to monitor. 6. Coronary artery disease/hypertension/hyperlipidemia/depression/anxiety/diabetes Complicates care, management, recovery and prognosis. Continue to hold antihypertensive medications. Start sliding scale insulin coverage. TIME: 45 minutes of critical care time, independent of procedures, was spent addressing the patient's distributive shock with concern for healthcare associated pneumonia, encephalopathy, troponin elevation, end-stage renal disease, review of all data and collaboration with the care team. ([id number]) Code Visit 9xxxx: [id number] Critical care first hour
--- NOTE | 2018-04-16 09:50 | CASEMGMT ---
RN CM assessment completed. See Link. DC Plan: undetermined. -Intro role of CM to patient, , daughter. They state pt had been doing well since dc from [facility] last week. Did not have Home Health set up on discharge. Pt has had Home health in past, but daughter cannot remember name. Will look up for CM if pt would need on dc. -RN CM discussed possible need for SNF vs HHC due to readmissions and pt's mobility. WILLIE Pastor updated. -CM will continue to follow and assist with dc planning needs. Lexie ESPINALN RN ACM
--- NOTE | 2018-04-16 10:16 | CASEMGMT ---
LW and financial POA in echborger. SW will ask pt about completing a POA form for medical when appropriate. NESSA Hendricks, DIRECTOR GENERAL
--- NOTE | 2018-04-16 10:20 | PCM.PN.HOSP ---
Patient Problems: Active and Suspected Problems (Last Reviewed 04/05/18 @ 01:54 by Pete Sherman MD) HCAP (healthcare-associated pneumonia) (Acute) Septic shock (Acute) Vitals/I&O's: Vital Signs Temp Pulse Resp BP Pulse Ox 98.0 F 87 17 93/45 L 93 04/16/18 05:03 04/16/18 08:00 04/16/18 08:00 04/16/18 08:00 04/16/18 08:00 Oxygen Flow Rate (L/min) 4 Oxygen Delivery Method Nasal Cannula Weight: 88.1 kg Body Mass Index (BMI) 29.5 Intake and Output for Last 24 Hours 04/14/18 04/15/18 04/16/18 23:59 23:59 23:59 Intake Total 640 / 640 Balance 640 / 640 Microbiology Past 72 Hours 04/16/18 05:20 Mucosa - Nasopharyngeal Respiratory Panel (PCR) - Final Laboratory Results 04/16/18 04:50: Sodium 141, Potassium 3.8, Chloride 100, Carbon Dioxide 31.0, Anion Gap 10, BUN 23 H, Creatinine 5.47 H, Estim Creat Clear Calc 13.20, Est GFR (MDRD) Af Amer 14 L, Est GFR (MDRD) Non-Af 11 L, BUN/Creatinine Ratio 4.2 L, Glucose 229 H, Calcium 7.7 L, Magnesium 3.2 H 04/16/18 04:50: Troponin I 0.308 H 04/16/18 05:00: MRSA (PCR) Negative 04/16/18 05:05: Lactic Acid 1.6 04/16/18 07:35: Troponin I 0.679 H* Current Medications Acetaminophen (Tylenol) 650 mg RECTAL Q4H PRN PRN PRN Reason: fever, pain Albuterol Sulfate (Ventolin Aerosols) 2.5 mg INHALATION Q2H PRN PRN PRN Reason: SHORTNESS OF BREATH Albuterol/Ipratropium (Duoneb) 3 ml INHALATION Q4H.RT BUCK Sodium Chloride () 1,000 mls @ 150 mls/hr IV .[id number] [facility] Last Admin: 04/16/18 04:23 Dose: 150 mls/hr Norepinephrine Bitartrate 8 mg (/ Dextrose) 258 mls @ 9.67 mls/hr IV .[id number] [facility] PRN Reason: 5 MCG/MIN Last Admin: 04/16/18 04:17 Dose: 9.67 mls/hr Pantoprazole Sodium 40 mg/ (Sodium Chloride) 110 mls @ 330 mls/hr IV Q12 BUCK Piperacillin Sod/Tazobactam Sod (Zosyn) 3.375 gm in 50 mls @ 12.5 mls/hr IV Q8 BUCK Insulin Glargine (Lantus (Bkc)) 10 units SC DINNER BUCK Magnesium Hydroxide (Milk Of Magnesia) 30 ml PO DAILY PRN PRN PRN Reason: Constipation Ondansetron HCl (Zofran) 4 mg IV Q8H PRN PRN PRN Reason: NAUSEA Promethazine HCl (Phenergan) 12.5 mg IV Q6H PRN PRN PRN Reason: NAUSEA/VOMITING Medical Necessity - Tobacco Use Smoking Status: Never smoker Tobacco Use: Non-smoker Assessment/Plan All Active Problems (Last Reviewed 04/05/18 @ 01:54 by Pete Sherman MD) HCAP (healthcare-associated pneumonia) (Acute) Hematemesis with nausea (Acute) Septic shock (Acute) Encephalopathy acute (Acute) Surgically constructed arteriovenous fistula (Acute) Acute renal failure superimposed on stage 3 chronic kidney disease (Resolved) Fall (Resolved) Hematuria (Resolved) Left hand weakness (Resolved) Fever (Resolved) Transaminitis (Ruled-out) Preop cardiovascular exam (Resolved) Epistaxis (Resolved) Severe sepsis (Resolved) FTT (failure to thrive) in adult (Acute) Foot drop, left (Resolved) Sepsis (Resolved) Patient who coincidentally I know quite well as I had taken care of him during his recent stay at [facility] Admitted for unresponsiveness and stupor and hypotension. unresponsive to IV fluid boluses and so had to be started on pressors Presumed HCAP. CXR reported as worsening infiltrates in the left lower lobe. However repeat CXR a few hours later following IJ TLC central line insertion did not confirm these findings. Images personally looked at myself and not very convincing for pneumonia. Last dialysis on Thursday 2 days ago. Only 500cc of UF removed during HD On exam - on Bipap and asleep. On pressors support and SBP in the 120s Lungs - clear anteriorly but diminished air entry and breath sounds Abd - protuberant, BS hypoactive, non tender and no masses felt Skin - pale labs - lactic acid 2.4 A/p 1. Acute encephalopathy, suspect secondary to hypoxic ischemic encephalopathy from prolonged hypotension. Improving with improved hemodynamics 2. Shock. Uncertain if septic/distributive vs hypovolemic vs cardiogenic. No evidence of hemorrhaging from GI tract Still requiring pressor support apparently Gone ahead to order echocardiogram to evaluate LV function. Should also inform about intravascular/volume status. Blood cultures obtained and will await results. Urine culture ordered as well. On broad spectrum abx at this time with Zosyn and vancomycin renally dosed 3. ESRD on HD. nephrology has been consulted. I think we may safely hold HD today until perhaps tomorrow when more hemodynamically stable. 4. Recent UGIB with acute blood loss anemia. Stable blood counts at this time Code Visit Inpatient E&M: [id number] Subs Hosp L2
--- NOTE | 2018-04-16 11:39 | PCM.CONS.R ---
Consultation - Renal 04/16/18 PCP/ Referring MD: Requesting physician: [] Primary care physician: Maximilian Castillo Reason for Consultation:: ESRD HD MWF - History of Present Illness History of Present Illness: The patient is a 63 year old M with end-stage renal disease due to diabetes on hemod[facility] Thursday[facility] [address] Dale from [place] admitted for altered mental status, hypotension and hypoxia evaluate for sepsis. He had an elevated white count of 17k with low-grade fever. Blood pressure was 66/37. He is on low-dose Levophed for pressor support. Blood culture has been sent and patient was on IV antibiotic therapy. Currently he is alert and oriented. He was placed on BiPAP for sleep apnea with hypoxic event. Currently set up to initiate his dialysis treatment. He has a working right upper arm AV fistula with good thrill and bruit. He was recently hospitalized at [facility] 04/04- for HCAP and upper GI bleed with gross hematemesis and nausea, vomiting. He was subsequently transferred to [facility] where he was discharged to home on April 10. He did not have any surgical intervention done for his gastric ulcers. Currently he denies any hematemesis, abdominal pain, black stools. 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 His last dialysis was Thursday at the [facility]. Chest x-ray with left lower lobe pneumonia worsening from prior chest x-ray obtained during recent admission. He was admitted to intensive care unit for further close observation. - Allergies Allergies: Allergies silk Adverse Reaction (Verified 04/04/18 19:54) Rash - Current Medications Current Medications: Current Medications Acetaminophen (Tylenol) 650 mg RECTAL Q4H PRN PRN PRN Reason: fever, pain Albuterol Sulfate (Ventolin Aerosols) 2.5 mg INHALATION Q2H PRN PRN PRN Reason: SHORTNESS OF BREATH Sodium Chloride () 1,000 mls @ 150 mls/hr IV .Q6H40M [facility] Last Admin: 04/16/18 04:23 Dose: 150 mls/hr Norepinephrine Bitartrate 8 mg (/ Dextrose) 258 mls @ 9.67 mls/hr IV .[id number] BUCK PRN Reason: 5 MCG/MIN Last Admin: 04/16/18 04:17 Dose: 9.67 mls/hr Pantoprazole Sodium 40 mg/ (Sodium Chloride) 110 mls @ 330 mls/hr IV Q12 BUCK Piperacillin Sod/Tazobactam Sod (Zosyn) 3.375 gm in 50 mls @ 12.5 mls/hr IV Q8 BUCK Insulin Glargine (Lantus (Bkc)) 10 units SC DINNER BUCK Magnesium Hydroxide (Milk Of Magnesia) 30 ml PO DAILY PRN PRN PRN Reason: Constipation Ondansetron HCl (Zofran) 4 mg IV Q8H PRN PRN PRN Reason: NAUSEA Promethazine HCl (Phenergan) 12.5 mg IV Q6H PRN PRN PRN Reason: NAUSEA/VOMITING - Past Medical History Past Medical History (Chronic Problems): Chronic Problems (Last Reviewed 04/05/18 @ 01:54 by Pete Sherman MD) History of left heart catheterization (Chronic) Per Dr. Guerrero at [facility] 05/21/2010 Atherosclerotic heart disease of [place] coronary artery without angina pectoris (Chronic) Per heart cath 05/21/2010: Second diagonal of LAD moderate diffuse disease, also in proximal to mid LAD, moderate diffuse disease: not easily amenable to angioplasty, medical therapy recommended. 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 pneumoniae Hydronephrosis, right (Chronic) Cholecystitis (Chronic) Benign essential hypertension (Chronic) Type II diabetes mellitus (Chronic) poorly controlled Diabetic peripheral neuropathy (Chronic) hands and feet HLD (hyperlipidemia) (Chronic) controlled Iron deficiency anemia (Chronic) due to GI blood loss Back pain (Chronic) Uncontrolled hypertension (Chronic) Depression (Chronic) Generalized weakness (Chronic) Colon polyps (Chronic) Blindness (Chronic) CHF exacerbation (Chronic) Anxiety (Chronic) Polyneuropathy (Chronic) Hypertension (Chronic) Heart failure with preserved ejection fraction (Chronic) ESRD (end stage renal disease) (Chronic) Stroke (Chronic) Cerebrovascular disease (Chronic) - Past Surgical History Surgical History: - - AV fistula right upper arm, umbilical hernia repair, biliary drain - Social History Smoking Status: Never smoker Alcohol: None Drugs: None - Family History Maternal Family History: Family History (Last Reviewed 04/05/18 @ 01:54 by Pete Sherman MD) Mother CAD (coronary artery disease) Father CVA (cerebral vascular accident) History Items: Diabetes, Renal Disease Paternal Family History: Family History (Last Reviewed 04/05/18 @ 01:54 by Pete Sherman MD) Mother CAD (coronary artery disease) Father CVA (cerebral vascular accident) History Items: Stroke Review of Systems Constitutional: Reports: Fever, Weakness. Denies: Anorexia, Chills Eyes: Reports: - - Blind from diabetic retinopathy HEENT: Denies: Sore Throat Cardiovascular: Denies: Chest Pain, Edema Respiratory: Denies: Cough, Shortness of Breath Gastrointestinal: Reports: - - Recent hospitalization for gastric ulcer bleed. Denies: Abdominal Pain, Hematochezia, Nausea, Vomiting Genitourinary: Denies: Dysuria Musculoskeletal: Reports: - - No swelling Skin: Denies: Rash Psychiatric: Reports: Anxiety, Depression Hematologic/ Lymphatic: Reports: Anemia Patient Problems: Active and Suspected Problems (Last Reviewed 04/05/18 @ 01:54 by Pete Sherman MD) HCAP (healthcare-associated pneumonia) (Acute) Septic shock (Acute) - Physical Exam General: Alert, Oriented x3, Cooperative, No apparent distress, - - On BiPAP HEENT: - - Blind Oral: Dry Mucosa Neck: Supple Lungs: Clear to auscultation Cardiovascular: Regular rate Abdomen: Bowel Sounds Present, Soft, Non Tender, Distended Extremities: No edema, - - Right upper arm AV fistula with good thrill and bruit Skin: No rashes Neurological: - - No tremor Psych/Mental Status: Normal Affect, Appropriate, Alert and oriented to time, place, person, mood and affect Vital Signs Temp Pulse Resp BP Pulse Ox 98.0 F 82 15 93/45 L 100 04/16/18 05:03 04/16/18 09:36 04/16/18 09:36 04/16/18 08:00 04/16/18 09:36 Oxygen Flow Rate (L/min) 4 Oxygen Delivery Method Nasal Cannula Weight: 88.1 kg Body Mass Index (BMI) 29.5 Intake and Output for Last 24 Hours 04/14/18 04/15/18 04/16/18 23:59 23:59 23:59 Intake Total 640 / 640 Balance 640 / 640 Microbiology Past 72 Hours 04/16/18 10:45 Streptococcus pneumoniae Antigen (M - Final Urine, Random 04/16/18 10:45 Legionella Antigen - Final Urine, Random 04/16/18 05:20 Respiratory Panel (PCR) - Final Mucosa - Nasopharyngeal Laboratory Tests Past 24 Hrs 04/16/18 04/16/18 04/16/18 04:50 04:50 05:00 Sodium 141 Potassium 3.8 Chloride 100 Carbon Dioxide 31.0 Anion Gap 10 BUN 23 H Creatinine 5.47 H Estim Creat Clear Calc 13.20 Est GFR (MDRD) Af Amer 14 L Est GFR (MDRD) Non-Af 11 L BUN/Creatinine Ratio 4.2 L Glucose 229 H Lactic Acid Calcium 7.7 L Magnesium 3.2 H Troponin I 0.308 H MRSA (PCR) Negative 04/16/18 04/16/18 05:05 07:35 Sodium Potassium Chloride Carbon Dioxide Anion Gap BUN Creatinine Estim Creat Clear Calc Est GFR (MDRD) Af Amer Est GFR (MDRD) Non-Af BUN/Creatinine Ratio Glucose Lactic Acid 1.6 Calcium Magnesium Troponin I 0.679 H* MRSA (PCR) Clinical Impression(s) from Imaging Studies Chest X-Ray 04/16/18 01:25 IMPRESSION: Left basilar atelectasis versus infiltrate, worsened from prior imaging Electronically Signed: Christopher Cox MD at 2:14 EDT Tel , Service support , Brain CT 04/16/18 02:49 IMPRESSION: Chronic involutional changes of the brain. Electronically Signed: Linda Rabago MD at 4:19 EDT Tel , Service support , Chest X-Ray 04/16/18 02:50 IMPRESSION: Moderate cardiomegaly. Electronically Signed: Linda Rabago MD at 3:32 EDT Tel , Service support , Assessment/Plan All Active Problems (Last Reviewed 04/05/18 @ 01:54 by Pete Sherman MD) HCAP (healthcare-associated pneumonia) (Acute) Hematemesis with nausea (Acute) Septic shock (Acute) Encephalopathy acute (Acute) Surgically constructed arteriovenous fistula (Acute) Acute renal failure superimposed on stage 3 chronic kidney disease (Resolved) Fall (Resolved) Hematuria (Resolved) Left hand weakness (Resolved) Fever (Resolved) Transaminitis (Ruled-out) Preop cardiovascular exam (Resolved) Epistaxis (Resolved) Severe sepsis (Resolved) FTT (failure to thrive) in adult (Acute) Foot drop, left (Resolved) Sepsis (Resolved) 1. ESRD on hemodialysis Thursday, Thursday, Thursday. Hemodialysis today on 3K bath. Will run even with no fluid removal since blood pressure is low on low-dose pressors. Oxygenation stable. Currently on BiPAP for sleep apnea 2. Diabetes mellitus type 2 with retinopathy, blind, neuropathy 3. History of gastric ulcer bleed. Hold heparin with dialysis. Hemoglobin stable 4. Leukocytosis with low-grade fever, HCAP antibiotics as ordered. Blood culture pending. 5. Hypotension/sepsis syndrome on pressors and IV fluids. Stop IV fluids when blood pressure stabilizes to avoid pulmonary edema in light of his renal failure. 6. Altered mental status back to baseline 7. Hypoxia with sleep apnea on BIPAP, pulmonary following Discussed with CCM team, dialysis nurse at bedside
--- NOTE | 2018-04-16 11:48 | CON.PCM_ITS ---
Consultation - Renal 04/16/18 PCP/ Referring MD: Requesting physician: [] Primary care physician: Maximilian Castillo Reason for Consultation:: ESRD HD MWF - History of Present Illness History of Present Illness: The patient is a 63 year old M with end-stage renal disease due to diabetes on hemodialysis Thursday, Thursday, Thursday at [facility] primary aerotriangulation specialist Dr. Dale from [place] admitted for altered mental status, hypotension and hypoxia evaluate for sepsis. He had an elevated white count of 17k with low-grade fever. Blood pressure was 66/37. He is on low-dose Levophed for pressor support. Blood culture has been sent and patient was on IV antibiotic therapy. Currently he is alert and oriented. He was placed on BiPAP for sleep apnea with hypoxic event. Currently set up to initiate his dialysis treatment. He has a working right upper arm AV fistula with good thrill and bruit. He was recently hospitalized at [facility] 04/04- for HCAP and upper GI bleed with gross hematemesis and nausea, vomiting. He was subsequently transferred to [facility] where he was discharged to home on April 10. He did not have any surgical intervention done for his gastric ulcers. Currently he denies any hematemesis, abdominal pain, black stools. 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 His last dialysis was Thursday at [facility]. Chest x-ray with left lower lobe pneumonia worsening from prior chest x-ray obtained during recent admission. He was admitted to intensive care unit for further close observation. - Allergies Allergies: Allergies silk Adverse Reaction (Verified 04/04/18 19:54) Rash - Current Medications Current Medications: Current Medications Acetaminophen (Tylenol) 650 mg RECTAL Q4H PRN PRN PRN Reason: fever, pain Albuterol Sulfate (Ventolin Aerosols) 2.5 mg INHALATION Q2H PRN PRN PRN Reason: SHORTNESS OF BREATH Sodium Chloride () 1,000 mls @ 150 mls/hr IV .Q6H40M [facility] Last Admin: 04/16/18 04:23 Dose: 150 mls/hr Norepinephrine Bitartrate 8 mg (/ Dextrose) 258 mls @ 9.67 mls/hr IV .[id number] BUCK PRN Reason: 5 MCG/MIN Last Admin: 04/16/18 04:17 Dose: 9.67 mls/hr Pantoprazole Sodium 40 mg/ (Sodium Chloride) 110 mls @ 330 mls/hr IV Q12 BUCK Piperacillin Sod/Tazobactam Sod (Zosyn) 3.375 gm in 50 mls @ 12.5 mls/hr IV Q8 BUCK Insulin Glargine (Lantus (Bkc)) 10 units SC DINNER BUCK Magnesium Hydroxide (Milk Of Magnesia) 30 ml PO DAILY PRN PRN PRN Reason: Constipation Ondansetron HCl (Zofran) 4 mg IV Q8H PRN PRN PRN Reason: NAUSEA Promethazine HCl (Phenergan) 12.5 mg IV Q6H PRN PRN PRN Reason: NAUSEA/VOMITING - Past Medical History Past Medical History (Chronic Problems): Chronic Problems (Last Reviewed 04/05/18 @ 01:54 by Pete Sherman MD) History of left heart catheterization (Chronic) Per Dr. Guerrero at [facility] 05/21/2010 Atherosclerotic heart disease of [place] coronary artery without angina pectoris (Chronic) Per heart cath 05/21/2010: Second diagonal of LAD moderate diffuse disease, also in proximal to mid LAD, moderate diffuse disease: not easily amenable to angioplasty, medical therapy recommended. 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 pneumoniae Hydronephrosis, right (Chronic) Cholecystitis (Chronic) Benign essential hypertension (Chronic) Type II diabetes mellitus (Chronic) poorly controlled Diabetic peripheral neuropathy (Chronic) hands and feet HLD (hyperlipidemia) (Chronic) controlled Iron deficiency anemia (Chronic) due to GI blood loss Back pain (Chronic) Uncontrolled hypertension (Chronic) Depression (Chronic) Generalized weakness (Chronic) Colon polyps (Chronic) Blindness (Chronic) CHF exacerbation (Chronic) Anxiety (Chronic) Polyneuropathy (Chronic) Hypertension (Chronic) Heart failure with preserved ejection fraction (Chronic) ESRD (end stage renal disease) (Chronic) Stroke (Chronic) Cerebrovascular disease (Chronic) - Past Surgical History Surgical History: - - AV fistula right upper arm, umbilical hernia repair, biliary drain - Social History Smoking Status: Never smoker Alcohol: None Drugs: None - Family History Maternal Family History: Family History (Last Reviewed 04/05/18 @ 01:54 by Pete Sherman MD) Mother CAD (coronary artery disease) Father CVA (cerebral vascular accident) History Items: Diabetes, Renal Disease Paternal Family History: Family History (Last Reviewed 04/05/18 @ 01:54 by Pete Sherman MD) Mother CAD (coronary artery disease) Father CVA (cerebral vascular accident) History Items: Stroke Review of Systems Constitutional: Reports: Fever, Weakness. Denies: Anorexia, Chills Eyes: Reports: - - Blind from diabetic retinopathy HEENT: Denies: Sore Throat Cardiovascular: Denies: Chest Pain, Edema Respiratory: Denies: Cough, Shortness of Breath Gastrointestinal: Reports: - - Recent hospitalization for gastric ulcer bleed. Denies: Abdominal Pain, Hematochezia, Nausea, Vomiting Genitourinary: Denies: Dysuria Musculoskeletal: Reports: - - No swelling Skin: Denies: Rash Psychiatric: Reports: Anxiety, Depression Hematologic/ Lymphatic: Reports: Anemia Patient Problems: Active and Suspected Problems (Last Reviewed 04/05/18 @ 01:54 by Pete Sherman MD) HCAP (healthcare-associated pneumonia) (Acute) Septic shock (Acute) - Physical Exam General: Alert, Oriented x3, Cooperative, No apparent distress, - - On BiPAP HEENT: - - Blind Oral: Dry Mucosa Neck: Supple Lungs: Clear to auscultation Cardiovascular: Regular rate Abdomen: Bowel Sounds Present, Soft, Non Tender, Distended Extremities: No edema, - - Right upper arm AV fistula with good thrill and bruit Skin: No rashes Neurological: - - No tremor Psych/Mental Status: Normal Affect, Appropriate, Alert and oriented to time, place, person, mood and affect Vital Signs Temp Pulse Resp BP Pulse Ox 98.0 F 82 15 93/45 L 100 04/16/18 05:03 04/16/18 09:36 04/16/18 09:36 04/16/18 08:00 04/16/18 09:36 Oxygen Flow Rate (L/min) 4 Oxygen Delivery Method Nasal Cannula Weight: 88.1 kg Body Mass Index (BMI) 29.5 Intake and Output for Last 24 Hours 04/14/18 04/15/18 04/16/18 23:59 23:59 23:59 Intake Total 640 / 640 Balance 640 / 640 Microbiology Past 72 Hours 04/16/18 10:45 Streptococcus pneumoniae Antigen (M - Final Urine, Random 04/16/18 10:45 Legionella Antigen - Final Urine, Random 04/16/18 05:20 Respiratory Panel (PCR) - Final Mucosa - Nasopharyngeal Laboratory Tests Past 24 Hrs 04/16/18 04/16/18 04/16/18 04:50 04:50 05:00 Sodium 141 Potassium 3.8 Chloride 100 Carbon Dioxide 31.0 Anion Gap 10 BUN 23 H Creatinine 5.47 H Estim Creat Clear Calc 13.20 Est GFR (MDRD) Af Amer 14 L Est GFR (MDRD) Non-Af 11 L BUN/Creatinine Ratio 4.2 L Glucose 229 H Lactic Acid Calcium 7.7 L Magnesium 3.2 H Troponin I 0.308 H MRSA (PCR) Negative 04/16/18 04/16/18 05:05 07:35 Sodium Potassium Chloride Carbon Dioxide Anion Gap BUN Creatinine Estim Creat Clear Calc Est GFR (MDRD) Af Amer Est GFR (MDRD) Non-Af BUN/Creatinine Ratio Glucose Lactic Acid 1.6 Calcium Magnesium Troponin I 0.679 H* MRSA (PCR) Clinical Impression(s) from Imaging Studies Chest X-Ray 04/16/18 01:25 IMPRESSION: Left basilar atelectasis versus infiltrate, worsened from prior imaging Electronically Signed: Christopher Cox MD at 2:14 EDT Tel , Service support , Brain CT 04/16/18 02:49 IMPRESSION: Chronic involutional changes of the brain. Electronically Signed: Linda Rabago MD at 4:19 EDT Tel , Service support , Chest X-Ray 04/16/18 02:50 IMPRESSION: Moderate cardiomegaly. Electronically Signed: Linda Rabago MD at 3:32 EDT Tel , Service support , Assessment/Plan All Active Problems (Last Reviewed 04/05/18 @ 01:54 by Pete Sherman MD) HCAP (healthcare-associated pneumonia) (Acute) Hematemesis with nausea (Acute) Septic shock (Acute) Encephalopathy acute (Acute) Surgically constructed arteriovenous fistula (Acute) Acute renal failure superimposed on stage 3 chronic kidney disease (Resolved) Fall (Resolved) Hematuria (Resolved) Left hand weakness (Resolved) Fever (Resolved) Transaminitis (Ruled-out) Preop cardiovascular exam (Resolved) Epistaxis (Resolved) Severe sepsis (Resolved) FTT (failure to thrive) in adult (Acute) Foot drop, left (Resolved) Sepsis (Resolved) 1. ESRD on hemodialysis Thursday, Thursday, Thursday. Hemodialysis today on 3K bath. Will run even with no fluid removal since blood pressure is low on low- dose pressors. Oxygenation stable. Currently on BiPAP for sleep apnea 2. Diabetes mellitus type 2 with retinopathy, blind, neuropathy 3. History of gastric ulcer bleed. Hold heparin with dialysis. Hemoglobin stable 4. Leukocytosis with low-grade fever, HCAP antibiotics as ordered. Blood culture pending. 5. Hypotension/sepsis syndrome on pressors and IV fluids. Stop IV fluids when blood pressure stabilizes to avoid pulmonary edema in light of his renal failure. 6. Altered mental status back to baseline 7. Hypoxia with sleep apnea on BIPAP, pulmonary following Discussed with CCM team, dialysis nurse at bedside
[2018-04-16 12:35] LABS: Pathologist Review Reviewed
--- NOTE | 2018-04-16 16:32 | DIALYSIS ---
Hemodialysis today 3.5 hours. Access via right upper arm AVF. UF even. Tolerated well.
[2018-04-16 17:15] LABS: Bedside Glucose 161 mg/dL (70-110)
[2018-04-16] MEDS: Piperacil/Tazobactam 3.375 GM/50 ML ML IV ×2 (17:26→23:05)
--- NOTE | 2018-04-16 20:00 | NURSING ---
Pt. wouldn't cooperate with CAM questions.
--- NOTE | 2018-04-16 20:14 | NURSING ---
Pt. was snoring when this RN went into the room. This RN woke pt. to assess him and said that he should put the bipap on because he keeps desating into the 70's when he is sleeping. Pt. adamently refuses bipap saying that he doesn't have sleep apnea and he doesn't know why his family brought him to this hospital anyway. He states that he will randy this hospital if we keep trying to push treatment on him that he doesn't want saying that we just want all of his money. This RN tried to calm pt. without success. Assessment completed, is at the bedside and pt. says that he will do what he wants.
[2018-04-16 22:21] LABS: Bedside Glucose 224 mg/dL (70-110)
[2018-04-16] MEDS: Insulin Lispro 100 UNIT/ML INSULN.PEN SC (23:05)
--- NOTE | 2018-04-16 23:11 | CPS ---
Pt refusing bipap per RN.
[2018-04-17] VITALS (67 sets, daily range): BP systolic 68–155; BP diastolic 35–76; PULSE 65–80; RESP 9–22; TEMP 36.6–36.8; O2SAT 83–100
[2018-04-17] MEDS: CHLORHEXIDINE GLUC 2% CLOTH 1 EACH TOWELETTE TOPICAL (03:46)
[2018-04-17] MEDS: Acetaminophen 325 MG Tablet 650 MG PO ×2 (03:56→21:51)
[2018-04-17 04:27] LABS: ALB/GLOB Ratio 0.6 RATIO (0.9-2.4); AST(SGOT) 23 U/L (15-37); Alanine Aminotransfer ALT/SGPT 19 U/L (16-61); Albumin, Serum 2.3 g/dL (3.2-5.0); Alkaline Phosphatase 91 U/L (45-117); Anion Gap 6 (5-15); BUN 14 mg/dL (7-18); BUN/Creat Ratio 3.8 RATIO (10-20); Calcium,Total 7.5 mg/dL (8.5-10.1); Chloride 96 mmol/L (98-107); Creatinine, Serum 3.65 mg/dL (0.70-1.30); EST Glomerular Filtration Rate 18 mL/min (>60); Est Glom Filt Rate - Afr Amer 22 mL/min (>60); Estimated Creatinine Clearance 19.78 ml/min; Globulin 3.9 g/dL (2.2-4.2); Glucose 175 mg/dL (74-106); Magnesium 2.7 mg/dL (1.6-2.6); Phosphorus 1.3 mg/dL (2.5-4.9); Potassium 3.5 mmol/L (3.5-5.1); Protein, Total 6.2 g/dL (6.4-8.2); Sodium Level 137 mmol/L (136-145)
[2018-04-17 04:31] LABS: Absolute Lymphocyte Count 1.03 X10^3/ul (0.83-4.51); Absolute Neutrophil Count 13.9 X10^3/uL (2.0-7.7); Basophil# 0.05 X10^3/uL; Basophil% 0.3 % (0-1); Eosinophil# 0.32 X10^3/uL; Eosinophils% 1.8 % (0-5); Hematocrit 30.8 % (40-54); Hemoglobin 9.4 g/dl (13.0-16.5); Lymphocyte # 1.03 X10^3/ul (4.0); Lymphocyte % 5.8 % (19-41); Mean Corp Hgb Conc 30.5 g/gl (32-36); Mean Corpuscular Hgb 25.9 pg (27.0-32.0); Mean Corpuscular Volume 84.8 fL (80-94); Mean Platelet Vol. 10.2 fl (6.2-12.0); Monocyte# 2.23 X10^3/uL; Monocyte% 12.5 % (0-10); Neutrophil # 13.86 X10^3/uL (2.7-7.7); Neutrophil % 77.6 % (47-70); Platelet Count 254 K/mm3 (150-450); RBC Distribution Width CV 15.3 % (11.6-14.6); RBC Distribution Width SD 45.9 fl (35.1-43.9); Red Blood Count 3.63 M/mm3 (4.6-6.2); White Blood Count 17.8 K/mm3 (4.4-11.0)
[2018-04-17 04:33] LABS: Differential Indicated SCAN CRITERIA MET; POSITIVE COUNT YES; POSITIVE DIFFERENTIAL YES; POSITIVE MORPHOLOGY YES
[2018-04-17] MEDS: Piperacil/Tazobactam 3.375 GM/50 ML ML IV ×3 (05:13→21:51)
--- NOTE | 2018-04-17 06:37 | PCM.PN.INT ---
Subjective: The patient was seen and examined at the bedside this morning. Events from the last 24 hours have been reviewed. The patient is currently afebrile and remains hemodynamically stable on a low dose of Levophed. He is maintaining appropriate oxygen saturations on 2 L/min. The patient did tolerate hemodialysis yesterday. He is resting comfortably this morning and denies shortness of breath, chest pain or cough. He also denies the presence of abdominal pain, nausea or vomiting. Objective: The patient's most recent lab work, culture data and imaging studies have all been personally reviewed. The patient was noted to be positive for C. difficile. Pulmonary infectious workup has been negative to date. Blood cultures have shown no growth to date. Surface echocardiogram revealed normal LV size and function with preserved ejection fraction and stage I diastolic dysfunction. General: Alert, Cooperative, No apparent distress HEENT: Atraumatic, PERRLA, Normocephalic Oral: Moist Mucosa, - - Poor generalized dentition Neck: Supple, No Nodes, Trachea Midline, - - Central venous catheter in place Lungs: No rhonchi, No wheeze, No rales, Diminished Cardiovascular: Regular rate, Regular Rhythm, Normal S1, Normal S2, No murmurs Abdomen: Bowel Sounds Present, Soft, Non Tender Extremities: No clubbing, No cyanosis, No edema Skin: No breakdown Musculoskeletal: No Tenderness to Palpation of Joints or Extremities Lymphatic: No Cervical, Supraclavicular, or Inguinal Adenopathy Neurological: Neuro grossly intact Psych/Mental Status: Flat Affect Vital Signs Temp Pulse Resp BP Pulse Ox 98.1 F 69 12 139/64 H 99 04/17/18 04:00 04/17/18 06:15 04/17/18 06:00 04/17/18 06:15 04/17/18 06:00 Oxygen Flow Rate (L/min) 2 Oxygen Delivery Method Nasal Cannula Weight: 198 lb 6.656 oz Body Mass Index (BMI) 29.5 Intake and Output for Last 24 Hours 04/15/18 04/16/18 04/17/18 23:59 23:59 23:59 Intake Total 1268 / 1268 236 / 236 Balance 1268 / 1268 236 / 236 Labs (Last 48 Hours) 04/16/18 04/16/18 04/16/18 04:50 04:50 05:00 WBC RBC Hgb Hct MCV MCH MCHC RDW RDW Differential Plt Count MPV Immature Gran % (Auto) Neut % (Auto) Lymph % (Auto) [place] % (Auto) Eos % (Auto) Baso % (Auto) Absolute Neuts (auto) Absolute Lymphs (auto) Total Counted Diff Path Review Sodium 141 Potassium 3.8 Chloride 100 Carbon Dioxide 31.0 Anion Gap 10 BUN 23 H Creatinine 5.47 H Estim Creat Clear Calc 13.20 Est GFR (MDRD) Af Amer 14 L Est GFR (MDRD) Non-Af 11 L BUN/Creatinine Ratio 4.2 L Glucose 229 H Lactic Acid Calcium 7.7 L Phosphorus Magnesium 3.2 H Total Bilirubin AST ALT Alkaline Phosphatase Troponin I 0.308 H Total Protein Albumin Globulin Albumin/Globulin Ratio MRSA (PCR) Negative POC Glucose 04/16/18 04/16/18 04/16/18 05:05 07:35 17:06 WBC RBC Hgb Hct MCV MCH MCHC RDW RDW Differential Plt Count MPV Immature Gran % (Auto) Neut % (Auto) Lymph % (Auto) [place] % (Auto) Eos % (Auto) Baso % (Auto) Absolute Neuts (auto) Absolute Lymphs (auto) Total Counted Diff Path Review Sodium Potassium Chloride Carbon Dioxide Anion Gap BUN Creatinine Estim Creat Clear Calc Est GFR (MDRD) Af Amer Est GFR (MDRD) Non-Af BUN/Creatinine Ratio Glucose Lactic Acid 1.6 Calcium Phosphorus Magnesium Total Bilirubin AST ALT Alkaline Phosphatase Troponin I 0.679 H* Total Protein Albumin Globulin Albumin/Globulin Ratio MRSA (PCR) POC Glucose 161 H 04/16/18 04/17/18 04/17/18 22:15 03:45 03:45 WBC 17.8 H RBC 3.63 L Hgb 9.4 L Hct 30.8 L MCV 84.8 MCH 25.9 L MCHC 30.5 L RDW 15.3 H RDW Differential 45.9 H Plt Count 254 MPV 10.2 Immature Gran % (Auto) 2.000 H Neut % (Auto) 77.6 H Lymph % (Auto) 5.8 L [place] % (Auto) 12.5 H Eos % (Auto) 1.8 Baso % (Auto) 0.3 Absolute Neuts (auto) 13.9 H Absolute Lymphs (auto) 1.03 Total Counted Not Reportable Diff Path Review May foll Sodium 137 Potassium 3.5 Chloride 96 L Carbon Dioxide 35.0 H Anion Gap 6 BUN 14 Creatinine 3.65 H Estim Creat Clear Calc 19.78 Est GFR (MDRD) Af Amer 22 L Est GFR (MDRD) Non-Af 18 L BUN/Creatinine Ratio 3.8 L Glucose 175 H Lactic Acid Calcium 7.5 L Phosphorus 1.3 L Magnesium 2.7 H Total Bilirubin 0.90 AST 23 ALT 19 Alkaline Phosphatase 91 Troponin I Total Protein 6.2 L Albumin 2.3 L Globulin 3.9 Albumin/Globulin Ratio 0.6 L MRSA (PCR) POC Glucose 224 H Microbiology 04/16/18 22:50 Stool C. difficile DNA Amplification - Final Toxigenic C. difficile DNA 04/16/18 10:45 Urine, Random Streptococcus pneumoniae Antigen (M - Final 04/16/18 10:45 Urine, Random Legionella Antigen - Final 04/16/18 05:20 Mucosa - Nasopharyngeal Respiratory Panel (PCR) - Final Clinical Impression(s) from Imaging Studies Chest X-Ray 04/16/18 01:25 IMPRESSION: Left basilar atelectasis versus infiltrate, worsened from prior imaging Electronically Signed: Christopher Cox MD at 2:14 EDT Tel , Service support , Brain CT 04/16/18 02:49 IMPRESSION: Chronic involutional changes of the brain. Electronically Signed: Linda Rabago MD at 4:19 EDT Tel , Service support , Chest X-Ray 04/16/18 02:50 IMPRESSION: Moderate cardiomegaly. Electronically Signed: Linda Rabago MD at 3:32 EDT Tel , Service support , Medical Necessity - Tobacco Use Smoking Status: Never smoker Tobacco Use: Non-smoker Assessment/Plan All Active Problems (Last Reviewed 04/05/18 @ 01:54 by Pete Sherman MD) HCAP (healthcare-associated pneumonia) (Acute) Hematemesis with nausea (Acute) Septic shock (Acute) Encephalopathy acute (Acute) Surgically constructed arteriovenous fistula (Acute) Acute renal failure superimposed on stage 3 chronic kidney disease (Resolved) Fall (Resolved) Hematuria (Resolved) Left hand weakness (Resolved) Fever (Resolved) Transaminitis (Ruled-out) Preop cardiovascular exam (Resolved) Epistaxis (Resolved) Severe sepsis (Resolved) FTT (failure to thrive) in adult (Acute) Foot drop, left (Resolved) Sepsis (Resolved) RECOMMENDATIONS: 1. Wean Levophed to maintain a mean arterial pressure at or above 65 mmHg. 2. Continue antibiotics for an additional 24 hours. If cultures are negative, Zosyn can be discontinued. 3. Continue p.o. vancomycin for positive C. difficile. 4. Wean supplemental oxygen to maintain saturations at or above 90%. 5. Encourage incentive spirometer use and mobilize patient as tolerated. 6. Continue empiric BiPAP utilization with sleep over concerns for sleep disordered breathing. 7. Continue hemodialysis per nephrology recommendations. IMPRESSIONS: 1. Septic shock likely secondary to C. difficile colitis The patient was initially started on treatment for presumptive healthcare associated pneumonia. However, the patient's chest imaging is less than overwhelming for the presence of an acute infectious process. The patient was noted to be positive for C. difficile. He was initially started on levophed due to fluid refractory hypotension, which has been weaned to a very low dose this morning. Would recommend continuing antibiotics for an additional 24 hours. If cultures are negative, Zosyn can be discontinued. The patient will be continued on p.o. vancomycin and treatment for C. difficile colitis. Will wean Levophed to maintain a mean arterial pressure at or above 65 mmHg. 2. Encephalopathy Resolved at this time. Unclear etiology. Although underlying infectious/metabolic derangements are a possibility. In addition, the patient appears to be on a number of sedating medications in his home environment, raising the concern for polypharmacy in the setting of end-stage renal disease. CT head was negative. Recommend continuing to hold sedating medications. 3. Troponin elevation/heart failure with preserved ejection fraction Likely demand ischemia in the setting of #1. Repeat echocardiogram only revealed known heart failure with preserved ejection fraction. No focal wall motion abnormalities were identified. 4. End-stage renal disease on hemodialysis Nephrology following to assist with hemodialysis management. 5. Recent upper gastrointestinal hemorrhage/anemia of chronic disease Continue twice daily PPI therapy. Blood counts are stable to current time. We will continue to monitor. 6. Coronary artery disease/hypertension/hyperlipidemia/depression/anxiety/diabetes Complicates care, management, recovery and prognosis. Continue to hold antihypertensive medications. Continue sliding scale insulin coverage. TIME: 35 minutes of critical care time, independent of procedures, was spent addressing the patient's distributive shock 2/2 C diff colitis, encephalopathy, troponin elevation, end-stage renal disease, review of all data and collaboration with the care team. ([id number]) Code Visit 9xxxx: [id number] Critical care first hour
[2018-04-17] MEDS: Insulin Lispro 100 UNIT/ML INSULN.PEN SC ×4 (09:10→21:50)
[2018-04-17] MEDS: Calcitriol 0.25 MCG Capsule PO (09:11)
[2018-04-17] MEDS: Folic Acid/Vitamin B Comp W-C 1 Capsule 1 CAP PO (09:11)
[2018-04-17] MEDS: LORazepam 0.5 MG Tablet PO ×2 (09:11→21:50)
[2018-04-17] MEDS: Pregabalin 75 MG Capsule PO ×2 (09:12→21:50)
[2018-04-17 10:36] LABS: Bedside Glucose 168 mg/dL (70-110)
--- NOTE | 2018-04-17 11:28 | CASEMGMT ---
SW spoke w/RN regarding pt. Pt is sleeping at present, would not be appropriate at this time to wake pt to discuss POA. SW will continue to follow and speak w/pt as time allows regarding Medical POA form. NESSA Hendricks, CORRECTIONS SPECIALIST
[2018-04-17 14:06] LABS: Bedside Glucose 153 mg/dL (70-110)
--- NOTE | 2018-04-17 15:14 | PCM.PN.HOSP ---
Patient Problems: Active and Suspected Problems (Last Reviewed 04/05/18 @ 01:54 by Pete Sherman MD) HCAP (healthcare-associated pneumonia) (Acute) Septic shock (Acute) Subjective: f/u for shock and encephalopathy apparently from the same Paient seen and examined No new problems per nursing Vitals/I&O's: Vital Signs Temp Pulse Resp BP Pulse Ox 97.8 F 71 16 89/70 L 99 04/17/18 09:00 04/17/18 11:45 04/17/18 11:45 04/17/18 11:45 04/17/18 11:45 Oxygen Flow Rate (L/min) 2 Oxygen Delivery Method Nasal Cannula Weight: 90 kg Body Mass Index (BMI) 29.5 Intake and Output for Last 24 Hours 04/15/18 04/16/18 04/17/18 23:59 23:59 23:59 Intake Total 1268 / 1268 1026 / 1026 Output Total 0 / 0 Balance 1268 / 1268 1026 / 1026 General: Alert, Oriented x3, Cooperative HEENT: Atraumatic Oral: Moist Mucosa Neck: Supple Lungs: Clear to auscultation - anteriorly Abdomen: - - moves with resp Extremities: No clubbing, No cyanosis, Cool Skin: No rashes, - Microbiology Past 72 Hours 04/16/18 22:50 Stool C. difficile DNA Amplification - Final Toxigenic C. difficile DNA 04/16/18 10:45 Urine, Random Streptococcus pneumoniae Antigen (M - Final 04/16/18 10:45 Urine, Random Legionella Antigen - Final 04/16/18 05:20 Mucosa - Nasopharyngeal Respiratory Panel (PCR) - Final Laboratory Results 04/16/18 17:06: POC Glucose 161 H 04/16/18 22:15: POC Glucose 224 H 04/17/18 03:45: WBC 17.8 H, RBC 3.63 L, Hgb 9.4 L, Hct 30.8 L, MCV 84.8, MCH 25.9 L, MCHC 30.5 L, RDW 15.3 H, RDW Differential 45.9 H, Plt Count 254, MPV 10.2, Immature Gran % (Auto) 2.000 H, Neut % (Auto) 77.6 H, Lymph % (Auto) 5.8 L, [place] % (Auto) 12.5 H, Eos % (Auto) 1.8, Baso % (Auto) 0.3, Absolute Neuts (auto) 13.9 H, Absolute Lymphs (auto) 1.03, Total Counted Not Reportable, Diff Path Review December04/17/18 03:45: Sodium 137, Potassium 3.5, Chloride 96 L, Carbon Dioxide 35.0 H, Anion Gap 6, BUN 14, Creatinine 3.65 H, Estim Creat Clear Calc 19.78, Est GFR (MDRD) Af Amer 22 L, Est GFR (MDRD) Non-Af 18 L, BUN/Creatinine Ratio 3.8 L, Glucose 175 H, Calcium 7.5 L, Phosphorus 1.3 L, Magnesium 2.7 H, Total Bilirubin 0.90, AST 23, ALT 19, Alkaline Phosphatase 91, Total Protein 6.2 L, Albumin 2.3 L, Globulin 3.9, Albumin/Globulin Ratio 0.6 L 04/17/18 08:57: POC Glucose 168 H 04/17/18 13:09: POC Glucose 153 H Current Medications Acetaminophen (Tylenol) 650 mg PO Q4H PRN PRN PRN Reason: MILD PAIN (-10/24) Last Admin: 04/17/18 03:56 Dose: 650 mg Albuterol Sulfate (Ventolin Aerosols) 2.5 mg INHALATION Q2H PRN PRN PRN Reason: SHORTNESS OF BREATH Calcitriol (Rocaltrol) 0.25 mcg PO DAILY [facility] Last Admin: 04/17/18 09:11 Dose: 0.25 mcg Chlorhexidine Gluconate () 1 each TOPICAL DAILY [facility] Last Admin: 04/17/18 03:46 Dose: 1 each Norepinephrine Bitartrate 8 mg (/ Dextrose) 258 mls @ 9.67 mls/hr IV .[id number] [facility] PRN Reason: 5 MCG/MIN Last Admin: 04/17/18 03:58 Dose: 9.67 mls/hr Piperacillin Sod/Tazobactam Sod (Zosyn) 3.375 gm in 50 mls @ 12.5 mls/hr IV Q8 [facility] Last Admin: 04/17/18 13:25 Dose: 12.5 mls/hr Insulin Glargine (Lantus (Bkc)) 10 units SC DINNER [facility] Last Admin: 04/16/18 17:28 Dose: 10 u Insulin Human Lispro (Humalog Kwikpen (Bkc)) 0 unit SC ACHS [facility] PRN Reason: Protocol Last Admin: 04/17/18 13:22 Dose: 1 units Lactobacillus Acidophilus (Acidophilus) 1 tablet PO DAILY [facility] Last Admin: 04/17/18 09:11 Dose: 1 tablet Lorazepam (Ativan) 0.5 mg PO BID [facility] Last Admin: 04/17/18 09:11 Dose: 0.5 mg Midodrine (Proamatine) 5 mg PO MoWeFr@1000 [facility] Multivit/Ca Carb/B Cmplx/FA/Prenat (Nephrocaps, Renaphro) 1 capsule PO DAILYCM [facility] Last Admin: 04/17/18 09:11 Dose: 1 capsule Ondansetron HCl (Zofran) 4 mg IV Q8H PRN PRN PRN Reason: NAUSEA Pantoprazole Sodium (Protonix) 40 mg PO BID [facility] Pregabalin (Lyrica) 75 mg PO BID [facility] Last Admin: 04/17/18 09:12 Dose: 75 mg Sertraline HCl (Zoloft) 50 mg PO QHS [facility] Vancomycin HCl () 125 mg PO Q6 [facility] Last Admin: 04/17/18 13:22 Dose: 125 mg Medical Necessity - Tobacco Use Smoking Status: Never smoker Tobacco Use: Non-smoker Assessment/Plan All Active Problems (Last Reviewed 04/05/18 @ 01:54 by Pete Sherman MD) HCAP (healthcare-associated pneumonia) (Acute) Hematemesis with nausea (Acute) Septic shock (Acute) Encephalopathy acute (Acute) Surgically constructed arteriovenous fistula (Acute) Acute renal failure superimposed on stage 3 chronic kidney disease (Resolved) Fall (Resolved) Hematuria (Resolved) Left hand weakness (Resolved) Fever (Resolved) Transaminitis (Ruled-out) Preop cardiovascular exam (Resolved) Epistaxis (Resolved) Severe sepsis (Resolved) FTT (failure to thrive) in adult (Acute) Foot drop, left (Resolved) Sepsis (Resolved) A/p 1. Acute encephalopathy, suspect secondary to hypoxic ischemic encephalopathy from sepsis and from prolonged hypotension. Improving 2. Severe sepsis with Shock. Likely septic from C. diff infection. No evidence of hemorrhaging from GI tract Pressor support apparently coming down and BP better Agree with starting po vancomycin and possibly deescalating therapy with stopping Zosyn, 3. ESRD on HD. Nephrology has been consulted and patient had HD 4. Recent UGIB with acute blood loss anemia. Stable blood counts at this time. Code Visit Inpatient E&M: 16071 Subs Hosp L3
--- NOTE | 2018-04-17 15:20 | PN_ITS ---
Patient Problems: Active and Suspected Problems (Last Reviewed 04/05/18 @ 01:54 by Pete Sherman MD) HCAP (healthcare-associated pneumonia) (Acute) Septic shock (Acute) Subjective: f/u for shock and encephalopathy apparently from the same Paient seen and examined No new problems per nursing Vitals/I&O's: Vital Signs Temp Pulse Resp BP Pulse Ox 97.8 F 71 16 89/70 L 99 04/17/18 09:00 04/17/18 11:45 04/17/18 11:45 04/17/18 11:45 04/17/18 11:45 Oxygen Flow Rate (L/min) 2 Oxygen Delivery Method Nasal Cannula Weight: 90 kg Body Mass Index (BMI) 29.5 Intake and Output for Last 24 Hours 04/15/18 04/16/18 04/17/18 23:59 23:59 23:59 Intake Total 1268 / 1268 1026 / 1026 Output Total 0 / 0 Balance 1268 / 1268 1026 / 1026 General: Alert, Oriented x3, Cooperative HEENT: Atraumatic Oral: Moist Mucosa Neck: Supple Lungs: Clear to auscultation - anteriorly Abdomen: - - moves with resp Extremities: No clubbing, No cyanosis, Cool Skin: No rashes, - Microbiology Past 72 Hours 04/16/18 22:50 Stool C. difficile DNA Amplification - Final Toxigenic C. difficile DNA 04/16/18 10:45 Urine, Random Streptococcus pneumoniae Antigen (M - Final 04/16/18 10:45 Urine, Random Legionella Antigen - Final 04/16/18 05:20 Mucosa - Nasopharyngeal Respiratory Panel (PCR) - Final Laboratory Results 04/16/18 17:06: POC Glucose 161 H 04/16/18 22:15: POC Glucose 224 H 04/17/18 03:45: WBC 17.8 H, RBC 3.63 L, Hgb 9.4 L, Hct 30.8 L, MCV 84.8, MCH 25.9 L, MCHC 30.5 L, RDW 15.3 H, RDW Differential 45.9 H, Plt Count 254, MPV 10.2, Immature Gran % (Auto) 2.000 H, Neut % (Auto) 77.6 H, Lymph % (Auto) 5.8 L , [place] % (Auto) 12.5 H, Eos % (Auto) 1.8, Baso % (Auto) 0.3, Absolute Neuts ( auto) 13.9 H, Absolute Lymphs (auto) 1.03, Total Counted Not Reportable, Diff Path Review December04/17/18 03:45: Sodium 137, Potassium 3.5, Chloride 96 L, Carbon Dioxide 35.0 H , Anion Gap 6, BUN 14, Creatinine 3.65 H, Estim Creat Clear Calc 19.78, Est GFR (MDRD) Af Amer 22 L, Est GFR (MDRD) Non-Af 18 L, BUN/Creatinine Ratio 3.8 L, Glucose 175 H, Calcium 7.5 L, Phosphorus 1.3 L, Magnesium 2.7 H, Total Bilirubin 0.90, AST 23, ALT 19, Alkaline Phosphatase 91, Total Protein 6.2 L, Albumin 2.3 L, Globulin 3.9, Albumin/Globulin Ratio 0.6 L 04/17/18 08:57: POC Glucose 168 H 04/17/18 13:09: POC Glucose 153 H Current Medications Acetaminophen (Tylenol) 650 mg PO Q4H PRN PRN PRN Reason: MILD PAIN (-10/24) Last Admin: 04/17/18 03:56 Dose: 650 mg Albuterol Sulfate (Ventolin Aerosols) 2.5 mg INHALATION Q2H PRN PRN PRN Reason: SHORTNESS OF BREATH Calcitriol (Rocaltrol) 0.25 mcg PO DAILY [facility] Last Admin: 04/17/18 09:11 Dose: 0.25 mcg Chlorhexidine Gluconate () 1 each TOPICAL DAILY [facility] Last Admin: 04/17/18 03:46 Dose: 1 each Norepinephrine Bitartrate 8 mg (/ Dextrose) 258 mls @ 9.67 mls/hr IV .[id number] [facility] PRN Reason: 5 MCG/MIN Last Admin: 04/17/18 03:58 Dose: 9.67 mls/hr Piperacillin Sod/Tazobactam Sod (Zosyn) 3.375 gm in 50 mls @ 12.5 mls/hr IV Q8 [facility] Last Admin: 04/17/18 13:25 Dose: 12.5 mls/hr Insulin Glargine (Lantus (Bkc)) 10 units SC DINNER [facility] Last Admin: 04/16/18 17:28 Dose: 10 u Insulin Human Lispro (Humalog Kwikpen (Bkc)) 0 unit SC ACHS [facility] PRN Reason: Protocol Last Admin: 04/17/18 13:22 Dose: 1 units Lactobacillus Acidophilus (Acidophilus) 1 tablet PO DAILY [facility] Last Admin: 04/17/18 09:11 Dose: 1 tablet Lorazepam (Ativan) 0.5 mg PO BID [facility] Last Admin: 04/17/18 09:11 Dose: 0.5 mg Midodrine (Proamatine) 5 mg PO MoWeFr@1000 [facility] Multivit/Ca Carb/B Cmplx/FA/Prenat (Nephrocaps, Renaphro) 1 capsule PO DAILYCM [facility] Last Admin: 04/17/18 09:11 Dose: 1 capsule Ondansetron HCl (Zofran) 4 mg IV Q8H PRN PRN PRN Reason: NAUSEA Pantoprazole Sodium (Protonix) 40 mg PO BID [facility] Pregabalin (Lyrica) 75 mg PO BID [facility] Last Admin: 04/17/18 09:12 Dose: 75 mg Sertraline HCl (Zoloft) 50 mg PO QHS [facility] Vancomycin HCl () 125 mg PO Q6 [facility] Last Admin: 04/17/18 13:22 Dose: 125 mg Medical Necessity - Tobacco Use Smoking Status: Never smoker Tobacco Use: Non-smoker Assessment/Plan All Active Problems (Last Reviewed 04/05/18 @ 01:54 by Pete Sherman MD) HCAP (healthcare-associated pneumonia) (Acute) Hematemesis with nausea (Acute) Septic shock (Acute) Encephalopathy acute (Acute) Surgically constructed arteriovenous fistula (Acute) Acute renal failure superimposed on stage 3 chronic kidney disease (Resolved) Fall (Resolved) Hematuria (Resolved) Left hand weakness (Resolved) Fever (Resolved) Transaminitis (Ruled-out) Preop cardiovascular exam (Resolved) Epistaxis (Resolved) Severe sepsis (Resolved) FTT (failure to thrive) in adult (Acute) Foot drop, left (Resolved) Sepsis (Resolved) A/p 1. Acute encephalopathy, suspect secondary to hypoxic ischemic encephalopathy from sepsis and from prolonged hypotension. Improving 2. Severe sepsis with Shock. Likely septic from C. diff infection. No evidence of hemorrhaging from GI tract Pressor support apparently coming down and BP better Agree with starting po vancomycin and possibly deescalating therapy with stopping Zosyn, 3. ESRD on HD. Nephrology has been consulted and patient had HD 4. Recent UGIB with acute blood loss anemia. Stable blood counts at this time. Code Visit Inpatient E&M: 81722 Subs Hosp L3
[2018-04-17 18:11] LABS: Bedside Glucose 166 mg/dL (70-110)
--- NOTE | 2018-04-17 21:03 | NURSING ---
When pt. is sleeping his O2 drops down into the 50's. Woke pt. up and talked to him about the importance of wearing the bipap. Pt. states that the bipap dries his mouth out too much and is too uncomfortable. Relayed to pt. that his O2 drops dangerously low when he sleeps and that the bipap would help. Pt. continues to refuse to wear bipap.
[2018-04-17] MEDS: Sertraline 50 MG Tablet PO (21:49)
[2018-04-17 22:01] LABS: Bedside Glucose 244 mg/dL (70-110)
--- NOTE | 2018-04-17 23:34 | CPS ---
pt adamantly refusing bipap
[2018-04-18] VITALS (39 sets, daily range): BP systolic 73–157; BP diastolic 34–98; PULSE 63–75; RESP 10–19; TEMP 36.1–36.4; O2SAT 90–100
[2018-04-18] MEDS: Piperacil/Tazobactam 3.375 GM/50 ML ML IV ×3 (05:54→21:19)
--- NOTE | 2018-04-18 07:58 | PCM.PN.INT ---
Subjective: The patient was seen and examined at the bedside this morning. Events from the last 24 hours have been reviewed. The patient is currently afebrile, but remains on Levophed at 1.5 to maintain hemodynamic stability. Per nursing report, the patient was able to be weaned completely from Levophed support for short period of time only to develop hypotension once again. Objective: The patient's most recent lab work, culture data and imaging studies have all been personally reviewed. The patient was noted to be positive for C. difficile. Pulmonary infectious workup has been negative to date. Blood cultures have shown no growth to date. Surface echocardiogram revealed normal LV size and function with preserved ejection fraction and stage I diastolic dysfunction. General: Alert, Cooperative, No apparent distress HEENT: Atraumatic, PERRLA, Normocephalic Oral: - - Poor dentition Neck: Supple, No Nodes, Trachea Midline, - - Central venous catheter remains in place. Lungs: No rhonchi, No wheeze, No rales, Diminished Cardiovascular: Regular rate, Regular Rhythm, Normal S1, Normal S2, No murmurs Abdomen: Bowel Sounds Present, Soft, Non Tender Extremities: No clubbing, No cyanosis, No edema Skin: No breakdown Musculoskeletal: No Tenderness to Palpation of Joints or Extremities Lymphatic: No Cervical, Supraclavicular, or Inguinal Adenopathy Neurological: Neuro grossly intact Vital Signs Temp Pulse Resp BP Pulse Ox 97.3 F L 75 11 L 154/74 H 100 04/18/18 04:00 04/18/18 07:18 04/18/18 07:00 04/18/18 07:00 04/18/18 07:00 Oxygen Flow Rate (L/min) 2 Oxygen Delivery Method Nasal Cannula Weight: 197 lb 5.019 oz Body Mass Index (BMI) 29.5 Intake and Output for Last 24 Hours 04/16/18 04/17/18 04/18/18 23:59 23:59 23:59 Intake Total 1268 / 1268 1515 / 1515 103 / 103 Output Total 0 / 0 Balance 1268 / 1268 1515 / 1515 103 / 103 Labs (Last 48 Hours) 04/16/18 04/16/18 04/16/18 07:35 17:06 22:15 WBC RBC Hgb Hct MCV MCH MCHC RDW RDW Differential Plt Count MPV Immature Gran % (Auto) Neut % (Auto) Lymph % (Auto) [place] % (Auto) Eos % (Auto) Baso % (Auto) Absolute Neuts (auto) Absolute Lymphs (auto) Total Counted Diff Path Review Sodium Potassium Chloride Carbon Dioxide Anion Gap BUN Creatinine Estim Creat Clear Calc Est GFR (MDRD) Af Amer Est GFR (MDRD) Non-Af BUN/Creatinine Ratio Glucose Calcium Phosphorus Magnesium Total Bilirubin AST ALT Alkaline Phosphatase Troponin I 0.679 H* Total Protein Albumin Globulin Albumin/Globulin Ratio POC Glucose 161 H 224 H 04/17/18 04/17/18 04/17/18 03:45 03:45 08:57 WBC 17.8 H RBC 3.63 L Hgb 9.4 L Hct 30.8 L MCV 84.8 MCH 25.9 L MCHC 30.5 L RDW 15.3 H RDW Differential 45.9 H Plt Count 254 MPV 10.2 Immature Gran % (Auto) 2.000 H Neut % (Auto) 77.6 H Lymph % (Auto) 5.8 L [place] % (Auto) 12.5 H Eos % (Auto) 1.8 Baso % (Auto) 0.3 Absolute Neuts (auto) 13.9 H Absolute Lymphs (auto) 1.03 Total Counted Not Reportable Diff Path Review May foll Sodium 137 Potassium 3.5 Chloride 96 L Carbon Dioxide 35.0 H Anion Gap 6 BUN 14 Creatinine 3.65 H Estim Creat Clear Calc 19.78 Est GFR (MDRD) Af Amer 22 L Est GFR (MDRD) Non-Af 18 L BUN/Creatinine Ratio 3.8 L Glucose 175 H Calcium 7.5 L Phosphorus 1.3 L Magnesium 2.7 H Total Bilirubin 0.90 AST 23 ALT 19 Alkaline Phosphatase 91 Troponin I Total Protein 6.2 L Albumin 2.3 L Globulin 3.9 Albumin/Globulin Ratio 0.6 L POC Glucose 168 H 04/17/18 04/17/18 04/17/18 13:09 17:46 21:49 WBC RBC Hgb Hct MCV MCH MCHC RDW RDW Differential Plt Count MPV Immature Gran % (Auto) Neut % (Auto) Lymph % (Auto) [place] % (Auto) Eos % (Auto) Baso % (Auto) Absolute Neuts (auto) Absolute Lymphs (auto) Total Counted Diff Path Review Sodium Potassium Chloride Carbon Dioxide Anion Gap BUN Creatinine Estim Creat Clear Calc Est GFR (MDRD) Af Amer Est GFR (MDRD) Non-Af BUN/Creatinine Ratio Glucose Calcium Phosphorus Magnesium Total Bilirubin AST ALT Alkaline Phosphatase Troponin I Total Protein Albumin Globulin Albumin/Globulin Ratio POC Glucose 153 H 166 H 244 H Microbiology 04/16/18 22:50 Stool C. difficile DNA Amplification - Final Toxigenic C. difficile DNA 04/16/18 10:45 Urine, Random Streptococcus pneumoniae Antigen (M - Final 04/16/18 10:45 Urine, Random Legionella Antigen - Final 04/16/18 05:20 Mucosa - Nasopharyngeal Respiratory Panel (PCR) - Final Clinical Impression(s) from Imaging Studies Chest X-Ray 04/16/18 01:25 IMPRESSION: Left basilar atelectasis versus infiltrate, worsened from prior imaging Electronically Signed: Christopher Cox MD at 2:14 EDT Tel , Service support , Brain CT 04/16/18 02:49 IMPRESSION: Chronic involutional changes of the brain. Electronically Signed: Linda Rabago MD at 4:19 EDT Tel , Service support , Chest X-Ray 04/16/18 02:50 IMPRESSION: Moderate cardiomegaly. Electronically Signed: Linda Rabago MD at 3:32 EDT Tel , Service support , Medical Necessity - Tobacco Use Smoking Status: Never smoker Tobacco Use: Non-smoker Assessment/Plan All Active Problems (Last Reviewed 04/05/18 @ 01:54 by Pete Sherman MD) HCAP (healthcare-associated pneumonia) (Acute) Hematemesis with nausea (Acute) Septic shock (Acute) Encephalopathy acute (Acute) Surgically constructed arteriovenous fistula (Acute) Acute renal failure superimposed on stage 3 chronic kidney disease (Resolved) Fall (Resolved) Hematuria (Resolved) Left hand weakness (Resolved) Fever (Resolved) Transaminitis (Ruled-out) Preop cardiovascular exam (Resolved) Epistaxis (Resolved) Severe sepsis (Resolved) FTT (failure to thrive) in adult (Acute) Foot drop, left (Resolved) Sepsis (Resolved) RECOMMENDATIONS: 1. Wean Levophed to maintain a mean arterial pressure at or above 65 mmHg. 2. Give 500 cc bolus of fluid and attempt to wean the Levophed to off. 3. Continue p.o. vancomycin for positive C. difficile. 4. Wean supplemental oxygen to maintain saturations at or above 90%. 5. Encourage incentive spirometer use and mobilize patient as tolerated. 6. Continue empiric BiPAP utilization with sleep over concerns for sleep disordered breathing. 7. Continue hemodialysis per nephrology recommendations. IMPRESSIONS: 1. Septic shock likely secondary to C. difficile colitis The patient was initially started on treatment for presumptive healthcare associated pneumonia. However, the patient's chest imaging is less than overwhelming for the presence of an acute infectious process. The patient was noted to be positive for C. difficile. He was initially started on levophed due to fluid refractory hypotension, which has been weaned to a very low dose this morning. Okay from my perspective to discontinue Zosyn. The patient will be continued on p.o. vancomycin and treatment for C. difficile colitis. Will wean Levophed to maintain a mean arterial pressure at or above 65 mmHg. 2. Encephalopathy Resolved at this time. Unclear etiology. Although underlying infectious/metabolic derangements are a possibility. In addition, the patient appears to be on a number of sedating medications in his home environment, raising the concern for polypharmacy in the setting of end-stage renal disease. CT head was negative. Recommend continuing to hold sedating medications. 3. Troponin elevation/heart failure with preserved ejection fraction Likely demand ischemia in the setting of #1. Repeat echocardiogram only revealed known heart failure with preserved ejection fraction. No focal wall motion abnormalities were identified. 4. End-stage renal disease on hemodialysis Nephrology following to assist with hemodialysis management. 5. Recent upper gastrointestinal hemorrhage/anemia of chronic disease Continue twice daily PPI therapy. Blood counts are stable to current time. We will continue to monitor. 6. Coronary artery disease/hypertension/hyperlipidemia/depression/anxiety/diabetes Complicates care, management, recovery and prognosis. Continue to hold antihypertensive medications. Continue sliding scale insulin coverage. TIME: 35 minutes of critical care time, independent of procedures, was spent addressing the patient's distributive shock 2/2 C diff colitis, encephalopathy, troponin elevation, end-stage renal disease, review of all data and collaboration with the care team. ([id number]) Code Visit 9xxxx: [id number] Critical care first hour
[2018-04-18] MEDS: Insulin Lispro 100 UNIT/ML INSULN.PEN SC ×3 (08:54→21:18)
[2018-04-18 09:00] LABS: Bedside Glucose 151 mg/dL (70-110)
[2018-04-18] MEDS: Pantoprazole Sodium 40 MG Tablet PO ×2 (10:24→21:19)
[2018-04-18] MEDS: Pregabalin 75 MG Capsule PO ×2 (10:24→21:19)
[2018-04-18] MEDS: Calcitriol 0.25 MCG Capsule PO (10:25)
[2018-04-18] MEDS: Folic Acid/Vitamin B Comp W-C 1 Capsule 1 CAP PO (10:26)
[2018-04-18] MEDS: CHLORHEXIDINE GLUC 2% CLOTH 1 EACH TOWELETTE TOPICAL (11:48)
[2018-04-18 11:50] LABS: Bedside Glucose 124 mg/dL (70-110)
[2018-04-18 12:26] LABS: Absolute Lymphocyte Count 1.22 X10^3/ul (0.83-4.51); Absolute Neutrophil Count 9.5 X10^3/uL (2.0-7.7); Basophil# 0.03 X10^3/uL; Basophil% 0.2 % (0-1); Eosinophil# 0.35 X10^3/uL; Eosinophils% 2.8 % (0-5); Hematocrit 28.1 % (40-54); Lymphocyte # 1.22 X10^3/ul (4.0); Lymphocyte % 9.7 % (19-41); Mean Corpuscular Hgb 26.9 pg (27.0-32.0); Mean Corpuscular Volume 83.9 fL (80-94); Monocyte% 11.1 % (0-10); Neutrophil # 9.49 X10^3/uL (2.7-7.7); Neutrophil % 75.2 % (47-70); POSITIVE COUNT NO; POSITIVE DIFFERENTIAL NO; POSITIVE MORPHOLOGY NO; Platelet Count 224 K/mm3 (150-450); RBC Distribution Width CV 15.4 % (11.6-14.6); RBC Distribution Width SD 45.9 fl (35.1-43.9); Red Blood Count 3.35 M/mm3 (4.6-6.2); White Blood Count 12.6 K/mm3 (4.4-11.0)
[2018-04-18 12:36] LABS: Phosphorus 1.6 mg/dL (2.5-4.9)
--- NOTE | 2018-04-18 14:20 | PCM.PN.HOSP ---
Patient Problems: Active and Suspected Problems (Last Reviewed 04/05/18 @ 01:54 by Pete Sherman MD) HCAP (healthcare-associated pneumonia) (Acute) Septic shock (Acute) Subjective: f/u for septic shock Patient seen and examined Doing and feeling better. Has no new complaints Chart extensively reviewed D/w nursing staff as well. No overnight events. Unable to be weaned off pressors at this time Vitals/I&O's: Vital Signs Temp Pulse Resp BP Pulse Ox 97.1 F L 73 18 87/48 L 98 04/18/18 10:00 04/18/18 11:30 04/18/18 11:30 04/18/18 11:30 04/18/18 11:30 Oxygen Flow Rate (L/min) 2 Oxygen Delivery Method Nasal Cannula Weight: 89.5 kg Body Mass Index (BMI) 29.5 Intake and Output for Last 24 Hours 04/16/18 04/17/18 04/18/18 23:59 23:59 23:59 Intake Total 1268 / 1268 1515 / 1515 103 / 103 Output Total 0 / 0 Balance 1268 / 1268 1515 / 1515 103 / 103 General: Alert, Oriented x3, Cooperative, No apparent distress Oral: Moist Mucosa Neck: Supple Lungs: Clear to auscultation Cardiovascular: Regular rate, Regular Rhythm, Normal S1, Normal S2 Abdomen: Bowel Sounds Present, Soft, Non Tender, Non-Distended, Obese Extremities: No clubbing Neurological: Cranial nerves II-XII grossly intact, Neuro grossly intact Psych/Mental Status: Normal Affect, Appropriate, Alert and oriented to time, place, person, mood and affect Microbiology Past 72 Hours 04/16/18 22:50 Stool C. difficile DNA Amplification - Final Toxigenic C. difficile DNA 04/16/18 10:45 Urine, Random Streptococcus pneumoniae Antigen (M - Final 04/16/18 10:45 Urine, Random Legionella Antigen - Final 04/16/18 05:20 Mucosa - Nasopharyngeal Respiratory Panel (PCR) - Final Laboratory Results 04/17/18 17:46: POC Glucose 166 H 04/17/18 21:49: POC Glucose 244 H 04/18/18 08:46: POC Glucose 151 H 04/18/18 11:43: POC Glucose 124 H 04/18/18 12:00: WBC 12.6 H, RBC 3.35 L, Hgb 9.0 L, Hct 28.1 L, MCV 83.9, MCH 26.9 L, MCHC 32.0, RDW 15.4 H, RDW Differential 45.9 H, Plt Count 224, MPV 10.0, Immature Gran % (Auto) 1.000 H, Neut % (Auto) 75.2 H, Lymph % (Auto) 9.7 L, [place] % (Auto) 11.1 H, Eos % (Auto) 2.8, Baso % (Auto) 0.2, Absolute Neuts (auto) 9.5 H, Absolute Lymphs (auto) 1.22, Total Counted Not Reportable 04/18/18 12:00: Phosphorus 1.6 L Current Medications Acetaminophen (Tylenol) 650 mg PO Q4H PRN PRN PRN Reason: MILD PAIN (1-310) Last Admin: 04/17/18 21:51 Dose: 650 mg Albuterol Sulfate (Ventolin Aerosols) 2.5 mg INHALATION Q2H PRN PRN PRN Reason: SHORTNESS OF BREATH Artificial Tears (Tears Naturale, Artificial Tears) 2 drop EACH EYE Q1H PRN PRN PRN Reason: Dry Eye Last Admin: 04/18/18 10:26 Dose: 2 drop Calcitriol (Rocaltrol) 0.25 mcg PO DAILY [facility] Last Admin: 04/18/18 10:25 Dose: 0.25 mcg Chlorhexidine Gluconate () 1 each TOPICAL DAILY [facility] Last Admin: 04/18/18 11:48 Dose: 1 each Norepinephrine Bitartrate 8 mg (/ Dextrose) 258 mls @ 9.67 mls/hr IV .[id number] [facility] PRN Reason: 5 MCG/MIN Last Admin: 04/18/18 10:35 Dose: Not Given Piperacillin Sod/Tazobactam Sod (Zosyn) 3.375 gm in 50 mls @ 12.5 mls/hr IV Q8 [facility] Last Admin: 04/18/18 13:47 Dose: 12.5 mls/hr Insulin Glargine (Lantus (Bk)) 10 units SC DINNER [facility] Last Admin: 04/17/18 17:47 Dose: 10 u Insulin Human Lispro (Humalog Kwikpen ([facility])) 0 unit SC ACHS [facility] PRN Reason: Protocol Last Admin: 04/18/18 11:48 Dose: Not Given Lactobacillus Acidophilus (Acidophilus) 1 tablet PO BID [facility] Last Admin: 04/18/18 10:25 Dose: 1 tablet Lorazepam (Ativan) 0.5 mg PO BID [facility] Last Admin: 04/18/18 10:24 Dose: Not Given Midodrine (Proamatine) 5 mg PO MoWeFr@1000 [facility] Multivit/Ca Carb/B Cmplx/FA/Prenat (Nephrocaps, Renaphro) 1 capsule PO DAILYCM [facility] Last Admin: 04/18/18 10:26 Dose: 1 capsule Ondansetron HCl (Zofran) 4 mg IV Q8H PRN PRN PRN Reason: NAUSEA Pantoprazole Sodium (Protonix) 40 mg PO BID [facility] Last Admin: 04/18/18 10:24 Dose: 40 mg Pregabalin (Lyrica) 75 mg PO BID [facility] Last Admin: 04/18/18 10:24 Dose: 75 mg Sertraline HCl (Zoloft) 50 mg PO QHS [facility] Last Admin: 04/17/18 21:49 Dose: 50 mg Vancomycin HCl () 125 mg PO Q6 [facility] Last Admin: 04/18/18 11:49 Dose: 125 mg Medical Necessity - Tobacco Use Smoking Status: Never smoker Tobacco Use: Non-smoker Assessment/Plan All Active Problems (Last Reviewed 04/05/18 @ 01:54 by Pete Sherman MD) HCAP (healthcare-associated pneumonia) (Acute) Hematemesis with nausea (Acute) Septic shock (Acute) Encephalopathy acute (Acute) Surgically constructed arteriovenous fistula (Acute) Acute renal failure superimposed on stage 3 chronic kidney disease (Resolved) Fall (Resolved) Hematuria (Resolved) Left hand weakness (Resolved) Fever (Resolved) Transaminitis (Ruled-out) Preop cardiovascular exam (Resolved) Epistaxis (Resolved) Severe sepsis (Resolved) FTT (failure to thrive) in adult (Acute) Foot drop, left (Resolved) Sepsis (Resolved) A/p 1. Acute encephalopathy, suspect secondary to hypoxic ischemic encephalopathy from sepsis and from prolonged hypotension and also from sedating medications as well. Appears to be fully resolved 2. Severe sepsis with Shock. Likely septic from C. diff infection. No evidence of hemorrhaging from GI tract. Still requiring pressor suppot and unable to be weaned off. Appreciate input from critical care. Continue po vancomycin and possibly stop Zosyn when all cultures fully resulted 3. ESRD on HD. Nephrology on consult and following and getting HD 4. Recent UGIB with acute blood loss anemia. Stable blood counts at this time. Code Visit Inpatient E&M: 16464 Subs Hosp L2
[2018-04-18 17:41] LABS: Bedside Glucose 162 mg/dL (70-110)
[2018-04-18] MEDS: LORazepam 0.5 MG Tablet PO (21:19)
[2018-04-18] MEDS: Sertraline 50 MG Tablet PO (21:19)
[2018-04-18 21:36] LABS: Bedside Glucose 156 mg/dL (70-110)
[2018-04-19] VITALS (29 sets, daily range): BP systolic 95–162; BP diastolic 45–78; PULSE 64–83; RESP 10–19; TEMP 36.1–37.1; O2SAT 91–100
[2018-04-19 05:00] LABS: Anion Gap 11 (5-15); BUN 29 mg/dL (7-18); BUN/Creat Ratio 4.8 RATIO (10-20); Calcium,Total 7.7 mg/dL (8.5-10.1); Chloride 100 mmol/L (98-107); Creatinine, Serum 6.01 mg/dL (0.70-1.30); EST Glomerular Filtration Rate 10 mL/min (>60); Est Glom Filt Rate - Afr Amer 12 mL/min (>60); Estimated Creatinine Clearance 12.01 ml/min; Glucose 141 mg/dL (74-106); Magnesium 2.8 mg/dL (1.6-2.6); Phosphorus 2.1 mg/dL (2.5-4.9); Potassium 3.6 mmol/L (3.5-5.1); Sodium Level 141 mmol/L (136-145)
[2018-04-19] MEDS: Piperacil/Tazobactam 3.375 GM/50 ML ML IV (05:29)
[2018-04-19 05:46] LABS: Absolute Lymphocyte Count 0.76 X10^3/ul (0.83-4.51); Absolute Neutrophil Count 9.8 X10^3/uL (2.0-7.7); Basophil# 0.03 X10^3/uL; Basophil% 0.2 % (0-1); Eosinophil# 0.38 X10^3/uL; Hematocrit 28.7 % (40-54); Hemoglobin 8.9 g/dl (13.0-16.5); Lymphocyte # 0.76 X10^3/ul (4.0); Lymphocyte % 6.1 % (19-41); Mean Corpuscular Hgb 26.2 pg (27.0-32.0); Mean Corpuscular Volume 84.4 fL (80-94); Mean Platelet Vol. 10.5 fl (6.2-12.0); Monocyte# 1.45 X10^3/uL; Monocyte% 11.6 % (0-10); Neutrophil # 9.79 X10^3/uL (2.7-7.7); Neutrophil % 78.2 % (47-70); Platelet Count 260 K/mm3 (150-450); RBC Distribution Width CV 15.3 % (11.6-14.6); RBC Distribution Width SD 45.6 fl (35.1-43.9); White Blood Count 12.5 K/mm3 (4.4-11.0)
[2018-04-19 05:57] LABS: POSITIVE COUNT NO; POSITIVE DIFFERENTIAL NO; POSITIVE MORPHOLOGY NO
--- NOTE | 2018-04-19 06:23 | PCM.PN.INT ---
Subjective: The patient was seen and examined at the bedside this morning. Events from the last 24 hours have been reviewed. The patient is currently afebrile, hemodynamically stable and maintaining appropriate oxygen saturations on 2 L/min via nasal cannula. Per nursing report, the patient remains on Levophed at 0.5 mcg. He is scheduled to undergo dialysis today. Objective: The patient's most recent lab work, culture data and imaging studies have all been personally reviewed. The patient was noted to be positive for C. difficile. Pulmonary infectious workup has been negative to date. Blood cultures have shown no growth to date. Surface echocardiogram revealed normal LV size and function with preserved ejection fraction and stage I diastolic dysfunction. General: Alert, Cooperative, No apparent distress HEENT: Atraumatic, PERRLA, Normocephalic Oral: Moist Mucosa, - - Poor dentition Neck: Supple, No Nodes, Trachea Midline, - - Central venous catheter remains in place. Lungs: No rhonchi, No wheeze, No rales, Diminished Cardiovascular: Regular rate, Regular Rhythm, Normal S1, Normal S2, No murmurs Abdomen: Bowel Sounds Present, Soft, Non Tender, Non-Distended Extremities: No clubbing, No cyanosis, No edema Skin: - - No significant change from previous. Musculoskeletal: No Tenderness to Palpation of Joints or Extremities Lymphatic: No Cervical, Supraclavicular, or Inguinal Adenopathy Neurological: Neuro grossly intact Psych/Mental Status: Flat Affect Vital Signs Temp Pulse Resp BP Pulse Ox 97 F L 65 10 L 126/51 H 97 04/19/18 00:00 04/19/18 06:00 04/19/18 06:00 04/19/18 06:00 04/19/18 06:00 Oxygen Flow Rate (L/min) 2 Oxygen Delivery Method Nasal Cannula Weight: 200 lb 6.403 oz Body Mass Index (BMI) 29.5 Intake and Output for Last 24 Hours 04/17/18 04/18/18 04/19/18 23:59 23:59 23:59 Intake Total 1515 / 1515 1133.3 / 1133.3 227 / 227 Output Total 0 / 0 Balance 1515 / 1515 1133.3 / 1133.3 227 / 227 Labs (Last 48 Hours) 04/17/18 04/17/18 04/17/18 08:57 13:09 17:46 WBC RBC Hgb Hct MCV MCH MCHC RDW RDW Differential Plt Count MPV Immature Gran % (Auto) Neut % (Auto) Lymph % (Auto) [place] % (Auto) Eos % (Auto) Baso % (Auto) Absolute Neuts (auto) Absolute Lymphs (auto) Total Counted Sodium Potassium Chloride Carbon Dioxide Anion Gap BUN Creatinine Estim Creat Clear Calc Est GFR (MDRD) Af Amer Est GFR (MDRD) Non-Af BUN/Creatinine Ratio Glucose Calcium Phosphorus Magnesium POC Glucose 168 H 153 H 166 H 04/17/18 04/18/18 04/18/18 21:49 08:46 11:43 WBC RBC Hgb Hct MCV MCH MCHC RDW RDW Differential Plt Count MPV Immature Gran % (Auto) Neut % (Auto) Lymph % (Auto) [place] % (Auto) Eos % (Auto) Baso % (Auto) Absolute Neuts (auto) Absolute Lymphs (auto) Total Counted Sodium Potassium Chloride Carbon Dioxide Anion Gap BUN Creatinine Estim Creat Clear Calc Est GFR (MDRD) Af Amer Est GFR (MDRD) Non-Af BUN/Creatinine Ratio Glucose Calcium Phosphorus Magnesium POC Glucose 244 H 151 H 124 H 04/18/18 04/18/18 04/18/18 12:00 12:00 17:12 WBC 12.6 H RBC 3.35 L Hgb 9.0 L Hct 28.1 L MCV 83.9 MCH 26.9 L MCHC 32.0 RDW 15.4 H RDW Differential 45.9 H Plt Count 224 MPV 10.0 Immature Gran % (Auto) 1.000 H Neut % (Auto) 75.2 H Lymph % (Auto) 9.7 L [place] % (Auto) 11.1 H Eos % (Auto) 2.8 Baso % (Auto) 0.2 Absolute Neuts (auto) 9.5 H Absolute Lymphs (auto) 1.22 Total Counted Not Reportable Sodium Potassium Chloride Carbon Dioxide Anion Gap BUN Creatinine Estim Creat Clear Calc Est GFR (MDRD) Af Amer Est GFR (MDRD) Non-Af BUN/Creatinine Ratio Glucose Calcium Phosphorus 1.6 L Magnesium POC Glucose 162 H 04/18/18 04/19/18 04/19/18 21:16 04:20 04:20 WBC 12.5 H RBC 3.40 L Hgb 8.9 L Hct 28.7 L MCV 84.4 MCH 26.2 L MCHC 31.0 L RDW 15.3 H RDW Differential 45.6 H Plt Count 260 MPV 10.5 Immature Gran % (Auto) 0.900 Neut % (Auto) 78.2 H Lymph % (Auto) 6.1 L [place] % (Auto) 11.6 H Eos % (Auto) 3.0 Baso % (Auto) 0.2 Absolute Neuts (auto) 9.8 H Absolute Lymphs (auto) 0.76 L Total Counted Not Reportable Sodium 141 Potassium 3.6 Chloride 100 Carbon Dioxide 30.0 Anion Gap 11 BUN 29 H Creatinine 6.01 H Estim Creat Clear Calc 12.01 Est GFR (MDRD) Af Amer 12 L Est GFR (MDRD) Non-Af 10 L BUN/Creatinine Ratio 4.8 L Glucose 141 H Calcium 7.7 L Phosphorus 2.1 L Magnesium 2.8 H POC Glucose 156 H Clinical Impression(s) from Imaging Studies Chest X-Ray 04/16/18 01:25 IMPRESSION: Left basilar atelectasis versus infiltrate, worsened from prior imaging Electronically Signed: Christopher Cox MD at 2:14 EDT Tel , Service support , Brain CT 04/16/18 02:49 IMPRESSION: Chronic involutional changes of the brain. Electronically Signed: Linda Rabago MD at 4:19 EDT Tel , Service support , Chest X-Ray 04/16/18 02:50 IMPRESSION: Moderate cardiomegaly. Electronically Signed: Linda Rabago MD at 3:32 EDT Tel , Service support , Medical Necessity - Tobacco Use Smoking Status: Never smoker Tobacco Use: Non-smoker Assessment/Plan All Active Problems (Last Reviewed 04/05/18 @ 01:54 by Pete Sherman MD) HCAP (healthcare-associated pneumonia) (Acute) Hematemesis with nausea (Acute) Septic shock (Acute) Encephalopathy acute (Acute) Surgically constructed arteriovenous fistula (Acute) Acute renal failure superimposed on stage 3 chronic kidney disease (Resolved) Fall (Resolved) Hematuria (Resolved) Left hand weakness (Resolved) Fever (Resolved) Transaminitis (Ruled-out) Preop cardiovascular exam (Resolved) Epistaxis (Resolved) Severe sepsis (Resolved) FTT (failure to thrive) in adult (Acute) Foot drop, left (Resolved) Sepsis (Resolved) RECOMMENDATIONS: 1. Wean Levophed to maintain a mean arterial pressure at or above 65 mmHg. 2. Give 500 cc bolus of fluid and attempt to wean the Levophed to off. 3. Continue p.o. vancomycin for positive C. difficile. 4. Wean supplemental oxygen to maintain saturations at or above 90%. 5. Encourage incentive spirometer use and mobilize patient as tolerated. 6. Continue empiric BiPAP utilization with sleep over concerns for sleep disordered breathing. 7. Continue hemodialysis per nephrology recommendations. Recommend running net even with dialysis today. IMPRESSIONS: 1. Septic shock likely secondary to C. difficile colitis The patient was initially started on treatment for presumptive healthcare associated pneumonia. However, the patient's chest imaging is less than overwhelming for the presence of an acute infectious process. The patient was noted to be positive for C. difficile. He was initially started on levophed due to fluid refractory hypotension, which has been weaned to a very low dose this morning. The patient will be continued on p.o. vancomycin and IV Flagyl in treatment for C. difficile colitis. Will wean Levophed to maintain a mean arterial pressure at or above 65 mmHg. 2. Encephalopathy Resolved at this time. Unclear etiology. Although underlying infectious/metabolic derangements are a possibility. In addition, the patient appears to be on a number of sedating medications in his home environment, raising the concern for polypharmacy in the setting of end-stage renal disease. CT head was negative. Recommend continuing to hold sedating medications. 3. Troponin elevation/heart failure with preserved ejection fraction Likely demand ischemia in the setting of #1. Repeat echocardiogram only revealed known heart failure with preserved ejection fraction. No focal wall motion abnormalities were identified. 4. End-stage renal disease on hemodialysis Nephrology following to assist with hemodialysis management. 5. Recent upper gastrointestinal hemorrhage/anemia of chronic disease Continue twice daily PPI therapy. Blood counts are stable to current time. We will continue to monitor. 6. Coronary artery disease/hypertension/hyperlipidemia/depression/anxiety/diabetes Complicates care, management, recovery and prognosis. Continue to hold antihypertensive medications. Continue sliding scale insulin coverage. This note was generated with [employer] software. It may contain incorrect words, spelling, and punctuation that were not noted in checking the note before signing. Code Visit Inpatient E&M: 79451 Subs Hosp L3
[2018-04-19 06:56] LABS: Bedside Glucose 126 mg/dL (70-110)
--- NOTE | 2018-04-19 08:15 | PCM.PN.HOSP ---
Patient Problems: Active and Suspected Problems (Last Reviewed 04/05/18 @ 01:54 by Pete Sherman MD) HCAP (healthcare-associated pneumonia) (Acute) Septic shock (Acute) Subjective: has had 4 loose BMs in past 24 hr. No abdominal pain. Vitals/I&O's: Vital Signs Temp Pulse Resp BP Pulse Ox 36.1 C L 69 12 129/54 H 98 04/19/18 00:00 04/19/18 07:24 04/19/18 07:00 04/19/18 07:00 04/19/18 07:00 Oxygen Flow Rate (L/min) 2 Oxygen Delivery Method Nasal Cannula Weight: 90.9 kg Body Mass Index (BMI) 29.5 Intake and Output for Last 24 Hours 04/17/18 04/18/18 04/19/18 23:59 23:59 23:59 Intake Total 1515 / 1515 1133.3 / 1133.3 227 / 227 Output Total 0 / 0 Balance 1515 / 1515 1133.3 / 1133.3 227 / 227 General: Alert, No apparent distress HEENT: Atraumatic, Normocephalic Oral: Moist Mucosa, No Gingival or Mucosal Lesions/ Ulcerations Neck: No Nodes, Thyroid Normal Size and Texture Lungs: Clear to auscultation, Normal air movement, No rhonchi, No wheeze Cardiovascular: Regular rate, Regular Rhythm, Normal S1, Normal S2, No murmurs Abdomen: Bowel Sounds Present, Soft, Non Tender, Non-Distended, No Hepato-splenomegaly Extremities: No edema, No Calf Tenderness, - - palpable bruit in RUE (fistula) Skin: No rashes, No breakdown Musculoskeletal: No Tenderness to Palpation of Joints or Extremities, No Muscle Wasting Neurological: Sensory exam intact to light touch and pain, - - No clonus Psych/Mental Status: Appropriate, Flat Affect Microbiology Past 72 Hours 04/16/18 22:50 Stool C. difficile DNA Amplification - Final Toxigenic C. difficile DNA 04/16/18 10:45 Urine, Random Streptococcus pneumoniae Antigen (M - Final 04/16/18 10:45 Urine, Random Legionella Antigen - Final 04/16/18 05:20 Mucosa - Nasopharyngeal Respiratory Panel (PCR) - Final Laboratory Results 04/18/18 08:46: POC Glucose 151 H 04/18/18 11:43: POC Glucose 124 H 04/18/18 12:00: WBC 12.6 H, RBC 3.35 L, Hgb 9.0 L, Hct 28.1 L, MCV 83.9, MCH 26.9 L, MCHC 32.0, RDW 15.4 H, RDW Differential 45.9 H, Plt Count 224, MPV 10.0, Immature Gran % (Auto) 1.000 H, Neut % (Auto) 75.2 H, Lymph % (Auto) 9.7 L, [place] % (Auto) 11.1 H, Eos % (Auto) 2.8, Baso % (Auto) 0.2, Absolute Neuts (auto) 9.5 H, Absolute Lymphs (auto) 1.22, Total Counted Not Reportable 04/18/18 12:00: Phosphorus 1.6 L 04/18/18 17:12: POC Glucose 162 H 04/18/18 21:16: POC Glucose 156 H 04/19/18 04:20: WBC 12.5 H, RBC 3.40 L, Hgb 8.9 L, Hct 28.7 L, MCV 84.4, MCH 26.2 L, MCHC 31.0 L, RDW 15.3 H, RDW Differential 45.6 H, Plt Count 260, MPV 10.5, Immature Gran % (Auto) 0.900, Neut % (Auto) 78.2 H, Lymph % (Auto) 6.1 L, [place] % (Auto) 11.6 H, Eos % (Auto) 3.0, Baso % (Auto) 0.2, Absolute Neuts (auto) 9.8 H, Absolute Lymphs (auto) 0.76 L, Total Counted Not Reportable 04/19/18 04:20: Sodium 141, Potassium 3.6, Chloride 100, Carbon Dioxide 30.0, Anion Gap 11, BUN 29 H, Creatinine 6.01 H, Estim Creat Clear Calc 12.01, Est GFR (MDRD) Af Amer 12 L, Est GFR (MDRD) Non-Af 10 L, BUN/Creatinine Ratio 4.8 L, Glucose 141 H, Calcium 7.7 L, Phosphorus 2.1 L, Magnesium 2.8 H 04/19/18 06:49: POC Glucose 126 H Current Medications Acetaminophen (Tylenol) 650 mg PO Q4H PRN PRN PRN Reason: MILD PAIN (1-3/10) Last Admin: 04/17/18 21:51 Dose: 650 mg Albuterol Sulfate (Ventolin Aerosols) 2.5 mg INHALATION Q2H PRN PRN PRN Reason: SHORTNESS OF BREATH Artificial Tears (Tears Naturale, Artificial Tears) 2 drop EACH EYE Q1H PRN PRN PRN Reason: Dry Eye Last Admin: 04/18/18 10:26 Dose: 2 drop Calcitriol (Rocaltrol) 0.25 mcg PO DAILY [facility] Last Admin: 04/18/18 10:25 Dose: 0.25 mcg Chlorhexidine Gluconate () 1 each TOPICAL DAILY [facility] Last Admin: 04/18/18 11:48 Dose: 1 each Norepinephrine Bitartrate 8 mg (/ Dextrose) 258 mls @ 9.67 mls/hr IV .[id number] [facility] PRN Reason: 5 MCG/MIN Last Admin: 04/18/18 10:35 Dose: Not Given Insulin Glargine (Lantus (Bkc)) 10 units SC DINNER [facility] Last Admin: 04/18/18 17:24 Dose: 10 u Insulin Human Lispro (Humalog Kwikpen (Bkc)) 0 unit SC ACHS [facility] PRN Reason: Protocol Last Admin: 04/19/18 07:41 Dose: Not Given Lactobacillus Acidophilus (Acidophilus) 1 tablet PO BID [facility] Last Admin: 04/18/18 21:19 Dose: 1 tablet Lorazepam (Ativan) 0.5 mg PO BID [facility] Last Admin: 04/18/18 21:19 Dose: 0.5 mg Midodrine (Proamatine) 5 mg PO DAILY [facility] Multivit/Ca Carb/B Cmplx/FA/Prenat ([facility]rocaps, [facility]) [facility] Last Admin: 04/18/18 10:26 Dose: 1 capsule Ondansetron HCl (Zofran) 4 mg IV Q8H PRN PRN PRN Reason: NAUSEA Pantoprazole Sodium (Protonix) 40 mg PO BID [facility] Last Admin: 04/18/18 21:19 Dose: 40 mg Pregabalin (Lyrica) 75 mg PO BID [facility] Last Admin: 04/18/18 21:19 Dose: 75 mg Sertraline HCl (Zoloft) 50 mg PO QHS [facility] Last Admin: 04/18/18 21:19 Dose: 50 mg Vancomycin HCl () 125 mg PO Q6 [facility] Last Admin: 04/19/18 05:29 Dose: 125 mg Medical Necessity - Tobacco Use Smoking Status: Never smoker Tobacco Use: Non-smoker Assessment/Plan All Active Problems (Last Reviewed 04/05/18 @ 01:54 by Pete Sherman MD) HCAP (healthcare-associated pneumonia) (Acute) Hematemesis with nausea (Acute) Septic shock (Acute) Encephalopathy acute (Acute) Surgically constructed arteriovenous fistula (Acute) Acute renal failure superimposed on stage 3 chronic kidney disease (Resolved) Fall (Resolved) Hematuria (Resolved) Left hand weakness (Resolved) Fever (Resolved) Transaminitis (Ruled-out) Preop cardiovascular exam (Resolved) Epistaxis (Resolved) Severe sepsis (Resolved) FTT (failure to thrive) in adult (Acute) Foot drop, left (Resolved) Sepsis (Resolved) 1. Septic shock overall improved 2/2 C.diff colitis currently off Levophed Dr. Cleaning started Midodrine daily (instead of HD days) Zosyn DC'd 2. C diff colitis on PO vanc will add IV Flagyl for now 3. ESRD HD today. monitor closely for HD instability 4. DM 2 fair control continue current insulin regimen 5. Recent GI bleed H/H currently stable Biopsy results from 04/05 negative for H.pylori and malignancy (though rebiopsy recommended if suspicion is high) 6. DVT proph: SCD. Hold chemical prophylaxis given proximity of #5 Code Visit Inpatient E&M: 24297 Subs Hosp L3
--- NOTE | 2018-04-19 08:27 | PN_ITS ---
Patient Problems: Active and Suspected Problems (Last Reviewed 04/05/18 @ 01:54 by Pete Sherman MD) HCAP (healthcare-associated pneumonia) (Acute) Septic shock (Acute) Subjective: has had 4 loose BMs in past 24 hr. No abdominal pain. Vitals/I&O's: Vital Signs Temp Pulse Resp BP Pulse Ox 36.1 C L 69 12 129/54 H 98 04/19/18 00:00 04/19/18 07:24 04/19/18 07:00 04/19/18 07:00 04/19/18 07:00 Oxygen Flow Rate (L/min) 2 Oxygen Delivery Method Nasal Cannula Weight: 90.9 kg Body Mass Index (BMI) 29.5 Intake and Output for Last 24 Hours 04/17/18 04/18/18 04/19/18 23:59 23:59 23:59 Intake Total 1515 / 1515 1133.3 / 1133.3 227 / 227 Output Total 0 / 0 Balance 1515 / 1515 1133.3 / 1133.3 227 / 227 General: Alert, No apparent distress HEENT: Atraumatic, Normocephalic Oral: Moist Mucosa, No Gingival or Mucosal Lesions/ Ulcerations Neck: No Nodes, Thyroid Normal Size and Texture Lungs: Clear to auscultation, Normal air movement, No rhonchi, No wheeze Cardiovascular: Regular rate, Regular Rhythm, Normal S1, Normal S2, No murmurs Abdomen: Bowel Sounds Present, Soft, Non Tender, Non-Distended, No Hepato- splenomegaly Extremities: No edema, No Calf Tenderness, - - palpable bruit in RUE (fistula) Skin: No rashes, No breakdown Musculoskeletal: No Tenderness to Palpation of Joints or Extremities, No Muscle Wasting Neurological: Sensory exam intact to light touch and pain, - - No clonus Psych/Mental Status: Appropriate, Flat Affect Microbiology Past 72 Hours 04/16/18 22:50 Stool C. difficile DNA Amplification - Final Toxigenic C. difficile DNA 04/16/18 10:45 Urine, Random Streptococcus pneumoniae Antigen (M - Final 04/16/18 10:45 Urine, Random Legionella Antigen - Final 04/16/18 05:20 Mucosa - Nasopharyngeal Respiratory Panel (PCR) - Final Laboratory Results 04/18/18 08:46: POC Glucose 151 H 04/18/18 11:43: POC Glucose 124 H 04/18/18 12:00: WBC 12.6 H, RBC 3.35 L, Hgb 9.0 L, Hct 28.1 L, MCV 83.9, MCH 26.9 L, MCHC 32.0, RDW 15.4 H, RDW Differential 45.9 H, Plt Count 224, MPV 10.0 , Immature Gran % (Auto) 1.000 H, Neut % (Auto) 75.2 H, Lymph % (Auto) 9.7 L, [place] % (Auto) 11.1 H, Eos % (Auto) 2.8, Baso % (Auto) 0.2, Absolute Neuts (auto ) 9.5 H, Absolute Lymphs (auto) 1.22, Total Counted Not Reportable 04/18/18 12:00: Phosphorus 1.6 L 04/18/18 17:12: POC Glucose 162 H 04/18/18 21:16: POC Glucose 156 H 04/19/18 04:20: WBC 12.5 H, RBC 3.40 L, Hgb 8.9 L, Hct 28.7 L, MCV 84.4, MCH 26.2 L, MCHC 31.0 L, RDW 15.3 H, RDW Differential 45.6 H, Plt Count 260, MPV 10.5, Immature Gran % (Auto) 0.900, Neut % (Auto) 78.2 H, Lymph % (Auto) 6.1 L, [place] % (Auto) 11.6 H, Eos % (Auto) 3.0, Baso % (Auto) 0.2, Absolute Neuts (auto ) 9.8 H, Absolute Lymphs (auto) 0.76 L, Total Counted Not Reportable 04/19/18 04:20: Sodium 141, Potassium 3.6, Chloride 100, Carbon Dioxide 30.0, Anion Gap 11, BUN 29 H, Creatinine 6.01 H, Estim Creat Clear Calc 12.01, Est GFR (MDRD) Af Amer 12 L, Est GFR (MDRD) Non-Af 10 L, BUN/Creatinine Ratio 4.8 L , Glucose 141 H, Calcium 7.7 L, Phosphorus 2.1 L, Magnesium 2.8 H 04/19/18 06:49: POC Glucose 126 H Current Medications Acetaminophen (Tylenol) 650 mg PO Q4H PRN PRN PRN Reason: MILD PAIN (1-3/10) Last Admin: 04/17/18 21:51 Dose: 650 mg Albuterol Sulfate (Ventolin Aerosols) 2.5 mg INHALATION Q2H PRN PRN PRN Reason: SHORTNESS OF BREATH Artificial Tears (Tears Naturale, Artificial Tears) 2 drop EACH EYE Q1H PRN PRN PRN Reason: Dry Eye Last Admin: 04/18/18 10:26 Dose: 2 drop Calcitriol (Rocaltrol) 0.25 mcg PO DAILY [facility] Last Admin: 04/18/18 10:25 Dose: 0.25 mcg Chlorhexidine Gluconate () 1 each TOPICAL DAILY [facility] Last Admin: 04/18/18 11:48 Dose: 1 each Norepinephrine Bitartrate 8 mg (/ Dextrose) 258 mls @ 9.67 mls/hr IV .[id number] [facility] PRN Reason: 5 MCG/MIN Last Admin: 04/18/18 10:35 Dose: Not Given Insulin Glargine (Lantus (Bkc)) 10 units SC DINNER [facility] Last Admin: 04/18/18 17:24 Dose: 10 u Insulin Human Lispro (Humalog Kwikpen (Bkc)) 0 unit SC ACHS [facility] PRN Reason: Protocol Last Admin: 04/19/18 07:41 Dose: Not Given Lactobacillus Acidophilus (Acidophilus) 1 tablet PO BID [facility] Last Admin: 04/18/18 21:19 Dose: 1 tablet Lorazepam (Ativan) 0.5 mg PO BID [facility] Last Admin: 04/18/18 21:19 Dose: 0.5 mg Midodrine (Proamatine) 5 mg PO DAILY [facility] Multivit/Ca Carb/B Cmplx/FA/Prenat (Nephrocaps, [facility]) [facility] Last Admin: 04/18/18 10:26 Dose: 1 capsule Ondansetron HCl (Zofran) 4 mg IV Q8H PRN PRN PRN Reason: NAUSEA Pantoprazole Sodium (Protonix) 40 mg PO BID [facility] Last Admin: 04/18/18 21:19 Dose: 40 mg Pregabalin (Lyrica) 75 mg PO BID [facility] Last Admin: 04/18/18 21:19 Dose: 75 mg Sertraline HCl (Zoloft) 50 mg PO QHS [facility] Last Admin: 04/18/18 21:19 Dose: 50 mg Vancomycin HCl () 125 mg PO Q6 [facility] Last Admin: 04/19/18 05:29 Dose: 125 mg Medical Necessity - Tobacco Use Smoking Status: Never smoker Tobacco Use: Non-smoker Assessment/Plan All Active Problems (Last Reviewed 04/05/18 @ 01:54 by Pete Sherman MD) HCAP (healthcare-associated pneumonia) (Acute) Hematemesis with nausea (Acute) Septic shock (Acute) Encephalopathy acute (Acute) Surgically constructed arteriovenous fistula (Acute) Acute renal failure superimposed on stage 3 chronic kidney disease (Resolved) Fall (Resolved) Hematuria (Resolved) Left hand weakness (Resolved) Fever (Resolved) Transaminitis (Ruled-out) Preop cardiovascular exam (Resolved) Epistaxis (Resolved) Severe sepsis (Resolved) FTT (failure to thrive) in adult (Acute) Foot drop, left (Resolved) Sepsis (Resolved) 1. Septic shock * overall improved * 2/2 C.diff colitis * currently off Levophed * Dr. Cleaning started Midodrine daily (instead of HD days) * Zosyn DC'd 2. C diff colitis * on PO vanc * will add IV Flagyl for now 3. ESRD * HD today. * monitor closely for HD instability 4. DM 2 * fair control * continue current insulin regimen 5. Recent GI bleed * H/H currently stable * Biopsy results from 04/05 negative for H.pylori and malignancy (though rebiopsy recommended if suspicion is high) 6. DVT proph: SCD. Hold chemical prophylaxis given proximity of #5 Code Visit Inpatient E&M: 31118 Subs Hosp L3
[2018-04-19] MEDS: Midodrine HCl 5 MG Tablet PO (09:16)
--- NOTE | 2018-04-19 10:45 | PCM.PN.REN ---
Patient Problems: Active and Suspected Problems (Last Reviewed 04/05/18 @ 01:54 by Pete Sherman MD) HCAP (healthcare-associated pneumonia) (Acute) Septic shock (Acute) - Physical Exam Vital Signs Temp Pulse Resp BP Pulse Ox 97.8 F 70 19 H 141/68 H 100 04/19/18 09:00 04/19/18 10:00 04/19/18 10:00 04/19/18 10:00 04/19/18 10:23 Oxygen Flow Rate (L/min) 2 Oxygen Delivery Method Nasal Cannula Weight: 90.9 kg Body Mass Index (BMI) 29.5 Intake and Output for Last 24 Hours 04/17/18 04/18/18 04/19/18 23:59 23:59 23:59 Intake Total 1515 / 1515 1133.3 / 1133.3 227 / 227 Output Total 0 / 0 Balance 1515 / 1515 1133.3 / 1133.3 227 / 227 Microbiology Past 72 Hours 04/16/18 10:57 Urine Culture - Final Urine, Random Culture exhibits no growth. 04/16/18 22:50 C. difficile DNA Amplification - Final Stool Toxigenic C. difficile DNA 04/16/18 10:45 Streptococcus pneumoniae Antigen (M - Final Urine, Random 04/16/18 10:45 Legionella Antigen - Final Urine, Random 04/16/18 05:20 Respiratory Panel (PCR) - Final Mucosa - Nasopharyngeal Laboratory Tests Past 24 Hrs 04/18/18 04/18/18 04/19/18 12:00 12:00 04:20 WBC 12.6 H 12.5 H RBC 3.35 L 3.40 L Hgb 9.0 L 8.9 L Hct 28.1 L 28.7 L MCV 83.9 84.4 MCH 26.9 L 26.2 L MCHC 32.0 31.0 L RDW 15.4 H 15.3 H RDW Differential 45.9 H 45.6 H Plt Count 224 260 MPV 10.0 10.5 Immature Gran % (Auto) 1.000 H 0.900 Neut % (Auto) 75.2 H 78.2 H Lymph % (Auto) 9.7 L 6.1 L [place] % (Auto) 11.1 H 11.6 H Eos % (Auto) 2.8 3.0 Baso % (Auto) 0.2 0.2 Absolute Neuts (auto) 9.5 H 9.8 H Absolute Lymphs (auto) 1.22 0.76 L Total Counted Not Reportable Not Reportable Sodium Potassium Chloride Carbon Dioxide Anion Gap BUN Creatinine Estim Creat Clear Calc Est GFR (MDRD) Af Amer Est GFR (MDRD) Non-Af BUN/Creatinine Ratio Glucose Calcium Phosphorus 1.6 L Magnesium 04/19/18 04:20 WBC RBC Hgb Hct MCV MCH MCHC RDW RDW Differential Plt Count MPV Immature Gran % (Auto) Neut % (Auto) Lymph % (Auto) [place] % (Auto) Eos % (Auto) Baso % (Auto) Absolute Neuts (auto) Absolute Lymphs (auto) Total Counted Sodium 141 Potassium 3.6 Chloride 100 Carbon Dioxide 30.0 Anion Gap 11 BUN 29 H Creatinine 6.01 H Estim Creat Clear Calc 12.01 Est GFR (MDRD) Af Amer 12 L Est GFR (MDRD) Non-Af 10 L BUN/Creatinine Ratio 4.8 L Glucose 141 H Calcium 7.7 L Phosphorus 2.1 L Magnesium 2.8 H POC Glucose 04/19/18 04/18/18 04/18/18 06:49 21:16 17:12 POC Glucose 126 H 156 H 162 H 04/18/18 11:43 POC Glucose 124 H Medical Necessity - Tobacco Use Smoking Status: Never smoker Tobacco Use: Non-smoker Assessment/Plan All Active Problems (Last Reviewed 04/05/18 @ 01:54 by Pete Sherman MD) HCAP (healthcare-associated pneumonia) (Acute) Hematemesis with nausea (Acute) Septic shock (Acute) Encephalopathy acute (Acute) Surgically constructed arteriovenous fistula (Acute) Acute renal failure superimposed on stage 3 chronic kidney disease (Resolved) Fall (Resolved) Hematuria (Resolved) Left hand weakness (Resolved) Fever (Resolved) Transaminitis (Ruled-out) Preop cardiovascular exam (Resolved) Epistaxis (Resolved) Severe sepsis (Resolved) FTT (failure to thrive) in adult (Acute) Foot drop, left (Resolved) Sepsis (Resolved)
--- NOTE | 2018-04-19 10:51 | PN.RENAL_ITS ---
Patient Problems: Active and Suspected Problems (Last Reviewed 04/05/18 @ 01:54 by Pete Sherman MD) HCAP (healthcare-associated pneumonia) (Acute) Septic shock (Acute) Subjective: Currently receiving hemodialysis. Tolerating well. No fluid removal at this time due to episodes of hypotension. He was diagnosed with C. difficile diarrhea. He denies any abdominal pain or diarrhea episodes. Denies shortness of breath. - Physical Exam General: Alert, Oriented x3, Cooperative Neck: No JVD Lungs: Clear to auscultation Cardiovascular: Regular rate Abdomen: Bowel Sounds Present, Soft, Non Tender, Distended, Obese Extremities: No edema - Lower extremities, Edema - AV fistula right upper arm working well. Bilateral upper extremity mildly edematous, Psych/Mental Status: Normal Affect, Appropriate, Alert and oriented to time, place, person, mood and affect Vital Signs Temp Pulse Resp BP Pulse Ox 97.8 F 70 19 H 141/68 H 100 04/19/18 09:00 04/19/18 10:00 04/19/18 10:00 04/19/18 10:00 04/19/18 10:23 Oxygen Flow Rate (L/min) 2 Oxygen Delivery Method Nasal Cannula Weight: 90.9 kg Body Mass Index (BMI) 29.5 Intake and Output for Last 24 Hours 04/17/18 04/18/18 04/19/18 23:59 23:59 23:59 Intake Total 1515 / 1515 1133.3 / 1133.3 227 / 227 Output Total 0 / 0 Balance 1515 / 1515 1133.3 / 1133.3 227 / 227 Microbiology Past 72 Hours 04/16/18 10:57 Urine Culture - Final Urine, Random Culture exhibits no growth. 04/16/18 22:50 C. difficile DNA Amplification - Final Stool Toxigenic C. difficile DNA 04/16/18 10:45 Streptococcus pneumoniae Antigen (M - Final Urine, Random 04/16/18 10:45 Legionella Antigen - Final Urine, Random 04/16/18 05:20 Respiratory Panel (PCR) - Final Mucosa - Nasopharyngeal Laboratory Tests Past 24 Hrs 04/18/18 04/18/18 04/19/18 12:00 12:00 04:20 WBC 12.6 H 12.5 H RBC 3.35 L 3.40 L Hgb 9.0 L 8.9 L Hct 28.1 L 28.7 L MCV 83.9 84.4 MCH 26.9 L 26.2 L MCHC 32.0 31.0 L RDW 15.4 H 15.3 H RDW Differential 45.9 H 45.6 H Plt Count 224 260 MPV 10.0 10.5 Immature Gran % (Auto) 1.000 H 0.900 Neut % (Auto) 75.2 H 78.2 H Lymph % (Auto) 9.7 L 6.1 L [place] % (Auto) 11.1 H 11.6 H Eos % (Auto) 2.8 3.0 Baso % (Auto) 0.2 0.2 Absolute Neuts (auto) 9.5 H 9.8 H Absolute Lymphs (auto) 1.22 0.76 L Total Counted Not Reportable Not Reportable Sodium Potassium Chloride Carbon Dioxide Anion Gap BUN Creatinine Estim Creat Clear Calc Est GFR (MDRD) Af Amer Est GFR (MDRD) Non-Af BUN/Creatinine Ratio Glucose Calcium Phosphorus 1.6 L Magnesium 04/19/18 04:20 WBC RBC Hgb Hct MCV MCH MCHC RDW RDW Differential Plt Count MPV Immature Gran % (Auto) Neut % (Auto) Lymph % (Auto) [place] % (Auto) Eos % (Auto) Baso % (Auto) Absolute Neuts (auto) Absolute Lymphs (auto) Total Counted Sodium 141 Potassium 3.6 Chloride 100 Carbon Dioxide 30.0 Anion Gap 11 BUN 29 H Creatinine 6.01 H Estim Creat Clear Calc 12.01 Est GFR (MDRD) Af Amer 12 L Est GFR (MDRD) Non-Af 10 L BUN/Creatinine Ratio 4.8 L Glucose 141 H Calcium 7.7 L Phosphorus 2.1 L Magnesium 2.8 H POC Glucose 04/19/18 04/18/18 04/18/18 06:49 21:16 17:12 POC Glucose 126 H 156 H 162 H 04/18/18 11:43 POC Glucose 124 H Medical Necessity - Tobacco Use Smoking Status: Never smoker Tobacco Use: Non-smoker Assessment/Plan All Active Problems (Last Reviewed 04/05/18 @ 01:54 by Pete Sherman MD) HCAP (healthcare-associated pneumonia) (Acute) Hematemesis with nausea (Acute) Septic shock (Acute) Encephalopathy acute (Acute) Surgically constructed arteriovenous fistula (Acute) Acute renal failure superimposed on stage 3 chronic kidney disease (Resolved) Fall (Resolved) Hematuria (Resolved) Left hand weakness (Resolved) Fever (Resolved) Transaminitis (Ruled-out) Preop cardiovascular exam (Resolved) Epistaxis (Resolved) Severe sepsis (Resolved) FTT (failure to thrive) in adult (Acute) Foot drop, left (Resolved) Sepsis (Resolved) 1. ESRD on hemodialysis Thursday, Thursday, Thursday. Hemodialysis today on 3K bath. Will run even with no fluid removal due to low blood pressure episodes. Currently oxygenation stable. 2. Diabetes mellitus type 2 with retinopathy, blind, neuropathy 3. History of gastric ulcer bleed. Hold heparin with dialysis. Hemoglobin stable 4. C. difficile diarrhea. Leukocytosis improving with therapy. Blood culture pending. 5. Hypotension/sepsis syndrome improved 6. Anemia hemoglobin stable 7. Hypophosphatemia not on binders. Likely due to malnutrition. Suggest protein supplements
--- NOTE | 2018-04-19 12:05 | DIALYSIS ---
Hemodialysis completed 3.5 hours on a 3 K 2.5 Ca bath using right upper arm fistula access. No fluid was removed this treatment. Patient was just weaned off of levophed this am. Next Dialysis will be ThursdayApr 21. See flow sheet for details.
[2018-04-19 12:20] LABS: Bedside Glucose 95 mg/dL (70-110)
[2018-04-19] MEDS: Pregabalin 75 MG Capsule PO ×2 (12:36→22:49)
[2018-04-19] MEDS: Pantoprazole Sodium 40 MG Tablet PO ×2 (12:37→22:59)
[2018-04-19] MEDS: Calcitriol 0.25 MCG Capsule PO (12:37)
[2018-04-19] MEDS: Folic Acid/Vitamin B Comp W-C 1 Capsule 1 CAP PO (12:38)
[2018-04-19] MEDS: CHLORHEXIDINE GLUC 2% CLOTH 1 EACH TOWELETTE TOPICAL (12:39)
--- NOTE | 2018-04-19 16:19 | NURSING ---
report called to [facility] for transfer to room 123, transferred per bed with belongings
[2018-04-19] MEDS: LORazepam 0.5 MG Tablet PO ×2 (18:22→22:49)
[2018-04-19 20:56] LABS: Bedside Glucose 137 mg/dL (70-110)
[2018-04-19] MEDS: 0.9% NaCl Peripheral Flush Adult/Peds IV (21:00)
[2018-04-19] MEDS: Insulin Lispro 100 UNIT/ML INSULN.PEN SC (22:49)
[2018-04-19] MEDS: Sertraline 50 MG Tablet PO (22:50)
[2018-04-19 23:25] LABS: Bedside Glucose 235 mg/dL (70-110)
[2018-04-20] VITALS (12 sets, daily range): BP systolic 132–151; BP diastolic 49–65; PULSE 64–80; RESP 12–16; TEMP 36.4–37; O2SAT 94–97
[2018-04-20] MEDS: 0.9% NaCl Peripheral Flush Adult/Peds IV ×2 (06:20→14:31)
[2018-04-20 06:33] LABS: Absolute Lymphocyte Count 1.17 X10^3/ul (0.83-4.51); Absolute Neutrophil Count 5.8 X10^3/uL (2.0-7.7); Basophil# 0.02 X10^3/uL; Basophil% 0.2 % (0-1); Eosinophil# 0.24 X10^3/uL; Eosinophils% 2.9 % (0-5); Hematocrit 27.6 % (40-54); Hemoglobin 8.7 g/dl (13.0-16.5); Lymphocyte # 1.17 X10^3/ul (4.0); Lymphocyte % 14.1 % (19-41); Mean Corp Hgb Conc 31.5 g/gl (32-36); Mean Corpuscular Hgb 26.2 pg (27.0-32.0); Mean Corpuscular Volume 83.1 fL (80-94); Mean Platelet Vol. 9.6 fl (6.2-12.0); Monocyte# 1.01 X10^3/uL; Monocyte% 12.2 % (0-10); Neutrophil # 5.77 X10^3/uL (2.7-7.7); Neutrophil % 69.6 % (47-70); POSITIVE COUNT NO; POSITIVE DIFFERENTIAL NO; POSITIVE MORPHOLOGY NO; Platelet Count 252 K/mm3 (150-450); RBC Distribution Width CV 15.2 % (11.6-14.6); RBC Distribution Width SD 45.1 fl (35.1-43.9); Red Blood Count 3.32 M/mm3 (4.6-6.2); White Blood Count 8.3 K/mm3 (4.4-11.0)
[2018-04-20 06:46] LABS: Anion Gap 7 (5-15); BUN 15 mg/dL (7-18); BUN/Creat Ratio 3.7 RATIO (10-20); Calcium,Total 7.9 mg/dL (8.5-10.1); Chloride 100 mmol/L (98-107); Creatinine, Serum 4.01 mg/dL (0.70-1.30); EST Glomerular Filtration Rate 16 mL/min (>60); Est Glom Filt Rate - Afr Amer 20 mL/min (>60); Glucose 81 mg/dL (74-106); Potassium 3.3 mmol/L (3.5-5.1); Sodium Level 137 mmol/L (136-145)
[2018-04-20 08:31] LABS: Bedside Glucose 81 mg/dL (70-110)
[2018-04-20] MEDS: Pregabalin 75 MG Capsule PO ×2 (09:12→22:42)
[2018-04-20] MEDS: Folic Acid/Vitamin B Comp W-C 1 Capsule 1 CAP PO (09:12)
[2018-04-20] MEDS: Midodrine HCl 5 MG Tablet PO (09:12)
[2018-04-20] MEDS: Pantoprazole Sodium 40 MG Tablet PO ×2 (09:12→22:42)
[2018-04-20] MEDS: LORazepam 0.5 MG Tablet PO ×2 (09:12→22:41)
[2018-04-20] MEDS: Calcitriol 0.25 MCG Capsule PO (09:14)
--- NOTE | 2018-04-20 09:30 | PN.RENAL_ITS ---
Patient Problems: Active and Suspected Problems (Last Reviewed 04/05/18 @ 01:54 by Pete Sherman MD) HCAP (healthcare-associated pneumonia) (Acute) Septic shock (Acute) Subjective: no SOB, BP stable, transferred to PCU - Physical Exam General: Alert, Oriented x3 Lungs: Clear to auscultation Cardiovascular: Regular rate Extremities: No edema Vital Signs Temp Pulse Resp BP Pulse Ox 98.2 F 79 16 142/51 H 97 04/20/18 09:10 04/20/18 09:10 04/20/18 09:10 04/20/18 09:10 04/20/18 09:10 Oxygen Flow Rate (L/min) 2 Oxygen Delivery Method Room Air Weight: 90.1 kg Body Mass Index (BMI) 29.5 Intake and Output for Last 24 Hours 04/18/18 04/19/18 04/20/18 23:59 23:59 23:59 Intake Total 1133.3 / 1133.3 1064 / 1064 302.4 / 302.4 Balance 1133.3 / 1133.3 1064 / 1064 302.4 / 302.4 Microbiology Past 72 Hours 04/16/18 10:57 Urine Culture - Final Urine, Random Culture exhibits no growth. Laboratory Tests Past 24 Hrs 04/20/18 04/20/18 06:15 06:15 WBC 8.3 RBC 3.32 L Hgb 8.7 L Hct 27.6 L MCV 83.1 MCH 26.2 L MCHC 31.5 L RDW 15.2 H RDW Differential 45.1 H Plt Count 252 MPV 9.6 Immature Gran % (Auto) 1.000 H Neut % (Auto) 69.6 Lymph % (Auto) 14.1 L [place] % (Auto) 12.2 H Eos % (Auto) 2.9 Baso % (Auto) 0.2 Absolute Neuts (auto) 5.8 Absolute Lymphs (auto) 1.17 Total Counted Not Reportable Sodium 137 Potassium 3.3 L Chloride 100 Carbon Dioxide 30.0 Anion Gap 7 BUN 15 Creatinine 4.01 H Estim Creat Clear Calc 18.00 Est GFR (MDRD) Af Amer 20 L Est GFR (MDRD) Non-Af 16 L BUN/Creatinine Ratio 3.7 L Glucose 81 Calcium 7.9 L POC Glucose 04/20/18 04/19/18 04/19/18 06:57 22:30 17:27 POC Glucose 81 235 H 137 H 04/19/18 12:13 POC Glucose 95 Medical Necessity - Tobacco Use Smoking Status: Never smoker Tobacco Use: Non-smoker Assessment/Plan All Active Problems (Last Reviewed 04/05/18 @ 01:54 by Pete Sherman MD) HCAP (healthcare-associated pneumonia) (Acute) Hematemesis with nausea (Acute) Septic shock (Acute) Encephalopathy acute (Acute) Surgically constructed arteriovenous fistula (Acute) Acute renal failure superimposed on stage 3 chronic kidney disease (Resolved) Fall (Resolved) Hematuria (Resolved) Left hand weakness (Resolved) Fever (Resolved) Transaminitis (Ruled-out) Preop cardiovascular exam (Resolved) Epistaxis (Resolved) Severe sepsis (Resolved) FTT (failure to thrive) in adult (Acute) Foot drop, left (Resolved) Sepsis (Resolved) 1. ESRD on hemodialysis Thursday, Thursday, Thursday. 2. Diabetes mellitus type 2 with retinopathy, blind, neuropathy 3. History of gastric ulcer bleed. Hold heparin with dialysis. Hemoglobin stable 4. C. difficile diarrhea. Leukocytosis improving with therapy. Blood culture pending. 5. Hypotension/sepsis syndrome improved 6. Anemia hemoglobin stable 7. Hypophosphatemia not on binders. Likely due to malnutrition. Suggest protein supplements
--- NOTE | 2018-04-20 09:36 | PN_ITS ---
Subjective: Patient transferred out of the intensive care unit yesterday. Patient has remained hemodynamically stable overnight. Patient denies any pain or abdominal symptoms at this time. Patient was ran even with hemodialysis. General: Alert, Oriented x3, Cooperative, No apparent distress, - - Obese. Speaking in full sentences. HEENT: Atraumatic, EOMI, Normocephalic, - - Blind. Oral: Moist Mucosa, No Gingival or Mucosal Lesions/ Ulcerations Neck: Supple, No JVD, No Nodes, Trachea Midline Lungs: No rhonchi, No wheeze, No rales, Diminished, - - Fair effort. Cardiovascular: Regular rate, Regular Rhythm, Normal S1, Normal S2, No murmurs, No rub noted, No Gallop Abdomen: Bowel Sounds Present, Soft, Non Tender, Distended - Slightly Extremities: No clubbing, No cyanosis, Capillary Refill Less than 3 Seconds, Edema Skin: No rashes, No breakdown Musculoskeletal: No Tenderness to Palpation of Joints or Extremities Lymphatic: No Cervical, Supraclavicular, or Inguinal Adenopathy Neurological: Neuro grossly intact - Blind. Some weakness noted of the lower extremities. Sensation is intact. Psych/Mental Status: Normal Affect, Appropriate Vital Signs Temp Pulse Resp BP Pulse Ox 36.8 C 79 16 142/51 H 97 04/20/18 09:10 04/20/18 09:10 04/20/18 09:10 04/20/18 09:10 04/20/18 09:10 Oxygen Flow Rate (L/min) 2 Oxygen Delivery Method Room Air Weight: 90.1 kg Body Mass Index (BMI) 29.5 Intake and Output for Last 24 Hours 04/18/18 04/19/18 04/20/18 23:59 23:59 23:59 Intake Total 1133.3 / 1133.3 1064 / 1064 302.4 / 302.4 Balance 1133.3 / 1133.3 1064 / 1064 302.4 / 302.4 Labs (Last 48 Hours) 04/18/18 04/18/18 04/18/18 11:43 12:00 12:00 WBC 12.6 H RBC 3.35 L Hgb 9.0 L Hct 28.1 L MCV 83.9 MCH 26.9 L MCHC 32.0 RDW 15.4 H RDW Differential 45.9 H Plt Count 224 MPV 10.0 Immature Gran % (Auto) 1.000 H Neut % (Auto) 75.2 H Lymph % (Auto) 9.7 L [place] % (Auto) 11.1 H Eos % (Auto) 2.8 Baso % (Auto) 0.2 Absolute Neuts (auto) 9.5 H Absolute Lymphs (auto) 1.22 Total Counted Not Reportable Sodium Potassium Chloride Carbon Dioxide Anion Gap BUN Creatinine Estim Creat Clear Calc Est GFR (MDRD) Af Amer Est GFR (MDRD) Non-Af BUN/Creatinine Ratio Glucose Calcium Phosphorus 1.6 L Magnesium POC Glucose 124 H 04/18/18 04/18/18 04/19/18 17:12 21:16 04:20 WBC 12.5 H RBC 3.40 L Hgb 8.9 L Hct 28.7 L MCV 84.4 MCH 26.2 L MCHC 31.0 L RDW 15.3 H RDW Differential 45.6 H Plt Count 260 MPV 10.5 Immature Gran % (Auto) 0.900 Neut % (Auto) 78.2 H Lymph % (Auto) 6.1 L [place] % (Auto) 11.6 H Eos % (Auto) 3.0 Baso % (Auto) 0.2 Absolute Neuts (auto) 9.8 H Absolute Lymphs (auto) 0.76 L Total Counted Not Reportable Sodium Potassium Chloride Carbon Dioxide Anion Gap BUN Creatinine Estim Creat Clear Calc Est GFR (MDRD) Af Amer Est GFR (MDRD) Non-Af BUN/Creatinine Ratio Glucose Calcium Phosphorus Magnesium POC Glucose 162 H 156 H 04/19/18 04/19/18 04/19/18 04:20 06:49 12:13 WBC RBC Hgb Hct MCV MCH MCHC RDW RDW Differential Plt Count MPV Immature Gran % (Auto) Neut % (Auto) Lymph % (Auto) [place] % (Auto) Eos % (Auto) Baso % (Auto) Absolute Neuts (auto) Absolute Lymphs (auto) Total Counted Sodium 141 Potassium 3.6 Chloride 100 Carbon Dioxide 30.0 Anion Gap 11 BUN 29 H Creatinine 6.01 H Estim Creat Clear Calc 12.01 Est GFR (MDRD) Af Amer 12 L Est GFR (MDRD) Non-Af 10 L BUN/Creatinine Ratio 4.8 L Glucose 141 H Calcium 7.7 L Phosphorus 2.1 L Magnesium 2.8 H POC Glucose 126 H 95 04/19/18 04/19/18 04/20/18 17:27 22:30 06:15 WBC 8.3 RBC 3.32 L Hgb 8.7 L Hct 27.6 L MCV 83.1 MCH 26.2 L MCHC 31.5 L RDW 15.2 H RDW Differential 45.1 H Plt Count 252 MPV 9.6 Immature Gran % (Auto) 1.000 H Neut % (Auto) 69.6 Lymph % (Auto) 14.1 L [place] % (Auto) 12.2 H Eos % (Auto) 2.9 Baso % (Auto) 0.2 Absolute Neuts (auto) 5.8 Absolute Lymphs (auto) 1.17 Total Counted Not Reportable Sodium Potassium Chloride Carbon Dioxide Anion Gap BUN Creatinine Estim Creat Clear Calc Est GFR (MDRD) Af Amer Est GFR (MDRD) Non-Af BUN/Creatinine Ratio Glucose Calcium Phosphorus Magnesium POC Glucose 137 H 235 H 04/20/18 04/20/18 06:15 06:57 WBC RBC Hgb Hct MCV MCH MCHC RDW RDW Differential Plt Count MPV Immature Gran % (Auto) Neut % (Auto) Lymph % (Auto) [place] % (Auto) Eos % (Auto) Baso % (Auto) Absolute Neuts (auto) Absolute Lymphs (auto) Total Counted Sodium 137 Potassium 3.3 L Chloride 100 Carbon Dioxide 30.0 Anion Gap 7 BUN 15 Creatinine 4.01 H Estim Creat Clear Calc 18.00 Est GFR (MDRD) Af Amer 20 L Est GFR (MDRD) Non-Af 16 L BUN/Creatinine Ratio 3.7 L Glucose 81 Calcium 7.9 L Phosphorus Magnesium POC Glucose 81 Microbiology 04/16/18 10:57 Urine, Random Urine Culture - Final Culture exhibits no growth. Medical Necessity - Tobacco Use Smoking Status: Never smoker Tobacco Use: Non-smoker Assessment/Plan All Active Problems (Last Reviewed 04/05/18 @ 01:54 by Pete Sherman MD) HCAP (healthcare-associated pneumonia) (Acute) Hematemesis with nausea (Acute) Septic shock (Acute) Encephalopathy acute (Acute) Surgically constructed arteriovenous fistula (Acute) Acute renal failure superimposed on stage 3 chronic kidney disease (Resolved) Fall (Resolved) Hematuria (Resolved) Left hand weakness (Resolved) Fever (Resolved) Transaminitis (Ruled-out) Preop cardiovascular exam (Resolved) Epistaxis (Resolved) Severe sepsis (Resolved) FTT (failure to thrive) in adult (Acute) Foot drop, left (Resolved) Sepsis (Resolved) RECOMMENDATIONS: 1. Continue p.o. vancomycin for positive C. difficile. 2. Encourage incentive spirometer use and mobilize patient as tolerated. 3. Continue empiric BiPAP utilization with sleep over concerns for sleep disordered breathing. 4. Continue hemodialysis per nephrology recommendations. Okay to resume normal fluid management 5. Patient not really mobile at baseline, so walking oximetry likely not necessary prior to discharge 6. Hemodynamically stable on room air. Will sign off from a critical care perspective. IMPRESSIONS: 1. Septic shock likely secondary to C. difficile colitis Patient appears to be responding to p.o. vancomycin. Patient has had multiple bouts of C. difficile in the past. Patient is currently hemodynamically stable. Will continue with medications, but patient would likely benefit from an infectious disease evaluation for outpatient management. 2. Encephalopathy Resolved at this time. Unclear etiology. Although underlying infectious/ metabolic derangements are a possibility. Consider pharmacy evaluation for possible polypharmacy. 3. Troponin elevation/heart failure with preserved ejection fraction Likely demand ischemia in the setting of #1. Repeat echocardiogram only revealed known heart failure with preserved ejection fraction. No focal wall motion abnormalities were identified. 4. End-stage renal disease on hemodialysis Nephrology following to assist with hemodialysis management. 5. Recent upper gastrointestinal hemorrhage/anemia of chronic disease Continue twice daily PPI therapy. Blood counts are stable to current time. We will continue to monitor. 6. Coronary artery disease/hypertension/hyperlipidemia/depression/anxiety/ diabetes Complicates care, management, recovery and prognosis. Continue to hold antihypertensive medications. Continue sliding scale insulin coverage. This note was generated with [employer] dictation software. It may contain incorrect words, spelling, and punctuation that were not noted in checking the note before signing. Code Visit Inpatient E&M: 25371 Subs Hosp L2
[2018-04-20] MEDS: Insulin Lispro 100 UNIT/ML INSULN.PEN SC ×3 (11:16→22:42)
[2018-04-20 11:40] LABS: Bedside Glucose 171 mg/dL (70-110)
--- NOTE | 2018-04-20 12:04 | PCM.PN.HOSP ---
Patient Problems: Active and Suspected Problems (Last Reviewed 04/05/18 @ 01:54 by Pete Sherman MD) HCAP (healthcare-associated pneumonia) (Acute) Septic shock (Acute) Subjective: No new complaints. Wanting to go home from the hospital. Vitals/I&O's: Vital Signs Temp Pulse Resp BP Pulse Ox 36.8 C 80 16 142/51 H 97 04/20/18 09:10 04/20/18 11:04 04/20/18 09:10 04/20/18 09:10 04/20/18 09:10 Oxygen Flow Rate (L/min) 2 Oxygen Delivery Method Room Air Weight: 90.1 kg Body Mass Index (BMI) 29.5 Intake and Output for Last 24 Hours 04/18/18 04/19/18 04/20/18 23:59 23:59 23:59 Intake Total 1133.3 / 1133.3 1064 / 1064 302.4 / 302.4 Balance 1133.3 / 1133.3 1064 / 1064 302.4 / 302.4 General: Alert, No apparent distress HEENT: Atraumatic, Normocephalic Oral: Moist Mucosa, No Gingival or Mucosal Lesions/ Ulcerations Neck: No Nodes, Thyroid Normal Size and Texture Lungs: Clear to auscultation, Normal air movement, No rhonchi, No wheeze Cardiovascular: Regular rate, Regular Rhythm, Normal S1, Normal S2, No murmurs Abdomen: Bowel Sounds Present, Soft, Non Tender, Non-Distended, No Hepato-splenomegaly, Obese Extremities: No edema, No Calf Tenderness Skin: No rashes, No breakdown Musculoskeletal: No Tenderness to Palpation of Joints or Extremities, No Muscle Wasting Psych/Mental Status: Normal Affect, Appropriate Microbiology Past 72 Hours 04/16/18 10:57 Urine, Random Urine Culture - Final Culture exhibits no growth. Laboratory Results 04/19/18 12:13: POC Glucose 95 04/19/18 17:27: POC Glucose 137 H 04/19/18 22:30: POC Glucose 235 H 04/20/18 06:15: WBC 8.3, RBC 3.32 L, Hgb 8.7 L, Hct 27.6 L, MCV 83.1, MCH 26.2 L, MCHC 31.5 L, RDW 15.2 H, RDW Differential 45.1 H, Plt Count 252, MPV 9.6, Immature Gran % (Auto) 1.000 H, Neut % (Auto) 69.6, Lymph % (Auto) 14.1 L, [place] % (Auto) 12.2 H, Eos % (Auto) 2.9, Baso % (Auto) 0.2, Absolute Neuts (auto) 5.8, Absolute Lymphs (auto) 1.17, Total Counted Not Reportable 04/20/18 06:15: Sodium 137, Potassium 3.3 L, Chloride 100, Carbon Dioxide 30.0, Anion Gap 7, BUN 15, Creatinine 4.01 H, Estim Creat Clear Calc 18.00, Est GFR (MDRD) Af Amer 20 L, Est GFR (MDRD) Non-Af 16 L, BUN/Creatinine Ratio 3.7 L, Glucose 81, Calcium 7.9 L 04/20/18 06:57: POC Glucose 81 04/20/18 11:12: POC Glucose 171 H Current Medications Acetaminophen (Tylenol) 650 mg PO Q4H PRN PRN PRN Reason: MILD PAIN (1-3/10) Last Admin: 04/17/18 21:51 Dose: 650 mg Albuterol Sulfate (Ventolin Aerosols) 2.5 mg INHALATION Q2H PRN PRN PRN Reason: SHORTNESS OF BREATH Artificial Tears (Tears Naturale, Artificial Tears) 2 drop EACH EYE Q1H PRN PRN PRN Reason: Dry Eye Last Admin: 04/18/18 10:26 Dose: 2 drop Calcitriol (Rocaltrol) 0.25 mcg PO DAILY [facility] Last Admin: 04/20/18 09:14 Dose: 0.25 mcg Chlorhexidine Gluconate () 1 each TOPICAL DAILY [facility] Last Admin: 04/20/18 09:12 Dose: Not Given Metronidazole (Flagyl) 500 mg in 100 mls @ 100 mls/hr IV Q8 [facility] Last Admin: 04/20/18 05:15 Dose: 100 mls/hr Insulin Glargine (Lantus (Bkc)) 10 units SC DINNER [facility] Last Admin: 04/19/18 17:43 Dose: 10 u Insulin Human Lispro (Humalog Kwikpen (Bkc)) 0 unit SC ACHS [facility] PRN Reason: Protocol Last Admin: 04/20/18 11:16 Dose: 1 units Lactobacillus Acidophilus (Acidophilus) 1 tablet PO BID [facility] Last Admin: 04/20/18 09:12 Dose: 1 tablet Lorazepam (Ativan) 0.5 mg PO BID [facility] Last Admin: 04/20/18 09:12 Dose: 0.5 mg Midodrine (Proamatine) 5 mg PO DAILY [facility] Last Admin: 04/20/18 09:12 Dose: 5 mg Multivit/Ca Carb/B Cmplx/FA/Prenat ([facility]rocaps, [facility]) [facility] Last Admin: 04/20/18 09:12 Dose: 1 capsule Ondansetron HCl (Zofran) 4 mg IV Q8H PRN PRN PRN Reason: NAUSEA Pantoprazole Sodium (Protonix) 40 mg PO BID [facility] Last Admin: 04/20/18 09:12 Dose: 40 mg Pregabalin (Lyrica) 75 mg PO BID [facility] Last Admin: 04/20/18 09:12 Dose: 75 mg Sertraline HCl (Zoloft) 50 mg PO QHS [facility] Last Admin: 04/19/18 22:50 Dose: 50 mg Sodium Chloride () 5 - 30 ml IV UD PRN PRN Reason: SALINE FLUSH Last Admin: 04/20/18 06:20 Dose: 30 ml Sodium Chloride () 10 - 40 ml IV UD PRN PRN Reason: MULTILUMEN/HICMAN CATH FLUSH Vancomycin HCl () 125 mg PO Q6 [facility] Last Admin: 04/20/18 11:17 Dose: 125 mg Medical Necessity - Tobacco Use Smoking Status: Never smoker Tobacco Use: Non-smoker Assessment/Plan All Active Problems (Last Reviewed 04/05/18 @ 01:54 by Pete Sherman MD) HCAP (healthcare-associated pneumonia) (Acute) Hematemesis with nausea (Acute) Septic shock (Acute) Encephalopathy acute (Acute) Surgically constructed arteriovenous fistula (Acute) Acute renal failure superimposed on stage 3 chronic kidney disease (Resolved) Fall (Resolved) Hematuria (Resolved) Left hand weakness (Resolved) Fever (Resolved) Transaminitis (Ruled-out) Preop cardiovascular exam (Resolved) Epistaxis (Resolved) Severe sepsis (Resolved) FTT (failure to thrive) in adult (Acute) Foot drop, left (Resolved) Sepsis (Resolved) 1. Septic shock overall improved 2/2 C.diff colitis currently off Levophed Dr. Cleaning started Midodrine daily (instead of HD days) Zosyn DC'd 2. C diff colitis on PO vanc will add IV Flagyl for now 3. ESRD HD today. monitor closely for HD instability 4. DM 2 fair control continue current insulin regimen 5. Recent GI bleed H/H currently stable Biopsy results from 04/05 negative for H.pylori and malignancy (though rebiopsy recommended if suspicion is high) 6. DVT proph: SCD. Hold chemical prophylaxis given proximity of #5 7. Dispo: PT recommends SNF patient wanting to go home instead. Code Visit Inpatient E&M: 92297 Subs Hosp L2
[2018-04-20 14:37] LABS: Pathologist Review Reviewed
[2018-04-20 16:50] LABS: Bedside Glucose 200 mg/dL (70-110)
[2018-04-20] MEDS: Sertraline 50 MG Tablet PO (22:42)
[2018-04-21] VITALS (12 sets, daily range): BP systolic 144–158; BP diastolic 63–85; PULSE 63–84; RESP 11–20; TEMP 36–36.8; O2SAT 90–98
[2018-04-21 00:21] LABS: Bedside Glucose 162 mg/dL (70-110)
--- NOTE | 2018-04-21 01:30 | CASEMGMT ---
Addendum entered by Angélica Majano 04/21/18 16:49: Correction on time: SW saw patient in room at 1330. Original Note: Social work: Met with patient and in room. Patient states that he would like to go home at discharge verses going to a SNF if able. Patient and state that home is set up with needed DME and patient would only need to ambulate 6 feet to get from bed to chair. Patient's states that she and daughter are with patient 24 hours a day and can assist as needed. Patient wanting to see how he does in therapy before he makes a decision on D/C disposition. SW to continue to follow as needed for D/C planning. PLAN: Patient will return home with family verses short term SNF placement. NESSA Farris
[2018-04-21] MEDS: 0.9% NaCl Peripheral Flush Adult/Peds IV (05:41)
[2018-04-21 05:58] LABS: Absolute Lymphocyte Count 0.97 X10^3/ul (0.83-4.51); Absolute Neutrophil Count 5.8 X10^3/uL (2.0-7.7); Basophil# 0.02 X10^3/uL; Basophil% 0.2 % (0-1); Eosinophil# 0.25 X10^3/uL; Hematocrit 28.2 % (40-54); Lymphocyte # 0.97 X10^3/ul (4.0); Lymphocyte % 11.8 % (19-41); Mean Corp Hgb Conc 31.9 g/gl (32-36); Mean Corpuscular Hgb 26.3 pg (27.0-32.0); Mean Corpuscular Volume 82.5 fL (80-94); Mean Platelet Vol. 9.7 fl (6.2-12.0); Monocyte# 1.06 X10^3/uL; Monocyte% 12.9 % (0-10); Neutrophil # 5.82 X10^3/uL (2.7-7.7); Neutrophil % 70.8 % (47-70); Platelet Count 286 K/mm3 (150-450); RBC Distribution Width CV 15.2 % (11.6-14.6); RBC Distribution Width SD 44.7 fl (35.1-43.9); Red Blood Count 3.42 M/mm3 (4.6-6.2); White Blood Count 8.2 K/mm3 (4.4-11.0)
[2018-04-21 06:01] LABS: POSITIVE COUNT NO; POSITIVE DIFFERENTIAL NO; POSITIVE MORPHOLOGY NO
[2018-04-21 06:19] LABS: Anion Gap 10 (5-15); BUN 24 mg/dL (7-18); BUN/Creat Ratio 4.5 RATIO (10-20); Chloride 100 mmol/L (98-107); Creatinine, Serum 5.33 mg/dL (0.70-1.30); EST Glomerular Filtration Rate 12 mL/min (>60); Est Glom Filt Rate - Afr Amer 14 mL/min (>60); Estimated Creatinine Clearance 13.55 ml/min; Glucose 161 mg/dL (74-106); Potassium 3.2 mmol/L (3.5-5.1); Sodium Level 139 mmol/L (136-145)
[2018-04-21 06:56] LABS: Bedside Glucose 142 mg/dL (70-110)
[2018-04-21 12:15] LABS: Bedside Glucose 109 mg/dL (70-110)
--- NOTE | 2018-04-21 13:32 | PCM.PN.REN ---
Patient Problems: Active and Suspected Problems (Last Reviewed 04/05/18 @ 01:54 by Pete Sherman MD) HCAP (healthcare-associated pneumonia) (Acute) Septic shock (Acute) Subjective: seen on dialysis, access working well. remains debilitated. Discussed rehab placement but pt refuses ECF. BP stable, run even - Physical Exam General: Alert, Oriented x3, Cooperative HEENT: - - blind Oral: Dry Mucosa Lungs: Clear to auscultation Abdomen: Bowel Sounds Present, Soft, Non Tender, Non-Distended Extremities: Edema - access arm Psych/Mental Status: Normal Affect, Appropriate, Alert and oriented to time, place, person, mood and affect Vital Signs Temp Pulse Resp BP Pulse Ox 98 F 67 20 H 154/66 H 98 04/21/18 10:00 04/21/18 11:13 04/21/18 10:00 04/21/18 10:00 04/21/18 10:00 Oxygen Flow Rate (L/min) 2 Oxygen Delivery Method Room Air Weight: 89.7 kg Body Mass Index (BMI) 29.5 Intake and Output for Last 24 Hours 04/19/18 04/20/18 04/21/18 23:59 23:59 23:59 Intake Total 1064 / 1064 1314.4 / 1314.4 470.4 / 470.4 Output Total 0 / 0 Balance 1064 / 1064 1314.4 / 1314.4 470.4 / 470.4 Microbiology Past 72 Hours 04/16/18 10:57 Urine Culture - Final Urine, Random Culture exhibits no growth. Laboratory Tests Past 24 Hrs 04/17/18 04/21/18 04/21/18 03:45 05:40 05:40 WBC 8.2 RBC 3.42 L Hgb 9.0 L Hct 28.2 L MCV 82.5 MCH 26.3 L MCHC 31.9 L RDW 15.2 H RDW Differential 44.7 H Plt Count 286 MPV 9.7 Immature Gran % (Auto) 1.300 H Neut % (Auto) 70.8 H Lymph % (Auto) 11.8 L [place] % (Auto) 12.9 H Eos % (Auto) 3.0 Baso % (Auto) 0.2 Absolute Neuts (auto) 5.8 Absolute Lymphs (auto) 0.97 Total Counted Not Reportable Diff Path Review Reviewed Sodium 139 Potassium 3.2 L Chloride 100 Carbon Dioxide 29.0 Anion Gap 10 BUN 24 H Creatinine 5.33 H Estim Creat Clear Calc 13.55 Est GFR (MDRD) Af Amer 14 L Est GFR (MDRD) Non-Af 12 L BUN/Creatinine Ratio 4.5 L Glucose 161 H Calcium 8.0 L POC Glucose 04/21/18 04/21/18 04/20/18 12:06 06:49 22:31 POC Glucose 109 142 H 162 H 04/20/18 16:19 POC Glucose 200 H Medical Necessity - Tobacco Use Smoking Status: Never smoker Tobacco Use: Non-smoker Assessment/Plan All Active Problems (Last Reviewed 04/05/18 @ 01:54 by Pete Sherman MD) HCAP (healthcare-associated pneumonia) (Acute) Hematemesis with nausea (Acute) Septic shock (Acute) Encephalopathy acute (Acute) Surgically constructed arteriovenous fistula (Acute) Acute renal failure superimposed on stage 3 chronic kidney disease (Resolved) Fall (Resolved) Hematuria (Resolved) Left hand weakness (Resolved) Fever (Resolved) Transaminitis (Ruled-out) Preop cardiovascular exam (Resolved) Epistaxis (Resolved) Severe sepsis (Resolved) FTT (failure to thrive) in adult (Acute) Foot drop, left (Resolved) Sepsis (Resolved) 1. ESRD on hemodialysis Thursday, Thursday, Thursday. Seen on dialysis. Rt arm swelling chronic, hx central stenosis. Access working well. Evaluate as outpt with primary vascular surgeon 2. Diabetes mellitus type 2 with retinopathy, blind, neuropathy 3. History of gastric ulcer bleed. Hold heparin with dialysis. Hemoglobin stable 4. C. difficile diarrhea. Leukocytosis improving with therapy. Blood culture no growth so far. 5. Hypotension/sepsis syndrome improved BP 6. Anemia hemoglobin stable 7. Hypophosphatemia not on binders. Likely due to malnutrition. Suggest protein supplements
--- NOTE | 2018-04-21 13:46 | DIALYSIS ---
Pt tolerated 3.5 tx well. Net UF even. See flow record for tx data.
--- NOTE | 2018-04-21 14:11 | PCM.PN.HOSP ---
Patient Problems: Active and Suspected Problems (Last Reviewed 04/05/18 @ 01:54 by Pete Sherman MD) HCAP (healthcare-associated pneumonia) (Acute) Septic shock (Acute) Subjective: Swelling in right hand. Patient still insists on going home rather than SNF. Vitals/I&O's: Vital Signs Temp Pulse Resp BP Pulse Ox 36.3 C L 67 20 H 157/85 H 98 04/21/18 10:00 04/21/18 11:13 04/21/18 10:00 04/21/18 10:00 04/21/18 10:00 Oxygen Flow Rate (L/min) 2 Oxygen Delivery Method Room Air Weight: 89.7 kg Body Mass Index (BMI) 29.5 Intake and Output for Last 24 Hours 04/19/18 04/20/18 04/21/18 23:59 23:59 23:59 Intake Total 1064 / 1064 1314.4 / 1314.4 470.4 / 470.4 Output Total 0 / 0 0 / 0 Balance 1064 / 1064 1314.4 / 1314.4 470.4 / 470.4 General: Alert, No apparent distress HEENT: Atraumatic, Normocephalic Oral: Moist Mucosa, No Gingival or Mucosal Lesions/ Ulcerations Neck: No Nodes, Thyroid Normal Size and Texture Lungs: Clear to auscultation, Normal air movement, No rhonchi, No wheeze Cardiovascular: Regular rate, Regular Rhythm, Normal S1, Normal S2, No murmurs Abdomen: Bowel Sounds Present, Soft, Non Tender, Non-Distended, No Hepato-splenomegaly Extremities: No Calf Tenderness, Peripheral Pulses Normal, - - edema in right hand Skin: No rashes, No breakdown Psych/Mental Status: Normal Affect, Appropriate Microbiology Past 72 Hours 04/16/18 10:57 Urine, Random Urine Culture - Final Culture exhibits no growth. Laboratory Results 04/17/18 03:45: Diff Path Review Reviewed 04/20/18 16:19: POC Glucose 200 H 04/20/18 22:31: POC Glucose 162 H 04/21/18 05:40: WBC 8.2, RBC 3.42 L, Hgb 9.0 L, Hct 28.2 L, MCV 82.5, MCH 26.3 L, MCHC 31.9 L, RDW 15.2 H, RDW Differential 44.7 H, Plt Count 286, MPV 9.7, Immature Gran % (Auto) 1.300 H, Neut % (Auto) 70.8 H, Lymph % (Auto) 11.8 L, [place] % (Auto) 12.9 H, Eos % (Auto) 3.0, Baso % (Auto) 0.2, Absolute Neuts (auto) 5.8, Absolute Lymphs (auto) 0.97, Total Counted Not Reportable 04/21/18 05:40: Sodium 139, Potassium 3.2 L, Chloride 100, Carbon Dioxide 29.0, Anion Gap 10, BUN 24 H, Creatinine 5.33 H, Estim Creat Clear Calc 13.55, Est GFR (MDRD) Af Amer 14 L, Est GFR (MDRD) Non-Af 12 L, BUN/Creatinine Ratio 4.5 L, Glucose 161 H, Calcium 8.0 L 04/21/18 06:49: POC Glucose 142 H 04/21/18 12:06: POC Glucose 109 Current Medications Acetaminophen (Tylenol) 650 mg PO Q4H PRN PRN PRN Reason: MILD PAIN (1-3/10) Last Admin: 04/17/18 21:51 Dose: 650 mg Albuterol Sulfate (Ventolin Aerosols) 2.5 mg INHALATION Q2H PRN PRN PRN Reason: SHORTNESS OF BREATH Artificial Tears (Tears Naturale, Artificial Tears) 2 drop EACH EYE Q1H PRN PRN PRN Reason: Dry Eye Last Admin: 04/18/18 10:26 Dose: 2 drop Calcitriol (Rocaltrol) 0.25 mcg PO DAILY [facility] Last Admin: 04/20/18 09:14 Dose: 0.25 mcg Chlorhexidine Gluconate () 1 each TOPICAL DAILY [facility] Last Admin: 04/21/18 12:21 Dose: Not Given Metronidazole (Flagyl) 500 mg in 100 mls @ 100 mls/hr IV Q8 [facility] Last Admin: 04/21/18 06:20 Dose: 100 mls/hr Insulin Glargine (Lantus (Bkc)) 10 units SC DINNER [facility] Last Admin: 04/20/18 16:23 Dose: 10 u Insulin Human Lispro (Humalog Kwikpen (Bkc)) 0 unit SC ACHS [facility] PRN Reason: Protocol Last Admin: 04/21/18 12:21 Dose: Not Given Lactobacillus Acidophilus (Acidophilus) 1 tablet PO BID [facility] Last Admin: 04/20/18 22:41 Dose: 1 tablet Lorazepam (Ativan) 0.5 mg PO BID [facility] Last Admin: 04/20/18 22:41 Dose: 0.5 mg Midodrine (Proamatine) 5 mg PO DAILY [facility] Last Admin: 04/20/18 09:12 Dose: 5 mg Multivit/Ca Carb/B Cmplx/FA/Prenat [facility] Admin: 04/20/18 09:12 Dose: 1 capsule Ondansetron HCl (Zofran) 4 mg IV Q8H PRN PRN PRN Reason: NAUSEA Pantoprazole Sodium (Protonix) 40 mg PO BID [facility] Last Admin: 04/20/18 22:42 Dose: 40 mg Pregabalin (Lyrica) 75 mg PO BID [facility] Last Admin: 04/20/18 22:42 Dose: 75 mg Sertraline HCl (Zoloft) 50 mg PO QHS [facility] Last Admin: 04/20/18 22:42 Dose: 50 mg Sodium Chloride () 5 - 30 ml IV UD PRN PRN Reason: SALINE FLUSH Last Admin: 04/21/18 05:41 Dose: 20 ml Sodium Chloride () 10 - 40 ml IV UD PRN PRN Reason: MULTILUMEN/HICMAN CATH FLUSH Vancomycin HCl () 125 mg PO Q6 [facility] Last Admin: 04/21/18 06:22 Dose: 125 mg Medical Necessity - Tobacco Use Smoking Status: Never smoker Tobacco Use: Non-smoker Assessment/Plan All Active Problems (Last Reviewed 04/05/18 @ 01:54 by Pete Sherman MD) HCAP (healthcare-associated pneumonia) (Acute) Hematemesis with nausea (Acute) Septic shock (Acute) Encephalopathy acute (Acute) Surgically constructed arteriovenous fistula (Acute) Acute renal failure superimposed on stage 3 chronic kidney disease (Resolved) Fall (Resolved) Hematuria (Resolved) Left hand weakness (Resolved) Fever (Resolved) Transaminitis (Ruled-out) Preop cardiovascular exam (Resolved) Epistaxis (Resolved) Severe sepsis (Resolved) FTT (failure to thrive) in adult (Acute) Foot drop, left (Resolved) Sepsis (Resolved) 1. Septic shock overall improved 2/2 C.diff colitis currently off Levophed Dr. Cleaning started Midodrine daily (instead of HD days) Zosyn DC'd resume losartan and amlodipine 2. C diff colitis on PO vanc improved DC IV flagyl 3. ESRD HD today. monitor closely for HD instability 4. DM 2 fair control continue current insulin regimen 5. Recent GI bleed H/H currently stable Biopsy results from 04/05 negative for H.pylori and malignancy (though rebiopsy recommended if suspicion is high) follow up with GI as outpt 6. DVT proph: SCD. Hold chemical prophylaxis given proximity of #5 7. Dispo: PT recommends SNF patient wanting to go home instead. family and patient to discuss disposition 8. right hand swelling: likely due to this being his arm with fistula and likely being kept in a dependent position no evidence of cellulitis or vascular compromise. DW family at bedside Greater than 35 minutes of which greater than 50% time discussing home w HHC and SNF. Recommended SNF, as I feel he may require too much assistance at this time for the family to accommodate. Code Visit Inpatient E&M: 23926 Subs Hosp L3
[2018-04-21] MEDS: LORazepam 0.5 MG Tablet PO ×2 (14:33→21:03)
[2018-04-21] MEDS: Pregabalin 75 MG Capsule PO ×2 (14:33→21:03)
[2018-04-21] MEDS: Midodrine HCl 5 MG Tablet PO (14:34)
[2018-04-21] MEDS: Pantoprazole Sodium 40 MG Tablet PO ×2 (14:34→21:03)
[2018-04-21] MEDS: Calcitriol 0.25 MCG Capsule PO (14:39)
[2018-04-21] MEDS: Folic Acid/Vitamin B Comp W-C 1 Capsule 1 CAP PO (14:39)
[2018-04-21] MEDS: Menthol/Lanolin/Calamine/Znox 113 GM Tube 1 APPLIC TOPICAL ×2 (16:08→21:04)
[2018-04-21 16:16] LABS: Bedside Glucose 118 mg/dL (70-110)
[2018-04-21] MEDS: Calcium Acetate 667 MG Capsule 1334 MG PO ×2 (17:59→21:03)
[2018-04-21] MEDS: amLODIPine 10 MG Tablet PO (21:03)
[2018-04-21] MEDS: Sertraline 50 MG Tablet PO (21:03)
[2018-04-21 22:16] LABS: Bedside Glucose 132 mg/dL (70-110)
[2018-04-22 03:04] VITALS: PULSE 70
[2018-04-22 03:30] VITALS: BP 145/56; PULSE 72; RESP 16; TEMP 36.3; O2SAT 94
[2018-04-22] MEDS: 0.9% NaCl Peripheral Flush Adult/Peds IV (05:46)
[2018-04-22 06:16] LABS: Anion Gap 10 (5-15); BUN 16 mg/dL (7-18); BUN/Creat Ratio 4.2 RATIO (10-20); Calcium,Total 8.3 mg/dL (8.5-10.1); Chloride 100 mmol/L (98-107); Creatinine, Serum 3.83 mg/dL (0.70-1.30); EST Glomerular Filtration Rate 17 mL/min (>60); Est Glom Filt Rate - Afr Amer 21 mL/min (>60); Estimated Creatinine Clearance 18.85 ml/min; Glucose 162 mg/dL (74-106); Potassium 3.6 mmol/L (3.5-5.1); Sodium Level 140 mmol/L (136-145)
[2018-04-22 06:26] LABS: Absolute Neutrophil Count 5.8 X10^3/uL (2.0-7.7); Basophil# 0.03 X10^3/uL; Basophil% 0.4 % (0-1); Eosinophil# 0.26 X10^3/uL; Eosinophils% 3.3 % (0-5); Hematocrit 28.8 % (40-54); Lymphocyte % 12.6 % (19-41); Mean Corp Hgb Conc 31.3 g/gl (32-36); Mean Corpuscular Hgb 25.4 pg (27.0-32.0); Mean Corpuscular Volume 81.1 fL (80-94); Mean Platelet Vol. 9.7 fl (6.2-12.0); Monocyte# 0.81 X10^3/uL; Monocyte% 10.2 % (0-10); Neutrophil # 5.79 X10^3/uL (2.7-7.7); Neutrophil % 72.7 % (47-70); Platelet Count 289 K/mm3 (150-450); RBC Distribution Width CV 15.3 % (11.6-14.6); RBC Distribution Width SD 45.2 fl (35.1-43.9); Red Blood Count 3.55 M/mm3 (4.6-6.2)
[2018-04-22 06:30] LABS: POSITIVE COUNT NO; POSITIVE DIFFERENTIAL NO; POSITIVE MORPHOLOGY NO
[2018-04-22] MEDS: Calcium Acetate 667 MG Capsule 1334 MG PO ×4 (06:35→17:18)
[2018-04-22 07:05] LABS: Bedside Glucose 139 mg/dL (70-110)
[2018-04-22 07:08] VITALS: PULSE 68
[2018-04-22 09:58] VITALS: BP 144/60; PULSE 72; RESP 16; TEMP 36.7; O2SAT 96
[2018-04-22] MEDS: Losartan Potassium 50 MG Tablet PO (10:00)
[2018-04-22] MEDS: LORazepam 0.5 MG Tablet PO (10:00)
[2018-04-22] MEDS: Pantoprazole Sodium 40 MG Tablet PO (10:01)
[2018-04-22] MEDS: Pregabalin 75 MG Capsule PO (10:01)
[2018-04-22] MEDS: Midodrine HCl 5 MG Tablet PO (10:01)
[2018-04-22] MEDS: Menthol/Lanolin/Calamine/Znox 113 GM Tube 1 APPLIC TOPICAL ×3 (10:04→16:31)
[2018-04-22] MEDS: Folic Acid/Vitamin B Comp W-C 1 Capsule 1 CAP PO (10:05)
[2018-04-22] MEDS: Calcitriol 0.25 MCG Capsule PO (10:06)
[2018-04-22 11:11] LABS: Bedside Glucose 144 mg/dL (70-110)
[2018-04-22 11:17] VITALS: PULSE 73
--- NOTE | 2018-04-22 12:16 | CASEMGMT ---
BASSAM spoke with patient about d/c plan. BASSAM told him SW was told his daughter said he needs to be able to walk 6 feet in order to come home and be cared for safely. BASSAM asked him what is the plan if therapy sees him today and he cannot walk 6 feet. He said, I guess I will have to go to a [facility]p. He said he would prefer [facility]. BASSAM told him will await therapy. SW will also talk with patient's and/or daughter. BASSAM spoke with therapy and patient could not walk 6 feet. It actually took 2 of them to hold him up. BASSAM called Steffany at [facility] and faxed referral. Anastasia RDZ MSW
--- NOTE | 2018-04-22 14:25 | PN.RENAL_ITS ---
Patient Problems: Active and Suspected Problems (Last Reviewed 04/05/18 @ 01:54 by Pete Sherman MD) HCAP (healthcare-associated pneumonia) (Acute) Septic shock (Acute) Subjective: Denies shortness of breath, nausea, vomiting. AV fistula with good thrill and bruit in right arm. She states going home, he declined on ECF for rehab. - Physical Exam General: Alert, Oriented x3, Cooperative HEENT: - - Legally blind Lungs: Clear to auscultation Cardiovascular: Regular rate Abdomen: Bowel Sounds Present, Soft, Non Tender, Non-Distended Extremities: Edema - Mild right upper extremity edema, no leg edema Vital Signs Temp Pulse Resp BP Pulse Ox 98.0 F 73 16 144/60 H 96 04/22/18 09:58 04/22/18 11:17 04/22/18 09:58 04/22/18 09:58 04/22/18 09:58 Oxygen Flow Rate (L/min) 2 Oxygen Delivery Method Room Air Weight: 93.4 kg Body Mass Index (BMI) 29.5 Intake and Output for Last 24 Hours 04/20/18 04/21/18 04/22/18 23:59 23:59 23:59 Intake Total 1314.4 / 1314.4 1113.4 / 1113.4 250 / 250 Output Total 0 / 0 0 / 0 0 / 0 Balance 1314.4 / 1314.4 1113.4 / 1113.4 250 / 250 Laboratory Tests Past 24 Hrs 04/22/18 04/22/18 05:45 05:45 WBC 8.0 RBC 3.55 L Hgb 9.0 L Hct 28.8 L MCV 81.1 MCH 25.4 L MCHC 31.3 L RDW 15.3 H RDW Differential 45.2 H Plt Count 289 MPV 9.7 Immature Gran % (Auto) 0.800 Neut % (Auto) 72.7 H Lymph % (Auto) 12.6 L Pleasants % (Auto) 10.2 H Eos % (Auto) 3.3 Baso % (Auto) 0.4 Absolute Neuts (auto) 5.8 Absolute Lymphs (auto) 1.00 Total Counted Not Reportable Sodium 140 Potassium 3.6 Chloride 100 Carbon Dioxide 30.0 Anion Gap 10 BUN 16 Creatinine 3.83 H Estim Creat Clear Calc 18.85 Est GFR (MDRD) Af Amer 21 L Est GFR (MDRD) Non-Af 17 L BUN/Creatinine Ratio 4.2 L Glucose 162 H Calcium 8.3 L POC Glucose 04/22/18 04/22/18 04/21/18 11:07 06:44 21:01 POC Glucose 144 H 139 H 132 H 04/21/18 16:05 POC Glucose 118 H Medical Necessity - Tobacco Use Smoking Status: Never smoker Tobacco Use: Non-smoker Assessment/Plan All Active Problems (Last Reviewed 04/05/18 @ 01:54 by Pete Sherman MD) HCAP (healthcare-associated pneumonia) (Acute) Hematemesis with nausea (Acute) Septic shock (Acute) Encephalopathy acute (Acute) Surgically constructed arteriovenous fistula (Acute) Acute renal failure superimposed on stage 3 chronic kidney disease (Resolved) Fall (Resolved) Hematuria (Resolved) Left hand weakness (Resolved) Fever (Resolved) Transaminitis (Ruled-out) Preop cardiovascular exam (Resolved) Epistaxis (Resolved) Severe sepsis (Resolved) FTT (failure to thrive) in adult (Acute) Foot drop, left (Resolved) Sepsis (Resolved) 1. ESRD on hemodialysis Thursday, Thursday, Thursday. Next dialysis Thursday. 2. Diabetes mellitus type 2 with retinopathy, blind, neuropathy 3. C. difficile diarrhea. Leukocytosis improving with therapy. Blood culture no growth so far. 4. Hypotension/sepsis syndrome resolved 5. Anemia hemoglobin stable
--- NOTE | 2018-04-22 15:12 | PCM.TXEXTCAR ---
- Diet 04/16/18 17:01 Diet: Renal: 60 gm protein Is pt able to select menu?: No - Routine Orders/Code Status Routine Lab Work: CBC, BMP Code Status: DNRCC-A - Wound(s) Left coccyx Wound Type: Pressure Injury bilat shins Wound Type: Abrasion Left Maldonado Wound Type: Skin Tear Buttocks Wound Type: Pressure Injury - Therapies Physical Therapy: Eval and Treat Occupational Therapy: Eval and Treat - Allergies/Procedures Done in Hospital Allergies/Adverse Reactions: Allergies silk Adverse Reaction (Verified 04/04/18 19:54) Rash - Type of Care/Length of Stay Estimated LOS: Convalescent Care Less Than 30 days Type of Care Needed: Skilled Rehab Potential: Fair Prognosis: Fair - Additional Orders/Day of Discharge Day of Discharge: 04/22/18 - Dietary and Speech Recommendations Dietitian Recommendations/Changes: Rec diet change 2000 vanessa Cardiac/low sodium w/ fluid restriction as indicated. Will continue to provide Nepro CarbSteady ONS w/ meals for additional calories/protein if consumed. - Follow Up Care Primary Care Physician: Maximilian Castillo Jr., MD [Primary Care Provider] - Within 2 Weeks [facility] When: Every Thursday, Thursday, Thursday. Dr. Kiana Wilcox for dialysis.
--- NOTE | 2018-04-22 15:14 | PCM.DC.SUM ---
Discharge Date and Diagnosis - Problem List Patient Problems: Active and Suspected Problems (Last Reviewed 04/05/18 @ 01:54 by Pete Sherman MD) C. difficile colitis (Acute) Septic shock (Acute) Date of Admission: 04/16/18 Date of Discharge: 04/22/18 - Primary Discharge Diagnosis Active and Suspected Problems (Last Reviewed 04/05/18 @ 01:54 by Pete Sherman MD) HCAP (healthcare-associated pneumonia) (Acute) Septic shock (Acute) - Secondary Discharge Diagnosis Chronic Problems (Last Reviewed 04/05/18 @ 01:54 by Pete Sherman MD) History of left heart catheterization (Chronic) Per Dr. Guerrero at [facility] 05/21/2010 Atherosclerotic heart disease of [place] coronary artery without angina pectoris (Chronic) Per heart cath 05/21/2010: Second diagonal of LAD moderate diffuse disease, also in proximal to mid LAD, moderate diffuse disease: not easily amenable to angioplasty, medical therapy recommended. 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 pneumoniae Hydronephrosis, right (Chronic) Cholecystitis (Chronic) Benign essential hypertension (Chronic) Type II diabetes mellitus (Chronic) poorly controlled Diabetic peripheral neuropathy (Chronic) hands and feet HLD (hyperlipidemia) (Chronic) controlled Iron deficiency anemia (Chronic) due to GI blood loss Back pain (Chronic) Uncontrolled hypertension (Chronic) Depression (Chronic) Generalized weakness (Chronic) Colon polyps (Chronic) Blindness (Chronic) CHF exacerbation (Chronic) Anxiety (Chronic) Polyneuropathy (Chronic) Hypertension (Chronic) Heart failure with preserved ejection fraction (Chronic) ESRD (end stage renal disease) (Chronic) Stroke (Chronic) Cerebrovascular disease (Chronic) Hospital Course and Treatment Imaging Results: Clinical Impression(s) from Imaging Studies Chest X-Ray 04/16/18 01:25 IMPRESSION: Left basilar atelectasis versus infiltrate, worsened from prior imaging Electronically Signed: Christopher Cox MD at 2:14 EDT Tel , Service support , Brain CT 04/16/18 02:49 IMPRESSION: Chronic involutional changes of the brain. Electronically Signed: Linda Rabago MD at 4:19 EDT Tel , Service support , Chest X-Ray 04/16/18 02:50 IMPRESSION: Moderate cardiomegaly. Electronically Signed: Linda Rabago MD at 3:32 EDT Tel , Service support , Alberto: ASHLEE Wilcox: nephrology. Operations: None Procedures: Central line placement, Dialysis Summary of Care Provided: The patient is a 63 year old M since with septic shock. Her first initially felt to be due to pneumonia but subsequently deemed to be due to C. difficile colitis. Patient was put on oral vancomycin and subtotally Flagyl. Diarrhea did improve and septic shock resolved. Patient was temporally put on daily measuring rather than nondialysis days. Patient has remained normotensive and has resumed his antihypertensive medications. Patient has been very reluctant to go to a long term facility despite being a max assist. Patient today did relent and agreement to go to long term facility. Patient be discharged to [facility]. 1. Septic shock overall improved 2/2 C.diff colitis currently off Levophed Dr. Cleaning started Midodrine daily (instead of HD days), change back to dialysis days Zosyn DC'd resume losartan and amlodipine 2. C diff colitis on PO vanc continue for total of 14 days improved DC IV flagyl 3. ESRD HD MWF monitor closely for HD instability 4. DM 2 fair control continue current insulin regimen 5. Recent GI bleed H/H currently stable Biopsy results from 04/05 negative for H.pylori and malignancy (though rebiopsy recommended if suspicion is high) follow up with GI as outpt 6. 7. Dispo: PT recommends SNF patient finally agrees. goal is for strengthening and to eventually return home. 8. right hand swelling: likely due to this being his arm with fistula and likely being kept in a dependent position no evidence of cellulitis or vascular compromise. Physical exam: Patient is in no acute distress. Very flat affect. No respiratory distress. No conversational dyspnea. Vital Signs Height 1.73 m Weight: 93.4 kg Weight in Pounds 205.9 lbs Pulse Ox 96 Temperature 36.7 C Pulse Rate 73 Respiratory Rate 16 Blood Pressure [BP] 153/75 Blood Pressure 144/60 Blood Pressure Position [BP] Semi-Fowlers Blood Pressure Position Semi-Fowlers [] Discharge Diet: Low fat/ Low Cholesterol, 1800 Calorie Control Diet Discharge Activity: Return to Normal Activity Call your doctor if you observe: Fever of 101 or Higher, Shortness of breath, - - worsening abdominal pain/diarrhea Home Medications: Medications to take at Discharge Pregabalin [Lyrica] 75 mg PO BID 06/22/17 Insulin Aspart [Novolog Flexpen] 5 units SC DINNER 09/15/17 Amlodipine [Norvasc] 10 mg PO QHS 10/12/17 Losartan Potassium [Cozaar] 50 mg PO DAILY 10/12/17 Oxycodone HCl/Acetaminophen [Percocet 5-325] 1 tab PO Q8H PRN PRN 10/12/17 Aspirin [Aspirin, Baby] 81 mg PO DAILY@0800 01/26/18 Insulin Aspart [Novolog Flexpen] 5 units SC BREAKFAST 01/26/18 Insulin Aspart [Novolog Flexpen] 5 units SC LUNCH 01/26/18 Insulin Aspart [Novolog Flexpen] See Protocol SC ACHS 01/26/18 Midodrine HCl [Proamatine] 5 mg PO MOWEFR 01/26/18 Sertraline HCl [Zoloft] 50 mg PO QHS 01/26/18 Insulin Detemir [Levemir FlexPen] 10 units SC DINNER 04/04/18 Liliane-Gagan Orange Ph 1 tab PO DAILY 04/04/18 Calcitriol [Rocaltrol] 0.25 mcg PO DAILY 04/16/18 Calcium Acetate 1,334 mg PO 5X/DAY 04/16/18 L.acidoph,Paracasei, B.lactis [Probiotic] 1 each PO DAILY 04/16/18 Pantoprazole Sodium [Protonix] 40 mg PO BID 04/16/18 Acetaminophen [Tylenol Tablet] 650 mg PO Q4H PRN PRN tablet 04/22/18 Chlorhexidine Gluc 2% Cloth 1 each TOPICAL DAILY towelette 04/22/18 Dextran 70/He-Cell [Tears Naturale, Artificial Tears] 2 drop EACH EYE Q1H PRN PRN bottle 04/22/18 Lorazepam [Ativan] 0.5 mg PO BID PRN #6 tab 04/22/18 Menthol/Lanolin/Calamine/Znox [Calmoseptine Ointment] 1 applic TOPICAL 4X/DAY tube 04/22/18 Vancomcyin 125mg/5mL PO Liquid 125 mg PO Q6 #34 po.syringe 04/22/18 Following Prescrptions Were Given to Patient: Lorazepam [Ativan] 0.5 mg PO BID PRN #6 tab PRN Reason: Anxiety Primary Care Physician: Maximilian Castillo Jr., MD [Primary Care Provider] - Within 2 Weeks [facility] When: Every Thursday, Thursday, Thursday. Dr. Kiana Wilcox for dialysis. Disposition: Shelter facility Minutes spent on discharge:: 40 Patient Condition:: Stable Medical Necessity - Tobacco Use Smoking Status: Never smoker Tobacco Use: Non-smoker Meaningful Use Info Meaningful Use Diagnoses (Choose all that apply): None applicable Code Visit Inpatient E&M: 89972 Disch Hosp
--- NOTE | 2018-04-22 15:44 | NURSING ---
Central line dc'd per orders. Pressure held x 5 minutes, vaseline guaze and 2X2 applied over top and secured withe tegaderm drsg. Patient instructed to lay flat x 30minutes and to notify nursing if any oozing felt.
--- NOTE | 2018-04-22 15:53 | CASEMGMT ---
SW spoke with patient and he agreed to go to [facility]. SW spent additional time talking with patient and providing emotional support. SW told him SW will get a hold of his to let her know what we talked about. He said that would be fine. BASSAM received a call from Steffany at [facility] and they can take patient today. SW reminded her he is on dialysis and she remembered this from before. She told SW if it will be after 2p to call and ask for Kajal. BASSAM called patient's and it went right to voice mail both times. BASSAM then called patient's daughter and she was with patient's . BASSAM explained patient was not able to walk today and he agreed to go to [facility]. She asked if this was short term and SW told her yes. They were okay with this plan. BASSAM told them SW was going to set up transport for about 6p today. They were in agreement with this plan. BASSAM then called [facility] and arranged for patient to get picked up at 6p via cot. BASSAM notified patient of this and that SW did talk with his and daughter. RN, secretary specialist, patient, and Kajal at [facility] were also notified. BASSAM asked Kajal if Steffany set up transport to dialysis tomorrow. She said she knows she was working on it. BASSAM told her that he has to be at [facility] at 645a. Plan: d/c to [facility] under skilled level of care on a convalescent stay. [facility] transported him via cot. Anastasia CALIX
[2018-04-22 15:56] VITALS: PULSE 69
[2018-04-22] MEDS: Insulin Lispro 100 UNIT/ML INSULN.PEN SC (16:29)
[2018-04-22 16:41] LABS: Bedside Glucose 176 mg/dL (70-110)
== END 2018-04-22 18:10 | disposition skilled nursing facility (03) | DRG 871 ==
LOC: ED 03:56 → ICU 04:17 → PCU 04-19 16:50
PROVIDERS: Internal Medicine; Internal Medicine Critical Care Medicine; Admitting Provider Family Medicine; Emergency Provider Emergency Medicine; Family Provider Internal Medicine; PCP Internal Medicine
DX: A41.89 Other specified sepsis (principal); R65.21 Severe sepsis with septic shock; J96.01 Acute respiratory failure with hypoxia; N18.6 End stage renal disease; G93.41 Metabolic encephalopathy; I13.2 Hypertensive heart and chronic kidney disease with heart failure and with stage 5 chronic kidney disease, or end stage renal disease; I50.32 Chronic diastolic (congestive) heart failure; A04.72 Enterocolitis due to Clostridium difficile, not specified as recurrent; E11.22 Type 2 diabetes mellitus with diabetic chronic kidney disease; E11.42 Type 2 diabetes mellitus with diabetic polyneuropathy; E11.319 Type 2 diabetes mellitus with unspecified diabetic retinopathy without macular edema; I25.10 Atherosclerotic heart disease of native coronary artery without angina pectoris; E78.5 Hyperlipidemia, unspecified; Z66 Do not resuscitate; Z99.2 Dependence on renal dialysis; Z79.4 Long term (current) use of insulin; I25.2 Old myocardial infarction; Z86.73 Personal history of transient ischemic attack (TIA), and cerebral infarction without residual deficits; H54.8 Legal blindness, as defined in USA; D50.0 Iron deficiency anemia secondary to blood loss (chronic)
CPT/HCPCS: 36556; 70450; 71045; 80048; 80053; 82962; 83605; 83735; 84100; 84484; 85025; 85610; 85730; 87040; 87086; 87449; 87493; 87633; 87641; 90937; 93005; 93306; 94002; 94640; 94667; 97110; 97161; 97166; 97530; 97535; 99285; J7030; J7040; A4216; C1751; G0257

== ENCOUNTER 2018-07-15 01:59 | Emergency (ER) | payer MEDICARE, SELFPAY ==
[2018-07-15 02:00] VITALS: BP 105/55; PULSE 73; RESP 16; TEMP 36.7; O2SAT 100; BMI 29.5
--- NOTE | 2018-07-15 02:14 | ED.VISSUMM ---
- ER Visit Summary Date of Service: 07/15/18 Chief Complaint: [] Smart injury History of Present Illness: The patient is a 63 M emplaning of right smart injury today. Earlier this evening his knee buckled when he was transferring wheelchairs and he scraped his skin on the carpet. He suffered a rug burn to his right anterior smart. He is having burning pain in this area. He put a topical antibiotic and ice on it. Comes in for further evaluation Physical Examination: Vital signs reviewed General: Well-nourished well-developed Head: Normocephalic atraumatic Eyes: Pupils equal round and reactive to light extraocular movements intact ENT: TMs clear no hemotympanum no trauma Neck: Nontender full range of motion Cardiovascular: Regular rate rhythm no murmurs normal S1-S2 Respiratory: No distress clear to auscultation bilaterally chest nontender Abdomen: Soft nontender nondistended normal bowel sounds no masses Back: Nontender no CVA tenderness Extremities: Facial abrasion to the right anterior smart 6 inches x 0.5 inches. It is very superficial. Tender to palpation. The tibia itself shows no significant pain. No injury to the knee Neuro alert oriented cranial nerves II through XII intact normal strength sensation reflexes Test Results: [] Emergency Department Course and Treatment: [] Topical lidocaine applied to his wound. Patient will continue this at home. At this time I feel he just has a superficial abrasion Treatment Plan: [] Disposition: [] Impression: [] Right lower leg superficial abrasion This note was generated with [employer] dictation software. It may contain incorrect words, spelling, and punctuation that were not noted in review of the chart prior to signing ED Disposition - Plan for ED Patient: Chief Complaint: Lower Extremity Injury Referrals: Maximilian Castillo Jr., MD [Primary Care Provider] -
--- NOTE | 2018-07-15 02:16 | ED.DEP ---
ED Disposition - Plan for ED Patient: Disposition: Home or Assisted Living Chief Complaint: Lower Extremity Injury Instructions: ED Abrasion Referrals: Maximilian Castillo Jr., MD [Primary Care Provider] -
[2018-07-15] MEDS: Lidocaine 4% 50 ML Bottle TOPICAL (02:21)
== END 2018-07-15 02:55 | disposition home or self-care (01) ==
LOC: ED 02:27
PROVIDERS: Emergency Provider Emergency Medicine; Family Provider Internal Medicine; PCP Internal Medicine
DX: S80.811A Abrasion, right lower leg, initial encounter (principal); W22.8XXA Striking against or struck by other objects, initial encounter; Y93.9 Activity, unspecified; Y92.9 Unspecified place or not applicable; Y99.9 Unspecified external cause status
CPT/HCPCS: 99285

== ENCOUNTER → 2018-09-06 13:54 | Outpatient (CLI) | payer MEDICARE, SELFPAY ==
--- NOTE | 2018-09-06 13:57 | RAD_ITS ---
STUDY: X-RAY - RIGHT KNEE REASON FOR EXAM: Male, 63 years old. Pain, difficulty standing, unable to walk TECHNIQUE: 4 view(s) of the knee. COMPARISON: None. FINDINGS: Normal visualized distal femur. Normal visualized proximal tibia and fibula. Normal proximal tibiofibular articulation. There are tiny spurs along the tibial spine and femoral notch. Normal medial femorotibial compartment. Normal lateral femorotibial compartment. Normal patellofemoral articulation. There is no demonstrated joint effusion. Small spurring medial greater than lateral posterior patellar surface. There are atherosclerotic calcifications. RAD/Knee 4 or More Views IMPRESSION: Mild degenerative changes. There is no acute displaced fracture or dislocation. No effusion. Atherosclerosis. Electronically Signed: Felisa White MD at 2:48 EST , Service support ,
== END ==
PROVIDERS: Family Provider Internal Medicine; PCP Internal Medicine; Referring Provider Physician Assistant; Visit Provider Physician Assistant
DX: M25.561 Pain in right knee (principal)
CPT/HCPCS: 73564

== ENCOUNTER 2018-11-07 13:42 | Inpatient (IN) | payer MEDICARE, SELFPAY ==
[2018-09-06 13:58] VITALS: BMI 29.5
[2018-11-07] VITALS (13 sets, daily range): BP systolic 55–113; BP diastolic 28–69; PULSE 70–89; RESP 14–22; TEMP 36.3–36.8; O2SAT 74–99; BMI 30.4; BMI 31.1; BMI 31.2
--- NOTE | 2018-11-07 14:03 | RAD_ITS ---
STUDY: X-RAY CHEST REASON FOR EXAM: Male, 63 years old. Shortness of breath. TECHNIQUE: Single frontal view of the chest. COMPARISON: April 16, 2018 FINDINGS: There is low volume inspiration with bibasilar atelectasis, right greater than left. There is no demonstrated pleural abnormality. There is stable cardiomegaly. Normal mediastinum and matthew. Normal visualized pulmonary arteries. Normal visualized aortic arch and descending thoracic aorta. Normal visualized thoracic spine. Normal visualized ribs, clavicles, and shoulders. There is no demonstrated abnormality of the visualized soft tissue structures of the upper abdomen. RAD/Chest 1 View (Portable) IMPRESSION: Stable appearance of the chest with no new or acute finding. Electronically Signed: Flaco Alicea MD at 15:24 EDT , Service support ,
[2018-11-07] MEDS: 0.9% Normal Saline 1,000 ML 1000 ML IV (14:15)
--- NOTE | 2018-11-07 14:17 | ED.RN ---
UNABLE TO OBTAIN BLOODWORK FROM IV START; LAB CALLED.
[2018-11-07 14:26] LABS: Bedside Glucose 399 mg/dL (70-110)
[2018-11-07 14:46] LABS: Base Excess -11 mmol/L (-2 to +2); Bicarbonate 15.9 mmol/L (22-26); Blood Gas Specimen Type ART; O2 Delivery Device Nasal Can; PO2 84 mmHG (75-100); SITE R Radial; SO2 95 % (95-99); Time Given 1436; Total Carbon Dioxide 17 mmol/L; pCO2 34.9 mmHg (35-45); pH 7.27 (7.35-7.45)
--- NOTE | 2018-11-07 14:58 | ED.RN ---
PT WRITHING IN PAIN; STATES THE BACK OF HIS THIGHS. CRYING OUT IN PAIN; AT BEDSIDE. MD GARRISON INFORMED; NO ORDERS RECEIVED.
[2018-11-07 15:01] LABS: Hematocrit 37.6 % (40-54); Hemoglobin 11.6 g/dl (13.0-16.5); Mean Corp Hgb Conc 30.9 g/gl (32-36); Mean Corpuscular Hgb 27.8 pg (27.0-32.0); Mean Platelet Vol. 11.7 fl (6.2-12.0); POSITIVE COUNT NO; POSITIVE DIFFERENTIAL NO; POSITIVE MORPHOLOGY NO; Platelet Count 263 K/mm3 (150-450); RBC Distribution Width CV 15.9 % (11.6-14.6); RBC Distribution Width SD 51.5 fl (35.1-43.9); Red Blood Count 4.18 M/mm3 (4.6-6.2); White Blood Count 16.3 K/mm3 (4.4-11.0)
[2018-11-07 15:02] LABS: Absolute Lymphocyte Count 1.14 X10^3/ul (0.83-4.51); Absolute Neutrophil Count 13.7 X10^3/uL (2.0-7.7); Basophil# 0.03 X10^3/uL; Basophil% 0.2 % (0-1); Lymphocyte # 1.14 X10^3/ul (4.0); Monocyte# 1.11 X10^3/uL; Monocyte% 6.8 % (0-10); Neutrophil # 13.74 X10^3/uL (2.7-7.7); Neutrophil % 84.1 % (47-70)
[2018-11-07 15:16] LABS: ALB/GLOB Ratio 0.8 RATIO (0.9-2.4); AST(SGOT) 807 U/L (15-37); Alanine Aminotransfer ALT/SGPT 639 U/L (16-61); Albumin, Serum 3.2 g/dL (3.2-5.0); Alkaline Phosphatase 150 U/L (45-117); Anion Gap 21 (5-15); BUN 58 mg/dL (7-18); BUN/Creat Ratio 6.4 RATIO (10-20); Chloride 93 mmol/L (98-107); Creatinine, Serum 9.09 mg/dL (0.70-1.30); EST Glomerular Filtration Rate 6 mL/min (>60); Est Glom Filt Rate - Afr Amer 8 mL/min (>60); Estimated Creatinine Clearance 7.94 ml/min; Glucose 419 mg/dL (74-106); Potassium 5.2 mmol/L (3.5-5.1); Protein, Total 7.2 g/dL (6.4-8.2); Sodium Level 134 mmol/L (136-145)
--- NOTE | 2018-11-07 15:16 | ED.RN ---
call from lab , critical values... creatinine 9.09 , troponin 10.1. dr. pierce aware
[2018-11-07] MEDS: Aspirin 81 MG TAB.CHEW 324 MG PO (15:23)
[2018-11-07] MEDS: Morphine 2 MG/ML Syringe IV (15:37)
[2018-11-07] MEDS: 0.9% Normal Saline 1,000 ML 999 ML IV (15:37)
--- NOTE | 2018-11-07 15:42 | ED.VISSUMM ---
- ER Visit Summary Date of Service: 11/07/18 Chief Complaint: Shortness of breath and weakness History of Present Illness: The patient is a 63 M who presents with shortness of breath and weakness that is been getting worse over the past 3 days. Patient has a history of end-stage renal disease. Patient gets dialysis on Wednesdays and Fridays. Family states the patient is scheduled for fistula revision surgery on 11/11 at [facility]. Patient states he has been feeling more weak. Patient admits to some nausea and vomiting. Patient states that he only makes a small amount of urine every few days. Patient states it has been burning recently. Patient admits to chills and sweats at home. Physical Examination: Vital signs showed initial blood pressure 57/28. Heart rate was 74. Respiratory rate was 14. Pulse oximeter 74% on room air. Patient is afebrile. Oral mucosa is pink and dry. Neck is supple. Trachea is midline. There is no JVD noted. Heart was regular rate and rhythm. Lungs were clear and equal bilaterally. There is adequate respiratory effort noted. Abdomen is soft. Bowel sounds are normal. There is no tenderness. Cranial nerves II through XII are intact. There are no focal motor or sensory deficits noted. Test Results: EKG showed sinus rhythm with a rate of 77 with frequent PACs and PVCs. There is a right bundle branch block pattern noted. Basic metabolic profile showed an elevated creatinine of 9.09. Troponin was elevated at 10.1. There is a leukocytosis of 16. Emergency Department Course and Treatment: Patient was given aspirin. Patient was given a dose of morphine. Case was discussed with Dr. Guerrero. Does not recommend any further treatment at this time. Case was discussed with hospitalist. He was in to evaluate the patient. He will admit the patient to PCU. Family wishes to make the patient DNR comfort care only. Patient is agreeable with this. DNR Comfort Care paper was signed by myself. Disposition: Admit to PCU Impression: 1. NSTEMI 2. End-stage renal disease This note was generated with [employer]ation software. It may contain incorrect words, spelling, and punctuation that were not noted in review of the chart prior to signing ED Disposition - Plan for ED Patient: Disposition: Acute Care Hospital [facility] Diagnosis: Non-STEMI (non-ST elevated myocardial infarction), ESRD (end stage renal disease) on dialysis Referrals: Care Physician,No Primary [Primary Care Provider] -
--- NOTE | 2018-11-07 15:46 | ED.DCSUM_ITS ---
- ER Visit Summary Date of Service: 11/07/18 Chief Complaint: Shortness of breath and weakness History of Present Illness: The patient is a 63 M who presents with shortness of breath and weakness that is been getting worse over the past 3 days. Patient has a history of end-stage renal disease. Patient gets dialysis on Wednesdays and Fridays. Family states the patient is scheduled for fistula revision surgery on 11/11 at [facility]. Patient states he has been feeling more weak. Patient admits to some nausea and vomiting. Patient states that he only makes a small amount of urine every few days. Patient states it has been burning recently. Patient admits to chills and sweats at home. Physical Examination: Vital signs showed initial blood pressure 57/28. Heart rate was 74. Respiratory rate was 14. Pulse oximeter 74% on room air. Patient is afebrile. Oral mucosa is pink and dry. Neck is supple. Trachea is midline. There is no JVD noted. Heart was regular rate and rhythm. Lungs were clear and equal bilaterally. There is adequate respiratory effort noted. Abdomen is soft. Bowel sounds are normal. There is no tenderness. Cranial nerves II through XII are intact. There are no focal motor or sensory deficits noted. Test Results: EKG showed sinus rhythm with a rate of 77 with frequent PACs and PVCs. There is a right bundle branch block pattern noted. Basic metabolic profile showed an elevated creatinine of 9.09. Troponin was elevated at 10.1. There is a leukocytosis of 16. Emergency Department Course and Treatment: Patient was given aspirin. Patient was given a dose of morphine. Case was discussed with Dr. Guerrero. Does not recommend any further treatment at this time. Case was discussed with hospitalist. He was in to evaluate the patient. He will admit the patient to PCU. Family wishes to make the patient DNR comfort care only. Patient is agreeable with this. DNR Comfort Care paper was signed by myself. Disposition: Admit to PCU Impression: 1. NSTEMI 2. End-stage renal disease This note was generated with [employer] software. It may contain incorrect words, spelling, and punctuation that were not noted in review of the chart prior to signing ED Disposition - Plan for ED Patient: Disposition: Acute Care Hospital [facility] Diagnosis: Non-STEMI (non-ST elevated myocardial infarction), ESRD (end stage renal disease) on dialysis Referrals: Care Physician,No Primary [Primary Care Provider] -
--- NOTE | 2018-11-07 16:56 | HP.PCM_ITS ---
Problem List (1) Non-STEMI (non-ST elevated myocardial infarction) Status: Acute (2) Encephalopathy acute Status: Acute (3) Diabetic retinopathy Status: Chronic Qualifiers: (4) HTN (hypertension) Status: Chronic Qualifiers: (5) ESRD (end stage renal disease) on dialysis Status: Chronic (6) Type II diabetes mellitus Status: Chronic Qualifiers: Comment: poorly controlled (7) Diabetic peripheral neuropathy Status: Chronic Comment: hands and feet (8) HLD (hyperlipidemia) Status: Chronic Qualifiers: Comment: controlled (9) Blindness Status: Chronic History of Present Illness Date of Admission: 11/07/18 Chief Complaint: Pain The patient is a 63 year old M with past medical history as below who presents from home with vague complaints of pain and discomfort. He is currently lethargic and difficult to understand his as well as seemingly confused, which the family that is at bedside states is not normal for him. He is blind, but he is much more alert and is able to communicate much more clearly and effectively than he has been today. Most of the history was obtained from discussion with the family as well as chart review. He has a history of end-stage renal disease and presents with an elevated creatinine to over 9. He did undergoes dialysis Thursday and family started noticing his confusion Thursday night into Thursday. Presentation to the ED he was found to be afebrile but had leukocytosis to 16, with an unknown source. He does not produce frequent urine therefore urine sample is unlikely, blood cultures are pending. Also of note the patient was complaining of shortness of breath and intermittent chest pain at home and while here in the ER, troponin was obtained which was elevated to about 10, review of his previous troponins show that this is a significant elevation compared to his previous. However given his other major comorbidities he is not a candidate for any aggressive intervention. Past Medical History Past Medical History (Chronic Problems): Chronic Problems (Last Reviewed 04/05/18 @ 01:54 by Pete Sherman MD) History of left heart catheterization (Chronic) Per Dr. Guerrero at [facility] 05/21/2010 Atherosclerotic heart disease of [place] coronary artery without angina pectoris (Chronic) Per heart cath 05/21/2010: Second diagonal of LAD moderate diffuse disease, also in proximal to mid LAD, moderate diffuse disease: not easily amenable to angioplasty, medical therapy recommended. 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 pneumoniae Hydronephrosis, right (Chronic) Cholecystitis (Chronic) Benign essential hypertension (Chronic) Type II diabetes mellitus (Chronic) poorly controlled Diabetic peripheral neuropathy (Chronic) hands and feet HLD (hyperlipidemia) (Chronic) controlled Iron deficiency anemia (Chronic) due to GI blood loss Back pain (Chronic) Uncontrolled hypertension (Chronic) Depression (Chronic) Generalized weakness (Chronic) Colon polyps (Chronic) Blindness (Chronic) CHF exacerbation (Chronic) Anxiety (Chronic) Polyneuropathy (Chronic) Hypertension (Chronic) Heart failure with preserved ejection fraction (Chronic) ESRD (end stage renal disease) (Chronic) Stroke (Chronic) Cerebrovascular disease (Chronic) Medical History: Medical History (Last Reviewed 04/05/18 @ 01:54 by Pete Sherman MD) Atherosclerotic heart disease of [place] coronary artery without angina pectoris (Chronic) I25.10 Per heart cath 05/21/2010: Second diagonal of LAD moderate diffuse disease, also in proximal to mid LAD, moderate diffuse disease: not easily amenable to angioplasty, medical therapy recommended. 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) Z79.899 Antihyperlipidemic Benign essential hypertension (Chronic) I10 Type II diabetes mellitus (Chronic) E11.9 poorly controlled Diabetic peripheral neuropathy (Chronic) E11.42 hands and feet HLD (hyperlipidemia) (Chronic) E78.5 controlled Iron deficiency anemia (Chronic) D50.9 due to GI blood loss Back pain (Chronic) M54.9 Uncontrolled hypertension (Chronic) I10 Depression (Chronic) F32.9 Generalized weakness (Chronic) R53.1 Colon polyps (Chronic) Blindness (Chronic) CHF exacerbation (Chronic) I50.9 Anxiety (Chronic) F41.9 Polyneuropathy (Chronic) G62.9 Hypertension (Chronic) I10 Foot drop, left (Resolved) M21.372 Heart failure with preserved ejection fraction (Chronic) I50.30 ESRD (end stage renal disease) (Chronic) N18.6 Stroke (Chronic) I63.9 Sepsis (Resolved) A41.9 from cholecystitis Cerebrovascular disease (Chronic) I67.9 ESRD (end stage renal disease) on dialysis N18.6, Z99.2 s/p cholecystostomy drain Allergies silk Adverse Reaction (Verified 11/07/18 13:49) Rash Home Medications: Ambulatory Orders Medication Instructions Recorded Pregabalin [Lyrica] 100 mg PO BID 06/22/17 Losartan Potassium [Cozaar] 25 mg PO DAILY 10/12/17 Aspirin [Aspirin, Baby] 81 mg PO DAILY@0800 01/26/18 Insulin Aspart [Novolog Flexpen] 0 units SC TID 01/26/18 Midodrine HCl [Proamatine] 5 mg PO MOWEFR 01/26/18 Sertraline HCl [Zoloft] 50 mg PO QHS 01/26/18 Insulin Detemir [Levemir FlexPen] 10 units SC QHS 04/04/18 Liliane-Gagan [place] Ph 1 tab PO DAILY 04/04/18 Pantoprazole Sodium [Protonix] 40 mg PO BID 04/16/18 Cholecalciferol (VIT D3) [Vitamin 5,000 unit PO DAILY 11/07/18 D] Ondansetron [Zofran Odt] 4 mg PO Q6H PRN PRN 11/07/18 Silver Sulfadiazine 1% Crm 1 applic TOPICAL BID 11/07/18 [Silvadene ([facility])] Surgical History: Surgical History (Last Reviewed 04/05/18 @ 01:54 by Pete Sherman MD) History of left heart catheterization (Chronic) Z98.[address] Guerrero at [facility] 05/21/2010 History of ERCP Z98.890 History of laparoscopic cholecystectomy Z90.49 Surgical History: - - AV fistula right upper arm, umbilical hernia repair, biliary drain Psychiatric History: Anxiety, Depression Smoking Status: Never smoker - *Family History Maternal Family History: Family History (Last Reviewed 04/05/18 @ 01:54 by Pete Sherman MD) Mother CAD (coronary artery disease) Father CVA (cerebral vascular accident) History Items: Diabetes, Renal Disease Paternal Family History: Family History (Last Reviewed 04/05/18 @ 01:54 by Pete Sherman MD) Mother CAD (coronary artery disease) Father CVA (cerebral vascular accident) History Items: Stroke Review of Systems Unable to obtain accurate/complete ROS d/t: Altered mental status VTE Information - Inpt Only VTE Present on Admission: No - Physical Exam General: No apparent distress, Confused, Disoriented HEENT: Atraumatic, Normocephalic Oral: Dry Mucosa Neck: Supple, No JVD Lungs: Clear to auscultation, Normal air movement, No rhonchi, No wheeze, No rales Cardiovascular: Regular rate, Regular Rhythm, Normal S1, Normal S2, No murmurs Abdomen: Soft, Non-Distended, No Hepato-splenomegaly Extremities: Capillary Refill Less than 3 Seconds, - - Right upper extremity edema Skin: No rashes, No breakdown Neurological: Neuro grossly intact, Sensory exam intact to light touch and pain Psych/Mental Status: - - Could not obtain given his encephalopathy Vital Signs Temp Pulse Resp BP Pulse Ox 98.3 F 71 16 82/50 L 95 11/07/18 13:44 11/07/18 16:34 11/07/18 16:34 11/07/18 16:34 11/07/18 16:34 Oxygen Flow Rate (L/min) 2 Oxygen Delivery Method Nasal Cannula Weight: 200 lb Body Mass Index (BMI) 30.4 Finger Stick Blood Glucose 399 Laboratory Tests Past 24 Hrs 11/07/18 11/07/18 11/07/18 14:30 14:30 14:37 WBC 16.3 H RBC 4.18 L Hgb 11.6 L Hct 37.6 L MCV 90.0 MCH 27.8 MCHC 30.9 L RDW 15.9 H RDW Differential 51.5 H Plt Count 263 MPV 11.7 Immature Gran % (Auto) 1.900 H Neut % (Auto) 84.1 H Lymph % (Auto) 7.0 L [place] % (Auto) 6.8 Eos % (Auto) 0.0 Baso % (Auto) 0.2 Absolute Neuts (auto) 13.7 H Absolute Lymphs (auto) 1.14 Total Counted Not Reportable Specimen Type ART Sample Site R Radial pH 7.27 L Bicarbonate Actual 15.9 L POC Total CO2 17 Base Excess -11 L O2 Saturation 95 ABG pCO2 34.9 L ABG pO2 84 Dipesh Test NA O2 Delivery Device Nasal Can Liter Flow 2.0 Blood Gas Notified Whom ED Blood Gas Notified Time 1436 Sodium 134 L Potassium 5.2 H Chloride 93 L Carbon Dioxide 20.0 L Anion Gap 21 H BUN 58 H Creatinine 9.09 H* Estim Creat Clear Calc 7.94 Est GFR (MDRD) Af Amer 8 L Est GFR (MDRD) Non-Af 6 L BUN/Creatinine Ratio 6.4 L Glucose 419 H Calcium 8.0 L Total Bilirubin 0.90 AST 807 H ALT 639 H Alkaline Phosphatase 150 H Troponin I 10.100 H* Total Protein 7.2 Albumin 3.2 Globulin 4.0 Albumin/Globulin Ratio 0.8 L POC Glucose 11/07/18 14:20 POC Glucose 399 H Assessment/Plan All Active Problems (Last Reviewed 04/05/18 @ 01:54 by Pete Sherman MD) Non-STEMI (non-ST elevated myocardial infarction) (Acute) C. difficile colitis (Acute) HCAP (healthcare-associated pneumonia) (Ruled-out) Hematemesis with nausea (Acute) Septic shock (Acute) Encephalopathy acute (Acute) Surgically constructed arteriovenous fistula (Acute) Acute renal failure superimposed on stage 3 chronic kidney disease (Resolved) Fall (Resolved) Hematuria (Resolved) Left hand weakness (Resolved) Fever (Resolved) Transaminitis (Ruled-out) Preop cardiovascular exam (Resolved) Epistaxis (Resolved) Severe sepsis (Resolved) FTT (failure to thrive) in adult (Acute) Foot drop, left (Resolved) Sepsis (Resolved) 1. Acute metabolic encephalopathy secondary to end-stage renal disease/leukocytosis -Unsure as to where his elevated white blood cell count is from we will monitor for now, blood cultures are pending and chest x-ray was normal, and he is afebrile -We will consult nephrology for dialysis and will provide midodrine for blood pressure support, receives dialysis Thursday -If necessary to maintain blood pressures can start on IV fluids -I had a 30-minute discussion with the family about advanced care planning in regards to hospice, they would like to at least speak with hospice but the patient has said in the past that he was not ready for hospice because he would like to live another year to pay off a car even though he is blind. He is DNR CC per the family and therefore will not place him in the ICU. 2. CAD/HTN/HLD/chronic diastolic heart failure/NSTEMI -We will continue with his aspirin and hold his losartan -Blood pressures are running between 90s and 100 systolic -We will continue with aspirin for his elevated troponin and will trend his troponins, though given his significant comorbidities he is not a candidate for more aggressive intervention 3. IDDM 2 with peripheral neuropathy, retinopathy and nephropathy -We will continue with his home regimen of 10 units Levemir nightly and mealtime insulin -We will monitor blood sugars -Hold Lyrica 4. Depression -He is on Zoloft at home which does seem to control his symptoms -We will hold at the moment secondary to his encephalopathy DVT: Heparin Code Visit Inpatient E&M: 41923 Init Hosp L3 Procedures: 58493 Advncd Care Plan 30 Min
[2018-11-07 18:21] LABS: Bedside Glucose 280 mg/dL (70-110)
[2018-11-07] MEDS: Pantoprazole Sodium 40 MG Tablet PO (21:44)
[2018-11-07] MEDS: Heparin Injection (Vial) 5,000 UNIT/ML VIAL 5000 UNIT SC (21:45)
[2018-11-07 22:41] LABS: Bedside Glucose 281 mg/dL (70-110)
[2018-11-08] VITALS (9 sets, daily range): BP systolic 110–134; BP diastolic 55–69; PULSE 65–77; RESP 16–20; TEMP 36.3–37; O2SAT 93–95
[2018-11-08] MEDS: Heparin Injection (Vial) 5,000 UNIT/ML VIAL 5000 UNIT SC (06:01)
[2018-11-08 06:03] LABS: Absolute Lymphocyte Count 0.95 X10^3/ul (0.83-4.51); Absolute Neutrophil Count 10.8 X10^3/uL (2.0-7.7); Basophil# 0.03 X10^3/uL; Basophil% 0.2 % (0-1); Eosinophil# 0.02 X10^3/uL; Eosinophils% 0.2 % (0-5); Hematocrit 37.4 % (40-54); Hemoglobin 11.3 g/dl (13.0-16.5); Lymphocyte # 0.95 X10^3/ul (4.0); Lymphocyte % 7.2 % (19-41); Mean Corp Hgb Conc 30.2 g/gl (32-36); Mean Corpuscular Hgb 27.4 pg (27.0-32.0); Mean Corpuscular Volume 90.8 fL (80-94); Mean Platelet Vol. 12.2 fl (6.2-12.0); Monocyte# 1.24 X10^3/uL; Monocyte% 9.3 % (0-10); Neutrophil # 10.77 X10^3/uL (2.7-7.7); Neutrophil % 81.1 % (47-70); Platelet Count 181 K/mm3 (150-450); RBC Distribution Width CV 15.7 % (11.6-14.6); RBC Distribution Width SD 50.4 fl (35.1-43.9); Red Blood Count 4.12 M/mm3 (4.6-6.2); White Blood Count 13.3 K/mm3 (4.4-11.0)
[2018-11-08 06:20] LABS: Differential Indicated SCAN CRITERIA MET; POSITIVE COUNT NO; POSITIVE DIFFERENTIAL YES; POSITIVE MORPHOLOGY NO
[2018-11-08 06:21] LABS: Anion Gap 13 (5-15); BUN 69 mg/dL (7-18); BUN/Creat Ratio 7.1 RATIO (10-20); Calcium,Total 7.8 mg/dL (8.5-10.1); Chloride 97 mmol/L (98-107); Creatinine, Serum 9.66 mg/dL (0.70-1.30); EST Glomerular Filtration Rate 6 mL/min (>60); Est Glom Filt Rate - Afr Amer 7 mL/min (>60); Estimated Creatinine Clearance 7.47 ml/min; Glucose 263 mg/dL (74-106); Magnesium 2.2 mg/dL (1.6-2.6); Phosphorus 8.3 mg/dL (2.5-4.9); Potassium 4.8 mmol/L (3.5-5.1); Sodium Level 134 mmol/L (136-145)
[2018-11-08 06:51] LABS: Bedside Glucose 280 mg/dL (70-110)
[2018-11-08 06:59] LABS: Differential Comment SCANNED; Red Cell Morphology NORM C+C NORMAL (NORM C&C)
--- NOTE | 2018-11-08 07:57 | PCM.CONS.R ---
Consultation - Renal 11/08/18 PCP/ Referring MD: Requesting physician: [] Primary care physician: No Primary Care Phys Reason for Consultation:: ESRD renal mgmt - History of Present Illness History of Present Illness: The patient is a 63 year old M with ESRD due to diabetes on HD MWF at [facility] dialysis unit, primary manager rail Dr Dale presents with encephalopathy, lethargy since Thursday after dialysis but pt refused to come in to the hospital. He was found to be hypotensive, hyperglycemic. He received fluid bolus SBP improved from 55 to 130. Blood cultures are pending. He complained of generalized malaise, thought he had the flu. He denied shortness of breath or chest pain. Troponin was elevated at 10. His last dialysis was Thursday, shortened by 1 hr due to water issues at the dialysis unit. He is scheduled for fistulogram on for right arm swelling. His family is at bedside providing history. He had diarrhea Thursday and Thursday with episode of vomiting. States feels fine now. There has been discussion about hospice and discontinuation of dialysis. Pt wants to continue with dialysis for now. Dialysis arranged for later today. - Allergies Allergies: Allergies silk Adverse Reaction (Verified 11/07/18 13:49) Rash - Current Medications Current Medications: Current Medications Aspirin (Aspirin, Baby) 81 mg PO DAILY@0800 [facility] Dextrose (D50w Syringe) 0 gm IV X1 PRN; Protocol PRN Reason: Hypoglycemia Glucagon () 1 mg IM .X1 PRN PRN Reason: Hypoglycemia Heparin Sodium (Porcine) (Heparin Na) 5,000 unit SC Q8 [facility] Last Admin: 11/08/18 06:01 Dose: 5,000 unit Insulin Glargine (Lantus (Bkc)) 10 units SC QHS [facility] Last Admin: 11/07/18 21:44 Dose: 10 unit Magnesium Hydroxide (Milk Of Magnesia) 30 ml PO DAILY PRN PRN Reason: Constipation Midodrine (Proamatine) 5 mg PO MoWeFr@1000 [facility] Pantoprazole Sodium (Protonix) 40 mg PO BID [facility] Last Admin: 11/07/18 21:44 Dose: 40 mg Sodium Chloride () 5 - 15 ml IV UD PRN PRN Reason: SALINE FLUSH - Past Medical History Past Medical History (Chronic Problems): Chronic Problems (Last Reviewed 04/05/18 @ 01:54 by Pete Sherman MD) History of left heart catheterization (Chronic) Per Dr. Guerrero at [facility] 05/21/2010 Atherosclerotic heart disease of [place] coronary artery without angina pectoris (Chronic) Per heart cath 05/21/2010: Second diagonal of LAD moderate diffuse disease, also in proximal to mid LAD, moderate diffuse disease: not easily amenable to angioplasty, medical therapy recommended. 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 pneumoniae Hydronephrosis, right (Chronic) Cholecystitis (Chronic) Benign essential hypertension (Chronic) Type II diabetes mellitus (Chronic) poorly controlled Diabetic peripheral neuropathy (Chronic) hands and feet HLD (hyperlipidemia) (Chronic) controlled Iron deficiency anemia (Chronic) due to GI blood loss Back pain (Chronic) Uncontrolled hypertension (Chronic) Depression (Chronic) Generalized weakness (Chronic) Colon polyps (Chronic) Blindness (Chronic) CHF exacerbation (Chronic) Anxiety (Chronic) Polyneuropathy (Chronic) Hypertension (Chronic) Heart failure with preserved ejection fraction (Chronic) ESRD (end stage renal disease) (Chronic) Stroke (Chronic) Cerebrovascular disease (Chronic) - Past Surgical History Surgical History: - - AV fistula right upper arm, umbilical hernia repair, biliary drain - Social History Smoking Status: Never smoker - Family History Maternal Family History: Family History (Last Reviewed 04/05/18 @ 01:54 by Pete Sherman MD) Mother CAD (coronary artery disease) Father CVA (cerebral vascular accident) History Items: Diabetes, Renal Disease Paternal Family History: Family History (Last Reviewed 04/05/18 @ 01:54 by Pete Sherman MD) Mother CAD (coronary artery disease) Father CVA (cerebral vascular accident) History Items: Stroke Review of Systems Constitutional: Reports: Chills, Malaise, Weakness. Denies: Fever Eyes: Reports: - - blind Cardiovascular: Denies: Chest Pain, Edema, Syncope Respiratory: Denies: Cough, Shortness of Breath Gastrointestinal: Reports: Diarrhea, Nausea, Vomiting Genitourinary: Reports: - - low urine output Musculoskeletal: Reports: -. Denies: Arm Pain Skin: Denies: Rash Neurological: Reports: Balance problems, - - inambulatory, - - generalized weakness Psychiatric: Reports: Anxiety, Depression Hematologic/ Lymphatic: Reports: Anemia Patient Problems: Active and Suspected Problems (Last Reviewed 04/05/18 @ 01:54 by Pete Sherman MD) Non-STEMI (non-ST elevated myocardial infarction) (Acute) - Physical Exam General: Alert, Oriented x3, Cooperative, No apparent distress Lungs: Clear to auscultation Cardiovascular: Regular rate Abdomen: Bowel Sounds Present, Soft, Non Tender, Distended Extremities: No edema - BLE, Edema - mild RUE Skin: No rashes Musculoskeletal: No Muscle Wasting Psych/Mental Status: Normal Affect, Appropriate, Alert and oriented to time, place, person, mood and affect Vital Signs Temp Pulse Resp BP Pulse Ox 97.8 F 76 18 134/58 H 95 11/08/18 03:55 11/08/18 07:03 11/08/18 03:55 11/08/18 03:55 11/08/18 03:55 Oxygen Flow Rate (L/min) 2 Oxygen Delivery Method Nasal Cannula Weight: 93.5 kg Body Mass Index (BMI) 31.1 Finger Stick Blood Glucose 399 Intake and Output for Last 24 Hours 11/06/18 11/07/18 11/08/18 23:59 23:59 23:59 Intake Total 0 / 0 100 / 100 Output Total 0 / 0 Balance 0 / 0 100 / 100 Laboratory Tests Past 24 Hrs 11/07/18 11/07/18 11/07/18 14:30 14:30 14:37 WBC 16.3 H RBC 4.18 L Hgb 11.6 L Hct 37.6 L MCV 90.0 MCH 27.8 MCHC 30.9 L RDW 15.9 H RDW Differential 51.5 H Plt Count 263 MPV 11.7 Immature Gran % (Auto) 1.900 H Neut % (Auto) 84.1 H Lymph % (Auto) 7.0 L [place] % (Auto) 6.8 Eos % (Auto) 0.0 Baso % (Auto) 0.2 Absolute Neuts (auto) 13.7 H Absolute Lymphs (auto) 1.14 Total Counted Not Reportable Differential Comment RBC Morphology Specimen Type ART Sample Site R Radial pH 7.27 L Bicarbonate Actual 15.9 L POC Total CO2 17 Base Excess -11 L O2 Saturation 95 ABG pCO2 34.9 L ABG pO2 84 Dipesh Test NA O2 Delivery Device Nasal Can Liter Flow 2.0 Blood Gas Notified Whom ED MD Blood Gas Notified Time 1436 Sodium 134 L Potassium 5.2 H Chloride 93 L Carbon Dioxide 20.0 L Anion Gap 21 H BUN 58 H Creatinine 9.09 H* Estim Creat Clear Calc 7.94 Est GFR (MDRD) Af Amer 8 L Est GFR (MDRD) Non-Af 6 L BUN/Creatinine Ratio 6.4 L Glucose 419 H Calcium 8.0 L Phosphorus Magnesium Total Bilirubin 0.90 AST 807 H ALT 639 H Alkaline Phosphatase 150 H Troponin I 10.100 H* Total Protein 7.2 Albumin 3.2 Globulin 4.0 Albumin/Globulin Ratio 0.8 L 11/07/18 11/07/18 11/08/18 17:30 21:00 05:25 WBC RBC Hgb Hct MCV MCH MCHC RDW RDW Differential Plt Count MPV Immature Gran % (Auto) Neut % (Auto) Lymph % (Auto) [place] % (Auto) Eos % (Auto) Baso % (Auto) Absolute Neuts (auto) Absolute Lymphs (auto) Total Counted Differential Comment RBC Morphology Specimen Type Sample Site pH Bicarbonate Actual POC Total CO2 Base Excess O2 Saturation ABG pCO2 ABG pO2 Dipesh Test O2 Delivery Device Liter Flow Blood Gas Notified Whom Blood Gas Notified Time Sodium 134 L Potassium 4.8 Chloride 97 L Carbon Dioxide 24.0 Anion Gap 13 BUN 69 H Creatinine 9.66 H* Estim Creat Clear Calc 7.47 Est GFR (MDRD) Af Amer 7 L Est GFR (MDRD) Non-Af 6 L BUN/Creatinine Ratio 7.1 L Glucose 263 H Calcium 7.8 L Phosphorus 8.3 H Magnesium 2.2 Total Bilirubin AST ALT Alkaline Phosphatase Troponin I 8.960 H* 12.300 H* Total Protein Albumin Globulin Albumin/Globulin Ratio 11/08/18 05:25 WBC 13.3 H RBC 4.12 L Hgb 11.3 L Hct 37.4 L MCV 90.8 MCH 27.4 MCHC 30.2 L RDW 15.7 H RDW Differential 50.4 H Plt Count 181 MPV 12.2 H Immature Gran % (Auto) 2.000 H Neut % (Auto) 81.1 H Lymph % (Auto) 7.2 L [place] % (Auto) 9.3 Eos % (Auto) 0.2 Baso % (Auto) 0.2 Absolute Neuts (auto) 10.8 H Absolute Lymphs (auto) 0.95 Total Counted Not Reportable Differential Comment SCANNED RBC Morphology NORM C+C Specimen Type Sample Site pH Bicarbonate Actual POC Total CO2 Base Excess O2 Saturation ABG pCO2 ABG pO2 Dipesh Test O2 Delivery Device Liter Flow Blood Gas Notified Whom Blood Gas Notified Time Sodium Potassium Chloride Carbon Dioxide Anion Gap BUN Creatinine Estim Creat Clear Calc Est GFR (MDRD) Af Amer Est GFR (MDRD) Non-Af BUN/Creatinine Ratio Glucose Calcium Phosphorus Magnesium Total Bilirubin AST ALT Alkaline Phosphatase Troponin I Total Protein Albumin Globulin Albumin/Globulin Ratio POC Glucose 11/08/18 11/07/18 11/07/18 06:46 21:40 18:18 POC Glucose 280 H 281 H 280 H 11/07/18 14:20 POC Glucose 399 H Clinical Impression(s) from Imaging Studies Chest X-Ray 11/07/18 14:03 IMPRESSION: Stable appearance of the chest with no new or acute finding. Electronically Signed: Flaco Alicea MD at 15:24 EDT , Service support , Assessment/Plan All Active Problems (Last Reviewed 04/05/18 @ 01:54 by Pete Sherman MD) Non-STEMI (non-ST elevated myocardial infarction) (Acute) C. difficile colitis (Acute) HCAP (healthcare-associated pneumonia) (Ruled-out) Hematemesis with nausea (Acute) Septic shock (Acute) Encephalopathy acute (Acute) Surgically constructed arteriovenous fistula (Acute) Acute renal failure superimposed on stage 3 chronic kidney disease (Resolved) Fall (Resolved) Hematuria (Resolved) Left hand weakness (Resolved) Fever (Resolved) Transaminitis (Ruled-out) Preop cardiovascular exam (Resolved) Epistaxis (Resolved) Severe sepsis (Resolved) FTT (failure to thrive) in adult (Acute) Foot drop, left (Resolved) Sepsis (Resolved) 1. ESRD HD today and MWF. Pt from [facility] dialysis Dr Dale primary manager rail. Run even, no fluid removal 2. Shock, hypotension with leukocytosis. Bld cx pending. BP stable with fluid bolus 3. Autonomic dysfunction, midodrine before each dialysis. 4. DM2, blind, DMN 5. Debility 6. NSTEMI +trop primary service mgmt, not a surgical candidate. Family looking into palliative care/hospice but still wants to continue with dialysis. addendum: seen on dialysis at 2pm. BP start of treatment in the 80's now stable at 120 systolic. Received midodrine pretx. MS at baseline.
--- NOTE | 2018-11-08 08:00 | CON.PCM_ITS ---
Consultation - Renal 11/08/18 PCP/ Referring MD: Requesting physician: [] Primary care physician: No Primary Care Phys Reason for Consultation:: ESRD renal mgmt - History of Present Illness History of Present Illness: The patient is a 63 year old M with ESRD due to diabetes on HD MWF at [facility] dialysis unit, primary section hand Dr Dale presents with encephalopathy, lethargy since Thursday after dialysis but pt refused to come in to the hospital. He was found to be hypotensive, hyperglycemic. He received fluid bolus SBP improved from 55 to 130. Blood cultures are pending. He complained of generalized malaise, thought he had the flu. He denied shortness of breath or chest pain. Troponin was elevated at 10. His last dialysis was Thursday, shortened by 1 hr due to water issues at the dialysis unit. He is scheduled for fistulogram on for right arm swelling. His family is at bedside providing history. He had diarrhea Thursday and Thursday with episode of vomiting. States feels fine now. There has been discussion about hospice and discontinuation of dialysis. Pt wants to continue with dialysis for now. Dialysis arranged for later today. - Allergies Allergies: Allergies silk Adverse Reaction (Verified 11/07/18 13:49) Rash - Current Medications Current Medications: Current Medications Aspirin (Aspirin, Baby) 81 mg PO DAILY@0800 [facility] Dextrose (D50w Syringe) 0 gm IV X1 PRN; Protocol PRN Reason: Hypoglycemia Glucagon () 1 mg IM .X1 PRN PRN Reason: Hypoglycemia Heparin Sodium (Porcine) (Heparin Na) 5,000 unit SC Q8 [facility] Last Admin: 11/08/18 06:01 Dose: 5,000 unit Insulin Glargine (Lantus (Bkc)) 10 units SC QHS [facility] Last Admin: 11/07/18 21:44 Dose: 10 unit Magnesium Hydroxide (Milk Of Magnesia) 30 ml PO DAILY PRN PRN Reason: Constipation Midodrine (Proamatine) 5 mg PO MoWeFr@1000 [facility] Pantoprazole Sodium (Protonix) 40 mg PO BID [facility] Last Admin: 11/07/18 21:44 Dose: 40 mg Sodium Chloride () 5 - 15 ml IV UD PRN PRN Reason: SALINE FLUSH - Past Medical History Past Medical History (Chronic Problems): Chronic Problems (Last Reviewed 04/05/18 @ 01:54 by Pete Sherman MD) History of left heart catheterization (Chronic) Per Dr. Guerrero at [facility] 05/21/2010 Atherosclerotic heart disease of [place] coronary artery without angina pectoris (Chronic) Per heart cath 05/21/2010: Second diagonal of LAD moderate diffuse disease, also in proximal to mid LAD, moderate diffuse disease: not easily amenable to angioplasty, medical therapy recommended. 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 pneumoniae Hydronephrosis, right (Chronic) Cholecystitis (Chronic) Benign essential hypertension (Chronic) Type II diabetes mellitus (Chronic) poorly controlled Diabetic peripheral neuropathy (Chronic) hands and feet HLD (hyperlipidemia) (Chronic) controlled Iron deficiency anemia (Chronic) due to GI blood loss Back pain (Chronic) Uncontrolled hypertension (Chronic) Depression (Chronic) Generalized weakness (Chronic) Colon polyps (Chronic) Blindness (Chronic) CHF exacerbation (Chronic) Anxiety (Chronic) Polyneuropathy (Chronic) Hypertension (Chronic) Heart failure with preserved ejection fraction (Chronic) ESRD (end stage renal disease) (Chronic) Stroke (Chronic) Cerebrovascular disease (Chronic) - Past Surgical History Surgical History: - - AV fistula right upper arm, umbilical hernia repair, garima iary drain - Social History Smoking Status: Never smoker - Family History Maternal Family History: Family History (Last Reviewed 04/05/18 @ 01:54 by Pete Sherman MD) Mother CAD (coronary artery disease) Father CVA (cerebral vascular accident) History Items: Diabetes, Renal Disease Paternal Family History: Family History (Last Reviewed 04/05/18 @ 01:54 by Pete Sherman MD) Mother CAD (coronary artery disease) Father CVA (cerebral vascular accident) History Items: Stroke Review of Systems Constitutional: Reports: Chills, Malaise, Weakness. Denies: Fever Eyes: Reports: - - blind Cardiovascular: Denies: Chest Pain, Edema, Syncope Respiratory: Denies: Cough, Shortness of Breath Gastrointestinal: Reports: Diarrhea, Nausea, Vomiting Genitourinary: Reports: - - low urine output Musculoskeletal: Reports: -. Denies: Arm Pain Skin: Denies: Rash Neurological: Reports: Balance problems, - - inambulatory, - - generalized weakness Psychiatric: Reports: Anxiety, Depression Hematologic/ Lymphatic: Reports: Anemia Patient Problems: Active and Suspected Problems (Last Reviewed 04/05/18 @ 01:54 by Pete Sherman MD) Non-STEMI (non-ST elevated myocardial infarction) (Acute) - Physical Exam General: Alert, Oriented x3, Cooperative, No apparent distress Lungs: Clear to auscultation Cardiovascular: Regular rate Abdomen: Bowel Sounds Present, Soft, Non Tender, Distended Extremities: No edema - BLE, Edema - mild RUE Skin: No rashes Musculoskeletal: No Muscle Wasting Psych/Mental Status: Normal Affect, Appropriate, Alert and oriented to time, place, person, mood and affect Vital Signs Temp Pulse Resp BP Pulse Ox 97.8 F 76 18 134/58 H 95 11/08/18 03:55 11/08/18 07:03 11/08/18 03:55 11/08/18 03:55 11/08/18 03:55 Oxygen Flow Rate (L/min) 2 Oxygen Delivery Method Nasal Cannula Weight: 93.5 kg Body Mass Index (BMI) 31.1 Finger Stick Blood Glucose 399 Intake and Output for Last 24 Hours 11/06/18 11/07/18 11/08/18 23:59 23:59 23:59 Intake Total 0 / 0 100 / 100 Output Total 0 / 0 Balance 0 / 0 100 / 100 Laboratory Tests Past 24 Hrs 11/07/18 11/07/18 11/07/18 14:30 14:30 14:37 WBC 16.3 H RBC 4.18 L Hgb 11.6 L Hct 37.6 L MCV 90.0 MCH 27.8 MCHC 30.9 L RDW 15.9 H RDW Differential 51.5 H Plt Count 263 MPV 11.7 Immature Gran % (Auto) 1.900 H Neut % (Auto) 84.1 H Lymph % (Auto) 7.0 L [facility] % (Auto) 6.8 Eos % (Auto) 0.0 Baso % (Auto) 0.2 Absolute Neuts (auto) 13.7 H Absolute Lymphs (auto) 1.14 Total Counted Not Reportable Differential Comment RBC Morphology Specimen Type ART Sample Site R Radial pH 7.27 L Bicarbonate Actual 15.9 L POC Total CO2 17 Base Excess -11 L O2 Saturation 95 ABG pCO2 34.9 L ABG pO2 84 Dipesh Test NA O2 Delivery Device Nasal Can Liter Flow 2.0 Blood Gas Notified Whom ED MD Blood Gas Notified Time 1436 Sodium 134 L Potassium 5.2 H Chloride 93 L Carbon Dioxide 20.0 L Anion Gap 21 H BUN 58 H Creatinine 9.09 H* Estim Creat Clear Calc 7.94 Est GFR (MDRD) Af Amer 8 L Est GFR (MDRD) Non-Af 6 L BUN/Creatinine Ratio 6.4 L Glucose 419 H Calcium 8.0 L Phosphorus Magnesium Total Bilirubin 0.90 AST 807 H ALT 639 H Alkaline Phosphatase 150 H Troponin I 10.100 H* Total Protein 7.2 Albumin 3.2 Globulin 4.0 Albumin/Globulin Ratio 0.8 L 11/07/18 11/07/18 11/08/18 17:30 21:00 05:25 WBC RBC Hgb Hct MCV MCH MCHC RDW RDW Differential Plt Count MPV Immature Gran % (Auto) Neut % (Auto) Lymph % (Auto) [facility] % (Auto) Eos % (Auto) Baso % (Auto) Absolute Neuts (auto) Absolute Lymphs (auto) Total Counted Differential Comment RBC Morphology Specimen Type Sample Site pH Bicarbonate Actual POC Total CO2 Base Excess O2 Saturation ABG pCO2 ABG pO2 Dipesh Test O2 Delivery Device Liter Flow Blood Gas Notified Whom Blood Gas Notified Time Sodium 134 L Potassium 4.8 Chloride 97 L Carbon Dioxide 24.0 Anion Gap 13 BUN 69 H Creatinine 9.66 H* Estim Creat Clear Calc 7.47 Est GFR (MDRD) Af Amer 7 L Est GFR (MDRD) Non-Af 6 L BUN/Creatinine Ratio 7.1 L Glucose 263 H Calcium 7.8 L Phosphorus 8.3 H Magnesium 2.2 Total Bilirubin AST ALT Alkaline Phosphatase Troponin I 8.960 H* 12.300 H* Total Protein Albumin Globulin Albumin/Globulin Ratio 11/08/18 05:25 WBC 13.3 H RBC 4.12 L Hgb 11.3 L Hct 37.4 L MCV 90.8 MCH 27.4 MCHC 30.2 L RDW 15.7 H RDW Differential 50.4 H Plt Count 181 MPV 12.2 H Immature Gran % (Auto) 2.000 H Neut % (Auto) 81.1 H Lymph % (Auto) 7.2 L [facility]ension % (Auto) 9.3 Eos % (Auto) 0.2 Baso % (Auto) 0.2 Absolute Neuts (auto) 10.8 H Absolute Lymphs (auto) 0.95 Total Counted Not Reportable Differential Comment SCANNED RBC Morphology NORM C+C Specimen Type Sample Site pH Bicarbonate Actual POC Total CO2 Base Excess O2 Saturation ABG pCO2 ABG pO2 Dipesh Test O2 Delivery Device Liter Flow Blood Gas Notified Whom Blood Gas Notified Time Sodium Potassium Chloride Carbon Dioxide Anion Gap BUN Creatinine Estim Creat Clear Calc Est GFR (MDRD) Af Amer Est GFR (MDRD) Non-Af BUN/Creatinine Ratio Glucose Calcium Phosphorus Magnesium Total Bilirubin AST ALT Alkaline Phosphatase Troponin I Total Protein Albumin Globulin Albumin/Globulin Ratio POC Glucose 11/08/18 11/07/18 11/07/18 06:46 21:40 18:18 POC Glucose 280 H 281 H 280 H 11/07/18 14:20 POC Glucose 399 H Clinical Impression(s) from Imaging Studies Chest X-Ray 11/07/18 14:03 IMPRESSION: Stable appearance of the chest with no new or acute finding. Electronically Signed: Flaco Alicea MD at 15:24 EDT , Service support , Assessment/Plan All Active Problems (Last Reviewed 04/05/18 @ 01:54 by Pete Sherman MD) Non-STEMI (non-ST elevated myocardial infarction) (Acute) C. difficile colitis (Acute) HCAP (healthcare-associated pneumonia) (Ruled-out) Hematemesis with nausea (Acute) Septic shock (Acute) Encephalopathy acute (Acute) Surgically constructed arteriovenous fistula (Acute) Acute renal failure superimposed on stage 3 chronic kidney disease (Resolved) Fall (Resolved) Hematuria (Resolved) Left hand weakness (Resolved) Fever (Resolved) Transaminitis (Ruled-out) Preop cardiovascular exam (Resolved) Epistaxis (Resolved) Severe sepsis (Resolved) FTT (failure to thrive) in adult (Acute) Foot drop, left (Resolved) Sepsis (Resolved) 1. ESRD HD [facility] Dale primary section hand. Run even, no fluid removal 2. Shock, hypotension with leukocytosis. Bld cx pending. BP stable with fluid bolus 3. Autonomic dysfunction, midodrine before each dialysis. 4. DM2, blind, DMN 5. Debility 6. NSTEMI +trop primary service mgmt, not a surgical candidate. Family looking into palliative care/hospice but still wants to continue with dialysis. addendum: seen on dialysis at 2pm. BP start of treatment in the 80's now stable at 120 systolic. Received midodrine pretx. MS at baseline.
[2018-11-08] MEDS: Midodrine HCl 5 MG Tablet PO (09:42)
--- NOTE | 2018-11-08 11:16 | DCINST_ITS ---
- Discharge Diagnoses Current Active Problems: Current Active and Chronic Problems (Last Reviewed 04/05/18 @ 01:54 by Pete Sherman MD) Non-STEMI (non-ST elevated myocardial infarction) (Acute) You will use the following diet at home:: Renal (restricted protein/sodium) Your food should be the consistency of: Regular Your liquids should be the consistency of: Regular/Thin Discharge Activity: Return to Normal Activity Allergies/Adverse Reactions: Allergies silk Adverse Reaction (Verified 11/07/18 13:49) Rash Medications to take at Discharge Pregabalin [Lyrica] 100 mg PO BID 06/22/17 Losartan Potassium [Cozaar] 25 mg PO DAILY 10/12/17 Aspirin [Aspirin, Baby] 81 mg PO DAILY@0800 01/26/18 Insulin Aspart [Novolog Flexpen] 0 units SC TID 01/26/18 Midodrine HCl [Proamatine] 5 mg PO MOWEFR 01/26/18 Sertraline HCl [Zoloft] 50 mg PO QHS 01/26/18 Insulin Detemir [Levemir FlexPen] 10 units SC QHS 04/04/18 Liliane-Gagan [place] Ph 1 tab PO DAILY 04/04/18 Pantoprazole Sodium [Protonix] 40 mg PO BID 04/16/18 Cholecalciferol (VIT D3) [Vitamin D3] 5,000 unit PO DAILY 11/07/18 Ondansetron [Zofran Odt] 4 mg PO Q6H PRN PRN 11/07/18 Silver Sulfadiazine 1% Crm [Silvadene Cream] 1 applic TOPICAL BID 11/07/18 Primary Care Physician: Care Physician,No Primary [Primary Care Provider] - Please follow up with your Primary Care Physician in: 1-2 weeks Test Results: Test results from this visit will be discussed in further detail at your follow- up appointment, if applicable. Please Follow Up With: Kiana Wilcox DO When: as directed Proposed Discharge Date: 11/08/18
--- NOTE | 2018-11-08 11:36 | CASEMGMT ---
Assessment- SW met with patient and his . They were fine with answering SW's questions. Living situation- Patient lives with his and daughter in a trailer. They have a lift to get him into the trailer. His daughter is one of his main caregivers PCP: Patient is currently in between physicians. His daughter has a list and is working on finding a new physician. Specialists: Dr Dale-Nephrology in [facility]: [facility]: walker, bedside commode, 2 wheelchairs, and lift to get into home ADL's/IADL's: Patient receives assistance with all activities of daily living. His , daughter, and aide through [facility] are his caregivers who help him. Patient normally gets around via wheelchair. He is able to stand and pivot with help. Past SNF/rehab: Patient has been to many nursing homes. He has been to [facility] and [facility]. Past HH: He has had [facility], they couldn't remember other agencies LW: Patient has one and it is on file at [facility] POA: Patient has a Durable POA on file, but not a Healthcare POA Plan: SW was asked to see patient and his as they are willing to talk with Palliative Care. BASSAM explained that SW will call and fax referral. SW explained that Palliative Care will call them to set up an appt. BASSAM explained it may be a couple of weeks before Palliative Care would start. Patient has Passport services. He gets an aide that comes in and helps with personal care. His Stylist Apprentice is David Guzman. SW left her a vm letting her know patient was here, will be discharged today after dialysis, and we made a referral to Palliative Care. Patient plans on returning home with resumption of his Passport services. BASSAM spoke with patient's daughter per her request. She asked if SW called Palliative Care or if she needed to. SW told her SW called them and made a referral. SW told her they will call her mom to set up an appt to meet. Anastasia RDZ MSW
--- NOTE | 2018-11-08 13:23 | DS.PCM_ITS ---
Discharge Date and Diagnosis - Problem List Patient Problems: Active and Suspected Problems (Last Reviewed 04/05/18 @ 01:54 by Pete Sherman MD) Non-STEMI (non-ST elevated myocardial infarction) (Acute) Date of Admission: 11/07/18 Date of Discharge: 11/08/18 - Primary Discharge Diagnosis Active and Suspected Problems (Last Reviewed 04/05/18 @ 01:54 by Pete Sherman MD) Acute metabolic encephalopathy Non-STEMI (non-ST elevated myocardial infarction) (Acute) Hyperkalemia ESRD DMt2 CAD Chronic diastolic CHF HTN Diabetic peripheral neuropathy HLD Blindness Depression - Secondary Discharge Diagnosis Chronic Problems (Last Reviewed 04/05/18 @ 01:54 by Pete Sherman MD) History of left heart catheterization (Chronic) Per Dr. Guerrero at [facility] 05/21/2010 Atherosclerotic heart disease of [place] coronary artery without angina pectoris (Chronic) Per heart cath 05/21/2010: Second diagonal of LAD moderate diffuse disease, also in proximal to mid LAD, moderate diffuse disease: not easily amenable to angioplasty, medical therapy recommended. 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 pneumoniae Hydronephrosis, right (Chronic) Cholecystitis (Chronic) Benign essential hypertension (Chronic) Type II diabetes mellitus (Chronic) poorly controlled Diabetic peripheral neuropathy (Chronic) hands and feet HLD (hyperlipidemia) (Chronic) controlled Iron deficiency anemia (Chronic) due to GI blood loss Back pain (Chronic) Uncontrolled hypertension (Chronic) Depression (Chronic) Generalized weakness (Chronic) Colon polyps (Chronic) Blindness (Chronic) CHF exacerbation (Chronic) Anxiety (Chronic) Polyneuropathy (Chronic) Hypertension (Chronic) Heart failure with preserved ejection fraction (Chronic) ESRD (end stage renal disease) (Chronic) Stroke (Chronic) Cerebrovascular disease (Chronic) Hospital Course and Treatment Imaging Results: RAD/Chest 1 View (Portable) IMPRESSION: Stable appearance of the chest with no new or acute finding. Consultations: Brenden-nephrology Operations: None Procedures: Dialysis Summary of Care Provided: Hospital Course: The patient is a 63 year old M with past medical history of CAD, ESRD, hypertension, type 2 diabetes, peripheral neuropathy, hyperlipidemia, retention, iron deficiency anemia, diastolic CHF, prior stroke, blindness, depression and anxiety, who presents to the emergency room with increased confusion at home. He lives with his who is his POA and his daughter is his room service bellhop. He is DNR comfort care only. He complained of vague all over pain, discomfort, lethargic, and increasing confusion at home. Pressure was very poor with a systolic pressure of 53 over a diastolic of 28, and he was hypoxic with a pulse ox of 74 on 3 L ABG demonstrating a pH of 7.27 consistent with acidosis. He was given IV fluids and both of these stabilized. He appeared to have leukocytosis with no infectious etiology. He appeared to have worsening of his underlying renal disease with significantly elevated BUN and creatinine, potassium, and also appeared to have a non-STEMI with elevated troponins, and significantly elevated LFTs.. He was provided with dialysis the following morning. He was otherwise treated with supportive care only. He was not felt to be a candidate for further cardiac workup given his multiple issues and comfort care status. We discussed palliative and hospice care. His family was encouraging him to go hospice however he wanted to continue dialysis for as long as possible. He was amenable to the idea of palliative care, especially as he wants to minimize how much time he spends in the hospital, and wants help with symptom control at home. He and family were both agreeable to palliative care. He was provided with dialysis, and as he had improvement in his mental status, and no pain, he was discharged home in stable condition. He will need to follow-up with his PCP in 1-2 weeks, follow-up with palliative care as directed, and follow-up with Dr. Wilcox as previously planned for his usual dialysis. This patient was seen by Reese Allison PA-C under the supervision of Doctor Hernandez. [] Patient Problems: Active and Suspected Problems (Last Reviewed 04/05/18 @ 01:54 by Pete Sherman MD) Non-STEMI (non-ST elevated myocardial infarction) (Acute) - Physical Exam General: Alert, Oriented x3, Cooperative HEENT: Atraumatic, PERRLA, EOMI, Normocephalic Neck: Supple, No JVD, Negative Carotid Bruits Lungs: Clear to auscultation, Normal air movement Cardiovascular: Regular rate, No murmurs Abdomen: Bowel Sounds Present, Soft, Non Tender, Obese Extremities: Capillary Refill Less than 3 Seconds, Edema Skin: No rashes, No breakdown Musculoskeletal: No Tenderness to Palpation of Joints or Extremities Neurological: Cranial nerves II-XII grossly intact Psych/Mental Status: Normal Affect, Appropriate, Alert and oriented to time, place, person, mood and affect Vital Signs Temp Pulse Resp BP Pulse Ox 98.6 F 74 16 110/55 L 95 11/08/18 09:00 11/08/18 10:44 11/08/18 09:00 11/08/18 09:00 11/08/18 09:00 Oxygen Flow Rate (L/min) 3 Oxygen Delivery Method Nasal Cannula Weight: 205 lb 4.006 oz Body Mass Index (BMI) 31.1 Finger Stick Blood Glucose 399 Intake and Output for Last 24 Hours 11/06/18 11/07/18 11/08/18 23:59 23:59 23:59 Intake Total 0 / 0 100 / 100 Output Total 0 / 0 Balance 0 / 0 100 / 100 Laboratory Tests Past 24 Hrs 11/07/18 11/07/18 11/07/18 14:30 14:30 14:37 WBC 16.3 H RBC 4.18 L Hgb 11.6 L Hct 37.6 L MCV 90.0 MCH 27.8 MCHC 30.9 L RDW 15.9 H RDW Differential 51.5 H Plt Count 263 MPV 11.7 Immature Gran % (Auto) 1.900 H Neut % (Auto) 84.1 H Lymph % (Auto) 7.0 L [place] % (Auto) 6.8 Eos % (Auto) 0.0 Baso % (Auto) 0.2 Absolute Neuts (auto) 13.7 H Absolute Lymphs (auto) 1.14 Total Counted Not Reportable Differential Comment RBC Morphology Specimen Type ART Sample Site R Radial pH 7.27 L Bicarbonate Actual 15.9 L POC Total CO2 17 Base Excess -11 L O2 Saturation 95 ABG pCO2 34.9 L ABG pO2 84 Dipesh Test NA O2 Delivery Device Nasal Can Liter Flow 2.0 Blood Gas Notified Whom ED Blood Gas Notified Time 1436 Sodium 134 L Potassium 5.2 H Chloride 93 L Carbon Dioxide 20.0 L Anion Gap 21 H BUN 58 H Creatinine 9.09 H* Estim Creat Clear Calc 7.94 Est GFR (MDRD) Af Amer 8 L Est GFR (MDRD) Non-Af 6 L BUN/Creatinine Ratio 6.4 L Glucose 419 H Calcium 8.0 L Phosphorus Magnesium Total Bilirubin 0.90 AST 807 H ALT 639 H Alkaline Phosphatase 150 H Troponin I 10.100 H* Total Protein 7.2 Albumin 3.2 Globulin 4.0 Albumin/Globulin Ratio 0.8 L 11/07/18 11/07/18 11/08/18 17:30 21:00 05:25 WBC RBC Hgb Hct MCV MCH MCHC RDW RDW Differential Plt Count MPV Immature Gran % (Auto) Neut % (Auto) Lymph % (Auto) [place] % (Auto) Eos % (Auto) Baso % (Auto) Absolute Neuts (auto) Absolute Lymphs (auto) Total Counted Differential Comment RBC Morphology Specimen Type Sample Site pH Bicarbonate Actual POC Total CO2 Base Excess O2 Saturation ABG pCO2 ABG pO2 Dipesh Test O2 Delivery Device Liter Flow Blood Gas Notified Whom Blood Gas Notified Time Sodium 134 L Potassium 4.8 Chloride 97 L Carbon Dioxide 24.0 Anion Gap 13 BUN 69 H Creatinine 9.66 H* Estim Creat Clear Calc 7.47 Est GFR (MDRD) Af Amer 7 L Est GFR (MDRD) Non-Af 6 L BUN/Creatinine Ratio 7.1 L Glucose 263 H Calcium 7.8 L Phosphorus 8.3 H Magnesium 2.2 Total Bilirubin AST ALT Alkaline Phosphatase Troponin I 8.960 H* 12.300 H* Total Protein Albumin Globulin Albumin/Globulin Ratio 11/08/18 05:25 WBC 13.3 H RBC 4.12 L Hgb 11.3 L Hct 37.4 L MCV 90.8 MCH 27.4 MCHC 30.2 L RDW 15.7 H RDW Differential 50.4 H Plt Count 181 MPV 12.2 H Immature Gran % (Auto) 2.000 H Neut % (Auto) 81.1 H Lymph % (Auto) 7.2 L [place] % (Auto) 9.3 Eos % (Auto) 0.2 Baso % (Auto) 0.2 Absolute Neuts (auto) 10.8 H Absolute Lymphs (auto) 0.95 Total Counted Not Reportable Differential Comment SCANNED RBC Morphology NORM C+C Specimen Type Sample Site pH Bicarbonate Actual POC Total CO2 Base Excess O2 Saturation ABG pCO2 ABG pO2 Dipesh Test O2 Delivery Device Liter Flow Blood Gas Notified Whom Blood Gas Notified Time Sodium Potassium Chloride Carbon Dioxide Anion Gap BUN Creatinine Estim Creat Clear Calc Est GFR (MDRD) Af Amer Est GFR (MDRD) Non-Af BUN/Creatinine Ratio Glucose Calcium Phosphorus Magnesium Total Bilirubin AST ALT Alkaline Phosphatase Troponin I Total Protein Albumin Globulin Albumin/Globulin Ratio POC Glucose 11/08/18 11/07/18 11/07/18 06:46 21:40 18:18 POC Glucose 280 H 281 H 280 H 11/07/18 14:20 POC Glucose 399 H Discharge Diet: No Restrictions Discharge Activity: Return to Normal Activity Home Medications: Medications to take at Discharge Pregabalin [Lyrica] 100 mg PO BID 06/22/17 Losartan Potassium [Cozaar] 25 mg PO DAILY 10/12/17 Aspirin [Aspirin, Baby] 81 mg PO DAILY@0800 01/26/18 Insulin Aspart [Novolog Flexpen] 0 units SC TID 01/26/18 Midodrine HCl [Proamatine] 5 mg PO MOWEFR 01/26/18 Sertraline HCl [Zoloft] 50 mg PO QHS 01/26/18 Insulin Detemir [Levemir FlexPen] 10 units SC QHS 04/04/18 Liliane-Gagan Williams Ph 1 tab PO DAILY 04/04/18 Pantoprazole Sodium [Protonix] 40 mg PO BID 04/16/18 Cholecalciferol (VIT D3) [Vitamin D3] 5,000 unit PO DAILY 11/07/18 Ondansetron [Zofran Odt] 4 mg PO Q6H PRN PRN 11/07/18 Silver Sulfadiazine 1% Crm [Silvadene Cream] 1 applic TOPICAL BID 11/07/18 Primary Care Physician: Care Physician,No Primary [Primary Care Provider] - Please follow up with your Primary Care Physician in: 1-2 weeks Please Follow Up With: Kiana Wilcox DO When: as directed Please Follow Up With: Palliative Care When: as directed Disposition: Home Minutes spent on discharge:: 35 Patient Condition:: Stable Medical Necessity - Tobacco Use Smoking Status: Never smoker Meaningful Use Info Meaningful Use Diagnoses (Choose all that apply): None applicable
[2018-11-08 14:01] LABS: Bedside Glucose 145 mg/dL (70-110)
--- NOTE | 2018-11-08 14:27 | DIALYSIS ---
TX COMPLETED ORDERED. RAN EVEN TODAY WITH NO FLUID REMOVAL. NO ISSUES WITH AV[facility] ACCESS TODAY. STABLE T/O. REPORT TO TRACY LESTER
[2018-11-08] MEDS: Aspirin 81 MG TAB.CHEW PO (14:49)
[2018-11-08] MEDS: Pantoprazole Sodium 40 MG Tablet PO (14:50)
[2018-11-08] MEDS: oxyCODONE 5 MG Tablet PO (15:59)
--- NOTE | 2018-11-09 15:03 | CASEMGMT ---
RN CM Discharge F/U Phone Call LACE: 10 Strata: 3 Discharge date: 11/08/18 Call date: 11/09/18 Call time: [phone] Attempted to reach pt without success at this time, message left for pt to call this RN CM back, if/when able. S[place]en RN CM Admission dx: Encephalopathy
== END 2018-11-08 16:04 | disposition home or self-care (01) | DRG 70 ==
LOC: ED 15:54 → PCU 16:47
PROVIDERS: Admitting Provider Family Medicine; Emergency Provider Emergency Medicine; Visit Provider Family Medicine
DX: G93.41 Metabolic encephalopathy (principal); N18.6 End stage renal disease; I21.4 Non-ST elevation (NSTEMI) myocardial infarction; I13.2 Hypertensive heart and chronic kidney disease with heart failure and with stage 5 chronic kidney disease, or end stage renal disease; I50.32 Chronic diastolic (congestive) heart failure; I25.10 Atherosclerotic heart disease of native coronary artery without angina pectoris; E11.42 Type 2 diabetes mellitus with diabetic polyneuropathy; E11.319 Type 2 diabetes mellitus with unspecified diabetic retinopathy without macular edema; E11.22 Type 2 diabetes mellitus with diabetic chronic kidney disease; Z99.2 Dependence on renal dialysis; E78.5 Hyperlipidemia, unspecified; Z66 Do not resuscitate; E66.9 Obesity, unspecified; F32.9 Major depressive disorder, single episode, unspecified; F41.9 Anxiety disorder, unspecified; H54.8 Legal blindness, as defined in USA; Z68.31 Body mass index [BMI] 31.0-31.9, adult; Z86.73 Personal history of transient ischemic attack (TIA), and cerebral infarction without residual deficits; E87.5 Hyperkalemia; I25.2 Old myocardial infarction; D63.8 Anemia in other chronic diseases classified elsewhere; D50.9 Iron deficiency anemia, unspecified; Z79.4 Long term (current) use of insulin
CPT/HCPCS: 36415; 36600; 71045; 80048; 80053; 82803; 82962; 83735; 84100; 84484; 85025; 87040; 90937; 93005; 97802; 99285; J7030; A4216; G0257